=== PATIENT | female | born 1970 | race Caucasian/White ===

== ENCOUNTER 2022-08-14 04:45 | Emergency (ER) | payer BC, SELFPAY ==
[2022-08-14 04:49] VITALS: BP 150/90; PULSE 62; RESP 18; TEMP 36.6; O2SAT 100; BMI 23.0
--- NOTE | 2022-08-14 05:07 | ED.FEMALEGU1 ---
Documented by User: Melo Cruz MD 08/20/22 06:52 HPI - Female Genitourinary General Chief complaint: Urogenital-Female Stated complaint: PELVIC PRESSURE, PELVIC PAIN Time Seen by Provider: 08/14/22 05:05 Mode of arrival: walk-in History of Present Illness HPI Narrative: patient has history of uterine fibroids. LMP 2 months ago. Now presents complaining of acute pelvic pain. Feels like the pain radiates toward her buttocks. The pressure feels like she is having a baby. Pain comes and goes. Denies vaginal bleeding or urinary symptoms Related Data Allergies Allergy/AdvReac Type Severity Reaction Status Date / Time No Known Drug Allergies Allergy Verified 08/14/22 04:55 Review of Systems ROS Status of ROS 10 or more systems reviewed and unremarkable except as noted in history and below Exam Constitutional Vital Signs - 24 hr 08/14/22 04:49 08/14/22 05:37 Temperature 97.8 F Pulse Rate [Monitor] 62 Respiratory Rate 18 Blood Pressure 145/78 H Blood Pressure [Right Arm] 150/90 H Pulse Oximetry 100 Common normals: average body habitus, oriented x3, alert and well nourished Other: patient in mod pain HENMT Common normals: normocephalic and head/scalp atraumatic Eye Common normals: PERRL, EOMs intact bilaterally and conjunctivae normal Respiratory Common normals: normal respiratory effort, no retractions, no use of accessory muscles and clear to auscultation bilaterally Cardio Common normals: regular rate, regular rhythm, S1 normal heart sound and S2 normal heart sound GI Common normals: Normal to inspection, nondistended, normoactive bowel sounds present and non-tender Common normals: external appearance normal and appearance of the vagina normal Other: pressure applied to floor of vaginal vault increases pain. Extremity Common normals: normal to inspection and full ROM Neuro Common normals: oriented x3, CN's II-XII intact bilaterally, moves all extremities and no focal motor deficits Psych Common normals: mental status grossly normal Course Vital Signs Vital signs: Vital Signs Temperature 97.8 F 08/14/22 04:49 Pulse Rate 62 08/14/22 04:49 Respiratory Rate 18 08/14/22 04:49 Blood Pressure 150/90 H 08/14/22 04:49 Pulse Oximetry 100 08/14/22 04:49 Temperature 97.8 F 08/14/22 04:49 Pulse Rate 62 08/14/22 04:49 Respiratory Rate 18 08/14/22 04:49 Blood Pressure 145/78 H 08/14/22 05:37 Pulse Oximetry 100 08/14/22 04:49 MDM - Female Genitourinary MDM Narrative Medical decision making narrative: patient has past history of uterine fibroids. Presents complaining of acute pelvic pain radiating toward her buttocks. Describes the pressure as a sensation reminding her of having babies. No vaginal bleeding. Pelvic exam with tenderness of the pelvis floor. Pelvic US ordered and care transferred to oncoming physician at change of shift Lab Data Labs: Lab Results 08/14/22 08/14/22 Range/Units 05:01 08:40 WBC 7.5 (4.0-11.0) 10^3/uL RBC 5.07 (4.20-5.40) 10^6/uL Hgb 14.4 (12.0-16.0) g/dL Hct 43.4 (36.0-48.0) % MCV 85.6 (81.0-99.0) fL MCH 28.4 (26.7-34.0) pg MCHC 33.2 (29.9-35.2) g/dL RDW 14.0 (11.0-15.0) % Plt Count 300 (150-450) 10^3/uL MPV 11.2 (9.5-13.5) fL Neut % (Auto) 51.5 (43.0-75.0) % Lymph % (Auto) 33.3 (20.5-60.0) % [place] % (Auto) 11.6 (1.7-12.0) % Eos % (Auto) 2.5 (0.9-7.0) % Baso % (Auto) 0.8 (0.2-2.0) % Neut # (Auto) 3.8 (1.4-6.5) 10^3/uL Lymph # (Auto) 2.5 (1.2-3.8) 10^3/uL [place] # (Auto) 0.0 L (0.3-0.8) 10^3/uL Eos # (Auto) 0.2 (0.0-0.7) 10^3/uL Baso # (Auto) 0.1 (0.0-0.1) 10^3/uL Abs Immat Gran (auto) 0.02 (0.00-0.03) 10^3/uL Imm/Tot Granulo (auto) 0.3 (0.0-0.5) % Sodium 136 (136-145) mmol/L Potassium 3.9 (3.5-5.1) mmol/L Chloride 102 (98-107) mmol/L Carbon Dioxide 23.2 (21.0-32.0) mmol/L Anion Gap 14.7 BUN 13.0 (7.0-18.0) mg/dL Creatinine 0.88 (0.55-1.02) mg/dL Est GFR ( Amer) >60 (>=60) Est GFR (Non-Af Amer) >60 (>=60) BUN/Creatinine Ratio 14.8 Glucose 99 (74-106) mg/dL Calcium 9.1 (8.5-10.1) mg/dL Total Bilirubin 0.5 (0.2-1.0) mg/dL AST 17 (15-37) U/L ALT 22 (14-59) U/L Alkaline Phosphatase 64 (46-116) U/L Total Protein 8.0 (6.4-8.2) g/dL Albumin 3.7 (3.4-5.0) g/dL Globulin 4.3 g/dL Albumin/Globulin Ratio 0.9 Serum HCG, Qual Negative (NEGATIVE) Urine Color Lt. yellow (YELLOW) Urine Clarity Clear (CLEAR) Urine pH 5.5 (5.0-9.0) Ur Specific [place] <=1.005 A (1.005-1.025) Urine Protein Negative (NEG/TRACE) mg/dL Urine Glucose (UA) Negative (NEGATIVE) mg/dL Urine Ketones Negative (NEGATIVE) mg/dL Urine Occult Blood Negative (NEGATIVE) Urine Nitrite Negative (NEGATIVE) Urine Bilirubin Negative (NEGATIVE) Urine Urobilinogen 0.2 (0.2-1.0) EU/dL Ur Leukocyte Esterase Negative (NEGATIVE) Discharge Plan Discharge Chief Complaint: Urogenital-Female Clinical Impression: Pain in rectum, Pelvic pain Patient Disposition: Home, Self-Care Time of Disposition Decision: 08:51 Instructions: Pelvic Pain (ED), Rectal Pain (ED) Stand Alone Forms: Portal Instructions Referrals: Praveen Farley DO [Physician] - 1 week Leon Hamlin MD [Physician] - 1 week Discharge Date/Time: 08/14/22 09:13 Documented by User: Merritt Perla 08/14/22 08:52 HPI - Female Genitourinary General Chief complaint: Urogenital-Female Stated complaint: PELVIC PRESSURE, PELVIC PAIN Time Seen by Provider: 08/14/22 05:05 Related Data Allergies Allergy/AdvReac Type Severity Reaction Status Date / Time No Known Drug Allergies Allergy Verified 08/14/22 04:55 Exam Constitutional Vital Signs - 24 hr 08/14/22 04:49 08/14/22 05:37 Temperature 97.8 F Pulse Rate [Monitor] 62 Respiratory Rate 18 Blood Pressure 145/78 H Blood Pressure [Right Arm] 150/90 H Pulse Oximetry 100 Course Vital Signs Vital signs: Vital Signs Temperature 97.8 F 08/14/22 04:49 Pulse Rate 62 08/14/22 04:49 Respiratory Rate 18 08/14/22 04:49 Blood Pressure 150/90 H 08/14/22 04:49 Pulse Oximetry 100 08/14/22 04:49 Temperature 97.8 F 08/14/22 04:49 Pulse Rate 62 08/14/22 04:49 Respiratory Rate 18 08/14/22 04:49 Blood Pressure 145/78 H 08/14/22 05:37 Pulse Oximetry 100 08/14/22 04:49 MDM - Female Genitourinary MDM Narrative Medical decision making narrative: patient has past history of uterine fibroids. Presents complaining of acute pelvic pain radiating toward her buttocks. Describes the pressure as a sensation reminding her of having babies. No vaginal bleeding. Pelvic exam with tenderness of the pelvis floor. Pelvic US ordered and care transferred to oncoming physician at change of shift Shift change - patient signed out to me. I ordered CT abd/pelvis as the patient's symptoms sounded more distal GI/rectal or even a case of proctatitis. CT and US did not reveal any acute pathology - the uterine fibroids are a known issue and have not caused pain before. Patient felt better after ED treatment. She was to see Dr Hamlin for follow up =- may benefit from endoscopic evaluation of the area. prescribed Toradol for pain. ED return if she worsens. Lab Data Attestation: I reviewed the patient's lab results. Labs: Lab Results 08/14/22 08/14/22 Range/Units 05:01 08:40 WBC 7.5 (4.0-11.0) 10^3/uL RBC 5.07 (4.20-5.40) 10^6/uL Hgb 14.4 (12.0-16.0) g/dL Hct 43.4 (36.0-48.0) % MCV 85.6 (81.0-99.0) fL MCH 28.4 (26.7-34.0) pg MCHC 33.2 (29.9-35.2) g/dL RDW 14.0 (11.0-15.0) % Plt Count 300 (150-450) 10^3/uL MPV 11.2 (9.5-13.5) fL Neut % (Auto) 51.5 (43.0-75.0) % Lymph % (Auto) 33.3 (20.5-60.0) % [place] % (Auto) 11.6 (1.7-12.0) % Eos % (Auto) 2.5 (0.9-7.0) % Baso % (Auto) 0.8 (0.2-2.0) % Neut # (Auto) 3.8 (1.4-6.5) 10^3/uL Lymph # (Auto) 2.5 (1.2-3.8) 10^3/uL [place] # (Auto) 0.0 L (0.3-0.8) 10^3/uL Eos # (Auto) 0.2 (0.0-0.7) 10^3/uL Baso # (Auto) 0.1 (0.0-0.1) 10^3/uL Abs Immat Gran (auto) 0.02 (0.00-0.03) 10^3/uL Imm/Tot Granulo (auto) 0.3 (0.0-0.5) % Sodium 136 (136-145) mmol/L Potassium 3.9 (3.5-5.1) mmol/L Chloride 102 (98-107) mmol/L Carbon Dioxide 23.2 (21.0-32.0) mmol/L Anion Gap 14.7 BUN 13.0 (7.0-18.0) mg/dL Creatinine 0.88 (0.55-1.02) mg/dL Est GFR ( Amer) >60 (>=60) Est GFR (Non-Af Amer) >60 (>=60) BUN/Creatinine Ratio 14.8 Glucose 99 (74-106) mg/dL Calcium 9.1 (8.5-10.1) mg/dL Total Bilirubin 0.5 (0.2-1.0) mg/dL AST 17 (15-37) U/L ALT 22 (14-59) U/L Alkaline Phosphatase 64 (46-116) U/L Total Protein 8.0 (6.4-8.2) g/dL Albumin 3.7 (3.4-5.0) g/dL Globulin 4.3 g/dL Albumin/Globulin Ratio 0.9 Serum HCG, Qual Negative (NEGATIVE) Urine Color Lt. yellow (YELLOW) Urine Clarity Clear (CLEAR) Urine pH 5.5 (5.0-9.0) Ur Specific [place] <=1.005 A (1.005-1.025) Urine Protein Negative (NEG/TRACE) mg/dL Urine Glucose (UA) Negative (NEGATIVE) mg/dL Urine Ketones Negative (NEGATIVE) mg/dL Urine Occult Blood Negative (NEGATIVE) Urine Nitrite Negative (NEGATIVE) Urine Bilirubin Negative (NEGATIVE) Urine Urobilinogen 0.2 (0.2-1.0) EU/dL Ur Leukocyte Esterase Negative (NEGATIVE) Imaging Data ct abd/pelvis: Radiologist's impression: Procedure: CT abdomen pelvis w con EXAM: CT abdomen pelvis w con HISTORY: pelvic pain COMPARISON: CT abdomen and pelvis 08/10/2021.. TECHNIQUE: Following the intravenous administration of 100 cc of Omnipaque 300, axial soft tissue windows of the abdomen and pelvis were performed with coronal and sagittal reformats. CT dose reduction technique was used including Automated Exposure Control. Findings: ABDOMEN: Stable 0.9 cm cyst within segment 2 of the liver. Within segment 7 of the liver there is a stable 1.3 cm low-attenuation lesion. The gallbladder, pancreas, and adrenal glands are unremarkable. Redemonstrated within the spleen is a 0.9 cm low-attenuation lesion. This likely relates to benign angiomatous lesion. No renal stones or collecting system dilatation. Right renal low-attenuation lesions, too small to characterize. Evaluation of the bowel is limited given the absence of oral contrast. No bowel obstruction. The appendix is nondilated. The aorta is normal caliber. No enlarged abdominal lymph nodes or free abdominal fluid. Pelvis: Unremarkable bladder. Uterine lesions likely representing fibroids. Within the right adnexa there is a subtle rim enhancing 2.5 cm low-attenuation lesion likely relating to an involuting ovarian cyst. Small amount of adjacent fluid. No enlarged pelvic lymph nodes. No aggressive sclerotic or lytic osseous lesions. Mild multilevel degenerative spondylosis. IMPRESSION: 1. Probable involuting right ovarian cyst with a small amount of adjacent fluid. 2. Fibroid uterus. 3. Other nonemergent findings, as described above. Electronically authenticated by: ANNEMARIE MORENO Date: 08/14/2022 08:16 us pelvis: Radiologist's impression: Procedure: US pelvis transvaginal EXAM: US pelvis transvaginal HISTORY: pelvic pain COMPARISON: 06/20/2022 TECHNIQUE: Transvaginal images FINDINGS: The uterus is enlarged in size lobular in contour and heterogeneous in echotexture measuring 11.3 x 6.9 x 5.3 cm. Multiple myometrial masses the largest in the right fundus measures 3.5 x 4.1 x 2.8 cm. The endometrium measures 14.4 mm, correlate with the menstrual cycle. The right ovary is normal measuring 3.1 x 2.2 x 1.8 cm. Normal color and Doppler flow The left ovary is normal measuring 1.7 x 1.7 x 1.5 cm. Normal color and Doppler flow No free fluid IMPRESSION: Enlarged lobular heterogeneous uterus with myometrial masses consistent with fibroids Electronically authenticated by: JAYDEN HENDERSON Date: 08/14/2022 07:49 Discharge Plan Discharge Chief Complaint: Urogenital-Female Clinical Impression: Pain in rectum, Pelvic pain Patient Disposition: Home, Self-Care Time of Disposition Decision: 08:51 Instructions: Pelvic Pain (ED), Rectal Pain (ED) Stand Alone Forms: Portal Instructions Referrals: Praveen Farley DO [Physician] - 1 week Leon Hamlin MD [Physician] - 1 week Discharge Date/Time: 08/14/22 09:13
[2022-08-14 05:16] LABS: Hematocrit 43.4 % (36.0-48.0); Hemoglobin 14.4 g/dL (12.0-16.0); Mean Corpuscular Hemoglobin 28.4 pg (26.7-34.0); Mean Corpuscular Volume 85.6 fL (81.0-99.0); Red Blood Count 5.07 10^6/uL (4.20-5.40); White Blood Count 7.5 10^3/uL (4.0-11.0)
[2022-08-14 05:17] LABS: Basophils Percent Auto 0.8 % (0.2-2.0); Eosinophils Percent Auto 2.5 % (0.9-7.0); Immature Granulocytes Pct Auto 0.3 % (0.0-0.5); Lymphocytes Absolute Auto 2.5 10^3/uL (1.2-3.8); Lymphocytes Percent Auto 33.3 % (20.5-60.0); Mean Corpuscular HGB Conc 33.2 g/dL (29.9-35.2); Mean Platelet Volume 11.2 fL (9.5-13.5); Monocytes Percent Auto 11.6 % (1.7-12.0); Neutrophils Absolute Auto 3.8 10^3/uL (1.4-6.5); Neutrophils Percent Auto 51.5 % (43.0-75.0); Platelet Count 300 10^3/uL (150-450)
[2022-08-14 05:18] LABS: Basophils Absolute Auto 0.1 10^3/uL (0.0-0.1); Eosinophils Absolute Auto 0.2 10^3/uL (0.0-0.7); Immature Granulocytes Abs Auto 0.02 10^3/uL (0.00-0.03)
[2022-08-14] MEDS: ONDANSETRON PF 4 MG/2 ML VIAL IV (05:18)
[2022-08-14] MEDS: 0.9 % SODIUM CHLORIDE 1,000 ML 999 ML IV (05:18)
[2022-08-14] MEDS: MORPHINE SULFATE 2 MG/ML SYRINGE (05:20)
[2022-08-14 05:33] LABS: Alanine Aminotransferase 22 U/L (14-59); Albumin Globulin Ratio 0.9; Albumin Level 3.7 g/dL (3.4-5.0); Alkaline Phosphatase 64 U/L (46-116); Anion Gap 14.7; Aspartate Amino Transferase 17 U/L (15-37); BUN Creatinine Ratio 14.8; Bilirubin Total 0.5 mg/dL (0.2-1.0); Calcium 9.1 mg/dL (8.5-10.1); Carbon Dioxide 23.2 mmol/L (21.0-32.0); Chloride 102 mmol/L (98-107); Estimated GFR (African America >60 (>=60); Estimated GFR (Non-African Ame >60 (>=60); Globulin 4.3 g/dL; Glucose 99 mg/dL (74-106); Potassium 3.9 mmol/L (3.5-5.1); Sodium 136 mmol/L (136-145)
[2022-08-14 05:35] LABS: HCG Qualitative NEGATIVE (NEGATIVE)
[2022-08-14 05:37] VITALS: BP 145/78
--- NOTE | 2022-08-14 05:47 | US_ITS ---
The [address] [address] Patient Name: FRANKY CYR MRN: [id number] date: 1970 Sex: F Assigned Patient Location: ER Current Patient Location: ER Accession/Order Number: [id number] Exam Date: 08/14/2022 07:00 Report Date: 08/14/2022 07:49 At the request of: JAVIER JUNE Procedure: US pelvis transvaginal EXAM: US pelvis transvaginal HISTORY: pelvic pain COMPARISON: 06/20/2022 TECHNIQUE: Transvaginal images FINDINGS: The uterus is enlarged in size lobular in contour and heterogeneous in echotexture measuring 11.3 x 6.9 x 5.3 cm. Multiple myometrial masses the largest in the right fundus measures 3.5 x 4.1 x 2.8 cm. The endometrium measures 14.4 mm, correlate with the menstrual cycle. The right ovary is normal measuring 3.1 x 2.2 x 1.8 cm. Normal color and Doppler flow The left ovary is normal measuring 1.7 x 1.7 x 1.5 cm. Normal color and Doppler flow No free fluid IMPRESSION: Enlarged lobular heterogeneous uterus with myometrial masses consistent with fibroids Electronically authenticated by: JAYDEN HENDERSON Date: 08/14/2022 07:49
--- NOTE | 2022-08-14 07:03 | CT_ITS ---
The [address] [address] Patient Name: FRANKY CYR MRN: [id number] date: 1970 Sex: F Assigned Patient Location: ER Current Patient Location: Accession/Order Number: [id number] Exam Date: 08/14/2022 07:55 Report Date: 08/14/2022 08:16 At the request of: YAS RUFF Procedure: CT abdomen pelvis w con EXAM: CT abdomen pelvis w con HISTORY: pelvic pain COMPARISON: CT abdomen and pelvis 08/10/2021.. TECHNIQUE: Following the intravenous administration of 100 cc of Omnipaque 300, axial soft tissue windows of the abdomen and pelvis were performed with coronal and sagittal reformats. CT dose reduction technique was used including Automated Exposure Control. Findings: ABDOMEN: Stable 0.9 cm cyst within segment 2 of the liver. Within segment 7 of the liver there is a stable 1.3 cm low-attenuation lesion. The gallbladder, pancreas, and adrenal glands are unremarkable. Redemonstrated within the spleen is a 0.9 cm low-attenuation lesion. This likely relates to benign angiomatous lesion. No renal stones or collecting system dilatation. Right renal low-attenuation lesions, too small to characterize. Evaluation of the bowel is limited given the absence of oral contrast. No bowel obstruction. The appendix is nondilated. The aorta is normal caliber. No enlarged abdominal lymph nodes or free abdominal fluid. Pelvis: Unremarkable bladder. Uterine lesions likely representing fibroids. Within the right adnexa there is a subtle rim enhancing 2.5 cm low-attenuation lesion likely relating to an involuting ovarian cyst. Small amount of adjacent fluid. No enlarged pelvic lymph nodes. No aggressive sclerotic or lytic osseous lesions. Mild multilevel degenerative spondylosis. IMPRESSION: 1. Probable involuting right ovarian cyst with a small amount of adjacent fluid. 2. Fibroid uterus. 3. Other nonemergent findings, as described above. Electronically authenticated by: ANNEMARIE MORENO Date: 08/14/2022 08:16
[2022-08-14 08:46] LABS: Bilirubin Urine NEGATIVE (NEGATIVE); Blood Urine NEGATIVE (NEGATIVE); Clarity Urine CLEAR (CLEAR); Color Urine LT. YELLOW (YELLOW); Glucose Urine UA NEGATIVE (NEGATIVE); Ketones Urine NEGATIVE (NEGATIVE); Leukocyte Esterase Urine NEGATIVE (NEGATIVE); Nitrite Urine NEGATIVE (NEGATIVE); Protein Urine NEGATIVE (NEG/TRACE); Specific Gravity Urine <=1.005 (1.005-1.025); Urobilinogen Urine 0.2 EU/dL (0.2-1.0); pH Urine 5.5 (5.0-9.0)
[2022-08-14 08:48] LABS: Urine Microscopic Indicated NO
== END 2022-08-14 09:13 | disposition home or self-care (01) ==
PROVIDERS: Internal Medicine; Emergency Provider Emergency Medicine; PCP Family Medicine
DX: R10.2 Pelvic and perineal pain (principal); K62.89 Other specified diseases of anus and rectum
CPT/HCPCS: 36415; 74177; 76830; 80053; 81003; 84703; 85025; 96374; 99285; Q9967

== ENCOUNTER 2022-10-04 06:04 | Outpatient (OUT) | payer BC, SELFPAY ==
[2022-10-04 07:07] LABS: Basophils Absolute Auto 0.1 10^3/uL (0.0-0.1); Basophils Percent Auto 1.3 % (0.2-2.0); Eosinophils Absolute Auto 0.2 10^3/uL (0.0-0.7); Eosinophils Percent Auto 4.2 % (0.9-7.0); Hemoglobin 14.3 g/dL (12.0-16.0); Immature Granulocytes Abs Auto 0.02 10^3/uL (0.00-0.03); Immature Granulocytes Pct Auto 0.4 % (0.0-0.5); Lymphocytes Absolute Auto 1.4 10^3/uL (1.2-3.8); Lymphocytes Percent Auto 25.3 % (20.5-60.0); Mean Corpuscular HGB Conc 33.3 g/dL (29.9-35.2); Mean Corpuscular Hemoglobin 28.9 pg (26.7-34.0); Mean Corpuscular Volume 86.9 fL (81.0-99.0); Mean Platelet Volume 11.7 fL (9.5-13.5); Monocytes Absolute Auto 0.6 10^3/uL (0.3-0.8); Monocytes Percent Auto 11.3 % (1.7-12.0); Neutrophils Absolute Auto 3.2 10^3/uL (1.4-6.5); Neutrophils Percent Auto 57.5 % (43.0-75.0); Platelet Count 266 10^3/uL (150-450); Red Blood Count 4.95 10^6/uL (4.20-5.40); Red Cell Distribution Width 13.7 % (11.0-15.0); White Blood Count 5.5 10^3/uL (4.0-11.0)
[2022-10-04 07:50] LABS: Estimated Average Glucose 91 mg/dL; Glycohemoglobin A1C 4.8 % (4.5-6.2)
[2022-10-04 08:13] LABS: Calcium 8.8 mg/dL (8.5-10.1); Carbon Dioxide 27.9 mmol/L (21.0-32.0); Chloride 106 mmol/L (98-107); Estimated GFR (African America >60 (>=60); Estimated GFR (Non-African Ame >60 (>=60); Glucose 87 mg/dL (74-106); Potassium 3.9 mmol/L (3.5-5.1); Sodium 141 mmol/L (136-145)
[2022-10-04 08:14] LABS: Alanine Aminotransferase 20 U/L (14-59); Albumin Globulin Ratio 1.1; Alkaline Phosphatase 55 U/L (46-116); Aspartate Amino Transferase 18 U/L (15-37); Bilirubin Direct 0.1 mg/dL (0.0-0.2); Bilirubin Total 0.4 mg/dL (0.2-1.0); Cholesterol 189 mg/dL (<=200); Globulin 3.5 g/dL; HDL Cholesterol 64 mg/dL (40-60); Total Protein 7.5 g/dL (6.4-8.2); Triglycerides 39 mg/dL (<=150); VLDL CHOLESTEROL 7.8 mg/dL
[2022-10-04 08:15] LABS: Thyroid Stimulating Hormone 1.687 uIU/mL (0.358-3.740)
== END 2022-10-04 06:05 | disposition home or self-care (01) ==
LOC: LAB 06:05
PROVIDERS: PCP Family Medicine; Visit Provider Family Medicine
DX: Z00.00 Encounter for general adult medical examination without abnormal findings (principal)
CPT/HCPCS: 36415; 80048; 80061; 80076; 83036; 84443; 85025

== ENCOUNTER 2022-10-11 14:36 | Outpatient (OUT) | payer BC, SELFPAY | END 2022-10-11 14:37 | disposition home or self-care (01) | LOC: PST 14:36 | PROVIDERS: PCP Family Medicine; Visit Provider Surgery | DX: Z01.818 Encounter for other preprocedural examination (principal); Z12.11 Encounter for screening for malignant neoplasm of colon ==

== ENCOUNTER 2022-10-23 06:08 | Day surgery (SDC) | payer BC, SELFPAY ==
--- NOTE | 2022-10-23 | OP_ITS ---
OPERATION DATE: ??10/23/2022 PREOPERATIVE DIAGNOSIS:? Colorectal screening. POSTOPERATIVE DIAGNOSIS:? 3 mm rectal polyp. PROCEDURE:? Colonoscopy to cecum with cold biopsy forceps polypectomy x1. SURGEON:? Leon Hamlin M.D. ANESTHESIA:? Monitored anesthesia care. ESTIMATED BLOOD LOSS:? Less than 1 mL. INDICATIONS AND CONSENT:? Patient is a 52-year-old female presents for colorectal screening.? Indications, risks, benefits, alternatives of proceeding with colonoscopy were explained extensively to the patient, including the risks of bleeding, colon perforation or anesthetic complications.? All of her questions were answered.? Informed consent was obtained. PROCEDURE:? Patient brought to the operating room, placed in the left lateral decubitus position.? Monitored anesthesia care was provided.? Rectal exam was performed which showed no masses or blood.? The scope was inserted into the anal canal.? Under direct visualization was advanced.? With the aid of abdominal compression, it was advanced to the cecum where cecal markings were clearly identified.? There was noted to be some redundancy of the colon.? There was a good prep.? Upon withdrawal of the scope, mucosal surfaces were carefully examined.? There were no mass lesions or inflammatory changes.? No significant diverticulosis.? Within the rectum, there was noted to be a 3 mm sessile polyp that was removed with cold biopsy forceps with good hemostasis.? The scope was retroflexed in the anal canal.? There was a small hypertrophic anal papilla.? No significant hemorrhoidal disease.? The scope was then withdrawn.? Patient tolerated procedure well, was sent to recovery room in good condition. f/u screening colonoscopy should be in 5 years, but may change based on pathology results. CC:? Jake García
[2022-10-23 06:28] VITALS: BMI 22.8
[2022-10-23 06:35] LABS: HCG Qualitative NEGATIVE (NEGATIVE)
[2022-10-23 06:38] VITALS: BP 154/87; PULSE 48; RESP 16; TEMP 35.3; O2SAT 100
[2022-10-23] MEDS: LACTATED RINGER'S SOLUTION 1,000 ML 50 ML IV (06:50)
[2022-10-23 07:51] VITALS: BP 148/101; PULSE 57; RESP 18; TEMP 36.1; O2SAT 99
[2022-10-23 08:06] VITALS: BP 153/93; PULSE 57; RESP 16; O2SAT 99
[2022-10-23 08:21] VITALS: BP 139/81; PULSE 62; RESP 16; O2SAT 99
== END 2022-10-23 08:21 | disposition home or self-care (01) ==
PROVIDERS: PCP Family Medicine; Visit Provider Surgery
PROC: (CPT 45380; principal; 2022-10-23 07:30)
DX: Z12.11 Encounter for screening for malignant neoplasm of colon (principal); K62.1 Rectal polyp
CPT/HCPCS: 45380; 36415; 84703; 88305; J2704

== ENCOUNTER 2023-05-20 13:52 | Outpatient (OUT) | payer BC, SELFPAY ==
--- NOTE | 2023-05-20 13:58 | US_ITS ---
The [address] [address] Patient Name: FRANKY CYR MRN: [id number] date: 1970 Sex: F Assigned Patient Location: US Current Patient Location: [facility] Accession/Order Number: [id number] Exam Date: 05/20/2023 14:00 Report Date: 05/20/2023 16:09 At the request of: DIPIKA JONES Procedure: US pelvis w/ transvaginal EXAMINATION: US pelvis w/ transvaginal HISTORY: pelvic pain in female R10.2 COMPARISON: No relevant comparison available. FINDINGS: The uterus is prominent in size heterogeneous in echotexture and lobular in contour measuring 8.1 x 5.7 x 6.4 cm. 2 focal myometrial masses measuring 3.0 x 3.1 x 2.3 cm posterior and at the myometrial endometrial junction measuring 2.7 x 2.6 x 2.1 cm. The endometrium measures 2.1 cm, heterogeneous and thickened. The right ovary is not visualized The left ovary measures 4.7 x 2.6 x 3.5 cm. Identified in the left ovary is a 2.3 x 2.2 cm anechoic area with layering low-level echoes but no color-flow US/US pelvis w/ transvaginal IMPRESSION: Thickened heterogeneous endometrium, correlate with the menstrual cycle Two focal masses possibly fibroids 2.3 cm left ovarian complex or hemorrhagic cyst Electronically authenticated by: JAYDEN HENDERSON Date: 05/20/2023 16:09
== END 2023-05-20 13:53 | disposition home or self-care (01) ==
LOC: US 13:52
PROVIDERS: PCP Family Medicine; Visit Provider Obstetrics & Gynecology
DX: Z12.31 Encounter for screening mammogram for malignant neoplasm of breast (principal); Z80.3 Family history of malignant neoplasm of breast; D25.9 Leiomyoma of uterus, unspecified; D10.2 Benign neoplasm of floor of mouth; N83.292 Other ovarian cyst, left side
CPT/HCPCS: 76830; 76856; 77063; 77067

== ENCOUNTER 2023-05-20 13:53 | Outpatient (OUT) | payer BC, SELFPAY ==
--- NOTE | 2023-05-20 13:56 | MM_ITS ---
Patient Name: FRANKY CYR MR#: [id number] : 1970 Exam Date: 05/20/2023 Ordering Doctor: DR Mikey Subramanian . RADIOLOGY REPORT PROCEDURE: MM TOMOSYNTHESIS SCREENING BI COMPARISON: MG MAMM SCREEN 3D KATHY CAD, 05/17/2022. MG MAMM SCREEN 3D KATHY CAD, 05/10/2021. INDICATIONS: screening Calculator Name NCI Breast Cancer Risk Assessment Tool 5 Year Breast Cancer Risk 1.60% Lifetime Breast Cancer Risk 12.60% Personal Breast Cancer No Personal Ovarian Cancer No Treatments None Family Cancers Grandmother-paternal with breast cancer at age 70. LOCATION: [facility] BREAST COMPOSITION: Extremely dense, which lowers the sensitivity of mammography. FINDINGS: DIAGNOSTIC CATEGORY 2--BENIGN FINDING. NO CHANGE FROM COMPARISON. Scattered benign-appearing nodules are present. Scattered benign-appearing calcifications are present. Scattered benign-appearing lymph nodes are present. RIGHT BREAST: No significant suspicious finding. LEFT BREAST: No significant suspicious finding. RECOMMENDATIONS: ROUTINE MAMMOGRAM AND CLINICAL EVALUATION IN 12 MONTHS. PLEASE NOTE: A NORMAL MAMMOGRAM DOES NOT EXCLUDE THE POSSIBILITY OF BREAST CANCER. A CLINICALLY SUSPICIOUS PALPABLE LUMP SHOULD BE BIOPSIED. Dictated by: Joni Kinsey MD on 05/20/2023 at 15:27 Approved by: Joni Kinsey MD on 05/20/2023 at 15:28
== END 2023-05-20 13:54 | disposition home or self-care (01) ==
LOC: MAMMO 13:53
PROVIDERS: PCP Family Medicine; Visit Provider Family Medicine
DX: Z12.31 Encounter for screening mammogram for malignant neoplasm of breast (principal); Z80.3 Family history of malignant neoplasm of breast
CPT/HCPCS: 77063; 77067

== ENCOUNTER 2023-05-26 06:56 | Outpatient (OUT) | payer BC, SELFPAY ==
[2023-05-26 07:27] LABS: Basophils Absolute Auto 0.1 10^3/uL (0.0-0.1); Basophils Percent Auto 1.2 % (0.2-2.0); Eosinophils Absolute Auto 0.3 10^3/uL (0.0-0.7); Eosinophils Percent Auto 5.1 % (0.9-7.0); Estimated Average Glucose 91 mg/dL; Glycohemoglobin A1C 4.8 % (4.5-6.2); Hematocrit 43.9 % (36.0-48.0); Hemoglobin 14.1 g/dL (12.0-16.0); Immature Granulocytes Abs Auto 0.02 10^3/uL (0.00-0.03); Immature Granulocytes Pct Auto 0.3 % (0.0-0.5); Lymphocytes Absolute Auto 1.8 10^3/uL (1.2-3.8); Lymphocytes Percent Auto 29.7 % (20.5-60.0); Mean Corpuscular HGB Conc 32.1 g/dL (29.9-35.2); Mean Corpuscular Hemoglobin 28.4 pg (26.7-34.0); Mean Corpuscular Volume 88.3 fL (81.0-99.0); Mean Platelet Volume 11.7 fL (9.5-13.5); Monocytes Absolute Auto 0.7 10^3/uL (0.3-0.8); Monocytes Percent Auto 10.9 % (1.7-12.0); Neutrophils Absolute Auto 3.2 10^3/uL (1.4-6.5); Neutrophils Percent Auto 52.8 % (43.0-75.0); Platelet Count 236 10^3/uL (150-450); Red Blood Count 4.97 10^6/uL (4.20-5.40); White Blood Count 6.1 10^3/uL (4.0-11.0)
[2023-05-26 07:50] LABS: Alanine Aminotransferase 16 U/L (14-59); Albumin Globulin Ratio 1.1; Albumin Level 3.7 g/dL (3.4-5.0); Alkaline Phosphatase 58 U/L (46-116); Anion Gap 13.3; Aspartate Amino Transferase 15 U/L (15-37); BUN Creatinine Ratio 18.9; Bilirubin Direct 0.1 mg/dL (0.0-0.2); Bilirubin Total 0.7 mg/dL (0.2-1.0); Calcium 8.7 mg/dL (8.5-10.1); Carbon Dioxide 26.8 mmol/L (21.0-32.0); Chloride 104 mmol/L (98-107); Chol HDL Ratio 2.9; Cholesterol 181 mg/dL (<=200); Estimated GFR (African America >60 (>=60); Estimated GFR (Non-African Ame >60 (>=60); Globulin 3.5 g/dL; Glucose 83 mg/dL (74-106); HDL Cholesterol 62 mg/dL (40-60); Potassium 4.1 mmol/L (3.5-5.1); Sodium 140 mmol/L (136-145); Total Protein 7.2 g/dL (6.4-8.2); Triglycerides 49 mg/dL (<=150); VLDL CHOLESTEROL 9.8 mg/dL
== END 2023-05-26 06:57 | disposition home or self-care (01) ==
LOC: LAB 06:57
PROVIDERS: PCP Family Medicine; Visit Provider Family Medicine
DX: Z00.00 Encounter for general adult medical examination without abnormal findings (principal)
CPT/HCPCS: 36415; 80048; 80061; 80076; 83036; 84443; 85025

== ENCOUNTER 2023-06-13 14:34 | Outpatient (OUT) | payer BC, SELFPAY ==
--- NOTE | 2023-06-13 14:35 | ECG_ITS ---
The 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
== END 2023-06-13 14:35 | disposition home or self-care (01) ==
LOC: PST 14:34
PROVIDERS: PCP Family Medicine; Visit Provider Obstetrics & Gynecology
DX: Z01.810 Encounter for preprocedural cardiovascular examination (principal); R93.89 Abnormal findings on diagnostic imaging of other specified body structures; D25.9 Leiomyoma of uterus, unspecified; R10.2 Pelvic and perineal pain
CPT/HCPCS: 93005

== ENCOUNTER 2023-06-17 06:07 | Day surgery (SDC) | payer BC, SELFPAY ==
[2023-06-13 15:09] VITALS: BP 134/87; PULSE 60; TEMP 36.8; O2SAT 99; BMI 23.4
[2023-06-17 06:17] LABS: Basophils Absolute Auto 0.1 10^3/uL (0.0-0.1); Basophils Percent Auto 1.2 % (0.2-2.0); Eosinophils Absolute Auto 0.3 10^3/uL (0.0-0.7); Eosinophils Percent Auto 4.5 % (0.9-7.0); Hemoglobin 14.4 g/dL (12.0-16.0); Immature Granulocytes Abs Auto 0.01 10^3/uL (0.00-0.03); Immature Granulocytes Pct Auto 0.1 % (0.0-0.5); Lymphocytes Percent Auto 28.5 % (20.5-60.0); Mean Corpuscular Hemoglobin 28.1 pg (26.7-34.0); Mean Corpuscular Volume 87.9 fL (81.0-99.0); Mean Platelet Volume 11.8 fL (9.5-13.5); Monocytes Absolute Auto 0.8 10^3/uL (0.3-0.8); Monocytes Percent Auto 11.3 % (1.7-12.0); Neutrophils Absolute Auto 3.8 10^3/uL (1.4-6.5); Neutrophils Percent Auto 54.4 % (43.0-75.0); Platelet Count 210 10^3/uL (150-450); Red Blood Count 5.12 10^6/uL (4.20-5.40); Red Cell Distribution Width 13.1 % (11.0-15.0); White Blood Count 6.9 10^3/uL (4.0-11.0)
[2023-06-17 06:26] VITALS: BP 147/93; PULSE 56; TEMP 36.2; O2SAT 100; BMI 23.6
[2023-06-17 06:40] LABS: HCG Quantitative 3 mIU/mL
[2023-06-17] MEDS: LACTATED RINGER'S SOLUTION 1,000 ML 50 ML IV (06:47)
--- NOTE | 2023-06-17 08:13 | PM.ONB ---
Brief Operative Note Date of procedure: 06/17/23 Pre-op diagnosis general: thickened endometrium, uterine fibroids, menorrhagia Post-op diagnosis: same as pre-op Procedure: NAME OF PROCEDURE: [ D&c hysteroscopy with myosure] PROCEDURE: The patient was taken back to the Operating Room where she was prepped and draped in normal sterile fashion after being placed under general anesthesia without difficulty. She was also placed in the dorsal lithotomy position. A weighted speculum was placed in the patient?s vagina. The anterior lip of the cervix was identified and grasped with a single tooth tenaculum. The patient?s uterus was then sounded roughly to [? 8] cm. The patient was then gently dilated using Hegar dilators. The hysteroscope was passed through the patient?s cervix into the uterus. Both ostia were identified. fluffy appearing endometrium. No gross evidence of malignancy, no gross evidence of polyps or fibroids. The myosure apparatus was placed through the scope, The myosure was engaged and endometrial curretting were removed. The hysteroscope was then removed from the uterus. The endometrial curettings were sent out to pathology. The single tooth tenaculum was then removed from the patient's anterior lip of the cervix where excellent hemostasis was noted. All instruments were removed from the patient?s vagina. The patient tolerated the procedure well. Sponge, lap and needle counts were correct times two. The patient was taken to the Recovery Room in stable condition.Room in stable condition. Anesthesia: MAC Surgeon: Praveen Farley Estimated blood loss (mL): 5 Pathology: other (endometrial currettings) Condition: stable Disposition: PACU Urinary Catheter Management Urinary Catheter Management Urethral: Cath placed during this visit: no
[2023-06-17 08:22] VITALS: BP 121/84; PULSE 56; O2SAT 97
[2023-06-17 08:37] VITALS: BP 129/71; PULSE 48; O2SAT 100
[2023-06-17] MEDS: ERYTHROMYCIN OP OINT 0.5% 1 GM TUBE OP (08:52)
[2023-06-17 09:07] VITALS: BP 132/83; PULSE 48; O2SAT 100
== END 2023-06-17 09:10 | disposition home or self-care (01) ==
PROVIDERS: PCP Family Medicine; Visit Provider Obstetrics & Gynecology
PROC: (CPT 952; principal; 2023-06-17 07:30)
DX: R93.89 Abnormal findings on diagnostic imaging of other specified body structures (principal); D25.9 Leiomyoma of uterus, unspecified; R10.2 Pelvic and perineal pain; Z86.718 Personal history of other venous thrombosis and embolism; R56.9 Unspecified convulsions
CPT/HCPCS: 58558; 36415; 84702; 85025; 88305; 99999; J1094; J2704

== ENCOUNTER 2023-07-22 12:27 | Outpatient (OUT) | payer BC, SELFPAY ==
[2023-07-22 13:15] LABS: Basophils Absolute Auto 0.1 10^3/uL (0.0-0.1); Basophils Percent Auto 0.6 % (0.2-2.0); Eosinophils Absolute Auto 0.3 10^3/uL (0.0-0.7); Eosinophils Percent Auto 2.4 % (0.9-7.0); Hematocrit 40.8 % (36.0-48.0); Hemoglobin 13.2 g/dL (12.0-16.0); Immature Granulocytes Abs Auto 0.03 10^3/uL (0.00-0.03); Immature Granulocytes Pct Auto 0.3 % (0.0-0.5); Lymphocytes Absolute Auto 1.7 10^3/uL (1.2-3.8); Lymphocytes Percent Auto 15.1 % (20.5-60.0); Mean Corpuscular HGB Conc 32.4 g/dL (29.9-35.2); Mean Corpuscular Hemoglobin 28.1 pg (26.7-34.0); Mean Platelet Volume 11.9 fL (9.5-13.5); Monocytes Absolute Auto 0.7 10^3/uL (0.3-0.8); Monocytes Percent Auto 6.1 % (1.7-12.0); Neutrophils Absolute Auto 8.6 10^3/uL (1.4-6.5); Neutrophils Percent Auto 75.5 % (43.0-75.0); Platelet Count 239 10^3/uL (150-450); Red Blood Count 4.69 10^6/uL (4.20-5.40); Red Cell Distribution Width 13.9 % (11.0-15.0); White Blood Count 11.4 10^3/uL (4.0-11.0)
[2023-07-22 13:22] LABS: INR 1.08; Partial Thromboplastin Time 26.7 sec (22.3-36.2); Prothrombin Time 11.4 sec (9.0-11.6)
[2023-07-22 13:27] LABS: Alanine Aminotransferase 20 U/L (14-59); Albumin Globulin Ratio 1.1; Albumin Level 3.8 g/dL (3.4-5.0); Alkaline Phosphatase 66 U/L (46-116); Anion Gap 11.4; Aspartate Amino Transferase 16 U/L (15-37); BUN Creatinine Ratio 20.9; Bilirubin Direct 0.2 mg/dL (0.0-0.2); Bilirubin Total 0.8 mg/dL (0.2-1.0); Carbon Dioxide 28.1 mmol/L (21.0-32.0); Chloride 104 mmol/L (98-107); Estimated GFR (African America >60 (>=60); Estimated GFR (Non-African Ame >60 (>=60); Globulin 3.4 g/dL; Glucose 91 mg/dL (74-106); Potassium 4.5 mmol/L (3.5-5.1); Sodium 139 mmol/L (136-145); Total Protein 7.2 g/dL (6.4-8.2)
== END 2023-07-22 12:28 | disposition home or self-care (01) ==
LOC: PST 12:28
PROVIDERS: PCP Family Medicine; Visit Provider Obstetrics & Gynecology
DX: Z01.810 Encounter for preprocedural cardiovascular examination (principal); N92.0 Excessive and frequent menstruation with regular cycle; R10.2 Pelvic and perineal pain; N94.6 Dysmenorrhea, unspecified; N94.10 Unspecified dyspareunia
CPT/HCPCS: 80048; 80076; 85025; 85610; 85730; 86850; 86900; 86901

== ENCOUNTER 2023-07-30 06:04 | Day surgery (SDC) | payer BC, SELFPAY ==
[2023-07-22 12:47] VITALS: BP 138/86; PULSE 47; TEMP 36.6; O2SAT 99; BMI 22.5
[2023-07-30] VITALS (14 sets, daily range): BP systolic 126–157; BP diastolic 62–88; PULSE 45–63; TEMP 36.3–36.6; O2SAT 85–100
--- OUTSIDE RECORDS SUMMARY | 2023-07-30 06:08 | XMS_ITS | CCD ---
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 Name Role Phone BEATRIZ, DR JAYDEN Bobby Admitting Unavailable WEST, DR JAYDEN Bobby Attending Unavailable NADERER, DR KARO Latif Primary Care Unavailable WEST, DR JAYDEN Bobby Consulting Unavailable NADERER, DR KARO Latif Primary Care Unavailable WEST, DR JAYDEN Bobby Attending Unavailable WEST, DR JAYDEN Bobby Admitting Unavailable WEST, DR JAYDEN Bobby Admitting Unavailable WEST, DR JAYDEN Bobby Attending Unavailable WEST, DR JAYDEN Bobby Consulting Unavailable NADERER, DR KARO Latif Primary Care Unavailable ROBERT ., DR BAR Attending Unavailable ROBERT ., DR BAR Consulting Unavailable ROBERT ., DR BAR Admitting Unavailable NADERER, DR KARO Latif Primary Care Unavailable ROBERT ., DR BAR Attending Unavailable ROBERT ., DR BAR Consulting Unavailable ROBERT ., DR BAR Admitting Unavailable NADERER, DR KARO Latif Primary Care Unavailable ZIEBER, DR RANDALL Chester Consulting Unavailable WEST, DR JAYDEN Bobby Admitting Unavailable WEST, DR JAYDEN Bobby Attending Unavailable WEST, DR JAYDEN Bobby Consulting Unavailable NADERER, DR KARO Latif Primary Care Unavailable WEST, DR JAYDEN Bobby Attending Unavailable WEST, DR JAYDEN Bobby Consulting Unavailable WEST, DR JAYDEN Bobby Admitting Unavailable NADERER, DR KARO Latif Primary Care Unavailable NADERER, DR KARO Latif Primary Care Unavailable NADERER, DR KARO Latif Attending Unavailable NADERER, DR KARO Latif Admitting Unavailable NADERER, DR KARO Latif Primary Care Unavailable ZIEBER, DR RANDALL Chester Consulting Unavailable NADERER, DR KARO Latif Attending Unavailable NADERER, DR KARO Latif Admitting Unavailable NADERER, DR KARO Latif Consulting Unavailable ROBERT ., DR BAR Admitting Unavailable ROBERT ., DR BAR Attending Unavailable ROBERT ., DR BAR Consulting Unavailable NADERER, DR KARO Latif Primary Care Unavailable NADERER, DR KARO Latif Primary Care Unavailable NADERER, DR KARO Laitf Attending Unavailable NADERER, DR KARO Latif Consulting Unavailable NADERER, DR KARO Latif Admitting Unavailable NADERER, DR KARO Latif Primary Care Unavailable ABBAS, DR MEDINA Attending Unavailable ABBAS, DR MEDINA Consulting Unavailable ABBAS, DR MEDINA Admitting Unavailable NADERER, DR KARO Latif Primary Care Unavailable WEST, DR JAYDEN Bobby Consulting Unavailable WEST, DR JAYDEN Bobby Attending Unavailable WEST, DR JAYDEN Bobby Admitting Unavailable NADERER, DR KARO Latif Primary Care Unavailable WEST, DR JAYDEN Bobby Consulting Unavailable WEST, DR JAYDEN Bobby Admitting Unavailable WEST, DR JAYDEN Bobby Attending Unavailable NADERER, DR KARO Latif Primary Care Unavailable WEST, DR JAYDEN Bobby Consulting Unavailable WEST, DR JAYDEN Bobby Attending Unavailable WEST, DR JAYDEN Bobby Admitting Unavailable ZIEBER, DR RANDALL Chester Consulting Unavailable MARCELO, LOY Attending Unavailable MARCELO, LOY Consulting Unavailable MARCELO, LOY Admitting Unavailable NADERER, DR KARO Latif Primary Care Unavailable MARCELO, LOY Admitting Unavailable MARCELO, LOY Attending Unavailable MARCELO, LOY Consulting Unavailable NADERER, DR KARO Latif Primary Care Unavailable NADERER, DR KARO Latif Primary Care Unavailable WEST, DR JAYDEN Bobby Consulting Unavailable NADERER, DR KARO Latif Attending Unavailable NADERER, DR KARO Latif Admitting Unavailable NADERER, DR KARO Latif Consulting Unavailable ROBERT ., DR BAR Admitting Unavailable ROBERT ., DR BAR Attending Unavailable ROBERT ., DR BAR Consulting Unavailable NADERER, DR KRAO Latif Primary Care Unavailable ZIEBER, DR RANDALL Chester Consulting Unavailable WEST, DR JAYDEN Bobby Admdee Unavailable WEST, DR JAYDEN Bobby Attending Unavailable NADERER, DR KARO Latif Primary Care Unavailable NADERER, DR KARO Latif Primary Care Unavailable ROBERT ., DR BAR Admitting Unavailable ROBERT ., DR BAR Attending Unavailable ROBERT ., DR BAR Consulting Unavailable ZIEBER, DR RANDALL Chester Consulting Unavailable WEST, DR JAYDEN Bobby Consulting Unavailable NADERER, DR KARO Latif Primary Care Unavailable WEST, DR JAYDEN Bobby Attending Unavailable WEST, DR JAYDEN Bobby Admitting Unavailable WEST, DR JAYDEN Bobby Admitting Unavailable WEST, DR JAYDEN Bobby Attending Unavailable WEST, DR JAYDEN Bobby Consulting Unavailable NADERER, DR KARO Latif Primary Care Unavailable NADERER, DR KARO Latif Primary Care Unavailable ABBAS, DR MEDINA Consulting Unavailable WEST, DR JAYDEN Bobby Admitting Unavailable WEST, DR JAYDEN Bobby Attending Unavailable DR JAYDEN HENDERSON V Consulting Unavailable DR RANDALL LEMONS Consulting Unavailable KARO DAVIS Primary Care Physician [phone] Leon WHYTE Attending Unavailable KARO DAVIS Referring Unavailable Leon WHYTE Attending Unavailable DIPIKA JONES Attending Unavailable DIPIKA JONES Attending Unavailable Allergies Allergy Classification Reported Allergen(s) Allergy Type Date of Onset Reaction(s) Facility (1 source) No Known Medication Allergies; Translations: [No Known Medication Allergies] Propensity to adverse reactions (disorder) [facility] Repository Problems Active Problems Problem Classification Problem Date Documented Da te Episodic/Chronic Benign neoplasm of uterus (5 sources) Leiomyoma of uterus, unspecified; Translations: [Uterine leiomyoma] Onset: 06-20-2022 Episodic Disorders of lipid metabolism (1 source) 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 Immunizations and screening for infectious disease (1 source) Encounter for screening for other infectious and parasitic diseases; Translations: [ENC SCREENING OTH INF PARASITIC DZ] Onset: 05-29-2022 Episodic Other circulatory disease (4 sources) Arteritis, unspecified; Translations: [ARTERITIS UNSPECIFIED] Onset: 09-20-2021 Chronic Other screening for suspected conditions (not mental disorders or infectious disease) (9 sources) Encounter for screening for malignant neoplasm of cervix; Translations: [Encounter for screening mammogram for malignant neoplasm of breast] Onset: 05-17-2022 Episodic Peripheral and visceral atherosclerosis (9 sources) Peripheral vascular disease, unspecified; Translations: [Atherosclerosis of [place] arteries of extremities with rest pain, bilateral legs] Onset: 07-31-2021 Chronic Residual codes; unclassified (1 source) Family history of malignant neoplasm of breast; Translations: [FAMILY HX MALIG NEOPLASM OF BREAST] Onset: 05-19-2022 Episodic Spondylosis; intervertebral disc disorders; other back problems (2 sources) Other intervertebral disc degeneration, lumbar region; Translations: [Degeneration of lumbar intervertebral disc] Onset: 07-05-2021 09-18-2022 Chronic Unclassified (3 sources) CONTACT W/AND (SUSP) EXPOS COVID-19; Translations: [CONTACT W/AND (SUSP) EXPOS COVID-19] Onset: 01-24-2022 Unclassified (1 source) Body mass index 20-24 - normal 10-08-2022 Unclassified (1 source) Patient encounter status 10-08-2022 Past or Other Problems Problem Classification Problem Date Documented Da te Episodic/Chronic Other aftercare (5 sources) Encounter for surgical aftercare following surgery on the circulatory system; Translations: [ENC SURG AFTRCARE FLW SURG CIRC SYS] Onset: 2 Episodic Other bone disease and musculoskeletal deformities (4 sources) Disorder of bone, unspecified; Translations: [DISORDER OF BONE UNSPECIFIED] Onset: 2 Episodic Other circulatory disease (1 source) Vascular insufficiency Onset: 2 09-18-2022 Episodic Other endocrine disorders (4 sources) Endocrine disorder, unspecified; Translations: [ENDOCRINE DISORDER UNSPECIFIED] Onset: 2 Episodic Other non-traumatic joint disorders (1 source) Pain in unspecified joint; Translations: [PAIN IN UNSPECIFIED JOINT] Onset: 2 Episodic Phlebitis; thrombophlebitis and thromboembolism (5 sources) Phlebitis and thrombophlebitis of superficial vessels of right lower extremity; Translations: [PHLEBITIS AND TP SUP VES RT LOW EXT] Onset: 2 Episodic Spondylosis; intervertebral disc disorders; other back problems (4 sources) Dorsalgia, unspecified; Translations: [DORSALGIA UNSPECIFIED] Onset: 2 Episodic Unclassified (1 source) CONTACT W/AND (SUSP) EXPOS COVID-19; Translations: [CONTACT W/AND (SUSP) EXPOS COVID-19] Onset: 2 Varicose veins of lower extremity (6 sources) Varicose veins of bilateral lower extremities with pain; Translations: [Varicose veins of lower extremity] Onset: 2 Episodic Results Test Name Value Interpretation Reference Range Facility Pathology Noteon 10-31-2022 Pathology Note [id number]#[id number] :127 Normal [facility] Reminderson 10-30-2022 Reminders - From: Shavon Mcguire LPN To: N - Clinical; Sent: 10/30/2022 11:35:53 EDT Show up: 09/22/2032 07:00:00 EDT Subject: colonoscopy recall Due Date/Time: 10/23/2032 07:00:00 EDT Reminder/Recall Patient due for screening colonoscopy 10/23/2032. Normal [facility] Outside Colonoscopyon 2022 Outside Colonoscopy [id number] D:127 [facility] Lab Reportson 10-23-2022 Lab Reports [id number] D:127 [facility] Consent for Procedure/Surger yon 10-09-2022 Consent for Procedure/Surgery [id number]#1.00C D:127 [facility] Formson 10-09-2022 Forms [id number] D:127 [facility] Ambulatory Visit Summaryon 0 10-08-2022 Ambulatory Visit Summary FRANKY CYR :1970 Visit Date:10/08/2022 Ambulatory Visit Instructions Your Care Team Attending Physician - PATO WASHINGTON, Leon Chester Primary Care Physician - SUSAN WASHINGTON, KARO Referring Physician - SUSAN WASHINGTON, KARO Procedures Performed Dilation and curettage, Endometrial ablation, Hysteroscopy, Percutaneous transluminal laser ablation of vein. Discharge Vitals Heart Rate (Peripheral) 70 Respiratory Rate 16 Blood Pressure 116/78 Height 162.5 cm Height 64 in Weight 60.3 kg Weight 132.66 lb BMI 22.84 Allergies No Known Allergies No Known Medication Allergies Problems Ongoing - Any problem that you are currently receiving treatment for. BMI 22.0-22.9, adult Degeneration of lumbar intervertebral disc Intermittent claudication Leiomyoma of uterus Varicose veins of lower extremity Vascular insufficiency Very low density lipoprotinemia Normal [facility] Physician Referralon 023 Physician Referral [id number] D:127 [facility] US PELVIS AND TRANSVAGon 04- 28-2023 US PELVIS AND TRANSVAG EXAMINATION: US PELVIS AND TRANSVAG HISTORY: Uterine leiomyoma COMPARISON: Ultrasound pelvis 09/11/2021 TECHNIQUE: Transabdominal and transvaginal sonographic examination. FINDINGS: UTERUS: Contains several heterogeneous nodular areas favoring leiomyomas; largest is right fundal 3.1 x 2.9 x 3.3 cm Uterus size: 9.1 x 5.8 x 4.6 cm ENDOMETRIUM: Normal homogeneous appearance. Endometrial thickness: 6 mm RIGHT OVARY: Not seen. No suspicious adnexal findings. LEFT OVARY: Normal size and appearance. Duplex Doppler demonstrates normal waveform and flow; resistive index 0.6. Ovary size: 2.9 x 2.6 x 1.2 cm CUL-DE-SAC: Unremarkable. No significant free fluid. BLADDER: Unremarkable. OTHER: None. IMPRESSION: 1. Leiomyomatous uterus; grossly stable. Electronically authenticated by: RANDALL LEMONS Date: 2022-06-21 07:02 Normal [facility] PAP ACOG PANEL 2: 30 to 65on 06-17-2022 . . Normal [facility] Comment on above: Result Comment: Perf ormed at: WB Performed By: #### [id number] ####[facility] [address] [place] [id number] Flores Age Gdln ACOG Testing 30-65 Normal [facility] Comment on above: Performed By: #### 4 [id number] ####[facility] [address] [place], [place] [address]RvBrianne Flores DIAGNOSIS: Comment Normal [facility] Comment on above: Result Comment: NEGA TIVE FOR INTRAEPITHELIAL LESION OR MALIGNANCY. Performed at: WB Performed By: #### 4 [id number] ####[facility] [address] [place], [place] [address]EwBrianne Flores HPV Aptima Negative Normal Negative [facility] Comment on above: Result Comment: This nucleic acid amplification test detects fourteen high-risk HPV types (16,18,31,33,35,39,45,51,52,56,58,59,66,68) without differentiation. Performed at: =G Performed By: #### 4 [id number] ####[facility] [address] [place] [id number]. Fernando Flores HPV Genotype Reflex Comment Normal [facility] Comment on above: Result Comment: Crit walter not met, HPV Genotype not performed. Performed at: WB Performed By: #### 4 [id number] ####[facility] [address] [place], [place] [address]Dr. Fernando Flores Methodology: Comment Normal [facility] Comment on above: Result Comment: This liquid based ThinPrep(R) pap test was screened with the use of an image guided system. Performed at: WB Performed By: #### 4 [id number] ####[facility] [address] [place], [place] [address]DrBrianne Flores Note: Comment Normal [facility] Comment on above: Result Comment: The Pap smear is a screening test designed to aid in the detection of premalignant and malignant conditions of the uterine cervix. It is not a diagnostic procedure and should not be used as the sole means of detecting cervical cancer. Both false-positive and false-negative reports do occur. . Performed at: WB Performed By: #### 4 [id number] ####[facility] [address] [place], [place] [address]Dr. Fernando Flores Performed by: Comment Normal [facility] Comment on above: Result Comment: Concetta Riggins, Instructional Interventionist (ASCP) Performed at: WB Performed By: #### 4 [id number] ####[facility] [address] [place], [place] [address]Dr. Fernando Flores Specimen adequacy: Comment Normal [facility] Comment on above: Result Comment: Sati sfactory for evaluation. Endocervical and/or squamous metaplastic cells (endocervical component) are present. Performed at: WB Performed By: #### 4 [id number] ####[facility] [address] [place], [place] [address]DrBrianne Flores Cov[facility]on 04-26 SARS-CoV-2 (COVID-19) RNA ALISON+probe Ql (Unsp spec) Not detected Normal NOT DETECTED [facility] Comment on above: Result Comment: When diagnostic testing is negative, the possibility of a false negative should be considered in the context of a patient's recent exposures and the presence of clinical signs and symptoms consistent with SARS-CoV-2. This test is not yet approved or cleared by the [place] FDA. When there are no FDA-approved or cleared tests available, and other criteria are met, FDA can make tests available under an emergency access mechanism called an Emergency Use Authorization (EUA). The EUA for this test is supported by the [place] of Health and Human Service's declaration that circumstances exist to justify the emergency use of in vitro diagnostics for the detection and/or diagnosis of the virus that causes COVID-19. This EUA will remain in effect for the duration of the COVID-19 declaration justifying emergency of IVDs, unless it is terminated or revoked by the FDA (after which the test may no longer be used). Performed By: #### T 4 #### [facility] [address] [place] [address] Dr. Fernando Flores INFLUENZA A AND B AGon 05-23 [facility] SEE BELOW Normal [facility] Comment on above: Result Comment: Nega tive for Flu A protein angiten. Infection due to Flu A cannot be ruled out. Flu A angiten in the sample may be below the detection limit of the test. Performed By: #### S EROTON #### [facility] [address] [place] [address] Dr. Fernando [address] [facility] Normal [facility] Comment on above: Result Comment: Nega tive for Flu B protein antigen. Infection due to Flu B cannot be ruled out. Flu B antigen in the sample may be below the detection limit of the test. Performed By: #### S EROTON #### [facility] [address] [place] [address] Dr. Fernando Flores INFLUENZA A AG Negative Normal NEGATIVE SEE COMMENT [facility] Comment on above: Performed By: #### S EROTON #### [facility] [address] [place] [address] Dr. Fernando Flores INFLUENZA B AG Negative Normal NEGATIVE SEE COMMENT [facility] Comment on above: Performed By: #### S EROTON #### [facility] [address] [place] [address] [address] Fernando Flores MG MAMM SCREEN 3D KATHY CADon 05-17-2022 MG MAMM SCREEN 3D KATHY CAD Patient: FRANKY CYR Exam Date: 05/17/2022 : 1970 Gender:F Ordering : DR DIPIKA JONES . Admission #: [id number] Family : Order #: [id number] CLICK HERE TO VIEW EXAM RADIOLOGY REPORT PROCEDURE: MAMMOGRAM SCREENING 3D BILATERAL CAD COMPARISON: MG MAMM SCREEN KATHY W CAD, 02/08/2020. MG MAMM SCREEN KATHY W CAD, 01/06/2019. DIGITIZED_MAMMO, 04/19/2003. MG MAMM SCREEN 3D KATHY CAD, 05/10/2021. INDICATIONS: Screening mammography Calculator Name NCI Breast Cancer Risk Assessment Tool 5 Year Breast Cancer Risk 1.50% Lifetime Breast Cancer Risk 12.80% Personal Breast Cancer No Personal Ovarian Cancer No Treatments None Family Cancers Grandmother-paternal with breast cancer at age 70. LOCATION: [facility] BREAST COMPOSITION: Extremely dense, which lowers the sensitivity of mammography. FINDINGS: DIAGNOSTIC CATEGORY 1--NEGATIVE. RIGHT BREAST: No significant suspicious finding. No significant change has occurred. LEFT BREAST: No significant suspicious finding. No significant change has occurred. RECOMMENDATIONS: ROUTINE MAMMOGRAM AND CLINICAL EVALUATION IN 12 MONTHS. PLEASE NOTE: A NORMAL MAMMOGRAM DOES NOT EXCLUDE THE POSSIBILITY OF BREAST CANCER. A CLINICALLY SUSPICIOUS PALPABLE LUMP SHOULD BE BIOPSIED. Dictated by: Randall Lemons M.D. on 05/17/2022 at 11:44 Approved by: Randall Lemons M.D. on 05/17/2022 at 11:51 Normal [facility] THYROGLOBULINon 01-26-2022 Thyroglobulin 21 ng/mL Normal [facility] Comment on above: Result Comment: This test was developed and its performance characteristics determined by [employer]. It has not been cleared or approved by the Food and Drug Administration. Reference Range: Pubertal Children and Adults: <40 According to the National Academy of Clinical Biochemistry, the reference interval for Thyroglobulin (TG) should be related to euthyroid patients and not for patients who underwent thyroidectomy. TG reference intervals for these patients depend on the residual mass of the thyroid tissue left after surgery. Establishing a post-operative baseline is recommended. The assay quantitation limit is 2.0 ng/mL. Performed By: #### T GRIA #### [facility] [address] [place], [place] [address] Dr. Fernando Flores ESTRONEon 01-23-2022 Estrone, Serum 29 pg/mL Normal [facility] Comment on above: Result Comment: Rang e Adult (Premenopausal) 27 - 231 Menstrual Cycle (1-10 days) 19 - 149 Menstrual Cycle (11-20 days) 32 - 176 Menstrual Cycle (21-30 days) 37 - 200 Adult (Postmenopausal) 0 - 125 Performed By: #### E STRONE #### [facility] [address] [place], [place] [address] Dr. Fernando Flores REVERSE T3on 01-22-2022 Reverse T3, Serum 14.4 ng/dL Normal 9.2-24.1 [facility] Comment on above: Result Comment: This test was developed and its performance characteristics determined by [employer]. It has not been cleared or approved by the Food and Drug Administration. Performed By: #### R EVRT3 #### [facility] [id number] Fernando Flores TESTOSTERONE, FREE,DIRECT, T OTALon 01-22-2022 Free Testosterone(Direct) 1.9 pg/mL Normal 0.0-4.[address] [facility] Comment on above: Result Comment: Perf ormed at: BN Performed By: #### T ESTFRD ####[facility] [address] [place] [id number]. Fernando Flores Testosterone [Mass/Vol] 30 ng/dL Normal 4-50 [facility] Comment on above: Result Comment: Perf ormed at: CB Performed By: #### T ESTFRD ####[facility] [address] [place] [id number]. Fernando Flores Covid-19 PCR (CVDTB)on 12-26 SARS-CoV-2 (COVID-19) RNA ALISON+probe Ql (Unsp spec) Not detected Normal NOT DETECTED [facility] Comment on above: Result Comment: When diagnostic testing is negative, the possibility of a false negative should be considered in the context of a patient's recent exposures and the presence of clinical signs and symptoms consistent with SARS-CoV-2. This test is not yet approved or cleared by the [place] FDA. When there are no FDA-approved or cleared tests available, and other criteria are met, FDA can make tests available under an emergency access mechanism called an Emergency Use Authorization (EUA). The EUA for this test is supported by the [place] of Health and Human Service's declaration that circumstances exist to justify the emergency use of in vitro diagnostics for the detection and/or diagnosis of the virus that causes COVID-19. This EUA will remain in effect for the duration of the COVID-19 declaration justifying emergency of IVDs, unless it is terminated or revoked by the FDA (after which the test may no longer be used). Performed By: #### C VDTB ####[facility] [address] [place] [address]Dr. Fernando Flores SEROTONINon 01-20-2022 Serotonin, Serum 162 ng/mL Normal 31-207 [facility] Comment on above: Performed By: #### S EROTON #### [facility] [address] [address] [address] Fernando Flores THYROGLOBULIN ABon 2 Thyroglobulin Antibody <1.0 Normal 0.0-0.9 [facility] Comment on above: Result Comment: Thyr oglobulin Antibody measured by Dioni Gloria Methodology Performed By: #### T HYGAB ####[facility] [address] [place] [address]Dr. Fernando Flores VIT D 1 25 DIHYDROXYon 01-19 Calcitriol(1,25 di-OH Vit D) 62.0 pg/mL Normal 24.8-81.5 [facility] Comment on above: Performed By: #### S EROTON #### [facility] [address] [place] [address] [address] Fernando Flores C-PEPTIDE, SERUMon 2 C-Peptide, Serum 1.8 ng/mL Normal 1.1-4.4 [facility] Comment on above: Result Comment: C-Pe ptide reference interval is for fasting patients. Performed By: #### C PEPT ####[facility] [address] [place], [place] [address]Dr. Fernando Flores INSULINon 01-18-2022 Insulin 6.7 uIU/mL Normal 2.6-24.9 [facility] Comment on above: Performed By: #### T 4 #### [facility] [address] [place] [address] Dr. Fernando Flores CORTISOLon 01-17-2022 Cortisol 14.2 ug/dL Normal [facility] Comment on above: Result Comment: Floyd isol AM 6.2 - 19.4 Cortisol PM 2.3 - 11.9 Performed By: #### C ORTISO #### [facility] [address] [place] [address] Dr. Fernando Flores DHEA-SULFATEon 01-17-2022 DHEA-Sulfate 93.7 ug/dL Normal 41.2-243.7 [facility] Comment on above: Performed By: #### S EROTON #### [facility] [address] [place] [address] Dr. Fernando Flores ESTRADIOLon 01-17-2022 Estradiol 24.6 pg/mL Normal [facility] Comment on above: Result Comment: Adul t Female: Follicular phase 12.5 - 166.0 Ovulation phase 85.8 - 498.0 Luteal phase 43.8 - 211.0 Postmenopausal <6.0 - 54.7 1st trimester 215.0 - >4300.0 Sanjay ECLIA methodology Performed By: #### S EROTON #### [facility] [address] [place] [address] Dr. Fernando Flores PROGESTERONEon 01-17-2022 Progesterone 0.7 ng/mL Normal [facility] Comment on above: Result Comment: Foll icular phase 0.1 - 0.9 Luteal phase 1.8 - 23.9 Ovulation phase 0.1 - 12.0 First trimester 11.0 - 44.3 Second trimester 25.4 - 83.3 Third trimester 58.7 - 214.0 Postmenopausal 0.0 - 0.1 Performed By: #### P ROGES #### [facility] [address] [place] [address] Dr. Fernando Flores SEX HORMONE-BINDING GLOBULIN on 01-17-2022 Sex Horm Binding Glob, Serum 115.0 nmol/L Normal 17.3-125.0 [facility] Comment on above: Performed By: #### S EROTON #### [facility] [address] [address] [address] Fernando Flores T3, TOTAL (TRIIODOTHYRONINE) on 01-17-2022 T3, TOTAL 120 ng/dL Normal 71-180 [facility] Comment on above: Performed By: #### T 3TOTAL ####[facility] [id number] [address]. Fernando Flores THYROID PEROXIDASE ABon 12-26 Thyroid Peroxidase (TPO) Ab <9 Normal 0-34 [facility] Comment on above: Performed By: #### S ERTASNEEMN #### [facility] [address] [address] [address] Fernando Flores FREE T3on 01-16-2022 FREE T3 2.86 pg/mlL Normal 2.18-3.98 [facility] Comment on above: Performed By: #### T 4 #### [facility] [address] [address] [address] Fernando Flores FREE T4on 01-16-2022 Free T4 [Mass/Vol] 1.04 ng/dL Normal 0.76-1.46 [facility] Comment on above: Performed By: #### F T4 ####[facility] [address] [address]. Fernando Flores GLUCOSE BLOODon 01-16-2022 Glucose [Mass/Vol] 90 mg/dL Normal 74-106 [facility] Comment on above: Performed By: #### S EROTON #### [facility] [address] [address] [address] Fernando Flores GLYCOHEMOGLOBIN A1Con 2021 ADA RECOMMENDATION SEE BELOW Normal [facility] Comment on above: Result Comment: ADA RECOMMENDED LIMIT 4.0 - 6.0 ADA THERAPEUTIC TARGET < 7.0 ACTION SUGGESTED > 7.0 Performed By: #### S EROTON #### [facility] [address] [address] [address] Fernando Flores Glucose [Mass/Vol] 103 mg/dL Normal [facility] Comment on above: Performed By: #### S EROTON #### [facility] [address] [place] [address] Dr. Fernando Flores HbA1c (Bld) [Mass fraction] 5.2 % Normal 4.5-6.2 [facility] Comment on above: Performed By: #### S EROTON #### [facility] [address] [address] [address] Fernando Flores T4on 01-16-2022 T4 [Mass/Vol] 7.40 ug/dL Normal 4.80-13.90 [facility] Comment on above: Performed By: #### T 4 #### [facility] [address] [place] [address] Dr. Fernando Flores TSHon 01-16-2022 TSH 1.776 uIU/mL Normal 0.358-3.740 [facility] Comment on above: Performed By: #### S EROTON #### [facility] [address] [place] [address] Dr. Fernando Flores VC CONSULT FOLLOWUPon 2021 VC CONSULT FOLLOWUP Patient: FRANKY CYR Exam Date: 01/14/2022 : 1970 Gender:F Ordering : DR JAYDEN HENDERSON M.D. Admission #: [id number] Family : Order #: [id number] CLICK HERE TO VIEW EXAM RADIOLOGY REPORT PROCEDURE: VEIN CENTER CONSULTATION FOLLOWUP VEIN CENTER - OFFICE VISIT FOLLOW UP COMPARISON: VC CONSULT FOLLOWUP, 12/27/2021. VC CONSULT FOLLOWUP, 12/13/2021. PROGRESS NOTES: The patient reports pain and swelling of the medial right ankle and distal lower leg. This began following her initial procedure and has not resolved despite wearing compression stockings. Physical exam demonstrates asymmetric subcutaneous edema in the region of the patient's pain medial right ankle and distal lower leg. Review of the ultrasound performed the same day demonstrates a 6 cm segment of deep vein thrombus in the distal posterior tibial vein, far removed from the popliteal vein. This is likely secondary to a treated and occluded large thrombosed perforating vein. Moderate subcutaneous edema is observed. This was discussed with the patient. She likely has thrombophlebitis related to deep vein thrombus. IMPRESSION: 1. 6 cm segment of deep vein thrombus in the distal right posterior tibial vein likely related to progression of thrombus in a treated perforating vein 2. Thrombophlebitis with mild to moderate associated subcutaneous edema PLAN: 1. 325 milligrams of aspirin once per day for 14 days 2. 400 milligrams of ibuprofen twice per day for 14 days Nurse notes, history and physical were reviewed and confirmed, see attached forms. The nurse was present throughout the physical exam and consultation Dictated by: Jayden Henderson MD on 01/14/2022 at 15:58 Approved by: Jayden Henderson MD on 01/14/2022 at 16:01 Normal [facility] VC EXT VENOUS RT LIMITEDon 1 03-16-2021 VC EXT VENOUS RT LIMITED Patient: FRANKY CYR Exam Date: 01/14/2022 : 1970 Gender:F Ordering : DR JAYDEN HENDERSON M.D. Admission #: [id number] Family : Order #: [id number] CLICK HERE TO VIEW EXAM RADIOLOGY REPORT PROCEDURE: VEIN CENTER EXTREMITY VENOUS RIGHT LIMITED COMPARISON: VC EXT VENOUS RT LIMITED, 12/27/2021. VC EXT VENOUS RT LIMITED, 11/29/2021. INDICATIONS: Phlebitis and thrombophlebitis of superficial veins of right lower extremity I80.01 TECHNIQUE: Lower extremity zhu scale and Duplex Doppler evaluation of the deep venous system from the inguinal ligament through the calf veins. FINDINGS: REGION: Right lower extremity. THROMBI: Positive for DVT. Thrombus in on of the PTVs from mid calf to foot. COMPRESSIBILITY: Non-compressible segments. FLOW: Areas of no flow. OTHER: *Exam performed in accordance with [facility] practice guidelines- Peripheral venous ultrasound, May 20, 2009. CONCLUSION: Deep vein thrombus in a 6 cm segment of a right posterior tibial vein Dictated by: Jayden Henderson MD on 01/14/2022 at 16:03 Approved by: Jayden Henderson MD on 01/14/2022 at 16:04 [facility] VC CONSULT FOLLOWUPon 2021 VC CONSULT FOLLOWUP Patient: FRANKY CYR Exam Date: 12/27/2021 : 1970 Gender:F Ordering : DR JAYDEN HENDERSON M.D. Admission #: [id number] Family : Order #: [id number] CLICK HERE TO VIEW EXAM RADIOLOGY REPORT PROCEDURE: VEIN CENTER CONSULTATION FOLLOWUP VEIN CENTER - OFFICE VISIT FOLLOW UP COMPARISON: VC CONSULT FOLLOWUP, 12/13/2021. VC CONSULT FOLLOWUP, 11/29/2021. PROGRESS NOTES: The patient reports no significant problems following micro foam chemical ablation of the right leg. The patient did not require oral analgesics. The patient has worn her compression stockings. The patient has followed our recommendations to walk 20-30 minutes once or twice per day since the procedure. The patient reports significant improvement in her initial presenting symptoms and does not want additional treatments at this time for the varicose veins. Physical exam demonstrates multiple reticular and spider veins on both legs. No significant varicose veins are observed. No areas of erythema or warmth. No active ulceration Review of the ultrasound performed the same day demonstrates occlusive thrombus extending throughout the treated right leg varicose veins with no deep vein thrombus. The patient expressed a desire to proceed with treatment of reticular and spider veins with injection sclerotherapy. This require multiple treatments. IMPRESSION: 1. Successful ablation of incompetent right leg varicose veins 2. Persistent bilateral reticular and spider veins PLAN: Injection sclerotherapy Nurse notes, history and physical were reviewed and confirmed, see attached forms. The nurse was present throughout the physical exam and consultation Dictated by: Jayden Henderson MD on 12/27/2021 at 15:26 Approved by: Jayden Henderson MD on 12/27/2021 at 15:30 Normal [facility] VC EXT VENOUS RT LIMITEDon 1 02-26-2021 VC EXT VENOUS RT LIMITED Patient: FRANKY CYR Exam Date: 12/27/2021 : 1970 Gender:F Ordering : DR JAYDEN HENDERSON M.D. Admission #: [id number] Family : Order #: [id number] CLICK HERE TO VIEW EXAM RADIOLOGY REPORT PROCEDURE: VEIN CENTER EXTREMITY VENOUS RIGHT LIMITED COMPARISON: VC EXT VENOUS RT LIMITED, 11/29/2021. INDICATIONS: Phlebitis of superficial veins of lower extremity I80.01 TECHNIQUE: Lower extremity zhu scale and Duplex Doppler evaluation of the deep venous system from the inguinal ligament through the calf veins. FINDINGS: REGION: Right lower extremity. THROMBI: Negative for DVT. Varithena induced thrombus visualized in distal GSV and at distal/med thigh. COMPRESSIBILITY: Non-compressible segments. FLOW: Areas of no flow. OTHER: Patent varicose vein medial knee 3.2mm with 0.8s reflux. Patent varicose vein mid/med calf 3.3mm with 0.7s reflux. Patent varicose vein 3.6mm with 1.4s reflux. *Exam performed in accordance with [facility] practice guidelines- Peripheral venous ultrasound, May 20, 2009. CONCLUSION: Post ablation occlusion of right leg treated varicose veins with residual incompetent varicose veins measuring up to 3.6 mm Dictated by: Jayden Henderson MD on 12/27/2021 at 15:16 Approved by: Jayden Henderson MD on 12/27/2021 at 15:17 Normal [facility] VC INJ FOAM SCLERO W US MLTI on 12-21-2021 VC INJ FOAM SCLERO W US MLTI Patient: FRANKY CYR Exam Date: 12/21/2021 : 1970 Gender:F Ordering : DR JAYDEN HENDERSON M.D. Admission #: [id number] Family : Order #: [id number] CLICK HERE TO VIEW EXAM RADIOLOGY REPORT PROCEDURE: VEIN CENTER INJECTION FOAM SCLEROSING SOLUTION WITH ULTRASOUND MULTIPLE VEINS COMPARISON: None. Pre-operative Diagnosis: CEAP class C4A venous insufficiency with pain, tenderness, edema and incompetent distal right great saphenous vein and varicose veins, chronic venous insufficiency right leg secondary to venous incompetence Post-operative Diagnosis: CEAP class C4A venous insufficiency with pain, tenderness, edema and incompetent distal right great saphenous vein and varicose veins, chronic venous insufficiency right leg secondary to venous incompetence Procedure Performed: 1. Ultrasound-guided microfoam chemical ablation with Varithena(r) 2. Intraoperative ultrasound guidance Physician: Jayden Henderson M.D. Anesthesia: None Indications for Procedure: 51-year-old female who presents with a long history of lower extremity pain swelling and muscle cramps. The patient was previously treated with vein stripping and failed interval conservative medical therapy including medical compression stockings, exercise and analgesics. Intravenous laser ablation of the anterior accessory saphenous vein. Multiple incompetent varicosities of the right leg. Duplex scan showed reflux and enlarged diameters up to 5 mm. The patient underwent informed consent including management options where the complications of infection, bleeding, pain, and skin injury were discussed. Particular attention was spent discussing thrombus extension and deep vein thrombosis as well as the possibility of pulmonary embolus and treatment with oral or injectable blood thinners. Procedure: The patient walked to the procedure room. All applicable staff donned appropriate apparel. A procedure timeout was performed to confirm correct patient, correct extremity, correct procedure, and correct room set-up including presence of all applicable supplies, devices, and drugs. A duplex ultrasound, performed by myself confirmed the location and incompetence of incompetent varicose veins and their course marked on the skin together with the dilated tributaries. The extent of treatment of the vein and the associated varicosities was determined through ultrasound mapping. The patient was placed on the operating room table. The limb was prepped. The skin was punctured with a butterfly needle through the skin with the venous access needle and advanced under ultrasound guidance. The target limb was positioned at 45 degrees of elevation in relation to the torso utilizing a foam pad. The Varithena(r) canister was previously activated and the canister was primed and purged as required in the instructions for use. The following injections were made: 4 mL aliquot of Varithena(r) was drawn into a sterile syringe. Injection into a 5 mm dilated distal right great saphenous vein at the level of the ankle. Full was observed extending to the mid calf where a large incompetent perforating vein was observed. Pressure was held to occlude the perforating vein into dissolution of the foam was observed by ultrasound 4 mL aliquot of Varithena(r) was drawn into a sterile syringe. Injection into a 4 mm varicose vein medial distal thigh. Varithena(r) was slowly administered at 0.5-1.0 cc/second with close observation by ultrasound of its course in the GSV and varicose veins. A total volume of 8 mL of Varithena(r) was used. During administration of Varithena(r), the patient was asked to dorsiflex the ankle to limit flow of Varithena(r) into perforating veins. Once appropriate spasm had been confirmed in the treated veins, the vascular catheter was removed from the leg and light pressure was applied over the puncture site for hemostasis The common femoral and deep superficial veins were then evaluated for flow and compressibility prior to dressing placement. The lower extremity was kept elevated at 45 degrees above the horizontal and cording material was applied over the saphenous segments and tributaries to allow for eccentric compression over the target vessels including the targeted saphenous vein(s). A multilayer dressing was applied consisting of foam pads, coban and thigh-high 20-30 mm Hg compression elastic support hose were placed on the patient. The leg was lowered only after compression had been applied and the patient was immediately ambulatory. The patient ambulated 10 minutes under supervision and was without apparent concerns at time of release Post-care instructions include advising patient to keep post-treatment bandages in place and dry for 48 hours, avoid extended periods of inactivity, avoid heavy exercise for one week, wear compression stockings on the treated leg continuously for two weeks, (more content not included)... Normal [facility] VC CONSULT FOLLOWUPon 2021 VC CONSULT FOLLOWUP Patient: FRANKY CYR Exam Date: 12/13/2021 : 1970 Gender:F Ordering : DR JAYDEN HENDERSON M.D. Admission #: [id number] Family : Order #: [id number] CLICK HERE TO VIEW EXAM RADIOLOGY REPORT PROCEDURE: VEIN CENTER CONSULTATION FOLLOWUP VEIN CENTER - OFFICE VISIT FOLLOW UP COMPARISON: VC CONSULT FOLLOWUP, 11/29/2021. PROGRESS NOTES: The patient reports no significant discomfort following intravenous laser ablation of the left anterior accessory saphenous vein. The patient did wear her compression stockings. The patient did not require oral analgesics. The patient has followed our recommendations to walk 20-30 minutes once or twice per day since the procedure. Physical exam demonstrates some mild hemosiderin staining in the course of the anterior left thigh, the patient was cautioned to wear mechanical sunblock or cover this area for the next 3-6 months. Thrombosed left anterior accessory saphenous vein can be palpated. No areas of active ulceration. Review of the ultrasound performed the same day demonstrates occlusive thrombus extending throughout the treated left anterior accessory saphenous vein with heat induced thrombus 1.2 cm from the saphenofemoral junction. No deep vein thrombus. The patient expressed a desire to proceed with treatment of incompetent varicose veins with micro foam chemical ablation. IMPRESSION: 1. Successful ablation of the left anterior accessory saphenous vein 2. Persistent bilateral incompetent varicose veins PLAN: Micro foam chemical ablation of the right leg Nurse notes, history and physical were reviewed and confirmed, see attached forms. The nurse was present throughout the physical exam and consultation Dictated by: Jayden Henderson MD on 12/13/2021 at 08:17 Approved by: Jayden Henderson MD on 12/13/2021 at 08:24 Normal [facility] VC EXT VENOUS LT LIMITEDon 1 VC EXT VENOUS LT LIMITED Patient: FRANKY CYR. Exam Date: 12/13/2021 : 1970 Gender:F Ordering : DR JAYDEN HENDERSON M.D. Admission #: [id number] Family : Order #: [id number] CLICK HERE TO VIEW EXAM RADIOLOGY REPORT PROCEDURE: VEIN CENTER EXTREMITY VENOUS LEFT LIMITED COMPARISON: None. INDICATIONS: Phlebitis of superficial veins of lower extremity I80.02 TECHNIQUE: Lower extremity zhu scale and Duplex Doppler evaluation of the deep venous system from the inguinal ligament through the calf veins. FINDINGS: REGION: Left lower extremity. THROMBI: Negative for DVT. Heat induced thrombus visualized 1.2 cm from the SFJ. The heat induced thrombus extends from groin to prox thigh and is patent at mid thigh below the area of insertion. COMPRESSIBILITY: Non-compressible segments. FLOW: Areas of no flow. *Exam performed in accordance with [facility] practice guidelines- Peripheral venous ultrasound, May 20, 2009. CONCLUSION: Post ablation occlusion of the left anterior accessory saphenous vein with heat induced thrombus 1.2 cm from the saphenofemoral junction Dictated by: Jayden Henderson MD on 12/13/2021 at 08:15 Approved by: Jayden Henderson MD on 12/13/2021 at 08:16 Normal [facility] VC ENDOVENOUS ABL 1ST V LTon 12-07-2021 VC ENDOVENOUS ABL 1ST V LT Patient: FRANKY CYR. Exam Date: 12/07/2021 : 1970 Gender:F Ordering : DR JAYDEN HENDERSON M.D. Admission #: [id number] Family : Order #: [id number] CLICK HERE TO VIEW EXAM CORRECTION: Changed impression to read left anterior accessory Corrected on: 12/07/2021; RADIOLOGY REPORT PROCEDURE: VEIN CENTER ENDOVENOUS ABLATION FIRST VEIN LEFT ANTERIOR ACCESSORY SAPHENOUS VEIN COMPARISON: None. INDICATIONS: Pain co-occurrent and due to varicose veins of bilateral legs I83.813 OPERATIVE REPORT: The risks and benefits of the procedure had been previously discussed, and were rediscussed at length. Informed written consent was obtained by and Shaun marrufo. Time out procedure was performed. The left lower extremity was prepared and draped in the usual sterile fashion to allow knee flexion in the sterile field. Duplex ultrasound probe was draped in a sterile cover, sterile transmission gel was used. Venous mapping was performed with the areas of dilation and large tributaries marked. The total length was 8 cm from the entry mid thigh to 3 cm below the saphenofemoral junction. The diameter of the greater saphenous vein ranged from 4-8 mm. A 30 gauge needle and 1% buffered lidocaine was used to anesthetize the entry site. A 4 mm incision was made with a scalpel and the saphenous vein was entered percutaneously under direct ultrasound guidance with a micropuncture set, a single stick was successful in gaining access. A micro-guide wire was inserted and the needle removed. A micro-set including a dilator was inserted over the microwire and the needle and dilator were removed. A 0.018 guide wire was inserted through the micro-set and threaded through the saphenous vein to the saphenofemoral junction. The dilator was removed and an introducer sheath was inserted over the wire until the end of the sheath entered the saphenofemoral junction. The dilator and wire were removed and the 600 micron fiber was introduced and placed and positioned so that it extended beyond the sheath and was 3 cm peripheral to the saphenofemoral femoral junction. Final position of the fiber was determined by ultrasound guidance and duplex imaging. Tumescent anesthetic was delivered by ultrasound guidance. 75 cc of fluid was delivered along the entire course of the saphenous vein. The solution consisted of 500 cc of normal saline with 20mL of 1% lidocaine and 10 mL of sodium bicarbonate. A final positioning check was made. The energy source was turned on by means of the foot pedal and the fiber and sheath were withdrawn. The total number of Joules delivered was 405. The laser was active for 51 seconds under continuous pulse, average laser use of 8 J. Laser start time 10:12 a.m. December 07, 2021. Laser stop time 239614. A duplex ultrasound revealed compressibility and flow at the saphenofemoral junction immediately after the procedure. Hemostasis at the access site was achieved. The skin incision of the saphenous vein was closed with a 4 x 4. A compression stocking was applied. Postop instructions were given. A follow up appointment was recommended and scheduled. The patient tolerated the procedure well and was discharged in good condition. CONCLUSION: 1. Technically successful endovenous laser ablation of the left anterior accessory saphenous vein. Dictated by: Jayden Henderson MD on 12/07/2021 at 10:23 Approved by: Jayden Henderson MD on 12/07/2021 at 10:24 Dictated by: Jayden Henderson MD on 12/07/2021 at 10:27 Approved by: Jayden Henderson MD on 12/07/2021 at 10:27 Normal [facility] VC CONSULT FOLLOWUPon 2021 VC CONSULT FOLLOWUP Patient: FRANKY CYR Exam Date: 11/29/2021 : 1970 Gender:F Ordering : DR JAYDEN HENDERSON M.D. Admission #: [id number] Family : Order #: [id number] CLICK HERE TO VIEW EXAM RADIOLOGY REPORT PROCEDURE: VEIN CENTER CONSULTATION FOLLOWUP VEIN CENTER - OFFICE VISIT FOLLOW UP COMPARISON: None. PROGRESS NOTES: The patient reports no significant problems following intravenous laser ablation of the right anterior accessory saphenous vein. The patient did not require oral analgesics. The patient did wear her compression stocking. The patient has followed our recommendations to walk 20-30 minutes once or twice per day since the procedure. Physical exam demonstrates a single area of bruising in the anterior right mid thigh measuring 3 cm in diameter. The anterior accessory saphenous vein cannot be palpated. No areas of erythema or warmth to suggest cellulitis or thrombophlebitis. No active ulceration. Review of the ultrasound performed the same day demonstrates occlusive thrombus extending throughout the treated right anterior accessory saphenous vein with heat induced thrombus 2.3 cm from the saphenofemoral junction. Marked reduction in size with patent appearance of the untreated anterior accessory saphenous vein distal to the insertion point. The patient expressed a desire to proceed with treatment of left anterior accessory saphenous vein with intravenous laser ablation. IMPRESSION: 1. Successful ablation of the right anterior accessory saphenous vein 2. Persistent incompetent left anterior accessory saphenous vein PLAN: Endovenous laser ablation left anterior accessory saphenous vein Nurse notes, history and physical were reviewed and confirmed, see attached forms. The nurse was present throughout the physical exam and consultation Dictated by: Jayden Henderson MD on 11/29/2021 at 08:59 Approved by: Jayden Henderson MD on 11/29/2021 at 09:01 Normal [facility] VC EXT VENOUS RT LIMITEDon 1 VC EXT VENOUS RT LIMITED Patient: FRANKY CYR. Exam Date: 11/29/2021 : 1970 Gender:F Ordering : DR JAYDEN HENDERSON M.D. Admission #: [id number] Family : Order #: [id number] CLICK HERE TO VIEW EXAM RADIOLOGY REPORT PROCEDURE: VEIN CENTER EXTREMITY VENOUS RIGHT LIMITED COMPARISON: VC COMP CONSULTATION, 07/31/2021. VC ENDOVENOUS ABL 1ST V RT, 11/22/2021. INDICATIONS: Phlebitis and thrombophlebitis of superficial veins of right lower extremity I80.01 TECHNIQUE: Lower extremity zhu scale and Duplex Doppler evaluation of the deep venous system from the inguinal ligament through the calf veins. FINDINGS: REGION: Right lower extremity. THROMBI: Negative for DVT. Heat induced thrombus visualized 2.3cm from the SFJ. The heat induced thrombus entends from groin to mid thigh and is patent again below the area of insertion at mid thigh. COMPRESSIBILITY: Noncompressibility corresponding to thrombus FLOW: Absent flow corresponding to thrombus *Exam performed in accordance with [facility] practice guidelines- Peripheral venous ultrasound, May 20, 2009. CONCLUSION: Post ablation occlusion of the left anterior accessory saphenous vein Dictated by: Jayden Henderson MD on 11/29/2021 at 08:43 Approved by: Jayden Henderson MD on 11/29/2021 at 08:44 Normal [facility] VC ENDOVENOUS ABL 1ST V RTon 11-22-2021 VC ENDOVENOUS ABL 1ST V RT Patient: FRANKY CYR. Exam Date: 11/22/2021 : 1970 Gender:F Ordering : DR JAYDEN HENDERSON M.D. Admission #: [id number] Family : Order #: [id number] CLICK HERE TO VIEW EXAM RADIOLOGY REPORT PROCEDURE: VEIN CENTER ENDOVENOUS ABLATION FIRST VEIN RIGHT COMPARISON: None. INDICATIONS: Pain co-occurrent and due to varicose veins of bilateral legs I83.813 OPERATIVE REPORT: The risks and benefits of the procedure had been previously discussed, and were rediscussed at length. Informed written consent was obtained by and Shaun marrufo. Time out procedure was performed. The right lower extremity was prepared and draped in the usual sterile fashion to allow knee flexion in the sterile field. Duplex ultrasound probe was draped in a sterile cover, sterile transmission gel was used. Venous mapping was performed with the areas of dilation and large tributaries marked. The total length was 7 cm from the entry proximal-mid thigh to 3 cm below the saphenofemoral junction. The diameter of the greater saphenous vein ranged from 6.4 mm. A 30 gauge needle and 1% buffered lidocaine was used to anesthetize the entry site. A 4 mm incision was made with a scalpel and the saphenous vein was entered percutaneously under direct ultrasound guidance with a micropuncture set, a single stick was successful in gaining access. A micro-guide wire was inserted and the needle removed. A micro-set including a dilator was inserted over the microwire and the needle and dilator were removed. A 0.018 guide wire was inserted through the micro-set and threaded through the saphenous vein to the saphenofemoral junction. The dilator was removed and an introducer sheath was inserted over the wire until the end of the sheath entered the saphenofemoral junction. The dilator and wire were removed and the 600 micron fiber was introduced and placed and positioned so that it extended beyond the sheath and was 3 cm peripheral to the saphenofemoral femoral junction. Final position of the fiber was determined by ultrasound guidance and duplex imaging. Tumescent anesthetic was delivered by ultrasound guidance. Seventy-five cc of fluid was delivered along the entire course of the saphenous vein. The solution consisted of 500 cc of normal saline with 20mL of 1% lidocaine and 10 mL of sodium bicarbonate. A final positioning check was made. The energy source was turned on by means of the foot pedal and the fiber and sheath were withdrawn. The total number of Joules delivered was 249. The laser was active for 31 seconds under continuous pulse, average laser use of 8 J. Laser start time 2:14 p.m. November 22, 2021. Laser stop time 2:15 p.m. November 22, 2021. A duplex ultrasound revealed compressibility and flow at the saphenofemoral junction immediately after the procedure. Hemostasis at the access site was achieved. The skin incision of the saphenous vein was closed with a 4 x 4. A compression stocking was applied. Postop instructions were given. A follow up appointment was recommended and scheduled. The patient tolerated the procedure well and was discharged in good condition. CONCLUSION: 1. Technically successful endovenous laser ablation of the right anterior accessory saphenous vein. Dictated by: Randall Lemons M.D. on 11/22/2021 at 14:42 Approved by: Randall Lemons M.D. on 11/22/2021 at 14:45 Normal [facility] CRPon 09-20-2021 CRP [Mass/Vol] mg/L Normal <=1.0 [facility] Comment on above: Performed By: #### S EROTON #### [facility] [address] [place], [place] [address] Dr. Fernando Flores SED RATE [facility] 2021 SED RATE 5 mm/hr Normal <=30 [facility] Comment on above: Performed By: #### S EDR ####[facility] [id number] [place], [place] [address]VtDr. Fernando Flores US PELVIS AND TRANSVAGon US PELVIS AND TRANSVAG EXAMINATION: US PELVIS AND TRANSVAG HISTORY: Uterine leiomyoma COMPARISON: MRI pelvis 09/04/2021 TECHNIQUE: Transabdominal and transvaginal sonographic examination. FINDINGS: UTERUS: Contains several heterogeneous masses favoring leiomyomas, largest is 3.3 cm. Uterus size: 10.0 x 6.4 x 5.9 cm ENDOMETRIUM: Normal homogeneous appearance. Endometrial thickness: 9 mm RIGHT OVARY: Normal size and appearance. Duplex Doppler demonstrates normal waveform and flow; resistive index 0.6. Ovary size: 2.4 x 2.3 x 2.1 cm LEFT OVARY: Not seen. No suspicious adnexal findings. CUL-DE-SAC: Unremarkable. No significant free fluid. BLADDER: Unremarkable. OTHER: Multiple dilated vessels within the adnexa bilaterally, 6 mm in diameter. IMPRESSION: 1. Multiple leiomyomas within uterine myometrium, largest is 3.3 cm. 2. Endometrium is homogeneous and 9 mm in thickness; within normal limits for a premenopausal patient. 3. Prominent periuterine vessels; nonspecific but may indicate pelvic vascular congestion. Electronically authenticated by: RANDALL LEMONS Date: 2021-09-11 14:02 Normal [facility] CTA ABD JAKE WWO CON LE RUNO FFon 08-10-2021 CTA ABD JAKE WWO CON LE RUNOFF EXAMINATION: CTA ABD JAKE WWO CON LE RUNOFF HISTORY: Bilateral lower limb atherosclerosis pain at rest co-occurrent and due to atherosclerosis COMPARISON: No relevant comparison available. TECHNIQUE: After obtaining the patient's consent, CT images of the abdomen, pelvis, and lower extremities were obtained without and with non-ionic intravenous contrast material. Multi-planar reformatted/3-D images were created to optimize visualization of vascular anatomy. Dose reduction techniques were achieved by using automated exposure control and/or adjustment of mA and/or kV according to patient size and/or use of iterative reconstruction technique. FINDINGS: AORTA: No aneurysm or dissection. Normal renal and mesenteric vessels. ILIAC: No aneurysm or dissection. RIGHT LEG: No significant stenosis or occlusion. LEFT LEG: No significant stenosis or occlusion. LUNG BASES: No visible pulmonary or pleural disease. LIVER: No enlargement, atrophy, abnormal density, or significant focal lesion. BILIARY: No visible dilatation or calcification. PANCREAS: No lesion, fluid collection, ductal dilatation, or atrophy. SPLEEN: No enlargement or focal lesion. ADRENALS: No mass or enlargement. KIDNEYS: No mass, obstruction, or calcification. BOWEL/MESENTERY: No visible mass, obstruction, or bowel wall thickening. RETROPERITONEUM: No mass or adenopathy. PELVIC NODES: No adenopathy. URINARY BLADDER: No visible focal wall thickening, lesion, or calculus. PELVIC ORGANS: 3.7 cm anterior fundal uterine leiomyoma. ABDOMINAL WALL: No mass or hernia. BONES: Increased sclerosis throughout the marrow cavity involving the posterior superior aspect of the left iliac wing. OTHER: IMPRESSION: 1. No significant atherosclerotic disease, vessel narrowing, occlusion, or findings to account for patient's symptoms. 2. Uterine myometrial 3.7 cm leiomyoma. 3. Atypical increased density/sclerosis involving the marrow cavity at the posterior superior aspect of the left iliac wing of uncertain etiology. No cortical thickening, periosteal reaction, or bone expansion. Correlate with clinical history of remote trauma. Consider MRI for further evaluation of pelvis. Electronically authenticated by: RANDALL LEMONS Date: 2021-08-10 11:03 Normal [facility] VC COMP CONSULTATIONon 07-31 VC COMP CONSULTATION Patient: FRANKY CYR Exam Date: 07/31/2021 : 1970 Gender:F Ordering : DR JAYDEN HENDERSON M.D. Admission #: [id number] Family : Order #: [id number] CLICK HERE TO VIEW EXAM RADIOLOGY REPORT PROCEDURE: VC VEIN CENTER CONSULTATION VEIN CENTER - OFFICE VISIT INITIAL COMPARISON: None. PROGRESS NOTES: 51-year-old female who presents with lower extremity varicose veins with leg pain swelling and muscle cramps. The patient's symptoms are bilateral, left more than right. The patient describes the pain as aching throbbing and dull rating the pain as a 4 on a scale of 1-10. The patient has had varicose veins for approximately 20 years, initially following . 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 In the past 3 months the patient has developed coldness and numbness in her bilateral feet and ankle, this sometimes awakens her at night and has significantly affected her ability to run, when the patient runs she developed significant pain and numbness in feels like she might trip resulting in injury. The patient underwent intravenous laser ablation of the right great saphenous vein approximately 20 years ago. Treatment was discontinuous due to tortuosity of the vein. The patient has worn compression stockings for approximately 20 years. The patient's symptoms are suggestive of arterial ischemia. The patient also complains of vague diffuse abdominal pain and left flank pain as well as left flank fullness. The patient describes a family history of varicose veins in her mother. Coronary artery disease hypertension type 2 diabetes in ulcerative colitis in her father. . The patient has never smoked. Occasional social alcohol use. No illicit drug use. Past procedural history significant for endometrial ablation. The patient did have a single episode of deep vein thrombus following medication for persistent bleeding after in her right leg, presumed to be a provoked thrombus period no additional episodes of deep vein thrombus since this time. No pulmonary embolus. See separate history and physical for medication list. Nursing notes were reviewed. After history and physical exam I discussed at length the pathophysiology of venous hypertension and possible treatments, therapies and strategies available. We discussed at length the importance of elevating the lower extremities above the level of the heart, increased physical activity and compression stocking use. We discussed conservative options including bilateral compression stockings, surgical interventions including ligation and stripping and phlebectomy. We discussed intravenous laser ablation, micro foam chemical ablation and injection sclerotherapy at length. Risks and benefits were discussed. The patient's questions were answered. Ultrasound venous reflux study performed the same day was discussed at length with the patient. The report demonstrates discontinuous bilateral great saphenous veins with moderate reflux in the remaining portions bilaterally. Bilateral anterior accessory saphenous vein venous insufficiency with dilatation. Bilateral incompetent branch saphenous varicose veins PHYSICAL EXAM: The right leg demonstrates mild scattered varicose veins, moderate scattered reticular and spider veins. Mild hemosiderin staining masked by underlying perez. The patient's forefoot was cold to the touch, purplish in color on the dorsal foot and white in color along the plantar foot with baseline blanching of all a 5 toenails with no capillary filling observed with or without pressure. The posterior tibial dorsalis pedis pulses could not be palpated. No active ulceration or subcutaneous edema. The left leg demonstrates mild scattered varicose veins, moderate scattered reticular and spider veins. Mild hemosiderin staining masked by underlying perez. The patient's forefoot was cold to the touch, purplish in color on the dorsal foot and white in color along the plantar foot with baseline blanching of a 5 toenails with no capillary filling observed with or without pressure. The posterior tibial dorsalis pedis pulses could not be palpated. No active ulceration or subcutaneous edema. Both thighs, legs and hindfoot and midfoot were symmetrically warm to the touch. Both forefeet were cold to the touch, purplish in color on the dorsal foot and blanched in appearance on the plantar foot. Soft tissue fullness of the patient's left mid back compared to the right during palpation and visually. IMPRESSION: 1. Chronic mid abdominal pain and palpable left mid back soft tissue fullness 2. Suspected baseline arterial ischemia bilateral forefoot with blanched toenail capillary beds and plantar forefoot 3. Moderate bilateral great and anterior accessory saphenous vein venous insufficiency 4. Mild bilateral branch sa (more content not included)... Normal [facility] VC VENOUS REFLUX KATHY LMTon 0 07-31-2021 VC VENOUS REFLUX KATHY LMT Patient: FRANKY CYR Exam Date: 07/31/2021 : 1970 Gender:F Ordering : DR JAYDEN HENDERSON M.D. Admission #: [id number] Family : Order #: [id number] CLICK HERE TO VIEW EXAM RADIOLOGY REPORT PROCEDURE: VEIN CENTER ULTRASOUND VENOUS REFLUX BILATERAL LIMTED COMPARISON: None. INDICATIONS: Pain co-occurrent and due to varicose veins of bilateral legs I83.813 TECHNIQUE: Duplex imaging of the lower extremity to assess the deep and superficial venous system for the presence of deep or superficial venous incompetence and to document the location and severity of disease. The study includes evaluation of the great saphenous vein (GSV), anterior accessory saphenous vein (AASV) and small saphenous vein (SSV). Patient scanned in reverse Trendelenburg and standing. FINDINGS: RIGHT LOWER EXTREMITY: Saphenofemoral Junction Reflux: Yes 6.7mm 5.0 sec GSV: Diam (mm) Reflux/ Time (sec) Proximal Thigh 6.8 Yes 4.7 Mid Thigh 2.3 No Distal Thigh 2.3 No Prox Calf 4.4 Yes 4.5 Mid Calf NA No Saphenopopliteal Junction Reflux: 4.3mm No SSV: Proximal Calf 3.1 No Mid Calf 1.8 No AASV: Proximal Thigh 6.4 Yes 4.7 Mid Thigh 3.3 Yes 1.3 Distal Thigh Thrombi: No acute or chronic thrombus Compressibility: Normal Flow: Normal Preforator: Mid medial lower leg measures 5.0 mm with 1.6s of reflux Tech Note: Incompetent SFJ competent SPJ. GSV in discontinuous due to previous stripping. Area that is hypoechoic mid medial thigh measure 5.0 x 4.6 x 4.0 mm and is avascular. Patent varicose vein is visualized on the mid medial lower leg measures 3.5 mm with 1.7s of reflux and is off the GSV and connects to the incompetent caseworker. Incompetent patent varicose vein extends from the tortuous AASV measures 3.5 mm with 2.1s of reflux. Portion of AASV that is treatable is 10 cm then it becomes tortuous. LEFT LOWER EXTREMITY: Saphenofemoral Junction Reflux: Yes 5.3 mm 1.3 sec GSV: Diam (mm) Reflux/Time (sec) Proximal Thigh 5.8 Yes 2.6 Mid Thigh 1.4 No Distal Thigh 4.4 Yes 1.0 Prox Calf 3.2 No Mid Calf 1.1 No Saphenopopliteal Junction Relux: 4.9 mm No SSV: Proximal Calf 1.9 No Mid Calf 1.6 No AASV: 1.3 Junction Proximal Thigh 6.7 3.6 Yes Mid Thigh 3.4 No Distal Thigh Thrombi: No acute or chronic thrombus Compressibility: Normal Flow: Normal Senior Quality Analyst: Mid medial thigh measures 3.2 mm with 0s of reflux. Mid medial lower leg measures 2.4 mm with 0s re Tech Note: Incompetent SFJ and Competent SPJ. AASV becomes tortuous mid thigh. Patent varicose vein connecting SSV to GSV measures 4.3 mm with 1.0s of reflux. CONCLUSION: 1. Bilateral discontinuous great saphenous veins with areas of reflux identified in the patent portions as detailed above 2. Bilateral incompetent dilated anterior accessory saphenous veins 3. Bilateral incompetent branch saphenous varicose veins Dictated by: Jayden Henderson MD on 07/31/2021 at 11:35 Approved by: Jayden Henderson MD on 07/31/2021 at 11:39 Normal [facility] XR LSPINE MIN 4 VIEWSon 06-24 XR LSPINE MIN 4 VIEWS EXAMINATION: XR LSPINE MIN 4 VIEWS HISTORY: Low back pain , chronic COMPARISON: No relevant comparison available. FINDINGS: BONES: Mild degenerative endplate changes at L2-3. Multilevel mild degenerative facet arthropathy. No fracture spondylolisthesis. DISC SPACES: Mild narrowing L2-3. PARASPINOUS: Negative. No paraspinous abnormality is seen. OTHER: Negative. IMPRESSION: 1. No appreciable acute abnormality. 2. L2-3 mild/moderate degenerative disc disease. Electronically authenticated by: RANDALL LEMONS Date: 2021-07-03 13:34 Normal [facility] Vital Signs Date Time Vital Sign Value Performing Clinician Michael john 10-08-2022 15:23-0400 Blood Pressure Location Leon PATO [facility] 10-08-2022 15:23-0400 Diastolic blood pressure 78 mm[Hg] Leon BARTONL [facility] [place] 10-08-2022 15:23-0400 Heart rate 70 /min Leon NILL [facility] [place] 10-08-2022 15:23-0400 Respiratory rate 16 /min Leon ORALIAL [facility] [place] 10-08-2022 15:23-0400 Systolic blood pressure 116 mm[Hg] Leon BARTONL [facility] [place] Encounters Encounter Date Encounter Type Care Provider Facility Start: 07-02-2023 End: 07-02-2023 ambulatory DIPIKA JONES Not Available Start: 06-11-2023 End: 06-11-2023 ambulatory DIPIKA JONES Not Available Start: 10-23-2022 End: 10-24-2022 ambulatory Leon WHYTE Facility:[id number] Start: 10-08-2022 End: 10-09-2022 ambulatory Leon WHYTE Facility: [facility] Start: 10-08-2022 End: 10-08-2022 Patient encounter procedure Leon Henrik WHYTE [facility] Start: 06-20-2022 End: 06-21-[address] DIPIKA JONES . Facility:[facility] Start: 06-10-2022 End: 06-10-[address] DIPIKA JONES . Facility:[facility] Start: 05-23-2022 End: 05-23-2022 ambulatory LOY ROBERTSON Facility:[facility] Start: 05-17-2022 End: 05-18-[address] DIPIKA JONES . Facility:[facility] Start: 02-12-[address] JAYDEN Ng y:[facility] Start: 01-21-2022 End: 01-21-2022 ambulatory LOY ROBERTSON Facility:[facility] Start: 01-16-2022 End: 01-17-[address] DIPIKA JONES . Facility:[facility] Start: 01-14-2022 End: 01-15-[address] JAYDEN HENDERSON Facility:[facility] Start: 01-11-2022 End: 04-25-[address] JAYDEN HENDERSON Facility:[facility] Start: 12-27-2021 End: 12-28-[address] JAYDEN HENDERSON Facility:[facility] Start: 12-21-2021 End: 12-22-[address] JAYDEN HENDERSON Facility:[facility] Start: 12-13-2021 End: 12-14-[address] JAYDEN HENDERSON Facility:[facility] Start: 12-07-2021 End: 12-08-[address] JAYDEN HENDERSON Facility:[facility] Start: 11-29-2021 End: 11-30-[address] KARO ADVIS Facility:[facility] Start: 11-22-2021 End: 11-23-[address] KARO DAVIS Facility:[facility] Start: 09-27-2021 End: 09-28-[address] KARO DAVIS Facility:[facility] Start: 09-20-2021 End: 09-21-[address] KARO DAVIS Facility:[facility] Start: 09-11-2021 End: 09-12-[address] KARO DAVIS Facility:[facility] Start: 09-04-2021 End: 09-05-[address] KARO DAVIS Facility:[facility] Start: 08-16-[address] KARO DAVIS Facil ity:[facility] Start: 08-10-2021 End: 08-11-[address] KARO DAVIS Facility:[facility] Start: 07-31-2021 End: 08-01-[address] KARO DAVIS Facility:[facility] Start: 07-03-2021 End: 07-04-[address] KARO DAVIS Facility:[facility] Procedures Date Procedure Procedure Detail Performing Clinician Dilation and curettage Kasi WHYTE Endometrial ablation Leon WHYTE Hysteroscopy Leon WHYTE Percutaneous translu paul laser ablation of vein Leon WHYTE Immunizations Immunization Date Immunization Notes Care Provider Fa cility 12-15-2020 SARS-CoV-2 (COVID-19 ) mRNA-1273 vaccine Leon BARTONL [facility] [place] 03-22-2020 SARS-CoV-2 (COVID-19 ) mRNA-1273 vaccine Leon NILL [facility] [place] 02-22-2020 SARS-CoV-2 (COVID-19 ) mRNA-1273 vaccine Leon NILL [facility] [place] Payers Date Payer Category Payer Unknown [id number] 2019 Unknown [id number] 1970 Unknown [id number] 2.16.84 0.1.700707.3.579.2.593 1970 Unknown [id number] 2.16.84 0.1.431013.3.579.2.593 1970 Unknown [id number] 2.16.84 0.1.578034.3.579.2.593 1970 Unknown [id number] 2.16.84 0.1.663499.3.579.2.593 1970 Unknown [id number] 2.16.84 0.1.186675.3.579.2.593 1970 Unknown [id number] 2.16.84 0.1.920210.3.579.2.593 1970 Unknown [id number] 2.16.84 0.1.395265.3.579.2.593 1970 Unknown [id number] 2.16.84 0.1.495849.3.579.2.593 1970 Unknown [id number] 2.16.84 0.1.008045.3.579.2.593 1970 Unknown [id number] 2.16.84 0.1.573125.3.579.2.593 1970 Unknown [id number] 2.16.84 0.1.548017.3.579.2.593 1970 Unknown [id number] 2.16.84 0.1.452860.3.579.2.593 1970 Unknown [id number] 2.16.84 0.1.676288.3.579.2.593 1970 Unknown [id number] 2.16.84 0.1.553571.3.579.2.593 1970 Unknown [id number] 2.16.84 0.1.080794.3.579.2.593 1970 Unknown [id number] 2.16.84 0.1.988022.3.579.2.593 1970 Unknown [id number] 2.16.84 0.1.531460.3.579.2.593 1970 Unknown [id number] 2.16.84 0.1.392998.3.579.2.593 1970 Unknown [id number] 2.16.84 0.1.294412.3.579.2.593 1971 Unknown [id number] 2.16.84 0.1.424815.3.579.2.593 1971 Unknown [id number] 2.16.84 0.1.874226.3.579.2.593 1971 Unknown [id number] 2.16.84 0.1.195206.3.579.2.593 1971 Unknown [id number] 2.16.84 0.1.525911.3.579.2.593 1971 Unknown [id number] 2.16.84 0.1.048281.3.579.2.593 1971 Unknown [id number] 2.16.8 40.1.209131.3.579.2.727 1971 Unknown [id number] 2.16.8 40.1.825642.3.579.2.727 1971 Unknown [id number] 2.16.84 0.1.077602.3.579.2.1259 1970 Unknown [id number] 2.16.84 0.1.210760.3.579.2.1259 1958 Self-pay [id number] Social History Date Type Detail Facility Start: 10-08-2022 Tobacco smoking status Never s moked tobacco (finding) [facility] [place] Tobacco smoking status Never Gener al [facility] [place] Sex Assigned At Female [facility] Functional Status Date Assessment Result Facility 10-08-2022 Functional Status N/A [facility] [place] Clinical Note 10-08-2022 Note Date & Type Note Facility 10-08-2022 Note Chief Complaint consultation for screening colonoscopy HPI Staff 52 year old female presents on consultation from Dr. Davis for screening colonoscopy. Denies abdominal or rectal pain. No rectal bleeding or change in bowel habits. Denies nausea or vomiting. No unexplained weight loss. Never had colonoscopy in the past. No known family history of colon cancer. History of Present Illness 52 yo female for colorectal screening; denies change in bms or blood in stools; no abdominal complaints; denies asa or NSAID use, no SBE prophylaxis; no abdominal operations, no previous colonoscopy; no fmhx of GI malignancy or IBD; no tobacco use. Review of Systems PHQ Score Initial Depression Screen Score: 0 ROS - Provider Constitutional: no fever, no sweats, no weight loss. Eyes: no glasses, no blurred vision, no visual loss. ENMT: no dentures, no hoarseness, no swallowing difficulties, no hearing loss, no ear infection(s), no nose bleeds. Cardiovascular: normal blood pressure, no chest pain, regular heartbeat, no heart murmur. Respiratory: no shortness of breath, no cough, no asthma, no wheezing. Gastrointestinal: no nausea, no vomiting, no diarrhea, no constipation, no blood in stool, no change in bowel habits, no abdominal pain, no hepatitis. Genitourinary: no kidney stones, no urine infection, no dysuria. Musculoskeletal: no pain, no weakness. Skin: no changing moles, no rash, no skin lumps. Neurologic: no seizures, no epilepsy, no headache. Psychiatric: no emotional or psychiatric problem. Heme/Lymph: no bleeding problems, no anemia, no blood clots, no transfusions. Allergy/Immunologic: no swollen lymph nodes/glands, no IV drug abuse. Other: Additional ROS info: Except as noted in the above Review of Systems and in the History of Present Illness, all other systems have been reviewed and are negative or noncontributory. Physical Exam Vitals & Measurements HR: 70(Peripheral) RR: 16 BP: 116/78 HT: 64 in HT: 162.5 cm WT: 60.3 kg WT: 132.66 lb BMI: 22.84 HEENT: normal conjunctiva, sclera clear, no scleral icterus, EOM intact, PERRLA, oral mucosa moist without lesions. Neck: trachea midline, no mass, symmetric, no thyromegaly or nodules, no adenopathy Respiratory: lungs CTA, respirations non labored. Cardiovascular: regular rate and rhythm, no murmur, no pedal edema or varicosities. Gastrointestinal: soft, non distended, no tenderness, no masses, no palpable hernias, diastasis recti no, no hepatosplenomegaly; normal bs Lymphatic: no cervical adenopathy, no supraclavicular adenopathy. Musculoskeletal: normal gait, digits and nails without infection, nodes, cyanosis, clubbing. Skin: no rashes, no lesions, no ulcers, no subcutaneous nodules, induration. Psychiatric/Neuro: oriented to time, place, person, judgement normal, affect appropriate for age, insight intact, no focal deficits. Tests: review of old records completed, Discussed surgical options, risks, and possible complications with patient. Assessment/Plan 1. Screening for malignant neoplasm of colon (Z12.11: Encounter for screening for malignant neoplasm of colon) plan colonoscopy under anesthesia, informed consent obtained. Follow-up No qualifying data available Problem List/Past Medical History Ongoing BMI 22.0-22.9, adult Degeneration of lumbar intervertebral disc Intermittent claudication Leiomyoma of uterus Screening for malignant neoplasm of colon Varicose veins of lower extremity Vascular insufficiency Very low density lipoprotinemia Historical No qualifying data Procedure/Surgical History Dilation and curettage, Endometrial ablation, Hysteroscopy, Percutaneous transluminal laser ablation of vein. Medications No active medications Allergies No Known Allergies No Known Medication Allergies Social History Alcohol - Denies Alcohol Use, 10/08/2022 Substance Abuse - Denies Substance Abuse, 10/08/2022 Tobacco Never (less than 100 in lifetime) Tobacco Use:. Never Smokeless Tobacco Use:., 10/08/2022 Family History CAD - Coronary artery disease: Father. Diabetes mellitus type 2: Father. Diverticulitis of colon: Mother. Hypertension: Father and Brother. Primary malignant neoplasm of skin: Father. Ulcerative colitis: Father. Immunizations Vaccine Date Status SARS-CoV-2 (COVID-19) mRNA-1273 vaccine 12/15/2020 Recorded SARS-CoV-2 (COVID-19) mRNA-1273 vaccine 03/22/2020 Recorded SARS-CoV-2 (COVID-19) mRNA-1273 vaccine 02/22/2020 Recorded [facility] Comment on above: Result Comment: Elec tronically Signed By: PATO WASHINGTON, Leon Robb\Date and Time Signed: 10/08/22 21:36 EDT Clinical Note 09-04-2021 Note Date & Type Note Facility 09-04-2021 Note PROCEDURE: MRI PELVI S WO CON COMPARISON: None. HISTORY: Disorder of bone TECHNIQUE:A variety of imaging planes and parameters were utilized for visualization of suspected pathology. Images were performed without contrast. FINDINGS: BONES: No acute fracture or dislocation. No focal signal abnormality identified within the left iliac wing to correspond to the findings on CT exam. SOFT TISSUES: Negative. No visible soft tissue swelling. EFFUSION: None visible. OTHER: Moderate to marked enlargement of the uterus with multiple focal masses the largest measuring 3 cm in diameter. Multiple dilated periuterine and periadnexal blood vessels, left greater than right IMPRESSION: Enlarged lobular uterus with multiple masses. Uterine fibroids are favored Hypervascularity, consider pelvic vascular congestion No significant focal iliac wing abnormality to correspond to the CT findings Electronically authenticated by: JAYDEN HENDERSON Date: 2021-09-04 16:23 [facility] Evaluation + Plan note Note Date & Type Note Facility Evaluation + Plan note No data available for this section General Surgery [facility] Discharge instructions Note Date & Type Note Facility Hospital Discharge instructions No data available for this section General Surgery [place] Progress note Note Date & Type Note Facility Progress note No data available for this section General Surgery [place] Summary Purpose Family History No Family History Records FoundNo Family History Records FoundNo Family History Records Found Advance Directives No Advanced Directives Records FoundNo Advanced Directives Records FoundNo Advanced Directives Records Found Additional Source Comments INFORMATION SOURCE (unrecogn ized section and content) DATE CREATED AUTHOR 06/24/2022 [facility] DATE CREATED AUTHOR AUTHOR'S ORGANIZ ATION 11/01/2022 Jesus Powers [facility] DATE CREATED AUTHOR AUTHOR'S ORGANIZ ATION 07/04/2023 [facility] EPIC Patient Care team informatio n (unrecognized section and content) Personnel Name: KARO DAVIS MD Address: Address: [address] [place] [address] FOR RECORDS PERTAINING TO PATIENTS WHO ARE OR HAVE BEEN ENROLLED IN A CHEMICAL DEPENDENCY/SUBSTANCEABUSE PROGRAM, SOME INFORMATION MAY BE OMITTED. This clinical summary was aggregated from multiple sources. Caution should be exercised in using it in the provision of clinical care. This summary normalizes information from multiple sources, and as a consequence, information in this document may materially change the coding, format and clinical context of patient data. In addition, data may be omitted in some cases. CLINICAL DECISIONS SHOULD BE BASED ON THE PRIMARY CLINICAL RECORDS. [facility]. provides no warranty or guarantee of the accuracy or completeness of information in this document.
[2023-07-30 06:40] LABS: HCG Quantitative <1 mIU/mL
[2023-07-30] MEDS: LACTATED RINGER'S SOLUTION 1,000 ML 50 ML IV (07:19)
--- NOTE | 2023-07-30 07:21 | PC.NURSE ---
States she has a area on inner left labia area that she describes as a boil; states no drainage; will inform Dr. Farley
[2023-07-30] MEDS: CEFAZOLIN SODIUM/DEXTROSE,ISO 1 GM/50 ML IV.SOLN IV (07:29)
[2023-07-30] MEDS: 0.9 % SODIUM CHLORIDE 10 ML INJ (08:07)
[2023-07-30] MEDS: LIDOCAINE HCL 1%-EPINEPHRINE 1:100,000 20 ML MDV INJ (08:07)
[2023-07-30] MEDS: LACTATED RINGER'S SOLUTION 1,000 ML 1000 ML IV (08:51)
--- NOTE | 2023-07-30 09:15 | P.ON_ITS ---
Brief Operative Note Date of procedure: 07/30/23 Pre-op diagnosis general: aub, uterine fibroids, dyspareunia, dysmenorrhea Post-op diagnosis: same as pre-op Procedure: NAME OF PROCEDURE: ? vNOTES hysterectomy with bilateral salpingectomy with cystoscopy. PROCEDURE:? Patient was brought back to the operating room where she was given general anesthesia.? She was placed in the dorsolithotomy position, after being prepped and draped in a sterile fashion.? A Llamas catheter was placed.? A weighted speculum was placed posterior in the vagina.? The cervix was grasped anteriorly and posteriorly with two single tooth tenaculums and placed on traction.? A solution of Marcaine, lidocaine and epinephrine and saline was liberally infiltrated into the cervical vaginal junction.? The knife was then used to circumscribe the cervical vaginal junction and the posterior cul-de-sac was sharply entered without difficulty.? A long weighted duck tail speculum was placed and the peritoneum was tacked to the vaginal epithelium.? We then turned our attention to the uterosacral ligaments which were bilaterally cross clamped, transected and suture ligated and then were held with hemostats.? Attention was then turned to the anterior compartment, where the cervical vaginal junction was similarly divided, and the bladder was then sharply and bluntly dissected off the cervix and the lower uterine segment, and the anterior cul-de-sac was sharply entered.? The vaginal epithelium was tacked to the peritoneum.? Lateral attachments of the uterus were secured with Brandon clamps and suture ligated.? The retractors were then removed and were placed by the path inner ring anteriorly followed by posteriorly.? Once the ring was seated, the gel cap was placed and the laparoscopic ports were placed through this cap and the gas was allowed to insufflate the pelvis.? A GynLap was placed posteriorly to facilitate mobilization of the bowel, control bleeding.? This was later retrieved.? The LigaSure device was used to secure the lateral attachments of the uterus on the left side, including the cardinal ligaments and the uterine vasculature.? Once the utero-ovarian ligament was reached, we turned our attention to the right si de where the LigaSure device was used to fully detach the uterus from the pelvic side wall.? Please note the ligasure was used to perform bilateral salpingectomy, excellent hemostasis was noted. The ureters were seen visually; before, during and after the pedicles were created.? The ureters were bilaterally in normal locations, peristalsing.? ?? Please note that the LigaSure was used on the patient?s left side to fully detach the uterus from the pelvic side wall.? The uterus was removed from the field.? The GynLap was also removed from the field.? The inner ring and gel port caps were removed and the vaginal retractors were replaced.? Lateral figure of eight sutures were placed bilaterally, where bleeding occurred, behind the ring, and no further sutures were needed.? The colpopexy was then carried out, passing a stitch posteriorly to the vaginal wall, capturing the left uterosacral ligament, going across the peritoneum posteriorly to the right and exiting out the vaginal wall posterio rly.? The vaginal cuff was closed in a single running locked stitch using 0 Monocryl, and the uterosacral ligaments were cut.? Once the vaginal cuff was fully closed, the uterosacral colpopexy stitch was then tied down tightly, elevating the vaginal cuff to the uterosacral ligaments in a satisfactory manner.? The Llamas catheter was removed and the patient was awakened and taken to recovery in excellent condition.? Sponge, lap and instruments counts correct x2.? Anesthesia: GETA Surgeon: Praveen Farley Direct Chill Caster: Rimma Ferguson Estimated blood loss (mL): 50 Pathology: other (uterus and tubes) Condition: stable Disposition: PACU Urinary Catheter Management Urinary Catheter Management Urethral: Cath placed during this visit: no
--- NOTE | 2023-07-30 09:53 | PC.NURSE ---
Peripad noted to have scant pink drainage
--- NOTE | 2023-07-30 09:56 | PC.NURSE ---
Restless; c/o pressure and having to use bathroom; placed on bedpan
[2023-07-30] MEDS: HYDROMORPHONE HCL 0.5 MG/0.5 ML SYRINGE IV ×2 (10:00→10:06)
--- NOTE | 2023-07-30 10:10 | PC.NURSE ---
Remains on bedpan and c/o pressure in peineal area
--- NOTE | 2023-07-30 10:13 | PC.NURSE ---
Resting on side with eyes closed with even unlabored respirations
[2023-07-30] MEDS: PROMETHAZINE HCL 12.5 MG in 0.9 % SODIUM CHLORIDE 50 ML 202 MG IV (10:21)
--- NOTE | 2023-07-30 10:27 | PC.NURSE ---
Resting on side with eyes closed; no active vaginal drainage noted
--- NOTE | 2023-07-30 10:32 | PC.NURSE ---
Medicated for pain as ordered with Dilaudid; bedpan removed and clean peripad applied; lying on side
--- NOTE | 2023-07-30 10:34 | PC.NURSE ---
States pressure in perineal area better; requesting additional pain medication; medicated as ordered; has been nauseated since early in recovery ; no emesis; waiting for medication from pharmacy
--- NOTE | 2023-07-30 11:01 | PC.NURSE ---
Medicated for nausea as ordered; no active vaginal drainage
--- NOTE | 2023-07-30 11:04 | PC.NURSE ---
No active vaginal drainage
--- NOTE | 2023-07-30 11:07 | PC.NURSE ---
No further c/o nausea; no active vaginal drainage noted
[2023-07-30] MEDS: CEFAZOLIN SODIUM/DEXTROSE,ISO 2 GM/50 ML PIGGYBACK IV (13:05)
[2023-07-30] MEDS: OXYCODONE HCL/ACETAMINOPHEN 5MG/325MG 1 TAB PO (13:05)
[2023-07-30 16:31] LABS: Basophils Percent Auto 0.1 % (0.2-2.0); Hematocrit 42.2 % (36.0-48.0); Hemoglobin 13.7 g/dL (12.0-16.0); Immature Granulocytes Abs Auto 0.05 10^3/uL (0.00-0.03); Immature Granulocytes Pct Auto 0.3 % (0.0-0.5); Lymphocytes Absolute Auto 0.6 10^3/uL (1.2-3.8); Lymphocytes Percent Auto 3.6 % (20.5-60.0); Mean Corpuscular HGB Conc 32.5 g/dL (29.9-35.2); Mean Corpuscular Hemoglobin 28.4 pg (26.7-34.0); Mean Corpuscular Volume 87.4 fL (81.0-99.0); Mean Platelet Volume 11.6 fL (9.5-13.5); Monocytes Absolute Auto 0.2 10^3/uL (0.3-0.8); Monocytes Percent Auto 1.3 % (1.7-12.0); Neutrophils Absolute Auto 14.7 10^3/uL (1.4-6.5); Neutrophils Percent Auto 94.7 % (43.0-75.0); Platelet Count 258 10^3/uL (150-450); Red Blood Count 4.83 10^6/uL (4.20-5.40); Red Cell Distribution Width 13.4 % (11.0-15.0); White Blood Count 15.5 10^3/uL (4.0-11.0)
== END 2023-07-30 16:52 | disposition home or self-care (01) ==
LOC: SURGOUT 09:20 → MS 10:50
PROVIDERS: PCP Family Medicine; Visit Provider Obstetrics & Gynecology
PROC: (CPT 944; principal; 2023-07-30 07:30)
DX: N92.0 Excessive and frequent menstruation with regular cycle (principal); N94.10 Unspecified dyspareunia; R10.2 Pelvic and perineal pain; N94.6 Dysmenorrhea, unspecified; N93.9 Abnormal uterine and vaginal bleeding, unspecified; D25.9 Leiomyoma of uterus, unspecified; N80.03 Adenomyosis of the uterus
CPT/HCPCS: 58552; 36415; 84702; 85025; 88307; 94667; J1094; J1170; J2704

== ENCOUNTER 2024-05-20 12:54 | Outpatient (OUT) | payer BC, SELFPAY ==
--- NOTE | 2024-05-20 12:59 | MM_ITS ---
Patient Name: FRANKY CYR MR#: [id number] : 1970 Exam Date: 05/20/2024 Ordering Doctor: DR Praveen Farley . RADIOLOGY REPORT PROCEDURE: MM TOMOSYNTHESIS SCREENING BI COMPARISON: MM TOMOSYNTHESIS SCREENING BI, 05/20/2023. MG MAMM SCREEN 3D KATHY CAD, 05/17/2022. MG MAMM SCREEN 3D KATHY CAD, 05/10/2021. MG MAMM KATHY SCRN W CAD DIG, 06/07/2013. INDICATIONS: Screening Calculator Name NCI Breast Cancer Risk Assessment Tool 5 Year Breast Cancer Risk 1.60% Lifetime Breast Cancer Risk 12.40% Personal Breast Cancer No Personal Ovarian Cancer No Treatments None Family Cancers Grandmother-paternal with breast cancer at age 70. LOCATION: [facility] BREAST COMPOSITION: The breasts are extremely dense, which lowers the sensitivity of mammography. FINDINGS: Developing grouping of microcalcifications in the posterior superior right breast seen only with MLO view. DIAGNOSTIC CATEGORY 0--INCOMPLETE: NEED ADDITIONAL IMAGING EVALUATION. RECOMMENDATIONS: ADDITIONAL MAMMOGRAPHIC VIEWS REQUIRED: RIGHT BREAST - spot magnification views with a medial lateral view recommended. PLEASE NOTE: A NORMAL MAMMOGRAM DOES NOT EXCLUDE THE POSSIBILITY OF BREAST CANCER. A CLINICALLY SUSPICIOUS PALPABLE LUMP SHOULD BE BIOPSIED. Dictated by: Stone Betancur DO on 05/20/2024 at 14:31 Approved by: Stone Betancur DO on 05/20/2024 at 14:39
--- OUTSIDE RECORDS SUMMARY | 2024-05-20 13:12 | XMS_ITS | CCD ---
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 Mechanic Name Role Phone BEATRIZ, DR JAYDEN Bobby [...] Latif Attending Unavailable NADERER, DR KARO Latif Consulting Unavailable NADERER, DR KARO Latif Admitting Unavailable NADERER, DR KARO Latif Primary Care Unavailable ABBAS, DR MEDINA Attending Unavailable ABBAS, DR MEDINA Consulting Unavailable ABBAS, DR MEDINA Admitting Unavailable NADERER, DR KARO Latfi Primary Care Unavailable WEST, DR JAYDEN Bobby [...] JAYDEN Bobby Attending Unavailable WEST, DR JAYDEN V Consulting Unavailable DR RANDALL LEMONS Consulting Unavailable KARO DAVIS Primary Care Physician Leon WHYTE Attending Unavailable KARO DAVIS Referring Unavailable Leon WHYTE Attending Unavailable DIPIKA JONES Attending Unavailable DIPIKA JONES Attending Unavailable DIPIKA JONES Attending Unavailable DIPIKA JONES Attending Unavailable Allergies Allergy Classification Reported Allergen(s) Allergy Type Date of Onset Reaction(s) Facility (1 source) No Known Medication Allergies; Translations: [No Known Medication Allergies] Propensity to adverse reactions (disorder) [facility] Repository Problems Active Problems Problem Classification Problem [...] Peripheral vascular disease, unspecified; Translations: [Atherosclerosis of [place] arteries of extremities with rest pain, bilateral [...] Range Facility Pathology Noteon 10-31-2022 Pathology Note [id number] :127 Normal [facility] Reminderson 10-30-2022 Reminders - From: Shavon Mcguire LPN To: Al[place] - Clinical; Sent: 10/30/2022 11:35:53 EDT Show up: 09/22/2032 07:00:00 EDT Subject: colonoscopy recall Due Date/Time: 10/23/2032 07:00:00 EDT Reminder/Recall Patient due for screening colonoscopy 10/23/2032. Normal [facility] Outside Colonoscopyon 2022 Outside Colonoscopy [id number] D:127 Normal [facility] Lab Reportson 10-23-2022 Lab Reports [id number]#1.00C D:127 [facility] Consent for Procedure/Surger yon 10-09-2022 Consent for Procedure/Surgery [id number]#1.00C D:127 [facility] Formson 10-09-2022 Forms [id number]#1.00C D:127 [facility] Ambulatory Visit Summaryon 0 10-08-2022 Ambulatory Visit [...] Vascular insufficiency Very low density lipoprotinemia Normal [facility] Physician Referralon 023 Physician Referral [id number] D:127 Normal [facility] US PELVIS AND TRANSVAGon US PELVIS AND [...] by: RANDALL LEMONS Date: 2022-06-21 07:02 Normal [facility] PAP ACOG PANEL 2: 30 to 65on 06-17-2022 . . Normal [facility] Comment on above: Result Comment: Perf ormed at: WB Performed By: #### 4 [id number] ####[facility] [address] [address]DrBrianne Flores Age Gdln ACOG Testing 30-65 Normal [facility] Comment on above: Performed By: #### 4 [id number] ####[facility] [address] [id number] Flores DIAGNOSIS: Comment Normal [facility] Comment on above: Result Comment: NEGA TIVE FOR INTRAEPITHELIAL LESION OR MALIGNANCY. Performed at: WB Performed By: #### 4 [id number] ####[facility] [address] [id number] Flores HPV Aptima Negative Normal Negative [facility] Comment on above: Result Comment: This nucleic acid amplification test detects fourteen high-risk HPV types (16,18,31,33,35,39,45,51,52,56,58,59,66,68) without differentiation. Performed at: =G Performed By: #### 4 [id number] ####[facility] [address] [address]Dr. Fernando Flores HPV Genotype Reflex Comment Normal [facility] Comment on above: Result Comment: Crit walter not met, HPV Genotype not performed. Performed at: WB Performed By: #### 4 [id number] ####[facility] [address] [place], [place] [address]Dr. Fernando Flores Methodology: Comment Normal [facility] Comment on above: Result Comment: This liquid based ThinPrep(R) pap test was screened with the use of an image guided system. Performed at: WB Performed By: #### 4 [id number] ####[facility] [address] [place], [place] [address]DrBrianne Flores Note: Comment Normal [facility] Comment on above: Result Comment: The Pap smear is a screening test designed to aid in the detection of premalignant and malignant conditions of the uterine cervix. It is not a diagnostic procedure and should not be used as the sole means of detecting cervical cancer. Both false-positive and false-negative reports do occur. . Performed at: WB Performed By: #### 4 [id number] ####[facility] [address] [place], [place] [address]Dr. Fernando Flores Performed by: Comment Normal [facility] Comment on above: Result Comment: Concetta Riggins, Regional Operations Director (ASCP) Performed at: WB Performed By: #### 4 [id number] ####[facility] [address] [place], [place] [address]Dr. Fernando Flores Specimen adequacy: Comment Normal [facility] Comment on above: Result Comment: Sati sfactory for evaluation. Endocervical and/or squamous metaplastic cells (endocervical component) are present. Performed at: WB Performed By: #### 4 [id number] ####[facility] [address] [place], [place] [address]Dr. Fernando Flores [facility]26 SARS-CoV-2 (COVID-19) RNA ALISON+probe Ql (Unsp spec) Not detected Normal NOT DETECTED [facility] Comment on above: Result Comment: When diagnostic [...] for this test is supported by the Data Governance Consultant of Health and Human Service's declaration that [...] used). Performed By: #### T 4 #### [facility] [address] [place] [address] Dr. Fernando Flores INFLUENZA A AND B AGon 05-23 [facility] SEE BELOW Normal [facility] Comment on above: Result Comment: Nega tive for Flu A protein angiten. Infection due to Flu A cannot be ruled out. Flu A angiten in the sample may be below the detection limit of the test. Performed By: #### S EROTON #### [facility] [address] [place] [address] Dr. Fernando [facility] Normal [facility] Comment on above: Result Comment: Nega tive for Flu B protein antigen. Infection due to Flu B cannot be ruled out. Flu B antigen in the sample may be below the detection limit of the test. Performed By: #### S EROTON #### [facility] [address] [place] [address] Dr. Fernando Flores INFLUENZA A AG Negative Normal NEGATIVE SEE COMMENT [facility] Comment on above: Performed By: #### S EROTON #### [facility] [address] [place] [address] Dr. Fernando Flores INFLUENZA B AG Negative Normal NEGATIVE SEE COMMENT [facility] Comment on above: Performed By: #### S EROTON #### [facility] [address] [address] [address] Fernando Flores MG MAMM SCREEN 3D KATHY CADon 05-17-2022 MG MAMM SCREEN 3D KATHY CAD Patient: FRANKY CYR Exam Date: 05/17/2022 : 1970 Gender:F Ordering : DR DIPIKA JONES . Admission #: [id number] Family : Order #: [id number] CLICK HERE TO VIEW EXAM RADIOLOGY REPORT [...] breast cancer at age 71. LOCATION: [facility] BREAST COMPOSITION: Extremely dense, which lowers the [...] M.D. on 05/17/2022 at 11:51 Normal [facility] THYROGLOBULINon 01-26-2022 Thyroglobulin 21 ng/mL Normal [facility] Comment on above: Result Comment: This test was developed and its performance characteristics determined by [employer]. It has not been cleared or approved [...] limit is 2.0 ng/mL. Performed By: #### Cathie VIDALES #### [facility] [id number] Fernando Flores ESTRONEon 01-23-2022 Estrone, Serum 29 pg/mL Normal [facility] Comment on above: Result Comment: Rang e Adult (Premenopausal) 27 - 231 Menstrual Cycle (1-10 days) 19 - 149 Menstrual Cycle (11-20 days) 32 - 176 Menstrual Cycle (21-30 days) 37 - 200 Adult (Postmenopausal) 0 - 125 Performed By: #### Bernadette STRONE #### [facility] [address] [address] [address] Fernando Flores REVERSE T3on 01-22-2022 Reverse T3, Serum 14.4 ng/dL Normal 9.2-24.1 [facility] Comment on above: Result Comment: This test was developed and its performance characteristics determined by [facility]. It has not been cleared or approved by the Food and Drug Administration. Performed By: #### R EVRT3 #### [facility] [address] [address] [address] Fernando Flores TESTOSTERONE, FREE,DIRECT, T OTALon 01-22-2022 Free Testosterone(Direct) 1.9 pg/mL Normal 0.0-4.2 [facility] Comment on above: Result Comment: Perf ormed at: BN Performed By: #### T ESTFRD ####[facility] [address] [id number]. Fernando Flores Testosterone [Mass/Vol] 30 ng/dL Normal 4-50 [facility] Comment on above: Result Comment: Perf ormed at: CB Performed By: #### T ESTFRD ####[facility] [address] [id number]. Fernando Flores Covid-19 PCR (CVDTB)on 12-26 SARS-CoV-2 (COVID-19) RNA ALISON+probe Ql (Unsp spec) Not detected Normal NOT DETECTED [facility] Comment on above: Result Comment: When diagnostic [...] for this test is supported by the Data Governance Consultant of Health and Human Service's declaration that [...] longer be used). Performed By: #### C VDTBH ####[facility] [address] [address]Dr. Fernando Flores SEROTONINon 01-20-2022 Serotonin, Serum 162 ng/mL Normal 31-207 [facility] Comment on above: Performed By: #### S EROTON #### [facility] [address] [address] [address] Fernando Flores THYROGLOBULIN ABon 2 Thyroglobulin Antibody <1.0 Normal 0.0-0.9 [facility] Comment on above: Result Comment: Thyr oglobulin Antibody measured by [facility] Methodology Performed By: #### T HYGAB ####[facility] [address] [address]Dr. Fernando Flores VIT D 1 25 DIHYDROXYon 01-19 Calcitriol(1,25 di-OH Vit D) 62.0 pg/mL Normal 24.8-81.5 [facility] Comment on above: Performed By: #### S EROTON #### [facility] [address] [address] [address] Fernando Flores C-PEPTIDE, SERUMon 2 C-Peptide, Serum 1.8 ng/mL Normal 1.1-4.4 [facility] Comment on above: Result Comment: C-Pe ptide reference interval is for fasting patients. Performed By: #### C PEPT ####[facility] [address] [place], [place] [address]Dr. Fernando Flores INSULINon 01-18-2022 Insulin 6.7 uIU/mL Normal 2.6-24.9 [facility] Comment on above: Performed By: #### T 4 #### [facility] [address] [address] [address] Fernando Flores CORTISOLon 01-17-2022 Cortisol 14.2 ug/dL Normal [facility] Comment on above: Result Comment: Floyd isol AM 6.2 - 19.4 Cortisol PM 2.3 - 11.9 Performed By: #### C ORTISO #### [facility] [address] [place] [address] Dr. Fernando Flores DHEA-SULFATEon 01-17-2022 DHEA-Sulfate 93.7 ug/dL Normal 41.2-243.7 [facility] Comment on above: Performed By: #### S EROTON #### [facility] [address] [place] [address] Dr. Fernando Flores ESTRADIOLon 01-17-2022 Estradiol 24.6 pg/mL Normal [facility] Comment on above: Result Comment: Adul t Female: Follicular phase 12.5 - 166.0 Ovulation phase 85.8 - 498.0 Luteal phase 43.8 - 211.0 Postmenopausal <6.0 - 54.7 1st trimester 215.0 - >4300.0 Sanjay ECLIA methodology Performed By: #### S EROTON #### [facility] [address] [place] [address] Dr. Fernando Flores PROGESTERONEon 01-17-2022 Progesterone 0.7 ng/mL Normal [facility] Comment on above: Result Comment: Foll icular phase 0.1 - 0.9 Luteal phase 1.8 - 23.9 Ovulation phase 0.1 - 12.0 First trimester 11.0 - 44.3 Second trimester 25.4 - 83.3 Third trimester 58.7 - 214.0 Postmenopausal 0.0 - 0.1 Performed By: #### P ROGES #### [facility] [address] [address] [address] Fernando Flores SEX HORMONE-BINDING GLOBULIN on 01-17-2022 Sex Horm Binding Glob, Serum 115.0 nmol/L Normal 17.3-125.0 [facility] Comment on above: Performed By: #### S EROTON #### [facility] [address] [address] [address] Fernando Flores T3, TOTAL (TRIIODOTHYRONINE) on 01-17-2022 T3, TOTAL 120 ng/dL Normal 71-180 [facility] Comment on above: Performed By: #### T 3TOTAL ####[facility] [address] [address]Dr. Fernando Flores THYROID PEROXIDASE ABon 12-26 Thyroid Peroxidase (TPO) Ab <9 Normal 0-34 [facility] Comment on above: Performed By: #### S EROTON #### [facility] [address] [address] [address] Fernando Flores FREE T3on 01-16-2022 FREE T3 2.86 pg/mlL Normal 2.18-3.98 [facility] Comment on above: Performed By: #### T 4 #### [facility] [address] [address] [address] Fernando Flores FREE T4on 01-16-2022 Free T4 [Mass/Vol] 1.04 ng/dL Normal 0.76-1.46 [facility] Comment on above: Performed By: #### F T4 ####[facility] [address] [address]Dr. Fernando Flores GLUCOSE BLOODon 01-16-2022 Glucose [Mass/Vol] 90 mg/dL Normal 74-106 [facility] Comment on above: Performed By: #### S EROTON #### [facility] [address] [address] [address] Fernando Flores GLYCOHEMOGLOBIN A1Con 2021 ADA RECOMMENDATION SEE BELOW Normal [facility] Comment on above: Result Comment: ADA RECOMMENDED LIMIT 4.0 - 6.0 ADA THERAPEUTIC TARGET < 7.0 ACTION SUGGESTED > 7.0 Performed By: #### S EROTON #### [facility] [address] [place] [address] Dr. Fernando Flores Glucose [Mass/Vol] 103 mg/dL Normal [facility] Comment on above: Performed By: #### S EROTON #### [facility] [address] [place] [address] Dr. Fernando Flores HbA1c (Bld) [Mass fraction] 5.2 % Normal 4.5-6.2 [facility] Comment on above: Performed By: #### S EROTON #### [facility] [address] [place] [address] Dr. Fernando Flores T4on 01-16-2022 T4 [Mass/Vol] 7.40 ug/dL Normal 4.80-13.90 [facility] Comment on above: Performed By: #### T 4 #### [facility] [address] [place] [address] Dr. Fernando Flores TSHon 01-16-2022 TSH 1.776 uIU/mL Normal 0.358-3.740 [facility] Comment on above: Performed By: #### S EROTON #### [facility] [address] [place] [address] Dr. Fernando Flores VC CONSULT FOLLOWUPon 2021 VC CONSULT FOLLOWUP Patient: FRANKY CYR Exam Date: 01/14/2022 : 1970 Gender:F Ordering : DR JAYDEN HENDERSON M.D. Admission #: [id number] Family : Order #: [id number] CLICK HERE TO VIEW EXAM RADIOLOGY REPORT [...] Henderson MD on 01/14/2022 at 16:01 Normal [facility] VC EXT VENOUS RT LIMITEDon 03-16-2021 VC EXT VENOUS RT LIMITED Patient: FRANKY CYR Exam Date: 01/14/2022 : 1970 Gender:F Ordering : DR JAYDEN HENDERSON M.D. Admission #: [id number] Family : Order #: [id number] CLICK HERE TO VIEW EXAM RADIOLOGY REPORT [...] Jayden Henderson MD on 01/14/2022 at 16:04 [facility] VC CONSULT FOLLOWUPon 2021 VC CONSULT FOLLOWUP Patient: FRANKY CYR Exam Date: 12/27/2021 : 1970 Gender:F Ordering : DR JAYDEN HENDERSON M.D. Admission #: [id number] Family : Order #: [id number] CLICK HERE [...] Henderson MD on 12/27/2021 at 15:30 Normal [facility] VC EXT VENOUS RT LIMITEDon 1 02-26-2021 VC EXT VENOUS RT LIMITED Patient: FRANKY CYR Exam Date: 12/27/2021 : 1970 Gender:F Ordering : DR JAYDEN HENDERSON M.D. Admission #: [id number] Family : Order #: [id number] CLICK HERE TO VIEW EXAM RADIOLOGY REPORT [...] Henderson MD on 12/27/2021 at 15:17 Normal [facility] VC INJ FOAM SCLERO W US MLTI on 12-21-2021 VC INJ FOAM SCLERO W US MLTI Patient: FRANKY CYR Exam Date: 12/21/2021 : 1970 Gender:F Ordering : DR JAYDEN HENDERSON M.D. Admission #: [id number] Family : Order #: [id number] CLICK HERE TO VIEW EXAM RADIOLOGY REPORT [...] weeks, (more content not included)... Normal [facility] VC CONSULT FOLLOWUPon 2021 VC CONSULT FOLLOWUP Patient: FRANKY CYR Exam Date: 12/13/2021 : 1970 Gender:F Ordering : DR JAYDEN HENDERSON M.D. Admission #: [id number] Family : Order #: [id number] CLICK HERE TO VIEW EXAM RADIOLOGY REPORT [...] Henderson MD on 12/13/2021 at 08:24 Normal [facility] VC EXT VENOUS LT LIMITEDon 1 VC EXT VENOUS LT LIMITED Patient: FRANKY CYR. Exam Date: 12/13/2021 : 1970 Gender:F Ordering : DR JAYDEN HENDERSON M.D. Admission #: [id number] Family : Order #: [id number] CLICK HERE TO VIEW EXAM RADIOLOGY REPORT [...] MD on 12/13/2021 at 08:16 Normal [facility] VC ENDOVENOUS ABL 1ST V LTon 12-07-2021 VC ENDOVENOUS ABL 1ST V LT Patient: FRANKY CYR. Exam Date: 12/07/2021 : 1970 Gender:F Ordering : DR JAYDEN HENDERSON M.D. Admission #: [id number] Family : Order #: [id number] CLICK HERE TO VIEW EXAM CORRECTION: Changed [...] written consent was obtained by and Shaun Rushing assisted. Time out procedure was performed. The left [...] a.m. December 07, 2021. Laser stop time . A duplex ultrasound revealed compressibility and flow [...] Henderson MD on 12/07/2021 at 10:27 Normal [facility] VC CONSULT FOLLOWUPon 2021 VC CONSULT FOLLOWUP Patient: FRANKY CYR Exam Date: 11/29/2021 : 1970 Gender:F Ordering : DR JAYDEN HENDERSON M.D. Admission #: [id number] Family : Order #: [id number] CLICK HERE TO VIEW EXAM RADIOLOGY REPORT [...] Jayden Henderson MD on 11/29/2021 at 09:01 [facility] VC EXT VENOUS RT LIMITEDon 1 VC EXT VENOUS RT LIMITED Patient: FRANKY CYR Exam Date: 11/29/2021 : 1970 Gender:F Ordering : DR JAYDEN HENDERSON M.D. Admission #: [id number] Family : Order #: [id number] CLICK HERE TO VIEW EXAM RADIOLOGY REPORT [...] to thrombus *Exam performed in accordance with [facility] practice guidelines- Peripheral venous ultrasound, May 20, 2009. 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 Admission #: [id number] Family : Order #: [id number] CLICK HERE TO VIEW EXAM RADIOLOGY REPORT [...] M.D. on 11/22/2021 at 14:45 Normal [facility] CRPon 09-20-2021 CRP [Mass/Vol] mg/L Normal <=1.0 [facility] Comment on above: Performed By: #### S EROTON #### [facility] [address] [place], [place] [address] Dr. Fernando Flores SED RATE [facility] 2021 SED RATE 5 mm/hr Normal <=30 [facility] Comment on above: Performed By: #### S EDR ####[facility] [address] [place], [place] [address]Dr. Fernando Flores US PELVIS AND TRANSVAGon US [...] by: RANDALL LEMONS Date: 2021-09-11 14:02 Normal [facility] CTA ABD JAKE WWO CON LE RUNO [...] by: RANDALL LEMONS Date: 2021-08-10 11:03 Normal [facility] VC COMP CONSULTATIONon 07-31 VC COMP CONSULTATION Patient: FRANKY CYR Exam Date: 07/31/2021 : 1970 Gender:F Ordering : DR JAYDEN HENDERSON M.D. Admission #: [id number] Family : Order #: [id number] CLICK HERE TO VIEW EXAM RADIOLOGY REPORT [...] sa (more content not included)... Normal [facility] VC VENOUS REFLUX KATHY LMTon 0 07-31-2021 VC VENOUS REFLUX KATHY LMT Patient: FRANKY CYR Exam Date: 07/31/2021 : 1970 Gender:F Ordering : DR JAYDEN HENDERSON M.D. 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 Incompetent patent varicose vein extends from the [...] or chronic thrombus Compressibility: Normal Flow: Normal Team Manager: Mid medial thigh measures 3.2 mm with [...] Henderson MD on 07/31/2021 at 11:39 Normal [facility] XR LSPINE MIN 4 VIEWSon 06-24 XR [...] by: RANDALL LEMONS Date: 2021-07-03 13:34 Normal [facility] Vital Signs Date Time Vital Sign Value Performing Clinician Michael john 10-08-2022 15:23-0400 Blood Pressure Location Leon WHYTE [facility] [place] 10-08-2022 15:23-0400 Diastolic blood pressure 78 mm[Hg] Leon WHYTE [facility] [place] 10-08-2022 15:23-0400 Heart rate 70 /min Leon BARTONL [facility] [place] 10-08-2022 15:23-0400 Respiratory rate 16 /min Leon BARTONL [facility] [place] 10-08-2022 15:23-0400 Systolic blood pressure 116 mm[Hg] Leon BARTONL [facility] [place] Encounters Encounter Date Encounter Type Care Provider Facility Start: 09-10-2023 End: 09-10-2023 ambulatory DIPIKA ROBERT Not Available Start: 08-06-2023 End: 08-06-2023 ambulatory DIPIKA ROBERT Not Available Start: 07-02-2023 End: 07-02-2023 ambulatory DIPIKA ROBERT Not Available Start: 06-11-2023 End: 06-11-2023 ambulatory DIPIKA ROBERT Not Available Start: 10-23-2022 End: 10-24-2022 ambulatory Leon WHYTE Facility:CD:[id number] Start: 10-08-2022 End: 10-09-2022 ambulatory Leon WHYTE Facility: [facility] Start: 10-08-2022 End: 10-08-2022 Patient encounter procedure Leon WHYTE [facility] Start: 06-20-2022 End: 06-21-[address] [...] Start: 11-29-2021 End: 11-30-[address] KARO DAVIS Facility:[facility] Start: 11-22-2021 End: 11-23-[address] [...] Percutaneous translu paul laser ablation of vein Leno WHYTE Immunizations Immunization Date Immunization Notes Care Provider Fa cility 12-15-2020 SARS-CoV-2 (COVID-19 ) mRNA-1273 vaccine Leon WHYTE [facility] [place] 03-22-2020 SARS-CoV-2 (COVID-19 ) mRNA-1273 vaccine Leon WHYTE [facility] [place] 02-22-2020 SARS-CoV-2 (COVID-19 ) mRNA-1273 vaccine Leon WHYTE [facility] [place] Payers Date Payer Category Payer Unknown [id number] 2019 Unknown [id number] 1970 Unknown [id number] 2.16.84 0.1.645321.3.579.2.593 1970 Unknown [id number] 2.16.84 0.1.585190.3.579.2.593 1970 Unknown [id number] 2.16.84 0.1.727203.3.579.2.593 1970 Unknown [id number] 2.16.84 0.1.056148.3.579.2.593 1970 Unknown [id number] 2.16.84 0.1.551897.3.579.2.593 1970 Unknown [id number] 2.16.84 0.1.951852.3.579.2.593 1970 Unknown [id number] 2.16.84 0.1.246892.3.579.2.593 1970 Unknown [id number] 2.16.84 0.1.971705.3.579.2.593 1970 Unknown [id number] 2.16.84 0.1.975607.3.579.2.593 1970 Unknown [id number] 2.16.84 0.1.519384.3.579.2.593 1970 Unknown [id number] 2.16.84 0.1.115656.3.579.2.593 1970 Unknown [id number] 2.16.84 0.1.171351.3.579.2.593 1970 Unknown [id number] 2.16.84 0.1.375251.3.579.2.593 1970 Unknown [id number] 2.16.84 0.1.371471.3.579.2.593 1970 Unknown [id number] 2.16.84 0.1.834319.3.579.2.593 1970 Unknown [id number] 2.16.84 0.1.402643.3.579.2.593 1970 Unknown [id number] 2.16.84 0.1.667942.3.579.2.593 1970 Unknown [id number] 2.16.84 0.1.526421.3.579.2.593 1970 Unknown [id number] 2.16.84 0.1.038347.3.579.2.593 1970 Unknown [id number] 2.16.84 0.1.101065.3.579.2.593 1971 Unknown [id number] 2.16.84 0.1.265905.3.579.2.593 1971 Unknown [id number] 2.16.84 0.1.109399.3.579.2.593 1971 Unknown [id number] 2.16.84 0.1.814882.3.579.2.593 1971 Unknown [id number] 2.16.84 0.1.792328.3.579.2.593 1971 Unknown [id number] 2.16.8 40.1.072420.3.579.2.727 1971 Unknown [id number] 2.16.8 40.1.874816.3.579.2.727 1971 Unknown [id number] 2.16.84 0.1.517778.3.579.2.9 1971 Unknown [id number] 2.16.84 0.1.988348.3.579.2.9 1971 Unknown [id number] 2.16.84 0.1.081869.3.579.2.9 1971 Unknown [id number] 2.16.84 0.1.163106.3.579.2.1259 1959 Self-pay [id number] Social History Date Type Detail Facility Start: 10-08-2022 Tobacco smoking status Never s moked tobacco (finding) [facility] Tobacco smoking status Never [facility] Sex Assigned At Female [facility] Functional Status Date Assessment Result Facility 10-08-2022 Functional Status N/A [facility] Clinical Note 10-08-2022 Note Date & Type [...] Recorded SARS-CoV-2 (COVID-19) mRNA-1273 vaccine 02/22/2020 Recorded [facility] Comment on above: Result Comment: Elec tronically Signed By: PATO WASHINGTON, Leon Roche.[email or web address]\Date and Time Signed: 10/08/22 21:36 EDT Clinical [...] authenticated by: JAYDEN HENDERSON Date: 2021-09-04 16:23 [facility] Evaluation + Plan note Note Date & Type Note Facility Evaluation + Plan note No data available for this section [facility] Discharge instructions Note Date & Type Note Facility Hospital Discharge instructions No data available for this section [facility] Progress note Note Date & Type Note Facility Progress note No data available for this section [facility] Summary Purpose Family History No Family History Records FoundNo Family History Records FoundNo Family History Records Found Advance Directives No Advanced Directives Records FoundNo Advanced Directives Records FoundNo Advanced Directives Records Found Additional Source Comments INFORMATION SOURCE (unrecogn ized section and content) DATE CREATED AUTHOR 06/24/2022 [facility] DATE CREATED AUTHOR AUTHOR'S ORGANIZ ATION 11/01/2022 Lee Reno [facility] DATE CREATED AUTHOR AUTHOR'S ORGANIZ ATION 09/14/2023 [facility] EPIC Patient Care team informatio n (unrecognized section and content) Personnel Name: KARO DAVIS MD Address: Address: [address] [place] [id number] FOR RECORDS PERTAINING TO PATIENTS WHO ARE [...] BE BASED ON THE PRIMARY CLINICAL RECORDS. [facility] provides no warranty or guarantee of the accuracy or completeness of information in this document.
== END 2024-05-20 12:55 | disposition home or self-care (01) ==
LOC: MAMMO 12:54
PROVIDERS: PCP Family Medicine; Visit Provider Obstetrics & Gynecology
DX: Z12.31 Encounter for screening mammogram for malignant neoplasm of breast (principal); Z80.3 Family history of malignant neoplasm of breast; R92.8 Other abnormal and inconclusive findings on diagnostic imaging of breast
CPT/HCPCS: 77063; 77067

== ENCOUNTER 2024-05-25 06:30 | Outpatient (OUT) | payer BC, SELFPAY ==
--- OUTSIDE RECORDS SUMMARY | 2024-05-25 06:34 | XMS_ITS | CCD ---
Author Organization [facility] Care Team Providers Care Management Coordinator Name Role Phone BEATRIZ, DR JAYDEN Bobby Admitting Unavailable WEST, DR JAYDEN Bobby Attending Unavailable NADERER, DR MIKEY Latif Primary Care Unavailable WEST, DR JAYDEN Bobby Consulting Unavailable NADERER, DR MIKEY Latif Primary Care Unavailable WEST, DR JAYDEN Bobby Attending Unavailable WEST, DR JAYDEN Bobby Admitting Unavailable WEST, DR JAYDEN Bobby Admitting Unavailable WEST, DR JAYDEN Bobby Attending Unavailable WEST, DR JAYDEN Bobby Consulting Unavailable NADERER, DR MIKEY Latif Primary Care Unavailable ROBERT ., DR BAR Attending Unavailable ROBERT ., DR BAR Consulting Unavailable ROBERT ., DR BAR Admitting Unavailable NADERER, DR MIKEY Latif Primary Care Unavailable ROBERT ., DR BAR Attending Unavailable ROBERT ., DR BAR Consulting Unavailable ROBERT ., DR BAR Admitting Unavailable NADERER, DR MIKEY Latif Primary Care Unavailable ZIEBER, DR RANDALL Chester Consulting Unavailable WEST, DR JAYDEN Bobby Admitting Unavailable WEST, DR JAYDEN Bobby Attending Unavailable WEST, DR JAYDEN Bobby Consulting Unavailable NADERER, DR MIKEY Latif Primary Care Unavailable WEST, DR JAYDEN Bobby Attending Unavailable WEST, DR JAYDEN Bobby Consulting Unavailable WEST, DR JAYDEN Bobby Admitting Unavailable NADERER, DR MIKEY Latif Primary Care Unavailable NADERER, DR MIKEY Latif Primary Care Unavailable NADERER, DR MIKEY Latif Attending Unavailable NADERER, DR MIKEY Latif Admitting Unavailable NADERER, DR MIKEY Latif Primary Care Unavailable ZIEBER, DR RANDALL Chester Consulting Unavailable NADERER, DR MIKEY Latif Attending Unavailable NADERER, DR MIKEY Latif Admitting Unavailable NADERER, DR MIKEY Latif Consulting Unavailable ROBERT ., DR BAR Admitting Unavailable ROBERT ., DR BAR Attending Unavailable ROBERT ., DR BAR Consulting Unavailable NADERER, DR MIKEY Latif Primary Care Unavailable NADERER, DR MIKEY Latif Primary Care Unavailable NADERER, DR MIKEY Latif Attending Unavailable NADERER, DR MIKEY Latif Consulting Unavailable NADERER, DR MIKEY Latif Admitting Unavailable NADERER, DR MIKEY Latif Primary Care Unavailable ABBAS, DR MEDINA Attending Unavailable ABBAS, DR MEDINA Consulting Unavailable ABBAS, DR MEDINA Admitting Unavailable NADERER, DR MIKEY Latif Primary Care Unavailable WEST, DR JAYDEN Bobby Consulting Unavailable WEST, DR JAYDEN Bobby Attending Unavailable WEST, DR JAYDEN Bobby Admitting Unavailable NADERER, DR MIKEY Latif Primary Care Unavailable WEST, DR JAYDEN Bobby Consulting Unavailable WEST, DR JAYDEN Bobby Admitting Unavailable WEST, DR JAYDEN Bobby Attending Unavailable NADERER, DR MIKEY Latif Primary Care Unavailable WEST, DR JAYDEN Bobby Consulting Unavailable WEST, DR JAYDEN Bobby Attending Unavailable WEST, DR JAYDEN Bobby Admitting Unavailable ZIEBER, DR RANDALL Chester Consulting Unavailable MARCELO, LOY Attending Unavailable MARCELO, LOY Consulting Unavailable MARCELO, LOY Admitting Unavailable NADERER, DR MIKEY Latif Primary Care Unavailable MARCELO, LOY Admitting Unavailable MARCELO, LOY Attending Unavailable MARCELO, LOY Consulting Unavailable NADERER, DR MIKEY Latif Primary Care Unavailable NADERER, DR MIKEY Latif Primary Care Unavailable WEST, DR JAYDEN Bobby Consulting Unavailable NADERER, DR MIKEY Latif Attending Unavailable NADERER, DR MIKEY Latif Admitting Unavailable NADERER, DR MIKEY Latif Consulting Unavailable ROBERT ., DR BAR Admitting Unavailable ROBERT ., DR BAR Attending Unavailable ROBERT ., DR BAR Consulting Unavailable NADERER, DR MIKEY Latif Primary Care Unavailable ZIEBER, DR RANDALL Chester Consulting Unavailable WEST, DR JAYDEN Bobby Admdee Unavailable WEST, DR JAYDEN Bobby Attending Unavailable NADERER, DR MIKEY Latif Primary Care Unavailable NADERER, DR MIKEY Latif Primary Care Unavailable ROBERT ., DR BAR Admitting Unavailable ROBERT ., DR BAR Attending Unavailable ROBERT ., DR BAR Consulting Unavailable ZIEBER, DR RANDALL Chester Consulting Unavailable WEST, DR JAYDEN Bobby Consulting Unavailable NADERER, DR MIKEY Latif Primary Care Unavailable WEST, DR JAYDEN Bobby Attending Unavailable WEST, DR JAYDEN Bobby Admitting Unavailable WEST, DR JAYDEN Bobby Admitting Unavailable WEST, DR JAYDEN Bobby Attending Unavailable WEST, DR JAYDEN Bobby Consulting Unavailable NADERER, DR MIKEY Latif Primary Care Unavailable NADERER, DR MIKEY Latif Primary Care Unavailable ABBAS, DR MEDINA Consulting Unavailable WEST, DR JAYDEN Bobby Admitting Unavailable WEST, DR JAYDEN Bobby Attending Unavailable BEATRIZ, DR JAYDEN Bobby Consulting Unavailable JANELLE, DR RANDALL Chester Consulting Unavailable MIKEY DAVIS Primary Care Physician [phone] Leon WHYTE Attending Unavailable MIKEY DAVIS Referring Unavailable Leon WHYTE Attending Unavailable DIPIKA FARLEY Attending Unavailable DIPIKA FARLEY Attending Unavailable DIPIKA FARLEY Attending Unavailable DIPIKA FARLEY Attending Unavailable Mikey Davis MD Primary Care Provider [phone] Allergies Allergy Classification Reported Allergen(s) Allergy Type Date of Onset Reaction(s) Facility (1 source) No Known Medication Allergies; Translations: [No Known Medication Allergies] Propensity to adverse reactions (disorder) [facility] Repository Problems Active Problems Problem Classification [...] conditions (not mental disorders or infectious disease) (11 sources) Encounter for screening for malignant neoplasm of cervix; Translations: [Encounter for screening mammogram for malignant neoplasm of breast] Onset: 05-17-2022 Episodic Peripheral and visceral atherosclerosis (9 sources) Peripheral vascular disease, unspecified; Translations: [Atherosclerosis of [place] arteries of extremities with rest pain, bilateral [...] Test Name Value Interpretation Reference Range Facility MM TOMOSYNTHESIS SCREENING B Ion 05-20-[address] [address] Mammography Report Signed Patient: FRANKY CYR MR#: [id number] : 1970 Acct:[id number] Age/Sex: 54 / F ADM Date: 05/20/24 Loc: MAMMO Attending Dr: Dipika Farley D.O. Ordering Physician: Dipika Farley D.O. Results: Date of Service: 05/20/24 Follow Up: Procedure(s): MM tomosynthesis screening BI Accession Number(s): [id number] cc: Dipika Farley D.O.; Mikey Davis M.D. Patient Name: FRANKY CYR MR#: [id number] : 1970 Exam Date: 05/20/2024 Ordering Doctor: DR Dipika Farley . RADIOLOGY REPORT PROCEDURE: MM TOMOSYNTHESIS SCREENING BI COMPARISON: MM TOMOSYNTHESIS SCREENING BI, 05/20/2023. MG MAMM SCREEN 3D KATHY CAD, 05/17/2022. MG MAMM SCREEN 3D KATHY CAD, 05/10/2021. MG MAMM KATHY SCRN W CAD DIG, 06/07/2013. INDICATIONS: Screening Calculator Name NCI Breast Cancer Risk Assessment Tool 5 Year Breast Cancer Risk 1.60% Lifetime Breast Cancer Risk 12.40% Personal Breast Cancer No Personal Ovarian Cancer No Treatments None Family Cancers Grandmother-paternal with breast cancer at age 70. LOCATION: [facility] BREAST COMPOSITION: The breasts are extremely dense, which lowers the sensitivity of mammography. FINDINGS: Developing grouping of microcalcifications in the posterior superior right breast seen only with MLO view. DIAGNOSTIC CATEGORY 0--INCOMPLETE: NEED ADDITIONAL IMAGING EVALUATION. RECOMMENDATIONS: ADDITIONAL MAMMOGRAPHIC VIEWS REQUIRED: RIGHT BREAST - spot magnification views with a medial lateral view recommended. PLEASE NOTE: A NORMAL MAMMOGRAM DOES NOT EXCLUDE THE POSSIBILITY OF BREAST CANCER. A CLINICALLY SUSPICIOUS PALPABLE LUMP SHOULD BE BIOPSIED. Dictated by: Stone Betancur DO on 05/20/2024 at 14:31 Approved by: Stone Betancur DO on 05/20/2024 at 14:39 Dictated By: Stone Betancur D.O. Signed By: 05/20/24 1439 DD/ 38 TD/TT: Bisque Cleaner: [facility] Radiology, Radiologi MD meli - 05/20/2024 [place] [address] Mammography Report Signed Patient: FRANKY CYR MR#: [id number] : 1970 Acct:[id number] Age/Sex: 54 / F ADM Date: 05/20/24 Loc: MAMMO Attending Dr: Dipika Farley D.O. Ordering Physician: Dipika Farley D.O. Results: Date of Service: 05/20/24 Follow Up: Procedure(s): MM tomosynthesis screening BI Accession Number(s): [id number] cc: Dipika Farley D.O.; Mikey Davis M.D. Patient Name: FRANKY CYR MR#: [id number] : 1970 Exam Date: 05/20/2024 Ordering Doctor: DR Dipika Farley . RADIOLOGY REPORT PROCEDURE: MM TOMOSYNTHESIS SCREENING BI COMPARISON: MM TOMOSYNTHESIS SCREENING BI, 05/20/2023. MG MAMM SCREEN 3D KATHY CAD, 05/17/2022. MG MAMM SCREEN 3D KATHY CAD, 05/10/2021. MG MAMM KATHY SCRN W CAD DIG, 06/07/2013. INDICATIONS: Screening Calculator Name NCI Breast Cancer Risk Assessment Tool 5 Year Breast Cancer Risk 1.60% Lifetime Breast Cancer Risk 12.40% Personal Breast Cancer No Personal Ovarian Cancer No Treatments None Family Cancers Grandmother-paternal with breast cancer at age 70. LOCATION: [facility] BREAST COMPOSITION: The breasts are extremely dense, which lowers the sensitivity of mammography. FINDINGS: Developing grouping of microcalcifications in the posterior superior right breast seen only with MLO view. DIAGNOSTIC CATEGORY 0--INCOMPLETE: NEED ADDITIONAL IMAGING EVALUATION. RECOMMENDATIONS: ADDITIONAL MAMMOGRAPHIC VIEWS REQUIRED: RIGHT BREAST - spot magnification views with a medial lateral view recommended. PLEASE NOTE: A NORMAL MAMMOGRAM DOES NOT EXCLUDE THE POSSIBILITY OF BREAST CANCER. A CLINICALLY SUSPICIOUS PALPABLE LUMP SHOULD BE BIOPSIED. Dictated by: Stone Betancur DO on 05/20/2024 at 14:31 Approved by: Stone Betancur DO on 05/20/2024 at 14:39 Dictated By: Stone Betancur D.O. Signed By: 05/20/24 1439 DD/ 38 TD/TT: Bisque Cleaner: [facility] Radiology Study observation (narrative) [facility] MM TOMOSYNTHESIS SCREENING B IOrdered By: Radiologist Radiology on 05-20-2024 [facility] Work Phone: Pathology Noteon 10-31-2022 Pathology Note [id number]#1.00CD :127 [facility] Reminderson 10-30-2022 Reminders - From: Shavon Mcguire LPN To: N - Clinical; Sent: 10/30/2022 11:35:53 EDT Show up: 09/22/2032 07:00:00 EDT Subject: colonoscopy recall Due Date/Time: 10/23/2032 07:00:00 EDT Reminder/Recall Patient due for screening colonoscopy 10/23/2032. Normal [facility] Outside Colonoscopyon 2022 Outside Colonoscopy [id number]#1.00C D:127 [facility] Lab Reportson 10-23-2022 Lab Reports [id number]#1.00C D:127 [facility] Consent for Procedure/Surger yon 10-09-2022 Consent for Procedure/Surgery [id number]#1.00C D:127 Normal [facility] Formson 10-09-2022 Forms [id number]#1.00C D:127 [facility] Ambulatory Visit Summaryon 0 10-08-2022 Ambulatory Visit Summary FRANKY CYR :1970 Visit Date:10/08/2022 Ambulatory Visit Instructions Your Care Team Attending Physician - PATO WASHINGTON, Leon Chester Primary Care Physician - SUSAN WASHINGTON, MIKEY Referring Physician - SUSAN WASHINGTON, MIKEY Procedures Performed Dilation and curettage, Endometrial ablation, [...] Vascular insufficiency Very low density lipoprotinemia Normal [facility] Physician Referralon 023 Physician Referral [id number]#1.00C D:127 Normal [facility] US PELVIS AND TRANSVAGon US PELVIS [...] by: RANDALL LEMONS Date: 2022-06-21 07:02 Normal [facility] PAP ACOG PANEL 2: 30 to 65on 06-17-2022 . . Normal [facility] Comment on above: Result Comment: Perf ormed at: WB Performed By: #### 4 [id number] ####[facility] [address] [address]Dr. Fernando Flores Age Gdln ACOG Testing 30-65 Normal [facility] Comment on above: Performed By: #### 4 [id number] ####[facility] [address] [id number]. Fernando Flores DIAGNOSIS: Comment Normal [facility] Comment on above: Result Comment: NEGA TIVE FOR INTRAEPITHELIAL LESION OR MALIGNANCY. Performed at: WB Performed By: #### 4 [id number] ####[facility] [address] [place], [place] [address]Dr. Fernando Flores HPV Aptima Negative Normal Negative [facility] Comment on above: Result Comment: This nucleic acid amplification test detects fourteen high-risk HPV types (16,18,31,33,35,39,45,51,52,56,58,59,66,68) without differentiation. Performed at: =G Performed By: #### 4 [id number] ####[facility] [address] [place], [place] [address]Dr. Fernando Folres HPV Genotype Reflex Comment Normal [facility] Comment on above: Result Comment: Crit eria not met, HPV Genotype not performed. Performed at: WB Performed By: #### 4 [id number] ####[facility] [address] [place], [place] [address]Dr. Fernando Flores Methodology: Comment Normal [facility] Comment on above: Result Comment: This liquid based ThinPrep(R) pap test was screened with the use of an image guided system. Performed at: WB Performed By: #### 4 [id number] ####[facility] [address] [place], [place] [address]Dr. Fernando Flores Note: Comment Normal [facility] Comment on above: Result Comment: The Pap smear is a screening test designed to aid in the detection of premalignant and malignant conditions of the uterine cervix. It is not a diagnostic procedure and should not be used as the sole means of detecting cervical cancer. Both false-positive and false-negative reports do occur. . Performed at: WB Performed By: #### 4 [id number] ####[facility] [address] [place], [place] [address]Dr. Fernando Flores Performed by: Comment Normal [facility] Comment on above: Result Comment: Concetta Riggins, Tunnel Mucker (ASCP) Performed at: WB Performed By: #### 4 [id number] ####[facility] [address] [address]Dr. Fernando Flores Specimen adequacy: Comment Normal [facility] Comment on above: Result Comment: Sati sfactory for evaluation. Endocervical and/or squamous metaplastic cells (endocervical component) are present. Performed at: WB Performed By: #### 4 [id number] ####[facility] [address] [id number]. Fernando Flores Covid-19 PCR ([facility])on 04-26 SARS-CoV-2 (COVID-19) RNA ALISON+probe Ql (Unsp spec) Not detected Normal NOT DETECTED [facility] Comment on above: Result Comment: When [...] for this test is supported by the [place] of Health and Human Service's declaration that [...] used). Performed By: #### T 4 #### [facility] [address] [address] [address] Fernando Flores INFLUENZA A AND B AGon 05-23 INFLUANEGH SEE BELOW Normal [facility] Comment on above: Result Comment: Nega tive for Flu A protein angiten. Infection due to Flu A cannot be ruled out. Flu A angiten in the sample may be below the detection limit of the test. Performed By: #### S EROTON #### [facility] [address] [address] [address] Fernando Flores INFLUBNEG SEE BELOW Normal [facility] Comment on above: Result Comment: Nega tive for Flu B protein antigen. Infection due to Flu B cannot be ruled out. Flu B antigen in the sample may be below the detection limit of the test. Performed By: #### S EROTON #### [facility] [address] [address] [address] Fernando Flores INFLUENZA A AG Negative Normal NEGATIVE SEE COMMENT [facility] Comment on above: Performed By: #### S EROTON #### [facility] [address] [address] [address] Fernando Flores INFLUENZA B AG Negative Normal NEGATIVE SEE COMMENT [facility] Comment on above: Performed By: #### S EROTON #### [facility] [address] [address] [address] Fernando Flores MG MAMM SCREEN 3D KATHY CADon 05-17-2022 MG MAMM SCREEN 3D KATHY CAD Patient: FRANKY CYR Exam Date: 05/17/2022 : 1970 Gender:F Ordering : DR DIPIKA FARLEY . Admission #: [id number] Family : Order #: [id number] CLICK HERE TO VIEW EXAM RADIOLOGY REPORT [...] breast cancer at age 71. LOCATION: [facility] BREAST COMPOSITION: Extremely dense, which lowers [...] Lemons M.D. on 05/17/2022 at 11:51 Normal [facility] THYROGLOBULINon 01-26-2022 Thyroglobulin 21 ng/mL Normal [facility] Comment on above: Result Comment: This test was developed and its performance characteristics determined by [facility]. It has not been cleared or approved [...] is 2.0 ng/mL. Performed By: #### T GRTHONG #### [facility] [address] [address] [address] Fernando Flores ESTRONEon 01-23-2022 Estrone, Serum 29 pg/mL Normal [facility] Comment on above: Result Comment: Rang e Adult (Premenopausal) 27 - 231 Menstrual Cycle (1-10 days) 19 - 149 Menstrual Cycle (11-20 days) 32 - 176 Menstrual Cycle (21-30 days) 37 - 200 Adult (Postmenopausal) 0 - 125 Performed By: #### E STRONE #### [facility] [address] [address] [address] Fernando Flores REVERSE T3on 01-22-2022 Reverse T3, Serum 14.4 ng/dL Normal 9.2-24.1 [facility] Comment on above: Result Comment: This test was developed and its performance characteristics determined by [facility]. It has not been cleared or approved by the Food and Drug Administration. Performed By: #### R EVRT3 #### [facility] [address] [address] [address] Fernando Flores TESTOSTERONE, FREE,DIRECT, T OTALon 01-22-2022 Free Testosterone(Direct) 1.9 pg/mL Normal 0.0-4.2 [facility] Comment on above: Result Comment: Perf ormed at: BN Performed By: #### T ESTFRD ####[facility] [address] [place], [place] [address]AuBrianne Flores Testosterone [Mass/Vol] 30 ng/dL Normal 4-50 [facility] Comment on above: Result Comment: Perf ormed at: CB Performed By: #### T ESTFRD ####[facility] [address] [place], [place] [address]MdBrianne Flores Covid-19 PCR (CVDTB)on 12-26 SARS-CoV-2 (COVID-19) RNA ALISON+probe Ql (Unsp spec) Not detected Normal NOT DETECTED [facility] Comment on above: Result Comment: When [...] for this test is supported by the Validation Specialist of Health and Human Service's declaration that [...] be used). Performed By: #### C VDTBH ####[facility] [address] [id number]. Fernando Flores SEROTONINon 01-20-2022 Serotonin, Serum 162 ng/mL Normal 31-207 [facility] Comment on above: Performed By: #### S EROTON #### [facility] [address] [place], [place] [address] Dr. Fernando Flores THYROGLOBULIN ABon 2 Thyroglobulin Antibody <1.0 Normal 0.0-0.9 [facility] Comment on above: Result Comment: Thyr oglobulin Antibody measured by [employer] Methodology Performed By: #### T HYGAB ####[facility] [address] [address]Dr. Fernando Flores VIT D 1 25 DIHYDROXYon 01-19 Calcitriol(1,25 di-OH Vit D) 62.0 pg/mL Normal 24.8-81.5 [facility] Comment on above: Performed By: #### S EROTON #### [facility] [address] [address] [address] Fernando Flores C-PEPTIDE, SERUMon C-Peptide, Serum 1.8 ng/mL Normal 1.1-4.4 [facility] Comment on above: Result Comment: C-Pe ptide reference interval is for fasting patients. Performed By: #### C PEPT ####[facility] [address] [place], [place] [address]Dr. Fernando Flores INSULINon 01-18-2022 Insulin 6.7 uIU/mL Normal 2.6-24.9 [facility] Comment on above: Performed By: #### T 4 #### [facility] [address] [place] [address] Dr. Fernando Flores CORTISOLon 01-17-2022 Cortisol 14.2 ug/dL Normal [facility] Comment on above: Result Comment: Floyd isol AM 6.2 - 19.4 Cortisol PM 2.3 - 11.9 Performed By: #### C ORTISO #### [facility] [address] [place] [address] Dr. Fernando Flores DHEA-SULFATEon 01-17-2022 DHEA-Sulfate 93.7 ug/dL Normal 41.2-243.7 [facility] Comment on above: Performed By: #### S EROTON #### [facility] [address] [place] [address] Dr. Fernando Flores ESTRADIOLon 01-17-2022 Estradiol 24.6 pg/mL Normal [facility] Comment on above: Result Comment: Adul t Female: Follicular phase 12.5 - 166.0 Ovulation phase 85.8 - 498.0 Luteal phase 43.8 - 211.0 Postmenopausal <6.0 - 54.7 1st trimester 215.0 - >4300.0 Sanjay ECLIA methodology Performed By: #### S ERTASNEEMN #### [facility] [address] [address] [address] Fernando Flores PROGESTERONEon 01-17-2022 Progesterone 0.7 ng/mL Normal [facility] Comment on above: Result Comment: Foll icular phase 0.1 - 0.9 Luteal phase 1.8 - 23.9 Ovulation phase 0.1 - 12.0 First trimester 11.0 - 44.3 Second trimester 25.4 - 83.3 Third trimester 58.7 - 214.0 Postmenopausal 0.0 - 0.1 Performed By: #### P JASWINDER #### [facility] [address] [place] [address] Dr. Fernando Flores SEX HORMONE-BINDING GLOBULIN on 01-17-2022 Sex Horm Binding Glob, Serum 115.0 nmol/L Normal 17.3-125.0 [facility] Comment on above: Performed By: #### S ERTASNEEMN #### [facility] [address] [address] [address] Fernando Flores T3, TOTAL (TRIIODOTHYRONINE) on 01-17-2022 T3, TOTAL 120 ng/dL Normal 71-180 [facility] Comment on above: Performed By: #### T 3TOTAL ####[facility] [address] [address]Dr. Fernando Flores THYROID PEROXIDASE ABon 12-26 Thyroid Peroxidase (TPO) Ab <9 Normal 0-34 [facility] Comment on above: Performed By: #### S EROTON #### [facility] [address] [address] [address] Fernando Flores FREE T3on 01-16-2022 FREE T3 2.86 pg/mlL Normal 2.18-3.98 [facility] Comment on above: Performed By: #### T 4 #### [facility] [address] [place] [address] Dr. Fernando Flores FREE T4on 01-16-2022 Free T4 [Mass/Vol] 1.04 ng/dL Normal 0.76-1.46 [facility] Comment on above: Performed By: #### F T4 ####[facility] [address] [place], [place] [address]YiDr. Fernando Flores GLUCOSE BLOODon 01-16-2022 Glucose [Mass/Vol] 90 mg/dL Normal 74-106 [facility] Comment on above: Performed By: #### S EROTON #### [facility] [address] [address] [address] Fernando Flores GLYCOHEMOGLOBIN A1Con 2021 ADA RECOMMENDATION SEE BELOW Normal [facility] Comment on above: Result Comment: ADA RECOMMENDED LIMIT 4.0 - 6.0 ADA THERAPEUTIC TARGET < 7.0 ACTION SUGGESTED > 7.0 Performed By: #### S EROTON #### [facility] [address] [address] [address] Fernando Flores Glucose [Mass/Vol] 103 mg/dL Normal [facility] Comment on above: Performed By: #### S EROTON #### [facility] [address] [address] [address] Fernando Flores HbA1c (Bld) [Mass fraction] 5.2 % Normal 4.5-6.2 [facility] Comment on above: Performed By: #### S EROTON #### [facility] [address] [address] [address] Fernando Flores T4on 01-16-2022 T4 [Mass/Vol] 7.40 ug/dL Normal 4.80-13.90 [facility] Comment on above: Performed By: #### T 4 #### [facility] [address] [address] [address] Fernando Flores TSHon 01-16-2022 TSH 1.776 uIU/mL Normal 0.358-3.740 [facility] Comment on above: Performed By: #### S EROTON #### [facility] [address] [place] [address] Dr. Fernando Flores VC CONSULT FOLLOWUPon 2021 VC CONSULT FOLLOWUP Patient: FRANKY CYR Exam Date: 01/14/2022 : 1970 Gender:F Ordering : DR JAYDEN HENDERSON M.D. Admission #: [id number] Family : Order #: [id number] CLICK HERE TO VIEW EXAM RADIOLOGY REPORT [...] Henderson MD on 01/14/2022 at 16:01 Normal [facility] VC EXT VENOUS RT LIMITEDon 1 03-16-2021 VC EXT VENOUS RT LIMITED Patient: FRANKY CYR Exam Date: 01/14/2022 : 1970 Gender:F Ordering : DR JAYDEN HENDERSON M.D. Admission #: [id number] Family : Order #: [id number] CLICK HERE TO VIEW EXAM RADIOLOGY REPORT [...] flow. OTHER: *Exam performed in accordance with [facility] practice guidelines- Peripheral venous ultrasound, May 20, 2009. CONCLUSION: Deep vein thrombus in a 6 cm segment of a right posterior tibial vein Dictated by: Jayden Henderson MD on 01/14/2022 at 16:03 Approved by: Jayden Henderson MD on 01/14/2022 at 16:04 Normal [facility] VC CONSULT FOLLOWUPon 2021 VC CONSULT FOLLOWUP Patient: FRANKY CYR Exam Date: 12/27/2021 : 1970 Gender:F Ordering : DR JAYDEN HENDERSON M.D. Admission #: [id number] Family : Order #: [id number] CLICK HERE [...] Henderson MD on 12/27/2021 at 15:30 Normal [facility] VC EXT VENOUS RT LIMITEDon 1 02-26-2021 VC EXT VENOUS RT LIMITED Patient: FRANKY CYR. Exam Date: 12/27/2021 : 1970 Gender:F Ordering : DR JAYDEN HENDERSON M.D. Admission #: [id number] Family : Order #: [id number] CLICK HERE TO VIEW EXAM RADIOLOGY REPORT [...] Henderson MD on 12/27/2021 at 15:17 Normal [facility] VC INJ FOAM SCLERO W US MLTI on 12-21-2021 VC INJ FOAM SCLERO W US MLTI Patient: FRANKY CYR Exam Date: 12/21/2021 : 1970 Gender:F Ordering : DR JAYDEN HENDERSON M.D. Admission #: [id number] Family : Order #: [id number] CLICK HERE TO VIEW EXAM RADIOLOGY REPORT [...] weeks, (more content not included)... Normal [facility] VC CONSULT FOLLOWUPon 2021 VC CONSULT FOLLOWUP Patient: FRANKY CYR Exam Date: 12/13/2021 : 1970 Gender:F Ordering : DR JAYDEN HENDERSON M.D. Admission #: [id number] Family : Order #: [id number] CLICK HERE TO VIEW EXAM RADIOLOGY REPORT [...] Henderson MD on 12/13/2021 at 08:24 Normal [facility] VC EXT VENOUS LT LIMITEDon 1 VC EXT VENOUS LT LIMITED Patient: FRANKY CYR Exam Date: 12/13/2021 : 1970 Gender:F Ordering : DR JAYDEN HENDERSON M.D. Admission #: [id number] Family : Order #: [id number] CLICK HERE TO VIEW EXAM RADIOLOGY REPORT [...] no flow. *Exam performed in accordance with [facility] practice guidelines- Peripheral venous ultrasound, May 20, 2009. 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 Admission #: [id number] Family : Order #: [id number] CLICK HERE TO VIEW EXAM CORRECTION: Changed [...] length. Informed written consent was obtained by me and Shaun Rushing assisted. Time out procedure [...] Henderson MD on 12/07/2021 at 10:27 Normal [facility] VC CONSULT FOLLOWUPon 2021 VC CONSULT FOLLOWUP Patient: FRANKY CYR Exam Date: 11/29/2021 : 1970 Gender:F Ordering : DR JAYDEN HENDERSON M.D. Admission #: [id number] Family : Order #: [id number] CLICK HERE TO VIEW EXAM RADIOLOGY REPORT [...] Henderson MD on 11/29/2021 at 09:01 Normal [facility] VC EXT VENOUS RT LIMITEDon 1 VC EXT VENOUS RT LIMITED Patient: FRANKY CYR Exam Date: 11/29/2021 : 1970 Gender:F Ordering : DR JAYDEN HENDERSON M.D. Admission #: [id number] Family : Order #: [id number] CLICK HERE TO VIEW EXAM RADIOLOGY REPORT [...] Henderson MD on 11/29/2021 at 08:44 Normal [facility] VC ENDOVENOUS ABL 1ST V RTon 11-22-2021 VC ENDOVENOUS ABL 1ST V RT Patient: FRANKY CYR Exam Date: 11/22/2021 : 1970 Gender:F Ordering : DR JAYDEN HENDERSON M.D. Admission #: [id number] Family : Order #: [id number] CLICK HERE TO VIEW EXAM RADIOLOGY REPORT PROCEDURE: VEIN CENTER ENDOVENOUS ABLATION FIRST VEIN RIGHT COMPARISON: None. INDICATIONS: Pain co-occurrent and due to varicose veins of bilateral legs I83.813 OPERATIVE REPORT: The risks and benefits of the procedure had been previously discussed, and were rediscussed at length. Informed written consent was obtained by me and Shaun Rushing assisted. Time out procedure was performed. The right [...] M.D. on 11/22/2021 at 14:45 Normal [facility] CRPon 09-20-2021 CRP [Mass/Vol] mg/L Normal <=1.0 [facility] Comment on above: Performed By: #### S EROTON #### [facility] [address], [place] [address] Dr. Fernando Flores SED RATE [facility] 2021 SED RATE 5 mm/hr Normal <=30 [facility] Comment on above: Performed By: #### S EDR ####[facility] [address] [place], [place] [address]PfDr. Fernando Flores US PELVIS AND TRANSVAGon US [...] by: RANDALL LEMONS Date: 2021-09-11 14:02 Normal [facility] CTA ABD JAKE WWO CON LE [...] by: RANDALL LEMONS Date: 2021-08-10 11:03 Normal [facility] VC COMP CONSULTATIONon 07-31 VC COMP CONSULTATION Patient: FRANKY CYR Exam Date: 07/31/2021 : 1970 Gender:F Ordering : DR JAYDEN HENDERSON M.D. Admission #: [id number] Family : Order #: [id number] CLICK HERE TO VIEW EXAM RADIOLOGY REPORT [...] sa (more content not included)... Normal [facility] VC VENOUS REFLUX KATHY LMTon 0 07-31-2021 VC VENOUS REFLUX KATHY LMT Patient: FRANKY CYR Exam Date: 07/31/2021 : 1970 Gender:F Ordering : DR JAYDEN HENDERSON M.D. 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: Mid medial thigh measures 3.2 mm with [...] Henderson MD on 07/31/2021 at 11:39 Normal [facility] XR LSPINE MIN 4 VIEWSon 05 XR LSPINE MIN 4 VIEWS EXAMINATION: XR [...] by: RANDALL LEMONS Date: 2021-07-03 13:34 Normal [facility] Vital Signs Date Time Vital Sign Value Performing Clinician Michael john 10-08-2022 15:23-0400 Blood Pressure Location Leon Zeebo [facility] 10-08-2022 15:23-0400 Diastolic blood pressure 78 mm[Hg] Leon BARTONL [facility] 10-08-2022 15:23-0400 Heart rate 70 /min Leon BARTONL [facility] 10-08-2022 15:23-0400 Respiratory rate 16 /min Leon BARTONL [facility] 10-08-2022 15:23-0400 Systolic blood pressure 116 mm[Hg] Leon BARTONL [facility] Encounters Encounter Date Encounter Type Care Provider Facility Start: 05-21-2024 End: 05-21-2024 Orders Only Mikey Davis MD Work Phone: [facility] Comment on above: Abnormal mammogram o f right breast (Primary Dx) Start: 05-20-2024 End: 05-20-2024 Clinisync Result Encounter Generic External Data Provider [facility] External Department Unsolicited Start: 05-20-2024 End: 05-20-2024 Clinisync Result Encounter Generic External Data Provider [facility] External [facility] Unsolicited Start: 09-10-2023 End: 09-10-2023 ambulatory DIPIKA ROBERT Not Available Start: 08-06-2023 End: 08-06-2023 ambulatory DIPIKA ROBERT Not Available Start: 07-02-2023 End: 07-02-2023 ambulatory DIPIKA ROBERT Not Available Start: 06-11-2023 End: 06-11-2023 ambulatory DIPIKA FARLEY Not Available Start: 10-23-2022 End: 10-24-2022 ambulatory Leon Chester ORALIAMellissa Facility:CD:[id number] Start: 10-08-2022 End: 10-09-2022 ambulatory Leon Chester ORALIAMellissa Facility:[facility] Start: 10-08-2022 End: 10-08-2022 Patient encounter procedure Leon WHYTE [facility] Start: 06-20-2022 End: 06-21-[address] DIPIKA FARLEY . Facility:[facility] Start: 06-10-2022 End: 06-10-[address] DIPIKA FALREY . Facility:[facility] Start: 05-23-2022 End: 05-23-2022 ambulatory LOY ROBERTSON Facility:[facility] Start: 05-17-2022 End: 05-18-[address] DIPIKA FARLEY . Facility:[facility] Start: 02-12-[address] JAYDEN HENDERSON Facilit y:[facility] Start: 01-21-2022 End: 01-21-2022 ambulatory LOY ROBERTSON Facility:[facility] Start: 01-16-2022 End: 01-17-[address] DIPIKA FARLEY . Facility:[facility] Start: 01-14-2022 End: 01-15-[address] JAYDEN HENDERSON Facility:[facility] Start: 01-11-2022 End: 04-25-[address] JAYDEN HENDERSON Facility:[facility] Start: 12-27-2021 End: 12-28-[address] JAYDEN HENDERSON Facility:[facility] Start: 12-21-2021 End: 12-22-[address] JAYDEN HENDERSON Facility:[facility] Start: 12-13-2021 End: 12-14-[address] JAYDEN HENDERSON Facility:[facility] Start: 12-07-2021 End: 12-08-[address] JADYEN HENDERSON Facility:[facility] Start: 11-29-2021 End: 11-30-[address] MIKEY DAVIS Facility:[facility] Start: 11-22-2021 End: 11-23-[address] MIKEY DAVIS Facility:[facility] Start: 09-27-2021 End: 09-28-[address] MIKEY DAVIS Facility:[facility] Start: 09-20-2021 End: 09-21-[address] MIKEY DAVIS Facility:[facility] Start: 09-11-2021 End: 09-12-[address] MIKYE DAVIS Facility:[facility] Start: 09-04-2021 End: 09-05-[address] MIKEY DAVIS Facility:[facility] Start: 08-16-[address] MIKEY DAVIS Facil ity:[facility] Start: 08-10-2021 End: 08-11-[address] MIKEY DAVIS Facility:[facility] Start: 07-31-2021 End: 08-01-[address] MIKEY DAVIS Facility:[facility] Start: 07-03-2021 End: 07-04-[address] MIKEY DAVIS Facility:[facility] Procedures Date Procedure Procedure Detail Performing Clinician Start: 05-20-2024 MM TOMOSYNTHESIS SCR EENING BI Generic External Data Provider Start: 05-20-2024 Mammography Generic Pr ovider Dilation and curettage Kasi graham WHYTE Endometrial ablation Leon WHYTE Hysteroscopy Leon WHYTE Percutaneous translu paul laser ablation of vein Leon WHYTE Plan of Treatment Date Care Activity Detail Author Start: 05-20-2025 Screening for malign ant neoplasm of breast Mammogram [facility] Start: 06-01-2024 End: 06-01-2024 Patient encounter procedure 06/01/2024 1:10 PM EDT Office Visit [facility] [address] [place] [id number] Dipika Farley DO [address] [place] [address] [facility] Start: 05-21-2024 End: 07-21-2025 MG Breast - right Diagnostic Right diagnostic mammogram Imaging Routine Abnormal mammogram of right breast Expected: 05/21/2024, Expires: 07/21/2025 [facility] Work Phone: Comment on above: Expected: 05/21/2024 , Expires: 07/21/2025 Start: 05-21-2024 End: 07-21-2025 US Breast - right limited Right breast US limited Imaging Routine Abnormal mammogram of right breast Expected: 05/21/2024, Expires: 07/21/2025 [facility] Comment on above: Expected: 05/21/2024 , Expires: 07/21/2025 Start: 05-19-2024 Screening for malign ant neoplasm of breast Mammogram [facility] Start: 1970 Screening for malign ant neoplasm of colon [facility] Immunizations Immunization Date Immunization Notes Care Provider Jesse watkins 12-15-2020 SARS-CoV-2 (COVID-19 ) mRNA-1273 vaccine Leon BARTONMellissa [facility] [place] 03-22-2020 SARS-CoV-2 (COVID-19 ) mRNA-1273 vaccine Leon BARTONMellissa [facility] 02-22-2020 SARS-CoV-2 (COVID-19 ) mRNA-1273 vaccine Leon BARTONMellissa [facility] Payers Date Payer Category Payer [facility] [employer] [id number] 2022 Unknown [id number] 2019 Unknown [id number] 1970 Unknown [id number] 2.16.840.1.876395.3.579.2. 593 1970 Unknown [id number] 2.16.840.1.384690.3.579.2. 593 1970 Unknown [id number] 2.16.840.1.664216.3.579.2. 593 1971 Unknown [id number] 2.16.840.1.543783.3.579.2. 593 1971 Unknown [id number] 2.16.840.1.084216.3.579.2. 593 1971 Unknown [id number] 2.16.840.1.294696.3.579.2. 593 1971 Unknown [id number] 2.16.840.1.338556.3.579.2. 593 1971 Unknown [id number] 2.16.840.1.800178.3.579.2. 593 1971 Unknown [id number] 2.16.840.1.248331.3.579.2. 593 1971 Unknown [id number] 2.16.840.1.650417.3.579.2. 593 1971 Unknown [id number] 2.16.840.1.633114.3.579.2. 593 1971 Unknown [id number] 2.16.840.1.820373.3.579.2. 593 1971 Unknown [id number] 2.16.840.1.752873.3.579.2. 593 1971 Unknown [id number] 2.16.840.1.247144.3.579.2. 593 1971 Unknown [id number] 2.16.840.1.413784.3.579.2. 593 1971 Unknown [id number] 2.16.840.1.295743.3.579.2. 593 1971 Unknown [id number] 2.16.840.1.938898.3.579.2. 593 1971 Unknown [id number] 2.16.840.1.891283.3.579.2. 593 1971 Unknown [id number] 2.16.840.1.154928.3.579.2. 593 1971 Unknown [id number] 2.16.840.1.223090.3.579.2. 593 1971 Unknown [id number] 2.16.840.1.650752.3.579.2. 593 1971 Unknown [id number] 2.16.840.1.729197.3.579.2. 593 1971 Unknown [id number] 2.16.840.1.252068.3.579.2. 593 1971 Unknown [id number] 2.16.840.1.314703.3.579.2. 593 1971 Unknown [id number] 2.16.840.1.279924.3.579.2. 727 1971 Unknown [id number] 2.16.840.1.680237.3.579.2. 727 1971 Unknown [id number] 2.16.840.1.413594.3.579.2. 1259 1971 Unknown [id number] 2.16.840.1.530614.3.579.2. 1259 1971 Unknown [id number] 2.16.840.1.963633.3.579.2. 1259 1970 Unknown [id number] 2.16.840.1.452918.3.579.2. 1259 1958 Self-pay [id number] Social History Date Type Detail Facility Start: 10-08-2022 End: 09-10-2023 Tobacco smoking status Never smoked tobacco (finding) [facility] [place] Tobacco smoking status Never [facility] [place] Start: 09-10-2023 Sex Assigned At Female F [facility] Start: 09-10-2023 Tobacco use and exposure Smokeless tobacco non-user [facility] Start: 09-10-2023 Alcoholic beverage intake Lifetime non-drinker (finding) [facility] Start: 09-10-2023 [address] [facility] Start: 1970 Sex assigned at Not on file [facility] Functional Status Date Assessment Result Facility 10-08-2022 Functional Status N/A [facility] Clinical Note 10-08-2022 Note Date & Type [...] Recorded SARS-CoV-2 (COVID-19) mRNA-1273 vaccine 02/22/2020 Recorded [facility] Comment on above: Result Comment: Elec [...] by: JAYDEN HENDERSON Date: 2021-09-04 16:23 [facility] Evaluation + Plan note Note Date & Type Note Facility Evaluation + Plan note No data available for this section [facility] [place] Evaluation note Note Date & Type Note Facility Evaluation note Diagnosis Abnormal mammogram of right breast- Primary documented in this encounter [facility] Discharge instructions Note Date & Type Note Facility Hospital Discharge instructions No data available for this section [facility] [place] Progress note Note Date & Type Note Facility Progress note No data available for this section [facility] [place] Summary Purpose Family History No Family History Records FoundNo Family History Records FoundNo Family History Records Found Advance Directives No Advanced Directives Records FoundNo Advanced Directives Records FoundNo Advanced Directives Records Found Additional Source Comments INFORMATION SOURCE (unrecogn ized section and content) DATE CREATED AUTHOR 06/24/2022 [facility] DATE CREATED AUTHOR AUTHOR'S ORGANIZ ATION 11/01/2022 [facility] DATE CREATED AUTHOR AUTHOR'S ORGANIZ ATION 09/14/2023 [facility] d[facility] Specialists EPIC Patient Care team informatio n (unrecognized section and content) Management Coordinator Relationship Specialty Start Date End Date Mikey Davis MD [address] [place] [phone] PCP - General Family Medicine 06/11/23 Management Coordinator Relationship Specialty Start Date End Date Mikey Davis MD [address] [place] [phone] PCP - General Family Medicine 06/11/23 FOR RECORDS PERTAINING TO PATIENTS WHO ARE [...] BE BASED ON THE PRIMARY CLINICAL RECORDS. [facility] [employer] [facility]. provides no warranty or guarantee of the accuracy or completeness of information in this document.
[2024-05-25 07:13] LABS: Estimated Average Glucose 100 mg/dL; Glycohemoglobin A1C 5.1 % (4.5-6.2)
[2024-05-25 07:22] LABS: Alanine Aminotransferase 12 U/L (14-59); Albumin Globulin Ratio 1.1; Albumin Level 3.6 g/dL (3.4-5.0); Alkaline Phosphatase 61 U/L (46-116); Anion Gap 12.2; Aspartate Amino Transferase 14 U/L (15-37); BUN Creatinine Ratio 13.4; Bilirubin Total 0.5 mg/dL (0.2-1.0); Calcium 9.1 mg/dL (8.5-10.1); Carbon Dioxide 27.3 mmol/L (21.0-32.0); Chloride 106 mmol/L (98-107); Cholesterol 180 mg/dL (<=200); Estimated GFR (African America >60 (>=60 mL/min/1.73m^2); Estimated GFR (Non-African Ame >60 (>=60 mL/min/1.73m^2); Globulin 3.3 g/dL; Glucose 82 mg/dL (74-106); HDL Cholesterol 61 mg/dL (40-60); Potassium 4.5 mmol/L (3.5-5.1); Sodium 141 mmol/L (136-145); Thyroid Stimulating Hormone 2.173 uIU/mL (0.358-3.740); Total Protein 6.9 g/dL (6.4-8.2); Triglycerides 36 mg/dL (<=150); VLDL CHOLESTEROL 7.2 mg/dL
[2024-05-25 07:34] LABS: Basophils Percent Auto 0.7 % (0.2-2.0); Eosinophils Absolute Auto 0.2 10^3/uL (0.0-0.7); Eosinophils Percent Auto 3.8 % (0.9-7.0); Hematocrit 42.3 % (36.0-48.0); Hemoglobin 13.9 g/dL (12.0-16.0); Immature Granulocytes Abs Auto 0.01 10^3/uL (0.00-0.03); Immature Granulocytes Pct Auto 0.2 % (0.0-0.5); Lymphocytes Absolute Auto 1.5 10^3/uL (1.2-3.8); Lymphocytes Percent Auto 26.7 % (20.5-60.0); Mean Corpuscular HGB Conc 32.9 g/dL (29.9-35.2); Mean Corpuscular Hemoglobin 28.4 pg (26.7-34.0); Mean Corpuscular Volume 86.3 fL (81.0-99.0); Mean Platelet Volume 11.9 fL (9.5-13.5); Monocytes Absolute Auto 0.6 10^3/uL (0.3-0.8); Monocytes Percent Auto 11.1 % (1.7-12.0); Neutrophils Absolute Auto 3.2 10^3/uL (1.4-6.5); Neutrophils Percent Auto 57.5 % (43.0-75.0); Platelet Count 251 10^3/uL (150-450); Red Cell Distribution Width 13.2 % (11.0-15.0); White Blood Count 5.5 10^3/uL (4.0-11.0)
== END 2024-05-25 06:31 | disposition home or self-care (01) ==
LOC: LAB 06:32
PROVIDERS: PCP Family Medicine; Visit Provider Family Medicine
DX: Z00.00 Encounter for general adult medical examination without abnormal findings (principal)
CPT/HCPCS: 36415; 80053; 80061; 83036; 84443; 85025

== ENCOUNTER 2024-06-08 19:35 | Outpatient (REF) | payer BC, SELFPAY ==
--- OUTSIDE RECORDS SUMMARY | 2024-06-08 19:40 | XMS_ITS | CCD ---
Author Organization 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 Name Role Phone BEATRIZ, DR JAYDEN Bobby [...] NADERER, DR MIKEY Latif Primary Care Unavailable MARTINE ., DR BAR Attending Unavailable MARTINE ., DR BAR Consulting Unavailable MARTINE ., DR BAR Admitting Unavailable NADERER, DR MIKEY Latif Primary Care Unavailable MARTINE ., DR BAR Attending Unavailable MARTINE ., DR BAR Consulting Unavailable MARTINE ., DR BAR Admitting Unavailable NADERER, DR MIKEY Latif Primary Care Unavailable ZIEBER, DR RANDALL Chetser Consulting Unavailable WEST, DR JAYDEN Bobby Admitting [...] Unavailable NADERER, DR MIKEY Latif Consulting Unavailable MARTINE ., DR BAR Admitting Unavailable MARTINE ., DR BAR Attending Unavailable MARTINE ., DR BAR Consulting Unavailable NADERER, DR [...] Unavailable NADERER, DR MIKEY Latif Consulting Unavailable MARTINE ., DR BAR Admitting Unavailable MARTINE ., DR BAR Attending Unavailable MARTINE ., DR BAR Consulting Unavailable NADERER, DR MIKEY Latif Primary Care Unavailable ZIEBER, DR RANDALL Chester Consulting Unavailable WEST, DR JAYDEN Bobby Admdee Unavailable WEST, DR JAYDEN Bobby Attending Unavailable NADERER, DR MIKEY Latif Primary Care Unavailable NADERER, DR MIKEY Latif Primary Care Unavailable MARTINE ., DR BAR Admitting Unavailable MARTINE ., DR BAR Attending Unavailable MARTINE ., DR BAR Consulting Unavailable ZIEBER, DR [...] Consulting Unavailable MIKEY DAVIS Primary Care Physician Leon WHYTE Attending Unavailable MIKEY DAVIS Referring Unavailable Leon WHYTE Attending Unavailable Dipika Farley Attending Provider MARTINE, DIPIKA Attending Unavailable MARTINE, DIPIKA Attending Unavailable MARTINE, DIPIKA Attending Unavailable MARTINE, DIPIKA Attending Unavailable Mikey Davis MD Primary Care Provider [phone] Mikey Davis MD Primary Care Provider [phone] Mikey Davis MD Attending Provider [phone] Martine, Dipika Admitting Unavailable Martine, Dipika Attending Unavailable Martine, Dipika Admitting Unavailable Martine, Dipika Attending Unavailable Mikey Davis Attending Unavailable Mikey Davis Primary Care Unavailable Mikey Davis Admitting Unavailable Allergies Allergy Classification Reported Allergen(s) Allergy Type Date of Onset Reaction(s) Facility (1 source) No Known Medication Allergies; Translations: [No Known Medication Allergies] Propensity to adverse reactions (disorder) [facility] Repository Medications Current Medications Medication Drug Class(es) Dates Sig (Normalized) Sig (Original) ibuprofen 800 mg oral tablet (2 sources) Nonsteroidal Anti-inflammatory Drug Start: 07-30-2023 take 1 tablet by mouth every eight hours ibuprofen 800 MG tablet Take 800 mg by mouth every 8 (eight) hours 07/30/2023 Active Problems Active Problems Problem Classification Problem Date [...] OTH INF PARASITIC DZ] Onset: 05-29-2022 Episodic Osteoporosis (2 sources) Postmenopausal osteoporosis; Translations: [Age-related osteoporosis without current pathological fracture] 06-08-2024 Chronic Other circulatory disease (4 sources) Arteritis, unspecified; Translations: [ARTERITIS UNSPECIFIED] Onset: 09-20-2021 Chronic Other screening for suspected conditions (not mental disorders or infectious disease) (16 sources) Encounter for screening for malignant neoplasm of cervix; Translations: [Encounter for screening mammogram for malignant neoplasm of breast] Onset: 05-17-2022 Episodic Peripheral and visceral atherosclerosis (9 sources) Peripheral vascular disease, unspecified; Translations: [Atherosclerosis of [place] arteries of extremities with rest pain, bilateral [...] Test Name Value Interpretation Reference Range Facility Urinalysis macro (dipstick) panel (U)on 06-08-2024 Bilirubin, UA Negative Negative - 4(70) +++ mg/dL [facility] Blood, UA Negative Negative - 50 Ran/mcL [facility] Clarity, UA Clear [facility] Color, UA Yellow [facility] Glucose, UA Negative Negative - 2000(110) ++++ mg/dL [facility] Interpretation and review of laboratory results Normal [facility] Ketones, UA Negative Negative - 160(16) ++++ mg/dL [facility] Leukocytes, UA Negative Negative - 500+++ Vick/mcL [facility] Nitrite, UA Negative Negative - Positive [facility] pH, UA 5.5 5 - 9 [facility] Protein, UA Negative Negative - 2000(20) ++++ mg/dL [facility] Spec Grav, UA 1.005 1 - 1.03 [facility] Urobilinogen, UA 0.2 0.2 - 12 mg/dL [facility] MM special view RT w/CADon 0 06-04-2024 MM special view RT w/CAD [facility] [address] [place] [address] Mammography Report Signed Patient: Franky Cyr MR#: [id number] : 1970 Acct:[id number] Age/Sex: 54 / F Adm Date: 06/03/24 [facility]: [facility] Room: Type: [facility] Attending Dr: Mikey Davis MD Ordering Provider: Mikey Davis MD Date of Service: 06/03/24 Procedure(s): MM special view RT w/CAD Accession Number(s): ([id number]) MM/MM special view RT w/CAD: R92.9 Copies to: Mikey Davis MD RIGHT Diagnostic Full Field digital mammogram [...] Stone Betancur M.D.06/04/2024 9:16 AM Dictation Location: [facility] Dictated By: Stone Betancur DO 06/04/24 0913 Signed By: 06/04/24 0916 [facility] ALL LIPID PROFILE (FASTING)o n 05-25-2024 CHOL HDL RATIO 3 [facility] Comment on above: 3.3 - 4.4 LOW RISK 4.4 - 7.1 AVERAGE RISK 7.1 - 11.0 MODERATE RISK >11.0 HIGH RISK Cholesterol [Mass/Vol] 180 mg/dL NINF - 200 mg/dL [facility] Cholesterol in HDL [Mass/Vol] 61 mg/dL High 40 - 60 mg/dL [facility] Comment on above: > or =60 mg/dl - LOW CARDIOVASCULAR RISK <40 mg/dl - HIGH CARDIOVASCULAR RISK Magnesium [Mass/Vol] 112 mg/dL [facility] Comment on above: <100 mg/dl OPTIMAL 100-129 mg/dl NEAR OR ABOVE OPTIMAL 130-159 mg/dl BORDERLINE HIGH 160-189 mg/dl HIGH >190 mg/dl VERY HIGH Magnesium [Mass/Vol] 7.2 mg/dL [facility] Triglyceride [Mass/Vol] 36 mg/dL NINF - 150 mg/dL [facility] ALL THYROID STIM HORMONEon 0 05-25-2024 TSH Qn 2.173 m[IU]/L [facility] CMP (CMP) (FOR REMOTE FH C USE)on 05-25-2024 Albumin [Mass/Vol] 3.6 g/dL 3.4 - 5.0 g/dL [facility] ALBUMIN GLOBULIN RATIO 1.1 [facility] ALP [Catalytic activity/Vol] 61 U/L 46 - 116 U/L [facility] ALT [Catalytic activity/Vol] 12 U/L Low 14 - 59 U/L [facility] Anion gap [Moles/Vol] 12.2 mmol/L [facility] AST [Catalytic activity/Vol] 14 U/L Low 15 - 37 U/L [facility] Bilirubin [Mass/Vol] 0.5 mg/dL 0.2 - 1 .0 mg/dL [facility] Calcium [Mass/Vol] 9.1 mg/dL 8.5 - 10. 1 mg/dL [facility] Chloride [Moles/Vol] 106 mmol/L 98 - 10 7 mmol/L [facility] CO2 [Moles/Vol] 27.3 mmol/L 21.0 - 32.0 mmol/L [facility] Creatinine [Mass/Vol] 0.97 mg/dL 0.55 - 1.02 mg/dL [facility] GFR/1.73 sq M.predicted CKD-EPI (S/P/Bld) [Vol rate/Area] >60 >=60 mL/min/1.73m 2 [facility] Globulin (S) [Mass/Vol] 3.3 g/dL [facility] Glucose [Mass/Vol] 82 mg/dL 74 - 106 mg/dL [facility] Potassium [Moles/Vol] 4.5 mmol/L 3.5 - 5.1 mmol/L [facility] Protein [Mass/Vol] 6.9 g/dL 6.4 - 8.2 g/dL [facility] Sodium [Moles/Vol] 141 mmol/L 136 - 145 mmol/L [facility] TBH EGFR-NON AF SOMALI >60 >=60 mL/min/1.73m 2 [facility] Urea nitrogen [Mass/Vol] 13 mg/dL 7.0 - 18.0 mg/dL [facility] Urea nitrogen/Creatinine [Mass ratio] 13.4 mg/mg [facility] MLR HEMOGLOBIN A1Con 025 Glucose [Mass/Vol] 100 mg/dL [facility] HbA1c (Bld) [Mass fraction] 5.1 % 4.5 - 6.2 % [facility] Comment on above: ADA RECOMMENDED LIMI T 4.0 - 6.0 ADA THERAPEUTIC TARGET < 7.0 ACTION SUGGESTED > 7.0 No Panel Informationon 05-25 Interpretation and review of laboratory results Abnormal [facility] MM TOMOSYNTHESIS SCREENING B Ion 05-20-2024 [place] [address] Mammography Report Signed Patient: FRANKY CYR MR#: [id number] : 1970 Acct:[id number] Age/Sex: 54 / F ADM Date: 05/20/24 Loc: MAMMO Attending Dr: Dipika Farley D.O. Ordering Physician: Dipika Farley D.O. Results: Date of Service: 05/20/24 Follow Up: Procedure(s): MM tomosynthesis screening BI Accession Number(s): [id number] cc: Dipika Farley D.O.; Mikey Davis M.D. Patient Name: FRANKY CYR MR#: [id number] : 1970 Exam Date: 05/20/2024 Ordering Doctor: [...] breast cancer at age 71. LOCATION: [facility] BREAST COMPOSITION: The breasts are extremely dense, [...] Betancur D.O. Signed By: 05/20/24 1439 DD/ 1439 TD/TT: Dispatch Officer: [facility] Radiology, Radiologbushra garrison MD - 05/20/2024 [place] [address] Mammography Report Signed Patient: FRANKY CYR MR#: [id number] : 1970 Acct:[id number] Age/Sex: 54 / F ADM Date: 05/20/24 Loc: MAMMO Attending Dr: Dipika Farley D.O. Ordering Physician: Dipika Farley D.O. Results: Date of Service: 05/20/24 Follow Up: Procedure(s): MM tomosynthesis screening BI Accession Number(s): [id number] cc: Dipika Farley D.O.; Mikey Davis M.D. Patient Name: FRANKY CYR MR#: [id number] : 1970 Exam Date: 05/20/2024 Ordering Doctor: [...] breast cancer at age 71. LOCATION: [facility] BREAST COMPOSITION: The breasts are extremely dense, [...] Dictated By: Stone Betancur D.O. Signed By: 05/20/241438 DD/ 38 TD/TT: Dispatch Officer: [facility] Radiology Study observation (narrative) [facility] MM TOMOSYNTHESIS SCREENING B IOrdered By: Radiologist Radiology on 05-20-2024 [facility] Work Phone: Luciano 07-30-2023 L Specimen: [id number] Received: 07/30/23 Status: NYA Moseley Num: [id number] Spec Type: Surgical Subm Dr: Dipika Farley Tissues: A Uterus w/ or w/o tubes ovaries except neoplastic or prolap (CERVIX, KATHY FT Procedures: HE/12, Gross/Micro L5 Age/ Patient Sex Location Account Attending Physician Franky Cyr 53/F LABELL [id number] Dipika Farley SPEC NUM: [id number] RECD: 07/30/23 [facility] NUM: [id number] AVNI: 07/30/[address]: Dipika Farley ENTERED: 07/30/[address]: Isabel,Fallon SPEC TYPE: Surgical DEPT: KATHLEEN OLIVA ORDERED: HE/12, Gross/Micro L5 ORDERED: HE/12, Gross/Micro L5 Pathological Diagnosis Uterus, Cervix, Bilateral Tubes, Hysterectomy: Uterus: Leiomyomata. Adenomyosis. Cervix: Unremarkable. Fallopian Tubes: Unremarkable. Clinical Information Menorrhagia, pelvic pain, dyspareunia, dysmenorrhea Gross Description Received in formalin, labeled with the patient's name, date of and uterus, cervix and bilateral fallopian tubes is a 117.4 g uterus with attached cervix and detached, undesignated bilateral fimbriated fallopian tubes. The uterus measures 6.0 cm cornu to cornu, 8.8 cm fundus to os, 3.1 cm anterior-posterior, with perez-purple smooth serosa. There are 4 subserosal nodules along the anterior serosa ranging from 3.3 x 3.2 x 2.0 cm to 0.4 x 0.4 x 0.2 cm. The roughened brown cervix is 2.1 cm long and 2.2 cm wide, leading to a 4.2 x 3.6 cm ectocervix with a 0.9 cm wide os. The 2.8 cm long and 0.3-0.8 cm wide endocervical canal leads to a triangular 3.0 cm fundus to internal os and 3.2 cm cornu to cornu endometrial cavity. The soft, perez 0.1 cm thick endometrium is moderately displaced by a 2.2 x 2.1 cm well-circumscribed, white, whorled and fibrous nodule and overlies a 1.6 cm thick perez trabeculated myometrium. Further sectioning demonstrates a 2.6 x 2.5 cm additional well-circumscribed, fibrous white nodule. No polyps, additional nodules or discrete masses are present. Each fallopian tube is arbitrarily designated as #1 (4.5 cm in length by 0.6 cm in diameter) and #2 (5.5 cm in length by 0.3 to 0.6 cm in diameter). Each tube contains Specimen: [id number] Received: 07/30/23 Status: NYA Moseley Num: [id number] Spec Type: Surgical Subm Dr: Dipika Farley Tissues: A Uterus w/ or w/o tubes ovaries except neoplastic or prolap (CERVIX, KATHY FT Procedures: , Gross/Micro L5 Patient: Franky Cyr [id number] (Continued) Specimen: [id number] Received: 07/30/23 (Continued) Gross Description (Continued) Signed (signature on file) Nishant Cueto MD 07/31/23 1454 Specimen: [id number] Received: 07/30/23 Status: NYA Moseley Num: [id number] Spec Type: Surgical Subm Dr: Dipika Farley Tissues: A Uterus w/ or w/o tubes ovaries except neoplastic or prolap (CERVIX, KATHY FT Procedures: , Gross/Micro L5 Patient: Franky Cyr [id number] (Continued) Specimen: [id number] Received: 07/30/23 (Continued) Gross Description (Continued) a perez-purple smooth serosal surface containing multiple paratubal cysts ranging from 0.1 to 0.3 cm. Sectioning into each tube demonstrates an intact luminal center lined by unremarkable perez mucosa. Back Grinder sections submitted as follows: A1: Anterior cervix A2: Posterior cervix A3?A4: Anterior endomyometrium A5?A6: Posterior endomyometrium A7?A8: Nodules A9: Fallopian tube #1 A10: Fallopian tube #2 CPT Codes 09548 Specimen: [id number] Received: 07/30/23 Status: NYA Moseley Num: [id number] Spec Type: Surgical Subm Dr: Dipika Farley Tissues: A Uterus w/ or w/o tubes ovaries except neoplastic or prolap (CERVIX, KATHY FT Procedures: HE, Gross/Micro L5 Patient: Franky Cyr [id number] (Continued) Signed (signature on file) Nishant Cueto MD 07/31/[address] [facility] Physician [facility] Luciano 06-17-2023 L Specimen: [id number] Received: 06/17/23 Status: NYA Moseley Num: [id number] Spec Type: Surgical Subm : Dipika Farley Tissues: A Endometrium - Curettings (EMC) Procedures: HE/2, Gross/Micro L4 Age/ Patient Sex Location Account Attending Physician Franky Cyr 53/F LABELL [id number] Dipika Farley SPEC NUM: [id number] RECD: 06/17/23 STATUS: NYA MOSELEY NUM: [id number] AVNI: 06/17/[address]: Dipika Farley ENTERED: 06/17/23-1256 [facility] DR: Isabel,Lab SPEC TYPE: Surgical DEPT: KATHLEEN OLIVA ORDERED: HE/2, Gross/Micro L4 ORDERED: HE/2, Gross/Micro L4 Pathological Diagnosis Endometrial curettings: -Multiple strips of apparently slightly disordered proliferative endometrium of the mid phase type including occasional slight glandular dilatations, and also with mild stromal expansion of occasional small disrupted fragments, otherwise without obvious hyperplasia or atypia identified -Incidental small portions of endocervical and ectocervical elements with focal maturing squamous metaplasia without dysplasia or significant atypia observed Gross Description Received in formalin, labeled with the patient's name and endometrial curettings are multiple minute perez tissue fragments admixed with mucus on a Telfa pad measuring in aggregate 1.4 x 0.2 x 0.1 cm, entirely submitted in A1. Clinical history: Thickened endometrium, uterine leiomyoma, pelvic perez. D C hysteroscopy, MyoSure TW Specimen: [id number] Received: 06/17/23 Status: NYA Pradip Num: [id number] Spec Type: Surgical Subm Dr: Dipika Farley Tissues: A Endometrium - Curettings (EMC) Procedures: HE/2, Gross/Micro L4 Patient: Franky Cyr [id number] (Continued) Specimen: [id number] Received: 06/17/23 (Continued) Signed (signature on file) Rich Flores MD 06/19/23 1529 Specimen: [id number] Received: 06/17/23 Status: NYA Moseley Num: [id number] Spec Type: Surgical Subm Dr: Dipika Farley Tissues: A Endometrium - Curettings (EMC) Procedures: HE/Mickey, Neo/Micro L4 Patient: Franky Cyr [id number] (Continued) Specimen: [id number] Received: 06/17/23 (Continued) CPT Codes 03137 Specimen: [id number] Received: 06/17/23 Status: NYA Gonzalezlawrence Num: [id number] Spec Type: Surgical Subm Dr: Dipika Farley Tissues: A Endometrium - Curettings (EMC) Procedures: HE/2, Gross/Micro L4 Patient: Franyk Cyr [id number] (Continued) Signed (signature on file) Rich Flores MD 06/19/[address] [facility] Pathology Noteon 10-31-2022 Pathology Note [id number]#1.00CD :127 Normal [facility] Reminderson 10-30-2022 Reminders - From: Shavon Mcguire LPN To: N - Clinical; Sent: 10/30/2022 11:35:53 EDT Show up: 09/22/2032 07:00:00 EDT Subject: colonoscopy recall Due Date/Time: 10/23/2032 07:00:00 EDT Reminder/Recall Patient due for screening colonoscopy 10/23/2032. Normal [facility] Outside Colonoscopyon 2022 Outside Colonoscopy [id number] D:127 [facility] Lab Reportson 10-23-2022 Lab Reports [id number]#1.00C D:127 [facility] Consent for Procedure/Surger yon 10-09-2022 Consent for Procedure/Surgery [id number] D:127 Normal [facility] Formson 10-09-2022 Forms [id number] D:127 [facility] Ambulatory Visit Summaryon 0 10-08-2022 Ambulatory [...] Vascular insufficiency Very low density lipoprotinemia Normal [facility] Physician Referralon 023 Physician Referral [id number] D:127 Normal [facility] US PELVIS AND TRANSVAGon US PELVIS AND [...] by: RANDALL LEMONS Date: 2022-06-21 07:02 Normal [facility] PAP ACOG PANEL 2: 30 to 65on 06-17-2022 . . Normal [facility] Comment on above: Result Comment: Perf ormed at: WB Performed By: #### 4 [id number] ####[facility] [address] [place] [id number] Flores Age Gdln ACOG Testing 30-65 Normal [facility] Comment on above: Performed By: #### 4 [id number] ####[facility] [address] [place], [place] [address]JeBrianne Flores DIAGNOSIS: Comment Normal [facility] Comment on above: Result Comment: NEGA TIVE FOR INTRAEPITHELIAL LESION OR MALIGNANCY. Performed at: WB Performed By: #### 4 [id number] ####[facility] [address] [place] [id number] Flores HPV Aptima Negative Normal Negative [facility] Comment on above: Result Comment: This nucleic acid amplification test detects fourteen high-risk HPV types (16,18,31,33,35,39,45,51,52,56,58,59,66,68) without differentiation. Performed at: =G Performed By: #### 4 [id number] ####[facility] [address] [place] [address]Dr. Fernando Flores HPV Genotype Reflex Comment Normal [facility] Comment on above: Result Comment: Crit eria not met, HPV Genotype not performed. Performed at: WB Performed By: #### 4 [id number] ####[facility] [address] [place], [place] [address]Dr. Fernando Flores Methodology: Comment Normal [facility] Comment on above: Result Comment: This liquid based ThinPrep(R) pap test was screened with the use of an image guided system. Performed at: WB Performed By: #### 4 [id number] ####[facility] [address] [place], [place] [address]DrBrianne Flroes Note: Comment Normal [facility] Comment on above: Result Comment: The Pap smear is a screening test designed to aid in the detection of premalignant and malignant conditions of the uterine cervix. It is not a diagnostic procedure and should not be used as the sole means of detecting cervical cancer. Both false-positive and false-negative reports do occur. . Performed at: WB Performed By: #### 4 [id number] ####[facility] [address] [place], [place] [address]Dr. Fernando Flores Performed by: Comment Normal [facility] Comment on above: Result Comment: Concetta Riggins, Assembler Faucets (ASCP) Performed at: WB Performed By: #### 4 [id number] ####[facility] [address] [place], [place] [address]Dr. Fernando Flores Specimen adequacy: Comment Normal [facility] Comment on above: Result Comment: Sati sfactory for evaluation. Endocervical and/or squamous metaplastic cells (endocervical component) are present. Performed at: WB Performed By: #### 4 [id number] ####[facility] [address] [place], [place] [address]DrBrianne Flores Covid-19 PCR (CVDTB)on 04-26 SARS-CoV-2 (COVID-19) RNA ALISON+probe Ql (Unsp spec) Not detected Normal NOT DETECTED [facility] Comment on above: Result Comment: When diagnostic [...] for this test is supported by the Chlorobutadiene Scrubber Operator of Health and Human Service's declaration that [...] used). Performed By: #### T 4 #### [facility] [address] [place] [address] Dr. Fernando Flores INFLUENZA A [facility]on 05-[facility] BELOW Normal [facility] Comment on above: Result Comment: Nega tive for Flu A protein angiten. Infection due to Flu A cannot be ruled out. Flu A angiten in the sample may be below the detection limit of the test. Performed By: #### S EROTON #### [facility] [address] [place] [address] Dr. Fernando Flores INFLUBNEG SEE BELOW Normal [facility] Comment on above: Result Comment: Nega tive for Flu B protein antigen. Infection due to Flu B cannot be ruled out. Flu B antigen in the sample may be below the detection limit of the test. Performed By: #### S EROTON #### [facility] [address] [place] [address] Dr. Fernando Flores INFLUENZA A AG Negative Normal NEGATIVE SEE COMMENT [facility] Comment on above: Performed By: #### S EROTON #### [facility] [address] [place], [place] [address] Dr. Fernando Flores INFLUENZA B AG Negative Normal NEGATIVE SEE COMMENT [facility] Comment on above: Performed By: #### S EROTON #### [facility] [address] [place], [place] [address] Dr. Fernnado Flores MG MAMM SCREEN 3D KATHY CADon 05-17-2022 MG MAMM SCREEN 3D KATHY CAD Patient: FRANKY CYR Exam Date: 05/17/2022 : 1970 Gender:F Ordering : DR DIPIKA FARLEY . Admission #: [id number] Family : Order #: [id number] CLICK HERE TO VIEW EXAM RADIOLOGY REPORT [...] breast cancer at age 71. LOCATION: [facility] BREAST COMPOSITION: Extremely dense, which lowers the [...] M.D. on 05/17/2022 at 11:51 Normal [facility] THYROGLOBULINon 01-26-2022 Thyroglobulin 21 ng/mL Normal [facility] Comment on above: Result Comment: This test was developed and its performance characteristics determined by [employer]. It has not been cleared or approved [...] is 2.0 ng/mL. Performed By: #### T FLASH #### [facility] [address] [place] [address] [address] Fernando Flores ESTRONEon 01-23-2022 Estrone, Serum 29 pg/mL Normal [facility] Comment on above: Result Comment: Rang e Adult (Premenopausal) 27 - 231 Menstrual Cycle (1-10 days) 19 - 149 Menstrual Cycle (11-20 days) 32 - 176 Menstrual Cycle (21-30 days) 37 - 200 Adult (Postmenopausal) 0 - 125 Performed By: #### Bernadette STRONE #### [facility] [address] [place] [address] [address] Fernando Flores REVERSE T3on 01-22-2022 Reverse T3, Serum 14.4 ng/dL Normal 9.2-24.1 [facility] Comment on above: Result Comment: This test was developed and its performance characteristics determined by [employer]. It has not been cleared or approved by the Food and Drug Administration. Performed By: #### R EVRT3 #### [facility] [address] [place] [address] [address] Fernando Flores TESTOSTERONE, FREE,DIRECT, T OTALon 01-22-2022 Free Testosterone(Direct) 1.9 pg/mL Normal 0.0-4.2 [facility] Comment on above: Result Comment: Perf ormed at: BN Performed By: #### T ESTFRD ####[facility] [address] [place] [id number]. Fernando Flores Testosterone [Mass/Vol] 30 ng/dL Normal 4-50 [facility] Comment on above: Result Comment: Perf ormed at: CB Performed By: #### T ESTFRD ####[facility] [id number] [place] [id number]. Fernando Flores Covid-19 PCR ([facility]on 12-26 SARS-CoV-2 (COVID-19) RNA ALISON+probe Ql (Unsp spec) Not detected Normal NOT DETECTED [facility] Comment on above: Result Comment: When diagnostic [...] for this test is supported by the Chlorobutadiene Scrubber Operator of Health and Human Service's declaration that [...] be used). Performed By: #### C VDTBH ####[facility] [id number] [place] [address]Dr. Fernando Flores SEROTONINon 01-20-2022 Serotonin, Serum 162 ng/mL Normal 31-207 [facility] Comment on above: Performed By: #### S ERTASNEEMN #### [facility] [address] [place] [address] Dr. Fernando Flores THYROGLOBULIN ABon 2 Thyroglobulin Antibody <1.0 Normal 0.0-0.9 [facility] Comment on above: Result Comment: Thyr oglobulin Antibody measured by [place] Methodology Performed By: #### T HYGAB ####[facility] [address] [place] [address]Dr. Fernando Flores VIT D 1 25 DIHYDROXYon 01-19 Calcitriol(1,25 di-OH Vit D) 62.0 pg/mL Normal 24.8-81.5 [facility] Comment on above: Performed By: #### S EROTON #### [facility] [address] [place] [address] Dr. Fernando Flores C-PEPTIDE, SERUMon C-Peptide, Serum 1.8 ng/mL Normal 1.1-4.4 [facility] Comment on above: Result Comment: C-Pe ptide reference interval is for fasting patients. Performed By: #### C PEPT ####[facility] [address] [place], [place] [address]IcDr. Fernando Flores INSULINon 01-18-2022 Insulin 6.7 uIU/mL Normal 2.6-24.9 [facility] Comment on above: Performed By: #### T 4 #### [facility] [address] [address] [address] Fernando Flores CORTISOLon 01-17-2022 Cortisol 14.2 ug/dL Normal [facility] Comment on above: Result Comment: Floyd isol AM 6.2 - 19.4 Cortisol PM 2.3 - 11.9 Performed By: #### C ORTISO #### [facility] [address] [address] [address] Fernando Flores DHEA-SULFATEon 01-17-2022 DHEA-Sulfate 93.7 ug/dL Normal 41.2-243.7 [facility] Comment on above: Performed By: #### S EROTON #### [facility] [address] [address] [address] Fernando Flores ESTRADIOLon 01-17-2022 Estradiol 24.6 pg/mL Normal [facility] Comment on above: Result Comment: Adul t Female: Follicular phase 12.5 - 166.0 Ovulation phase 85.8 - 498.0 Luteal phase 43.8 - 211.0 Postmenopausal <6.0 - 54.7 1st trimester 215.0 - >4300.0 Sanjay ECLIA methodology Performed By: #### S EROTON #### [facility] [address] [address] [address] Fernando Flores PROGESTERONEon 01-17-2022 Progesterone 0.7 ng/mL Normal [facility] Comment on above: Result Comment: Foll icular phase 0.1 - 0.9 Luteal phase 1.8 - 23.9 Ovulation phase 0.1 - 12.0 First trimester 11.0 - 44.3 Second trimester 25.4 - 83.3 Third trimester 58.7 - 214.0 Postmenopausal 0.0 - 0.1 Performed By: #### P JASWINDER #### [facility] [address] [address] [address] Fernando Flores SEX HORMONE-BINDING GLOBULIN on 01-17-2022 Sex Horm Binding Glob, Serum 115.0 nmol/L Normal 17.3-125.0 [facility] Comment on above: Performed By: #### S EROTON #### [facility] [address] [address] [address] Fernando Flores T3, TOTAL (TRIIODOTHYRONINE) on 01-17-2022 T3, TOTAL 120 ng/dL Normal 71-180 [facility] Comment on above: Performed By: #### T 3TOTAL ####[facility] [address] [place] [address]Dr. Fernando Flores THYROID PEROXIDASE ABon 12-26 Thyroid Peroxidase (TPO) Ab <9 Normal 0-34 [facility] Comment on above: Performed By: #### S EROTON #### [facility] [address] [address] [address] Fernando Flores FREE T3on 01-16-2022 FREE T3 2.86 pg/mlL Normal 2.18-3.98 [facility] Comment on above: Performed By: #### T 4 #### [facility] [address] [address] [address] Fernando Flores FREE T4on 01-16-2022 Free T4 [Mass/Vol] 1.04 ng/dL Normal 0.76-1.46 [facility] Comment on above: Performed By: #### F T4 ####[facility] [address] [place] [address]Dr. Fernando Flores GLUCOSE BLOODon 01-16-2022 Glucose [Mass/Vol] 90 mg/dL Normal 74-106 [facility] Comment on above: Performed By: #### S EROTON #### [facility] [address] [address] [address] Fernando Flores GLYCOHEMOGLOBIN A1Con 2021 ADA RECOMMENDATION SEE BELOW Normal [facility] Comment on above: Result Comment: ADA RECOMMENDED LIMIT 4.0 - 6.0 ADA THERAPEUTIC TARGET < 7.0 ACTION SUGGESTED > 7.0 Performed By: #### S EROTON #### [facility] [address] [place] [address] Dr. Fernando Flores Glucose [Mass/Vol] 103 mg/dL Normal [facility] Comment on above: Performed By: #### S EROTON #### [facility] [address] [address] [address] Fernando Flores HbA1c (Bld) [Mass fraction] 5.2 % Normal 4.5-6.2 [facility] Comment on above: Performed By: #### S EROTON #### [facility] [address] [place] [address] Dr. Fernando Flores T4on 01-16-2022 T4 [Mass/Vol] 7.40 ug/dL Normal 4.80-13.90 [facility] Comment on above: Performed By: #### T 4 #### [facility] [address] [place] [address] Dr. Fernando Flores TSHon 01-16-2022 TSH 1.776 uIU/mL Normal 0.358-3.740 [facility] Comment on above: Performed By: #### S EROTON #### [facility] [address] [place] [address] Dr. Fernando Flores VC CONSULT FOLLOWUPon 2021 VC CONSULT FOLLOWUP Patient: FRANKY CYR Exam Date: 01/14/2022 : 1970 Gender:F Ordering : DR JAYDEN HENDERSON M.D. Admission #: [id number] Family : Order #: [id number] CLICK HERE TO VIEW EXAM RADIOLOGY REPORT [...] Henderson MD on 01/14/2022 at 16:01 Normal [facility] VC EXT VENOUS RT LIMITEDon 1 03-16-2021 VC EXT VENOUS RT LIMITED Patient: FRANKY CYR Exam Date: 01/14/2022 : 1970 Gender:F Ordering : DR JAYDEN HENDERSON M.D. Admission #: [id number] Family : Order #: [id number] CLICK HERE TO VIEW EXAM RADIOLOGY REPORT [...] Henderson MD on 01/14/2022 at 16:04 Normal [facility] VC CONSULT FOLLOWUPon 2021 VC CONSULT FOLLOWUP Patient: FRANKY CYR Exam Date: 12/27/2021 : 1970 Gender:F Ordering : DR JAYDEN HENDERSON M.D. Admission #: [id number] Family : Order #: [id number] CLICK HERE [...] Henderson MD on 12/27/2021 at 15:30 Normal [facility] VC EXT VENOUS RT LIMITEDon 1 02-26-2021 VC EXT VENOUS RT LIMITED Patient: FRANKY CYR Exam Date: 12/27/2021 : 1970 Gender:F Ordering : DR JAYDEN HENDERSON M.D. Admission #: [id number] Family : Order #: [id number] CLICK HERE TO VIEW EXAM RADIOLOGY REPORT [...] Henderson MD on 12/27/2021 at 15:17 Normal [facility] VC INJ FOAM SCLERO W US MLTI on 12-21-2021 VC INJ FOAM SCLERO W US MLTI Patient: FRANKY CYR Exam Date: 12/21/2021 : 1970 Gender:F Ordering : DR JAYDEN HENDERSON M.D. Admission #: [id number] Family : Order #: [id number] CLICK HERE TO VIEW EXAM RADIOLOGY REPORT [...] weeks, (more content not included)... Normal [facility] VC CONSULT FOLLOWUPon 2021 VC CONSULT FOLLOWUP Patient: FRANKY CYR Exam Date: 12/13/2021 : 1970 Gender:F Ordering : DR JAYDEN HENDERSON M.D. Admission #: [id number] Family : Order #: [id number] CLICK HERE TO VIEW EXAM RADIOLOGY REPORT [...] Henderson MD on 12/13/2021 at 08:24 Normal [facility] VC EXT VENOUS LT LIMITEDon 1 VC EXT VENOUS LT LIMITED Patient: FRANKY CYR Exam Date: 12/13/2021 : 1970 Gender:F Ordering : DR JAYDEN HENDERSON M.D. Admission #: [id number] Family : Order #: [id number] CLICK HERE TO VIEW EXAM RADIOLOGY REPORT [...] Henderson MD on 12/13/2021 at 08:16 Normal [facility] VC ENDOVENOUS ABL 1ST V LTon 12-07-2021 VC ENDOVENOUS ABL 1ST V LT Patient: FRANKY CYR Exam Date: 12/07/2021 : 1970 Gender:F Ordering : DR JAYDEN HENDERSON M.D. Admission #: [id number] Family : Order #: [id number] CLICK HERE TO VIEW EXAM CORRECTION: Changed [...] anterior accessory saphenous vein. Dictated by: Jayden Hednerson MD on 12/07/2021 at 10:23 Approved by: Jayden Henderson MD on 12/07/2021 at 10:24 Dictated by: Jayden Henderson MD on 12/07/2021 at 10:27 Approved by: Jayden Henderson MD on 12/07/2021 at 10:27 Normal [facility] VC CONSULT FOLLOWUPon 2021 VC CONSULT FOLLOWUP Patient: FRANKY CYR Exam Date: 11/29/2021 : 1970 Gender:F Ordering : DR JAYDEN HENDERSON M.D. Admission #: [id number] Family : Order #: [id number] CLICK HERE TO VIEW EXAM RADIOLOGY REPORT [...] Henderson MD on 11/29/2021 at 09:01 Normal [facility] EXT VENOUS RT LIMITEDon 1 VC EXT VENOUS RT LIMITED Patient: FRANKY CYR Exam Date: 11/29/2021 : 1970 Gender:F Ordering : DR JAYDEN HENDERSON M.D. Admission #: [id number] Family : Order #: [id number] CLICK HERE TO VIEW EXAM RADIOLOGY REPORT [...] Henderson MD on 11/29/2021 at 08:44 Normal [facility] VC ENDOVENOUS ABL 1ST V RTon 11-22-2021 VC ENDOVENOUS ABL 1ST V RT Patient: FRANKY CYR Exam Date: 11/22/2021 : 1970 Gender:F Ordering : DR JAYDEN HENDERSON M.D. Admission #: [id number] Family : Order #: [id number] CLICK HERE TO VIEW EXAM RADIOLOGY REPORT [...] M.D. on 11/22/2021 at 14:45 Normal [facility] CRPon 09-20-2021 CRP [Mass/Vol] mg/L Normal <=1.0 [facility] Comment on above: Performed By: #### S EROTON #### [facility] [address] [address] [address] Fernando Flores SED RATE [facility] 2021 SED RATE 5 mm/hr Normal <=30 [facility] Comment on above: Performed By: #### S EDR ####[facility] [id number] [place] [id number]. Fernando Flores US PELVIS AND TRANSVAGon US [...] by: RANDALL LEMONS Date: 2021-09-11 14:02 Normal [facility] CTA ABD JAKE WWO CON [...] by: RANDALL LEMONS Date: 2021-08-10 11:03 Normal [facility] VC COMP CONSULTATIONon 07-31 VC COMP CONSULTATION Patient: FRANKY CYR Exam Date: 07/31/2021 : 1970 Gender:F Ordering : DR JAYDEN HENDERSON M.D. Admission #: [id number] Family : Order #: [id number] CLICK HERE TO VIEW EXAM RADIOLOGY REPORT [...] sa (more content not included)... Normal [facility] VC VENOUS REFLUX KATHY LMTon 0 07-31-2021 VC VENOUS REFLUX KATHY LMT Patient: FRANKY CYR Exam Date: 07/31/2021 : 1970 Gender:F Ordering : DR JAYDEN HENDERSON M.D. 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 Incompetent patent varicose vein extends from the [...] or chronic thrombus Compressibility: Normal Flow: Normal Esthetician: Mid medial thigh measures 3.2 mm with [...] Henderson MD on 07/31/2021 at 11:39 Normal [facility] XR LSPINE MIN 4 VIEWSon [...] by: RANDALL LEMONS Date: 2021-07-03 13:34 Normal [facility] Vital Signs Date Time Vital Sign Value Performing Clinician Facility 06-08-2024 13:16-0400 Body mass index (BMI) [Ratio] 21.97 kg/m2 Dipika Martine DO Work Phone: [facility] 06-08-2024 13:16-0400 Body weight 58.06 kg Dipika Martine DO Work Phone: [facility] 06-08-2024 13:16-0400 Diastolic blood pressure 72 mm[Hg] Dipika Martine DO Work Phone: [facility] 06-08-2024 13:16-0400 Systolic blood pressure 118 mm[Hg] Dipika Martine DO Work Phone: [facility] 10-08-2022 15:23-0400 Blood Pressure Location Work in Field [facility] 10-08-2022 15:23-0400 Diastolic blood pressure 78 mm[Hg] Leon ORALIAL [facility] 10-08-2022 15:23-0400 Heart rate 70 /min Leon FIZZAL [facility] 10-08-2022 15:23-0400 Respiratory rate 16 /min Leon NILL [facility] 10-08-2022 15:23-0400 Systolic blood pressure 116 mm[Hg] Leon BARTONL [facility] Encounters Encounter Date Encounter Type Care Provider Facility Start: 06-08-2024 End: 06-08-2024 Bamboo flowsheet Dipika Martine DO Work Phone: [facility] Start: 06-08-2024 End: 06-08-2024 Bamboo flowsheet Dipika Martine DO Work Phone: [facility] Start: 06-08-2024 End: 06-08-2024 Patient encounter procedure Dipika Martine DO Work Phone: [facility] Start: 06-08-2024 End: 06-08-2024 Periodic preventive med est patient 40-64yrs Dipika Martine DO Work Phone: [facility] Comment on above: Well woman exam with routine gynecological exam; Osteoporosis, post-menopausal (CMS/HCC); H/O: hysterectomy Start: 06-03-2024 End: 06-03-2024 Patient encounter procedure Mikey Davis MD Work Phone: [facility] Work Phone: Start: 06-03-2024 End: 06-03-2024 ambulatory Mikey Davis MD Work Phone: [facility] Work Phone: Start: 05-25-2024 End: 05-25-2024 Clinisync Result Encounter Mikey Davis MD Work Phone: [facility] Unsolicited Start: 05-25-2024 End: 05-25-2024 Clinisync Result Encounter Mikey Davis MD Work Phone: [facility] Unsolic[facility] Start: 05-21-2024 End: 05-21-2024 Orders Only Mikey Davis MD Work Phone: [facility] Comment on above: Abnormal mammogram o f right breast (Primary Dx) Start: 05-20-2024 End: 05-20-2024 Clinisync Result Encounter Generic External Data Provider [facility]solic[facility] Start: 05-20-2024 End: 05-20-2024 Clinisync Result Encounter Generic External Data Provider [facility]solic[facility] Start: 09-10-2023 End: 09-10-2023 ambulatory DIPIKA MARTINE Not Available Start: 08-06-2023 End: 08-06-2023 ambulatory DIPIKA MARTINE Not Available Start: 07-30-2023 End: 07-30-2023 ambulatory Dipika Martine [facility] Work Phone: Start: 07-30-2023 End: 07-30-2023 Departed Referred Dipika Martine Work Phone: [facility] Start: 07-02-2023 End: 07-02-2023 ambulatory DIPIKA LASTO Not Available Start: 06-17-2023 End: 06-17-2023 ambulatory Dipika Lasto [facility] Work Phone: Start: 06-17-2023 End: 06-17-2023 Departed Referred Dipika Farley Work Phone: [facility] Start: 06-11-2023 End: 06-11-2023 ambulatory DIPIKA FARLEY Not Available Start: 10-23-2022 End: 10-24-2022 ambulatory Leon WHYTE Facility:[id number] Start: 10-08-2022 End: 10-09-2022 ambulatory Leon WHYTE Facility: [facility] Start: 10-08-2022 End: 10-08-2022 Patient encounter procedure Leon WHYTE [facility] Start: 06-20-2022 End: 06-21-[address] DIPIKA FARLEY . Facility:[facility] Start: 06-10-2022 End: 06-10-[address] DIPIKA FARLEY . Facility:[facility] Start: 05-23-2022 End: 05-23-2022 ambulatory [...] Facility:[facility] Start: 09-11-2021 End: 09-12-[address] MIKEY DAVIS Facility:[facility] Start: 09-04-2021 End: 09-05-[address] MIKEY DAVIS Facility:[facility] Start: 08-16-[address] MIKEY DAVIS Facil ity:[facility] Start: 08-10-2021 End: 08-11-[address] MIKEY DAVIS Facility:[facility] Start: 07-31-2021 End: 08-01-[address] MIKEY DAVIS Facility:[facility] Start: 07-03-2021 End: 07-04-[address] MIKEY DAVIS Facility:[facility] Procedures Date Procedure Procedure Detail Performing Clinician Start: 06-08-2024 Urnls dip stick/tabl et rgnt non-auto w/o micrscp Dipika Martine DO Work Phone: Start: 06-04-2024 Mammography Dipika Fazi o DO Work Phone: Start: 05-25-2024 ALL LIPID PROFILE (FASTING) Mikey Davis MD Work Phone: Start: 05-25-2024 ALL THYROID STIM HORMONE Mikey Davis MD Work Phone: Start: 05-25-2024 [facility] CMP (CMP) (FOR R EMOTE [facility] USE) Mikey Davis MD Work Phone: Start: 05-25-2024 MLR HEMOGLOBIN A1C Mikey Davis MD Work Phone: Start: 05-20-2024 MM TOMOSYNTHESIS SCR EENING BI Generic External Data Provider Start: 05-20-2024 Mammography Generic Pr ovider Dilation and curettage Kasi graham BARTONMellissa Endometrial ablation Leon PATO H/O: hysterectomy H/O: hysterectomy Dipika Farley DO Work Phone: Hysteroscopy Leon PATO Percutaneous translu paul laser ablation of vein Leon PATO Plan of Treatment Date Care Activity Detail Author Start: 06-04-2025 Screening for malignant neoplasm of breast Mammogram [facility] Start: 05-20-2025 Screening for malignant neoplasm of breast Mammogram [facility] Start: 06-08-2024 End: 06-08-2025 DXA Skeletal system Views for bone density DEXA bone density Imaging Routine Osteoporosis, post-menopausal ([facility]) Expected: 06/08/2024 (Approximate), Expires: 06/08/2025 [facility] Work Phone: Comment on above: Expected: 06/08/2024 (Approximate), Expires: 06/08/2025 Start: 06-08-2024 End: 06-08-2024 Patient encounter procedure 06/08/2024 1:00 PM EDT Office Visit [facility] [address] [place] [address] Dipika Farley, DO [address] [place] [address] Arrived [facility] Comment on above: Arrived Start: 06-03-2024 Mammography of right breast MM special view RT w/CAD [facility] Start: 06-03-2024 MG Breast - right Single view [facility] Start: 06-01-2024 End: 06-01-2024 Patient encounter procedure 06/01/2024 1:10 PM EDT [facility] [address] [place] [address] Dipika Farley, DO [address] [place] [address] [facility] Start: 05-21-2024 End: 07-21-2025 MG Breast - right Diagnostic Right diagnostic mammogram Imaging Routine Abnormal mammogram of right breast Expected: 05/21/2024, Expires: 07/21/2025 [facility] Work Phone: Comment on above: Expected: 05/21/2024 , Expires: 07/21/2025 Start: 05-21-2024 End: 07-21-2025 US Breast - right limited Right breast US limited Imaging Routine Abnormal mammogram of right breast Expected: 05/21/2024, Expires: 07/21/2025 [facility] Comment on above: Expected: 05/21/2024 , Expires: 07/21/2025 Start: 05-19-2024 Screening for malignant neoplasm of breast Mammogram [facility] Start: 1970 Screening for malignant neoplasm of colon [facility] THIN PREP TIS PAP AN D HR HPV DNA THIN PREP TIS PAP AND HR HPV DNA Pathology and Cytology Routine Well woman exam with routine gynecological exam Ordered: 06/08/2024 [facility] Comment on above: Ordered: 06/08/2024 Immunizations Immunization Date Immunization Notes Care Provider Fa june 12-15-2020 SARS-CoV-2 (COVID-19 ) mRNA-1273 vaccine Leon NILL [facility] 03-22-2020 SARS-CoV-2 (COVID-19 ) mRNA-1273 vaccine Leon NILL [facility] 02-22-2020 SARS-CoV-2 (COVID-19 ) mRNA-1273 vaccine Leon NILL [facility] Payers Date Payer Category Payer Self-pay 2022 [employer] [place] [employer] [id number] 2022 Unknown [id number] 2019 Unknown [id number] 1970 Unknown [id number] 2.16.840.1.393397.3.579.2. 593 1970 Unknown [id number] 2.16.840.1.513597.3.579.2. 593 1970 Unknown [id number] 2.16.840.1.390274.3.579.2. 593 1971 Unknown [id number] 2.16.840.1.564093.3.579.2. 593 1971 Unknown [id number] 2.16.840.1.678777.3.579.2. 593 1971 Unknown [id number] 2.16.840.1.348926.3.579.2. 593 1971 Unknown [id number] 2.16.840.1.788416.3.579.2. 593 1971 Unknown [id number] 2.16.840.1.486004.3.579.2. 593 1971 Unknown [id number] 2.16.840.1.881205.3.579.2. 593 1971 Unknown [id number] 2.16.840.1.127156.3.579.2. 593 1971 Unknown [id number] 2.16.840.1.924206.3.579.2. 593 1971 Unknown [id number] 2.16.840.1.753745.3.579.2. 593 1971 Unknown [id number] 2.16.840.1.980275.3.579.2. 593 1971 Unknown [id number] 2.16.840.1.649199.3.579.2. 593 1971 Unknown [id number] 2.16.840.1.253497.3.579.2. 593 1971 Unknown [id number] 2.16.840.1.277145.3.579.2. 593 1971 Unknown [id number] 2.16.840.1.250979.3.579.2. 593 1971 Unknown [id number] 2.16.840.1.296397.3.579.2. 593 1971 Unknown [id number] 2.16.840.1.148412.3.579.2. 593 1971 Unknown [id number] 2.16.840.1.039776.3.579.2. 593 1971 Unknown [id number] 2.16.840.1.839674.3.579.2. 593 1971 Unknown [id number] 2.16.840.1.234992.3.579.2. 593 1971 Unknown [id number] 2.16.840.1.220548.3.579.2. 593 1971 Unknown [id number] 2.16.840.1.747838.3.579.2. 593 1971 Unknown [id number] 2.16.840.1.068099.3.579.2. 727 1971 Unknown [id number] 2.16.840.1.327640.3.579.2. 727 1971 Unknown [id number] 2.16.840.1.588573.3.579.2. 1259 1971 Unknown [id number] 2.16.840.1.180646.3.579.2. 1259 1971 Unknown [id number] 2.16.840.1.280597.3.579.2. 9 1971 Unknown [id number] 2.16.840.1.473802.3.579.2. 1259 1959 Self-pay [id number] Unknown [id number] 2.16.840.1.266749.3.579.2. 531 Social History Date Type Detail Facility Start: 10-08-2022 End: 09-10-2023 Tobacco smoking status Never smoked tobacco (finding) [facility] Tobacco smoking status Never [facility] Start: 09-10-2023 Sex Assigned At Female F [facility] Start: 1970 Sex Assigned At Female F [facility] Start: 09-10-2023 Tobacco use and exposure Smokeless tobacco non-user [facility] Start: 09-10-2023 End: 06-08-2024 Alcoholic beverage intake Lifetime non-drinker (finding) [facility] Start: 09-10-2023 History of Social function [facility] Start: 1970 Sex assigned at Not on file [facility] Work Phone: Start: 06-04-2024 Sex Female (finding) [facility] Functional Status Date Assessment Result Facility 10-08-2022 Functional Status N/A [facility] History of Present illness Narrative 06-08-2024 Mary Huff LPN - 06/08/2024 1:00 PM EDT Note Date & Type Note Facility 06-08-2024 History of Presen t illness Narrative Reason for Appointment: Patient ID: Franky Cyr is a 54 y.o. female who presents for Gynecologic Exam Patient presents today for Annual Exam. MEDICATIONS Current Outpatient Medications Medication Instructions ibuprofen 800 mg, Every 8 hours ALLERGIES No Known Allergies PROBLEMS Active Ambulatory Problems Diagnosis Date Noted Abnormal mammogram of right breast 05/21/2024 Resolved Ambulatory Problems Diagnosis Date Noted No Resolved Ambulatory Problems Past Medical History: Diagnosis Date Deep vein thrombosis (CMS/HCC) Fibrocystic breast History of heavy vaginal bleeding History of uterine fibroid Ovarian cyst HISTORY PAST MEDICAL HISTORY SOCIAL HISTORY Past Medical History: Diagnosis Date Deep vein thrombosis (CMS/HCC) Fibrocystic breast History of heavy vaginal bleeding History of uterine fibroid Ovarian cyst Social History Tobacco Use Smoking status: Never Smokeless tobacco: Never Substance Use Topics Alcohol use: Never Drug use: Never FAMILY HISTORY Family History Problem Relation Name Age of Onset Rheum arthritis Mother Gabby Clsamara Cancer Father Scott Diabetes Father Scott Hypertension Father Scott Stroke Father Scott SURGICAL HISTORY Past Surgical History: Procedure Laterality Date PARTIAL HYSTERECTOMY 07/30/2023 REVIEW OF SYSTEMS Review of Systems: Review of Systems Constitutional: Negative. HENT: Negative. Eyes: Negative. Respiratory: Negative. Cardiovascular: Negative. Gastrointestinal: Negative. Genitourinary: Negative. Musculoskeletal: Negative. Skin: Negative. Neurological: Negative. All other systems reviewed and are negative. Hematological: Negative. Endocrine: Negative. Allergic/Immunologic: Negative. OBJECTIVE Objective: Physical Exam Constitutional: Appearance: Normal appearance. She is well-developed. Genitourinary: Vulva normal. Vaginal cuff intact. Cervix is absent. Uterus is absent. Breasts: Breasts are soft. Right: Normal. Left: Normal. Cardiovascular: Rate and Rhythm: Normal rate and regular rhythm. Abdominal: General: Bowel sounds are normal. There is no distension. Palpations: Abdomen is soft. Tenderness: There is no abdominal tenderness. There is no guarding or rebound. Musculoskeletal: General: No swelling. Normal range of motion. Right lower leg: No edema. Left lower leg: No edema. Neurological: Mental Status: She is alert and oriented to person, place, and time. Skin: General: Skin is warm and dry. Psychiatric: Mood and Affect: Mood normal. Behavior: Behavior normal. Vitals and nursing note reviewed. Exam conducted with a digital media planner present. Vitals: Estimated body mass index is 21.97 kg/m as calculated from the following: Height as of 09/10/23: 5' 4 . Weight as of this encounter: 128 lb. BP: 118/72 No LMP recorded. Patient has had a hysterectomy. ASSESSMENT & PLAN ICD-10-CM 1. Well woman exam with routine gynecological exam Z01.419 THIN PREP TIS PAP AND HR HPV DNA POCT urinalysis dipstick manually resulted 2. Osteoporosis, post-menopausal (CMS/HCC) M81.0 DEXA bone density 3. H/O: hysterectomy Z90.710 Annual: Patient presents today for an annual exam. Patient states she is doing well and has no complaints. Pap was obtained without difficulty and patient given mammogram order to have scheduled/obtained. Orders Placed This Encounter Procedures DEXA bone density POCT urinalysis dipstick manually resulted Follow Up: Patient is to return in one year for annual unless needed otherwise. Documented by Mary Huff LPN on behalf of: Dipika Farley DO documented in this encounter [facility] Clinical Note 10-08-2022 Note Date & Type Note Facility 10-08-2022 Note Chief Complaint consultation for screening colonoscopy [facility] Staff 52 year old female presents on [...] Recorded SARS-CoV-2 (COVID-19) mRNA-1273 vaccine 02/22/2020 Recorded [facility] Comment on above: Result Comment: [...] by: JAYDEN HENDERSON Date: 2021-09-04 16:23 [facility] Evaluation + Plan note Note Date & Type Note Facility Evaluation + Plan note No data available for this section General Surgery [facility] Evaluation note Note Date & Type Note Facility Evaluation note No assessment information availa [facility] Work Phone: Evaluation note Note Date & Type Note Facility Evaluation note Diagnosis Abnormal mammogram of right breast- Primary documented in this encounter [facility] Healthcare Evaluation note Note Date & Type Note Facility Evaluation note Diagnosis Well woman exam with routine gynecological exam Routine gynecological examination Osteoporosis, post-menopausal ([facility]) Senile osteoporosis H/O: hysterectomy Acquired absence of both cervix and uterus documented in this encounter [facility] Healthcare Hospital Discharge instructions Note Date & Type Note Facility Hospital Discharge instructions No data available for this section General Surgery [facility] Progress note Note Date & Type Note Facility Progress note No data available for this section General Surgery [facility] Summary Purpose Family History No Family History Records FoundNo Family History Records FoundNo Family History Records FoundNo Family History Records Found Advance Directives Advance Directive Response Recorded Date/ Time Advance Directives No May 28 11:39am Chief Complaint and Reason for Visit Chief Complaint Admit Date R92.8 June 03, 2024 7:4 4am Additional Source Comments INFORMATION SOURCE (unrecogn ized section and content) DATE CREATED AUTHOR 06/24/2022 [facility] DATE CREATED AUTHOR AUTHOR'S ORGANIZ ATION 11/01/2022 [facility] DATE CREATED AUTHOR AUTHOR'S ORGANIZ ATION 09/14/2023 [facility] EPIC DATE CREATED AUTHOR AUTHOR'S ORGANIZ ATION 06/08/2024 [facility] Patient Care team informatio n (unrecognized section and content) Team Status: Inactive Member Role Status Dates Dipika Farley Attending Provider Active Start: Shine jones 2023 End: June 17, 2023 Team Status: Inactive Member Role Status Dates Dipika Farley Attending Provider Active Start: Cheryl 2023 End: July 30, 2023 Car Dumper Operator Relationship Specialty Start Date End Date Mikey Davis MD [address] [place] [address] PCP - General Family Medicine 06/11/23 Car Dumper Operator Relationship Specialty Start Date End Date Mikey Davis MD [address] [place] [address] PCP - General Family Medicine 06/11/23 Team Status: Active Member Role Status Dates Mikey Davis MD Primary Care Provider Active Team Status: Inactive Member Role Status Dates Mikey Davis MD Primary Care Provide r, Attending Provider Active Start: June 03, 2024 End: June 03, 2024 Car Dumper Operator Relationship Specialty Start Date End Date Mikey Davis MD [address] [place] [address] PCP - General Family Medicine 06/11/23 Goals (unrecognized section and content) Goals may be documented in a n alternate section Reason for Visit (unrecogniz ed section and content) Reason Comments Gynecologic Exam FOR RECORDS PERTAINING TO PATIENTS WHO ARE [...] BE BASED ON THE PRIMARY CLINICAL RECORDS. [facility] [employer] [facility]. provides no warranty or guarantee of the accuracy or completeness of information in this document.
[2024-06-11 14:08] LABS: Age Gdln ACOG Testing Note (.); HPV Aptima Negative (Negative); IGP, Aptima HPV, rfx 16/18,45 Note (.)
== END 2024-06-08 19:36 | disposition home or self-care (01) ==
LOC: LAB 19:35
PROVIDERS: PCP Family Medicine; Visit Provider Obstetrics & Gynecology
DX: Z01.419 Encounter for gynecological examination (general) (routine) without abnormal findings (principal)
CPT/HCPCS: 87624; 88175

== ENCOUNTER 2024-11-16 12:26 | Outpatient (OUT) | payer BC, SELFPAY ==
--- OUTSIDE RECORDS SUMMARY | 2024-11-16 12:29 | XMS_ITS | Encounter Summary ---
Author Organization [facility] Address [address] [facility] [place] [address] Care Team Providers Care Packing Clerk Name Role Phone Mikey Subramanian MD Primary Care Provider [phone] Encounter Details Date Type Department Care Team (Late st Contact Info) Description 06/20/2023 Abstract [facility] [address] [place] [address] Christiane Garces LPN [address] [place] [id number] Social History Tobacco Use Types Packs/Day Years Used Date Smoking Tobacco: Never Assessed Comments Unknown Sex and Gender Information Value Date Recorded Sex Assigned at Not on file Legal Sex Female 7:30 PM EDT Gender Identity Not on file Sexual Orientation Not on file documented as of this encounter Plan of Treatment Not on file documented as of this encounter Visit Diagnoses Not on filedocumented in this encounter Care Teams Packing Clerk Relationship Specialty Start Date End Date Mikey Subramanian MD PCP - General Family Medicine 06/11/23 documented as of this encounter
--- OUTSIDE RECORDS SUMMARY | 2024-11-16 12:30 | XMS_ITS | Encounter Summary ---
Author Organization [facility] Address [address] [place] [address] Care Team Providers Care Study Abroad Coordinator Name Role Phone Mikey Subramanian MD Primary Care Provider [phone] Encounter Details Date Type Department Care Team (Late st Contact Info) Description 05/21/2023 Orders Only [facility] [address] [place] [address] Mikey Subramanian MD [address] [place] [address] Social History Tobacco Use Types Packs/Day Years Used Date Smoking Tobacco: Never Assessed Comments Unknown Sex and Gender Information Value Date Recorded Sex Assigned at Not on file Legal Sex Female 7:30 PM EDT Gender Identity Not on file Sexual Orientation Not on file documented as of this encounter Plan of Treatment Not on file documented as of this encounter Procedures Procedure Name Priority Date/Time Associated Diagnosis Comments US OB PLACENTA W US OB TRANSVAGINAL Routine 05/20/2023 8:59 AM EDT documented in this encounter Results * US OB PLACENTA W US OB TRANSVAGINAL (05/20/2023 8:59 AM EDT) Anatomical Region Laterality Modality Body Ultrasound us Praveen Farley DO IMG OB US PROCEDURES Final Resul t documented in this encounter Visit Diagnoses Not on filedocumented in this encounter Care Teams Study Abroad Coordinator Relationship Specialty Start Date End Date Mikey Subramanian MD PCP - General Family Medicine 06/11/23 documented as of this encounter
--- OUTSIDE RECORDS SUMMARY | 2024-11-16 12:30 | XMS_ITS | Encounter Summary ---
Author Organization [facility] Address [id number] [address] [place] [address] Care Team Providers Care Glove Parts Inspector Name Role Phone Mikey Subramanian MD Primary Care Provider [phone] Encounter Details Date Type Department Care Team (Late st Contact Info) Description 01/31/2022 Telephone [facility] [address] [place] [address] Pam Urrutia, LOUISE Social History Tobacco Use Types Packs/Day Years Used Date Smoking Tobacco: Never Smokeless Tobacco: Never Alcohol Use Standard Drinks/Week Comments Yes 0 (1 standard drink = 0.6 oz pur e alcohol) Occasionally Childcare Answer Date Recorded Childcare Unknown 08/03/2018 Employment Answer Date Recorded Employment Unknown 08/03/2018 Comments Unknown Sex and Gender Information Value Date Recorded Sex Assigned at Not on file Legal Sex Female 4:07 PM EDT Gender Identity Not on file Sexual Orientation Not on file COVID-19 Exposure Response Date Recorded In the last month, have you been in contact with someone who was confirmed or suspected to have Coronavirus / COVID-19? No / Unsure 01/31/2022 1:53 PM EST documented as of this encounter Plan of Treatment Not on file documented as of this encounter Visit Diagnoses Not on filedocumented in this encounter Care Teams Glove Parts Inspector Relationship Specialty Start Date End Date Mikey Subramanian MD PCP - General Family Medicine 10/12/21 documented as of this encounter
--- OUTSIDE RECORDS SUMMARY | 2024-11-16 12:30 | XMS_ITS | Encounter Summary ---
Author Organization [facility] Address [address] [place] [address] Care Team Providers Care Injection Maintenance Technician Name Role Phone Mikey Subramanian MD Primary Care Provider [phone] Encounter Details Date Type Department Care Team (Late st Contact Info) Description 05/20/2023 Clinisync Result Encounter [facility] External Department Unsolicited Mikey Subramanian MD [address] [place] [address] Social History Tobacco Use Types Packs/Day Years [...] Procedure Name Priority Date/Time Associated Diagnosis Comments MM TOMOSYNTHESIS SCREENING BI 05/20/2023 3:28 PM EDT documented in this encounter Results * MM TOMOSYNTHESIS SCREENING BI (05/20/2023 3:28 PM EDT) Anatomical Region Laterality Modality Other 05/20/2023 3:28 PM EDT Narrative 05/20/2023 3:29 PM EDT The [address] [address] Mammography Report Signed Patient: FRANKY CYR MR#: [id number] : 1970 Acct:[id number] Age/Sex: 53 / F ADM Date: 05/20/23 Loc: MAMMO Attending Dr: Mikey Subramanian M.D. Ordering Physician: Mikey Subramanian M.D. Results: Date of Service: 05/20/23 Follow Up: Procedure(s): MM tomosynthesis screening BI Accession Number(s): [id number] cc: Mikey Subramanian M.D. Patient Name: FRANKY CYR MR#: [id number] : 1970 Exam Date: 05/20/2023 Ordering Doctor: DR Mikey Decker RADIOLOGY REPORT PROCEDURE: MM TOMOSYNTHESIS SCREENING BI COMPARISON: MG MAMM SCREEN 3D KATHY CAD, 05/17/2022. MG MAMM SCREEN 3D KATHY CAD, 05/10/2021. INDICATIONS: screening Calculator Name NCI Breast Cancer Risk Assessment Tool 5 Year Breast Cancer Risk 1.60% Lifetime Breast Cancer Risk 12.60% Personal Breast Cancer No Personal Ovarian Cancer No Treatments None Family Cancers Grandmother-paternal with breast cancer at age 70. LOCATION: The [facility] BREAST COMPOSITION: Extremely dense, which lowers the sensitivity of mammography. FINDINGS: DIAGNOSTIC CATEGORY 2--BENIGN FINDING. NO CHANGE FROM COMPARISON. Scattered benign-appearing nodules are present. Scattered benign-appearing calcifications are present. Scattered benign-appearing lymph nodes are present. RIGHT BREAST: No significant suspicious finding. LEFT BREAST: No significant suspicious finding. RECOMMENDATIONS: ROUTINE MAMMOGRAM AND CLINICAL EVALUATION IN 12 MONTHS. PLEASE NOTE: A NORMAL MAMMOGRAM DOES NOT EXCLUDE THE POSSIBILITY OF BREAST CANCER. A CLINICALLY SUSPICIOUS PALPABLE LUMP SHOULD BE BIOPSIED. Dictated by: Joni Kinsey MD on 05/20/2023 at 15:27 Approved by: Joni Kinsey MD on 05/20/2023 at 15:28 Dictated By: Joni Kinsey M.D. Signed By: 05/20/23 1529 DD/ 1528 TD/TT: Design Maintenance Engineer: Procedure Note Radiology, RadiologistMD - 05/20/2023 [place] [address] Mammography Report Signed Patient: FRANKY CYR JMR#: [id number] : 1970Acct:[id number] Age/Sex: 53 / FADM Date: 05/20/23 Loc: MAMMO Attending Dr: Mikey Subramanian M.D. Ordering Physician: Mikey Subramanian M.D.Results: Date of Service: 05/20/23Follow Up: Procedure(s): MM tomosynthesis screening BI Accession Number(s): [id number] cc: Mikey Subramanian M.D. Patient Name: FRANKY CYR MR#: [id number] : 1970 Exam Date: 05/20/2023 Ordering Doctor: DR Mikey Subramanian . RADIOLOGY REPORT PROCEDURE: MM TOMOSYNTHESIS SCREENING BI COMPARISON: MG MAMM SCREEN 3D KATHY CAD, 05/17/2022. MG MAMM SCREEN 3DBIL CAD, 05/10/2021. INDICATIONS: screening Calculator Name NCI Breast Cancer Risk Assessment Tool 5 Year Breast Cancer Risk 1.60% Lifetime Breast Cancer Risk 12.60% Personal Breast Cancer No Personal Ovarian Cancer No Treatments None Family Cancers Grandmother-paternal with breast cancer at age 70. LOCATION: [facility] BREAST COMPOSITION: Extremely dense, which lowers the sensitivity of mammography. FINDINGS: DIAGNOSTIC CATEGORY 2--BENIGN FINDING. NO CHANGE FROM COMPARISON. Scattered benign-appearing nodules are present. Scatteredbenign-appearing calcifications are present. Scattered benign-appearing lymph nodes are present. RIGHT BREAST: No significant suspicious finding. LEFT BREAST: No significant suspicious finding. RECOMMENDATIONS: ROUTINE MAMMOGRAM AND CLINICAL EVALUATION IN 12 MONTHS. PLEASE NOTE: A NORMAL MAMMOGRAM DOES NOT EXCLUDE THE POSSIBILITY OFBREAST CANCER. A CLINICALLY SUSPICIOUS PALPABLE LUMP SHOULD BE BIOPSIED. Dictated by: Joni Kinsey MD on 05/20/2023 at 15:27 Approved by: Join Kinsey MD on 05/20/2023 at 15:28 Dictated By: Joni Kinsey M.D. Signed By:05/20/23 1529 DD/ 1528 TD/TT: Design Maintenance Engineer: Mikey Subramanian MD [facility] Final Result documented in this encounter Visit Diagnoses Not on filedocumented in this encounter Care Teams Injection Maintenance Technician Relationship Specialty Start Date End Date Mikey Subramanian MD PCP - General Family Medicine 06/11/23 documented as of this encounter
--- OUTSIDE RECORDS SUMMARY | 2024-11-16 12:30 | XMS_ITS | Encounter Summary ---
Author Organization [facility] Address [address] [place] [address] Care Team Providers Care Crop Supervisor Name Role Phone Mikey Subramanian MD Primary Care Provider Encounter Details Date Type Department Care Team (Late st Contact Info) Description 05/20/2023 Clinisync Result Encounter [facility] External Department Unsolicited Dipika Farley, DO [address] [facility] [place] [address] Social History Tobacco Use Types Packs/Day Years [...] Name Priority Date/Time Associated Diagnosis Comments US PELVIS W/ TRANSVAGINAL 05/20/2023 4:09 PM EDT documented in this encounter Results * US PELVIS W/ TRANSVAGINAL (05/20/2023 4:09 PM EDT) Anatomical Region Laterality Modality Other 05/20/2023 4:09 PM EDT Narrative 05/20/2023 4:12 PM EDT The [address] [address] Ultrasound Report Signed Patient: FRANKY CYR MR#: [id number] : 1970 Acct:[id number] Age/Sex: 53 / F ADM Date: 05/20/23 Loc: US Attending Dr: Dipika Farley D.O. Ordering Physician: Dipika Farley D.O. Date of Service: 05/20/23 Procedure(s): US pelvis w/ transvaginal Accession Number(s): [id number] cc: Dipika Farley D.O.; Mikey Subramanian M.D. The [place] [id number] Patient Name: FRANKY CYR MRN: [facility]:[id number] date: 1970 Sex: F Assigned Patient Location: US Current Patient Location: MAMMO Accession/Order Number: [id number] Exam Date: 05/20/2023 14:00 Report Date: 05/20/2023 16:09 At the request of: DIPIKA FARLEY Procedure: US pelvis w/ transvaginal EXAMINATION: US pelvis w/ transvaginal HISTORY: pelvic pain in female R10.2 COMPARISON: No relevant comparison available. FINDINGS: The uterus is prominent in size heterogeneous in echotexture and lobular in contour measuring 8.1 x 5.7 x 6.4 cm. 2 focal myometrial masses measuring 3.0 x 3.1 x 2.3 cm posterior and at the myometrial endometrial junction measuring 2.7 x 2.6 x 2.1 cm. The endometrium measures 2.1 cm, heterogeneous and thickened. The right ovary is not visualized The left ovary measures 4.7 x 2.6 x 3.5 cm. Identified in the left ovary is a 2.3 x 2.2 cm anechoic area with layering low-level echoes but no color-flow US/US pelvis w/ transvaginal IMPRESSION: Thickened heterogeneous endometrium, correlate with the menstrual cycle Two focal masses possibly fibroids 2.3 cm left ovarian complex or hemorrhagic cyst Electronically authenticated by: JAYDEN HENDERSON Date: 05/20/2023 16:09 Dictated By: Jayden Henderson M.D. Signed By: 05/20/23 1613 DD/ 1609 TD/TT: Site Supervising Technical Operator: Procedure Note Radiology, Radiologist, - 05/20/2023 [place] [address] Ultrasound Report Signed Patient: FRANKY CYR JMR#: [id number] : 1970Acct:[id number] Age/Sex: 53 / FADM Date: 05/20/23 Loc: US Attending Dr: Dipika Farley D.O. Ordering Physician: Dipika Farley D.O. Date of Service: 05/20/23 Procedure(s): US pelvis w/ transvaginal Accession Number(s): [id number] cc: Dipika Farley D.O.; Mikey Subramanian M.D. [place] [id number] Patient Name: FRANKY CYR MRN: [id number] date: 1970 Sex: F Assigned Patient Location: US Current Patient Location: [facility] Accession/Order Number: [id number] Exam Date: 05/20/2023 14:00 Report Date: 05/20/2023 16:09 At the request of: DIPIKA FARLEY Procedure: US pelvis w/ transvaginal EXAMINATION: US pelvis w/ transvaginal HISTORY: pelvic pain in female R10.2 COMPARISON: No relevant comparison available. FINDINGS: The uterus is prominent in size heterogeneous in echotexture and lobularin contour measuring 8.1 x 5.7 x 6.4 cm. 2 focal myometrial masses measuring3.0 x 3.1 x 2.3 cm posterior and at the myometrial endometrial junctionmeasuring 2.7 x 2.6 x 2.1 cm. The endometrium measures 2.1 cm, heterogeneous and thickened. The right ovary is not visualized The left ovary measures 4.7 x 2.6 x 3.5 cm. Identified in the left ovaryis a 2.3 x 2.2 cm anechoic area with layering low-level echoes but nocolor-flow US/US pelvis w/ transvaginal IMPRESSION: Thickened heterogeneous endometrium, correlate with the menstrual cycle Two focal masses possibly fibroids 2.3 cm left ovarian complex or hemorrhagic cyst Electronically authenticated by: JAYDEN HENDERSON Date: 05/20/2023 16:09 Dictated By: Jayden Henderson M.D. Signed By:05/20/23 5113 DD/ 1609 TD/TT: Site Supervising Technical Operator: us Dipika Martine DO [facility] Final Result documented in this encounter Visit Diagnoses Not on filedocumented in this encounter Care Teams Crop Supervisor Relationship Specialty Start Date End Date Mikey Subramanian MD PCP - General Family Medicine 06/11/23 documented as of this encounter
--- OUTSIDE RECORDS SUMMARY | 2024-11-16 12:30 | XMS_ITS | Encounter Summary ---
Author Organization [facility] Address [address] [place] [address] Care Team Providers Care Commercial Crabber Name Role Phone Mikey Subramanian MD Primary Care Provider [phone] Encounter Details Date Type Department Care Team (Late st Contact Info) Description 06/04/2024 External Result Encounter [facility] External Department Unsolicited Mikey Subramanian MD [address] [place] [address] Social History Tobacco Use Types Packs/Day Years Used Date Smoking Tobacco: Never Smokeless Tobacco: Never Alcohol Use Standard Drinks/Week Comments Never 0 (1 standard drink = 0.6 oz pur e alcohol) Comments No Sex and Gender Information Value Date Recorded Sex Assigned at Not on file Legal Sex Female 7:30 PM EDT Gender Identity Not on file Sexual Orientation Not on file documented as of this encounter Plan of Treatment Not on file documented as of this encounter Procedures Procedure Name Priority Date/Time Associated Diagnosis Comments BI MAMMOGRAM DIAGNOSTIC RIGHT 06/04/2024 9:13 AM EDT documented in this encounter Results * Right diagnostic mammogram (06/04/2024 9:13 AM EDT) Anatomical Region Laterality Modality Breast Right Mammography 06/04/2024 9:13 AM EDT Impressions 06/04/2024 9:18 AM EDT Redemonstration of grouping of microcalcifications with probably [...] [facility] Dictated By: Stone Betancur DO 06/04/24912 Signed By: <Electronically signed by Stone Betancur DO in OV> 06/04/24 0916 Narrative 06/04/2024 9:18 AM EDT [address] [address] Mammography Report Signed Patient: Augusta Lopez MR#: [id number] : 1970 Acct:[id number] Age/Sex: 54 / F Adm Date: 06/03/24 Loc: [place] Room: Type: [facility] Attending Dr: Mikey Subramanian MD Ordering Provider: Mikey Subramanian MD Date of Service: 06/03/24 Procedure(s): MM special view RT w/CAD Accession Number(s): ([id number]) MM/MM special view RT w/CAD: R92.9 Copies [...] CHANGES: None MM/MM special view RT w/CAD Procedure Note Radiology, Radiologist, - 06/04/[address] [address] Mammography Report Signed Patient: Augusta Lopez JMR#: [id number] : 1970Acct:[id number] Age/Sex: 54 / FAdm Date: 06/03/24 Loc: [place] Room:Type: [facility] Attending Dr: Mikey Subramanian MD Ordering Provider: Mikey Subramanian MD Date of Service: 06/03/24 Procedure(s): MM special view RT w/CAD Accession Number(s): ([id number]) MM/MM special view RT w/CAD: R92.9 Copies to: Mikey Subramanian MD RIGHT Diagnostic Full Field digital mammogram with 3-D imaging. Magnification views with mediolateral view COMPARISON: 05/20/2024 HISTORY: Annual screening BREAST COMPOSITION: Scattered fibroglandular densities of the breastparenchyma identified BREAST CALCIFICATIONS: Grouping of calcifications redemonstrated. Thesehave a benign appearance. May represent milk of calcium. VASCULAR CALCIFICATIONS: None ARCHITECTURAL DISTORTION: None BREAST NODULE: None AXILLARY LYMPH NODES: Normal POSTSURGICAL CHANGES: None MM/MM special view RT w/CAD IMPRESSION: Redemonstration of grouping of microcalcifications with probably benignappearance. Six- month follow-up mammogram recommended. RESULT CODE: 3 Probably Benign Finding Short Term Follow-Up DENSITY CODE: 2 (approximately 25-50% glandular) There are scattered areasof fibroglandular density. FOLLOW UP: 6M THE FALSE-NEGATIVE RATE OF MAMMOGRAPHY IS APPROXIMATELY 10%. IMAGING OF A PALPABLE ABNORMALITY MUST BE BASED ON CLINICAL GROUNDS. PATIENT WAS ENTERED INTO A REMINDER SYSTEM WITH A TARGET DUE DATE FOR THENEXT MAMMOGRAM. Impression dictated by: Stone Betancur M.D.06/04/2024 9:16 AM Dictation Location: [facility] Dictated By: Stone Betancur DO 06/04/24 0913 Signed By: <Electronically signed by Stone Betancur DO in OV> 06/04/24 0916 us Mikey Subramanian MD IMG BI PROCEDURES Final Result documented in this encounter Visit Diagnoses Not on filedocumented in this encounter Care Teams Commercial Crabber Relationship Specialty Start Date End Date Mikey Subramanian MD PCP - General Family Medicine 06/11/23 documented as of this encounter
--- OUTSIDE RECORDS SUMMARY | 2024-11-16 12:30 | XMS_ITS | Encounter Summary ---
Author Organization [employer] Sys tem Address [facility] [id number] [address] [place] [address] Care Team Providers Care Pulmonary Physician Name Role Phone Mikey Subramanian MD Primary Care Provider [phone] Encounter Details Date Type Department Care Team (Late st Contact Info) Description 08/14/2021 [facility] [address] [place] [address] Hansel oBwman CMA Social History Tobacco Use Types Packs/Day Years [...] Exposure Response Date Recorded In the last 10 days, have yo u been in contact with someone who was confirmed or suspected to have Coronavirus/COVID-19? No / Unsure 07/17/2021 9:53 AM EDT documented as of this encounter Last Filed Vital Signs Vital Sign Reading Time Taken Comments Blood Pressure 124/60 07/31/2021 11:16 AM EDT Pulse 60 07/31/2021 11:16 AM EDT Temperature - - Respiratory Rate 16 07/31/2021 11:16 AM EDT Oxygen Saturation 98% 07/31/2021 11:16 AM EDT Inhaled Oxygen Concentration - - Weight 59.4 kg (131 lb) 07/31/2021 11:16 AM EDT Height 162.6 cm (5' 4 ) 07/31/2021 11:16 AM EDT Body Mass Index 22.49 07/31/2021 11:16 AM EDT documented in this encounter Plan of Treatment Not on file documented as of this encounter Visit Diagnoses Not on filedocumented in this encounter Care Teams Pulmonary Physician Relationship Specialty Start Date End Date Mikey Subramanian MD PCP - General Family Medicine 10/12/21 documented as of this encounter
--- OUTSIDE RECORDS SUMMARY | 2024-11-16 12:30 | XMS_ITS | Encounter Summary ---
Author Organization [facility] Address [address] [place] [address] Care Team Providers Care Pool Table Mechanic Name Role Phone Mikey Subramanian MD Primary Care Provider [phone] Encounter Details Date Type Department Care Team (Late st Contact Info) Description 11/16/2024 Telephone [facility] [address] [place] [address] [place] [id number] Mary Huff LPN Social History Tobacco Use Types Packs/Day Years [...] on file documented as of this encounter Miscellaneous Notes * Telephone Encounter - Mary Huff LPN - 11/16/2024 11:47 AM EDT Per kory diagnostic right mammogram ordered documented in this encounter Plan of Treatment Scheduled Orders Name Type Priority Associated Diagnoses Orde r Schedule Right diagnostic mammogram Imaging Routine Abnormal mammogram of right breast Mammographic fibroglandular density, right breast Expected: 11/16/2024 (Approximate), Expires: 01/16/2026 documented as of this encounter Visit Diagnoses Diagnosis Abnormal mammogram of right breast Mammographic fibroglandular density, right breast documented in this encounter Care Teams Pool Table Mechanic Relationship Specialty Start Date End Date Mikey Subraamnian MD PCP - General Family Medicine 06/11/23 documented as of this encounter
--- OUTSIDE RECORDS SUMMARY | 2024-11-16 12:30 | XMS_ITS | Encounter Summary ---
Author Organization [facility] Address [address] [facility] [place] [place] [address] Care Team Providers Care Public Speaking Instructor Name Role Phone Mikey Subramanian MD Primary Care Provider [phone] Encounter Details Date Type Department Care Team (Late st Contact Info) Description 07/31/2023 [facility] [address] [place] [address] Christiane Garces LPN [address] [place] [id number] Social History Tobacco Use Types Packs/Day Years [...] on filedocumented in this encounter Care Teams Public Speaking Instructor Relationship Specialty Start Date End Date Mikey Subramanian MD PCP - General Family Medicine 06/11/23 documented as of this encounter
--- OUTSIDE RECORDS SUMMARY | 2024-11-16 12:30 | XMS_ITS | Encounter Summary ---
Author Organization [facility] Address [address] [facility] [place] [address] Care Team Providers Care Pattern Marking Supervisor Name Role Phone Mikey Subramanian MD Primary Care Provider Encounter Details Date Type Department Care Team (Late st Contact Info) Description 09/02/2023 Orders Only [facility] [address] [place] [phone] Christiane Garces LPN [address] [place] [id number] Social History Tobacco Use Types Packs/Day Years Used Date Smoking Tobacco: Never Assessed Comments No Sex and Gender Information Value Date Recorded Sex Assigned at Not on file Legal Sex Female 7:30 PM EDT Gender Identity Not on file Sexual Orientation Not on file documented as of this encounter Plan of Treatment Not on file documented as of this encounter Procedures Procedure Name Priority Date/Time Associated Diagnosis Comments PAP SMEAR Routine 06/10/2022 12:00 AM EDT documented in this encounter Results * Pap Smear (06/10/2022 12:00 AM EDT) Swab Cervical swab / Unknown us Martine [facility] LAB CYTOLOGY ORDERABLES Final Result EXTERNAL LAB documented in this encounter Visit Diagnoses Not on filedocumented in this encounter Care Teams Pattern Marking Supervisor Relationship Specialty Start Date End Date Mikey Subramanian MD PCP - General Family Medicine 06/11/23 documented as of this encounter
--- OUTSIDE RECORDS SUMMARY | 2024-11-16 12:30 | XMS_ITS | Encounter Summary ---
Author Organization [facility] Address [address] [facility] [address] Care Team Providers Care Asphalt Smoother Name Role Phone Mikey Subramanian MD Primary Care Provider [phone] Encounter Details Date Type Department Care Team (Late st Contact Info) Description 06/17/2024 Orders Only [facility] [address] [facility] [place] [address] Chely GilFlorence, [place] [address] [facility] [place] [address] Social History Tobacco Use Types Packs/Day Years [...] Date/Time Associated Diagnosis Comments PAP SMEAR Routine 06/08/2024 12:00 AM EDT documented in this encounter Results * Pap Smear (06/08/2024 12:00 AM EDT) Swab Cervical swab / Unknown us Praveen Martine DO LAB CYTOLOGY ORDERABLES Final Re sult EXTERNAL LAB documented in this encounter Visit Diagnoses Not on filedocumented in this encounter Care Teams Asphalt Smoother Relationship Specialty Start Date End Date Mikey Subramanian MD PCP - General Family Medicine 06/11/23 documented as of this encounter
--- OUTSIDE RECORDS SUMMARY | 2024-11-16 12:30 | XMS_ITS | Encounter Summary ---
Author Organization [facility] Address [address] [place] [address] Care Team Providers Care Woodwind Instrument Repairer Name Role Phone Mikey Subramanian MD Primary Care Provider [phone] Encounter Details Date Type Department Care Team (Late st Contact Info) Description 06/07/2024 Results Follow-Up [facility] [address] [place] [address] Christiane Mendez MA Right diagnostic mammogram Social History Tobacco Use Types Packs/Day Years [...] on filedocumented in this encounter Care Teams Woodwind Instrument Repairer Relationship Specialty Start Date End Date Mikey Subramanian MD PCP - General Family Medicine 06/11/23 documented as of this encounter
--- OUTSIDE RECORDS SUMMARY | 2024-11-16 12:30 | XMS_ITS | Clinical Summary ---
Author Organization [facility] Address [address] [place] [address] Care Team Providers Care Outside Sales Representative Insurance Name Role Phone Mikey Subramanian MD Primary Care Provider [phone] Allergies No known active allergies Medications ibuprofen 800 MG tablet Take 800 mg by mouth every 8 (eight) hours 4 Active metroNIDAZOLE (Metrogel) 0.75 % vaginal gelIndications: Vaginal itching Insert into the vagina Daily for 5 days 70 g 5 10/19/19 25 clobetasol (Temovate) 0.05 % creamIndication s:Vaginal itching Apply 1 application topically Daily for 14 days 45 g 5 10/28/19 25 Active Problems Problem Noted Date Diagnosed Date Abnormal mammogram of right breast 05/21/2024 Encounters Date Type Department Care Team Description 11/16/2024 Telephone [facility] [address] [facility] [place] [address] Mary Huff LPN 10/13/2024 Telephone [facility] [address] [place] [address] Ivelisse Gil MA from Last 3 Months Family History Medical History Relation Name Comments Cancer Father Scott Diabetes Father Scott Hypertension Father Scott Stroke Father Scott Rheum arthritis Mother Gabby Lin Relation Name Status Comments Father Scott Mother Gabby Lin Social History Tobacco Use Types Packs/Day Years Used Date Smoking Tobacco: Never Smokeless Tobacco: Never Tobacco Cessation:Counseling Given: Not Answered Alcohol Use Standard Drinks/Week Comments Never 0 (1 standard drink = 0.6 oz pur e alcohol) Comments No Sex and Gender Information Value Date Recorded Sex Assigned at Not on file Legal Sex Female 7:30 PM EDT Gender Identity Not on file Sexual Orientation Not on file Last Filed Vital Signs Vital Sign Reading Time Taken Comments Blood Pressure 118/72 06/08/2024 1:16 PM EDT Pulse - - Temperature - - Respiratory Rate - - Oxygen Saturation - - Inhaled Oxygen Concentration - - Weight 58.1 kg (128 lb) 06/08/2024 1:16 PM EDT Height 162.6 cm (5' 4 ) 09/10/2023 1:12 PM EDT Body Mass Index 21.97 09/10/2023 1:12 PM EDT Plan of Treatment Health Maintenance Due Date Last Done Comments CT Colonography 1971 Colonoscopy 1971 Colorectal Cancer Screening 1971 FIT-DNA 1971 FIT 1971 FOBT 1971 Sigmoidoscopy 1971 Influenza Vaccine (#1) 2024 01/07/2024 Mammogram 06/04/2025 06/04/2024, 0308/2024, 05/20/2023, Additional history exists Cervical Cancer Screening Discontinued Pap Smear Discontinued 06/08/2024, 06/10/2022 HPV/Cotest Discontinued Procedures Procedure Name Priority Date/Time Associated Diagnosis Comments PAP SMEAR Routine 06/08/2024 12:00 AM EDT BI MAMMOGRAM DIAGNOSTIC RIGHT 06/04/2024 9:13 AM EDT from Last 3 Months or Most Recently Relevant to Health Maintenance Results * Pap Smear (06/08/2024 12:00 AM EDT) Swab Cervical swab / Unknown us Praveen Martine DO LAB CYTOLOGY ORDERABLES Final Re sult EXTERNAL LAB * Right diagnostic mammogram (06/04/2024 9:13 AM [...] Stone Betancur M.D.06/04/2024 9:16 AM Dictation Location: [facility] Dictated By: Stone Betancur DO 06/04/24912 Signed By: <Electronically signed by Stone Betancur DO in OV> 06/04/24 0916 Narrative 06/04/2024 9:18 AM EDT [place] [id number] Mammography Report Signed Patient: Augusta Lopez MR#: [id number] : 1970 Acct:[id number] Age/Sex: 54 / F Adm Date: 06/03/24 Loc: OR Room: Type: [facility] Attending Dr: Mikey Subramanian MD Ordering Provider: Mikey Subramanian MD Date of Service: 06/03/24 Procedure(s): MM special view RT w/CAD Accession Number(s): ([id number]) MM/MM special view RT w/CAD: R92.9 Copies [...] w/CAD Procedure Note Radiology, Radiologist, - 06/04/2024 [place] [id number] Mammography Report Signed Patient: Augusta Lopez JMR#: [id number] : 1970Acct:[id number] Age/Sex: 54 / FAdm Date: 06/03/24 Loc: OR Room:Type: [facility] Attending Dr: Mikey Subramanian MD Ordering Provider: Mikey Subramanian MD Date of Service: 06/03/24 Procedure(s): MM special view RT w/CAD Accession Number(s): ([id number]) MM/MM special view RT w/CAD: R92.9 Copies [...] Stone Betancur M.D.06/04/2024 9:16 AM Dictation Location: [facility] Dictated By: Stone Betancur DO 06/04/24 0913 Signed By: <Electronically signed by Stone Betancur DO in OV> 06/04/24 0916 us Mikey Subramanian MD IMG BI PROCEDURES Final Result from Last 3 Months or Most Recently Relevant to Health Maintenance Insurance [employer] Care Teams Outside Sales Representative Insurance Relationship Specialty Start Date End Date Mikey Subramanian MD PCP - General Family Medicine 06/11/23
--- OUTSIDE RECORDS SUMMARY | 2024-11-16 12:30 | XMS_ITS | Encounter Summary ---
Author Organization [employer] [facility] [employer] Address [facility] [id number] [address] [place] [address] Care Team Providers Care Plc Programmer Name Role Phone Mikey Subramanian MD Primary Care Provider [phone] Encounter Details Date Type Department Care Team (Late st Contact Info) Description 08/14/2021 Orders Only [facility] [address] [place] [address] Ref Prov, [place] [address] Social History Tobacco Use Types Packs/Day Years [...] AM EDT documented as of this encounter Plan of Treatment Not on file documented as of this encounter Procedures Procedure Name Priority Date/Time Associated Diagnosis Comments VASC VENOUS DUPLEX INSUFFICI ENCY LOWER BILATERAL Routine 07/31/2021 documented in this encounter Results * Vas venous duplex insufficiency lwr bi (07/31/2021) Anatomical Region Laterality Modality Vascular Bilateral Ultrasound us Not In System Ref Prov CV VASCULAR ORDERABLES Fi nal Result documented in this encounter Visit Diagnoses Not on filedocumented in this encounter Care Teams Plc Programmer Relationship Specialty Start Date End Date Mikey Subramanian MD PCP - General Family Medicine 10/12/21 documented as of this encounter
--- OUTSIDE RECORDS SUMMARY | 2024-11-16 12:30 | XMS_ITS | Encounter Summary ---
Author Organization [facility] Address [address] [place] [address] Care Team Providers Care Building Custodian Name Role Phone Mikey Subramanian MD Primary Care Provider [phone] Encounter Details Date Type Department Care Team (Late st Contact Info) Description 06/16/2023 Orders Only [facility] [address] [place] [address] [place] [address] Mikey Subramanian MD [address] [place] [address] Social History Tobacco Use Types Packs/Day Years [...] Procedure Name Priority Date/Time Associated Diagnosis Comments ELECTROCARDIOGRAM REPORT Routine 024 2:43 PM EDT documented in this encounter Results * Electrocardiogram Report (06/13/2023 2:43 PM EDT) Mikey Subramanian MD IN CLINIC/BEDSIDE ORDERABLES Fin al Result documented in this encounter Visit Diagnoses Not on filedocumented in this encounter Care Teams Building Custodian Relationship Specialty Start Date End Date Mikey Subramanian MD PCP - General Family Medicine 06/11/23 documented as of this encounter
--- OUTSIDE RECORDS SUMMARY | 2024-11-16 12:30 | XMS_ITS | Clinical Summary ---
Author Organization [employer] tem Address [facility] [id number] [address] [place] [address] Care Team Providers Care Cyber Security Manager Name Role Phone Mikey Subramanian MD Primary Care Provider [phone] Allergies No known active allergies Medications No known medications Active Problems Problem Noted Date Diagnosed Date Venous insufficiency 08/14/2021 DDD (degenerative disc disease), lumbar 08/15/19 22 Varicose veins of both lower extremities with pa in 07/31/2021 Intermittent claudication 07/31/2021 Personal history of DVT (deep vein thrombosis) 0 07/31/2021 Family History Medical History Relation Name Comments Coronary artery disease Father Diabetes Father Diabetes type II Father Hypertension Father Ulcerative colitis Father Diverticulitis Mother Relation Name Status Comments Father Mother Social History Tobacco Use Types Packs/Day Years [...] Sign Reading Time Taken Comments Blood Pressure 144/82 10/18/2021 9:54 AM EDT Pulse 60 07/31/2021 11:16 AM EDT Temperature - - Respiratory Rate 16 07/31/2021 11:16 AM EDT Oxygen Saturation 98% 07/31/2021 11:16 AM EDT Inhaled Oxygen Concentration - - Weight 58.7 kg (129 lb 6.4 oz) 10/18/2021 9:54 A M EDT Height 162.6 cm (5' 4 ) 10/18/2021 9:54 AM EDT Body Mass Index 22.21 10/18/2021 9:54 AM EDT Plan of Treatment Health Maintenance Due Date Last Done Comments Depression Screening 1983 Tobacco Screening 1983 Adult BMI Screening 1989 DTaP,Tdap and Td Vaccines (1 - Tdap) 1990 Pap Smear 01/20/1992 Zoster (Shingles) Vaccine (1 of 2) 2021 COVID-19 Vaccine (4 - 2024-2 6 season) 2024 12/15/2020, 03/22/2020, 02/22/2020 Influenza Vaccine 10/25/2024 Medical Devices Not on file Insurance [employer] Care Teams Cyber Security Manager Relationship Specialty Start Date End Date Mikey Subramanian MD PCP - General Family Medicine 10/12/21
--- OUTSIDE RECORDS SUMMARY | 2024-11-16 12:34 | XMS_ITS | CCD ---
Author Organization [facility] Care Team Providers Care Devulcanizer Tender Name Role Phone BEATRIZ, DR JAYDEN Bobby [...] Unavailable WEST, DR JAYDEN Bobby Consulting Unavailable JANELLE, DR RANDALL Chester Consulting Unavailable MIKEY DAVIS Primary Care Physician Leon WHYTE Attending Unavailable MIKEY DAVIS Referring Unavailable Leon WHYTE Attending Unavailable Martine, Dipika Attending Provider Mikey Davis MD Primary Care Provider Mikey Davis MD Primary Care Provider [phone] Mikey Davis MD Attending Provider Martine, Dipika Admitting Unavailable Martine, Dipika Attending Unavailable Martine, Dipika Admitting Unavailable Martine, Dipika Attending Unavailable Mikey Davis Attending Unavailable Mikey Davis Primary Care Unavailable Mikey Davis Admitting Unavailable MARTINE, DIPIKA Attending Unavailable MARTINE, DIPIKA Attending Unavailable MARTINE, DIPIKA Attending Unavailable MARTINE, DIPIKA Attending Unavailable MARTINE, DIPIKA Attending Unavailable Allergies Allergy Classification Reported Allergen(s) Allergy Type Date of Onset Reaction(s) Facility (1 source) No Known Medication Allergies; Translations: [No Known Medication Allergies] Propensity to adverse reactions (disorder) [facility] Repository Medications Current Medications Medication Drug Class(es) Dates Sig (Normalized) Sig (Original) ibuprofen 800 mg oral tablet (3 sources) Nonsteroidal Anti-inflammatory Drug Start: 07-30-2023 take [...] conditions (not mental disorders or infectious disease) (17 sources) Encounter for screening for malignant neoplasm of cervix; Translations: [Encounter for screening mammogram for malignant neoplasm of breast] Onset: 05-17-2022 Episodic Peripheral and visceral atherosclerosis (9 sources) Peripheral vascular disease, unspecified; Translations: [Atherosclerosis of havasupai arteries of extremities with rest pain, bilateral [...] Test Name Value Interpretation Reference Range Facility IGP,APTIMA HPV,AGE GDLNon AGE GDLN ACOG TESTING Note . [facility] Comment on above: TESTS RESULT FLAG UN ITS REF RANGE LAB Clinician Provided Cytology Information Source.............Vagina No. of containers..01 ThinPrep Vial Age Algo ACOG Vandana... 30-65 01 FLAG LEGEND: L-Low Normal,H-High Normal,LL-Alert Low,HH-Alert High <-Panic Low,>-Panic High,A-Abnormal,AA-Critical Abnormal Performed at: 01 =G [address] [place] [address] Elisa Farley MD, HPV APTIMA Negative Negative [facility] Comment on above: This nucleic acid am plification test detects fourteen high- risk HPV types (16,18,31,33,35,39,45,51,52,56,58,59,66,68) without differentiation. Performed at: = - [facility] [place] [id number] Customer Marketing Assistant: Elisa Farley MD, Phone: [phone] Performed at: [facility] [address] [address] [place], [place] [id number] Customer Marketing Assistant: Ramesh Marquez MD, Phone: [phone] IGP, APTIMA HPV, RFX 16/18,45 Note . [facility] Comment on above: TESTS RESULT FLAG UN ITS REF RANGE LAB DIAGNOSIS: 02 NEGATIVE FOR INTRAEPITHELIAL LESION OR MALIGNANCY. Specimen adequacy: 02 Satisfactory for evaluation. Performed by: Luis A Goodman, Stitch Bonding Machine Tender Helper (ASCP) . 02 Note: Note 03 The Pap smear is a screening test designed to aid in the detection of premalignant and malignant conditions of the uterine cervix. It is not a diagnostic procedure and should not be used as the sole means of detecting cervical cancer. Both false-positive and false-negative reports do occur. Test Methodology: Note 03 This liquid based ThinPrep(R) pap test was screened with the use of an image guided system. HPV Genotype Reflex Note 02 Criteria not met, HPV Genotype not performed. FLAG LEGEND: L-Low Normal,H-High Normal,LL-Alert Low,HH-Alert High <-Panic Low,>-Panic High,A-Abnormal,AA-Critical Abnormal Performed at: 02 [facility] [address] [address] [place] [address] Ramesh Marquez MD, 03 WB [facility] [address] [address] Elisa Farley MD, SPATULA-ALONE VAGINA [facility] Urinalysis macro (dipstick) panel (U)on 06-08-2024 Bilirubin, UA Negative Negative - 4(70) +++ mg/dL [facility] Blood, UA Negative Negative - 50 Ran/mcL [facility] Clarity, UA Clear [facility] Color, UA Yellow [facility] Glucose, UA Negative Negative - 2000(110) ++++ mg/dL [facility] Interpretation and review of laboratory results Normal [facility] Ketones, UA Negative Negative - 160(16) ++++ mg/dL [facility] Leukocytes, UA Negative Negative - 500+++ Vick/mcL [facility] Nitrite, UA Negative Negative - Positive [facility] pH, UA 5.5 5 - 9 [facility] Protein, UA Negative Negative - 2000(20) ++++ mg/dL [facility] Spec Grav, UA 1.005 1 - 1.03 [facility] Urobilinogen, UA 0.2 0.2 - 12 mg/dL [facility] MM special view RT w/CADon 0 06-04-2024 MM special view RT w/CAD [facility] [address] [place] [address] Mammography Report Signed Patient: Franky Cyr MR#: [id number] : 1970 Acct:[id number] Age/Sex: 54 / F Adm Date: 06/03/24 Loc: [place] Room: Type: [facility] Attending Dr: Mikey Davis MD Ordering Provider: Mikey Davis MD Date of Service: 06/03/24 Procedure(s): MM special view RT w/CAD Accession Number(s): ([id number]) MM/MM special view RT w/CAD: R92.9 Copies [...] Stone Betancur M.D.06/04/2024 9:16 AM Dictation Location: [facility] Dictated By: Stone Betancur DO 06/04/24 0913 Signed By: 06/04/24 0916 Normal [facility] ALL LIPID PROFILE (FASTING)o n 05-25-2024 CHOL HDL RATIO 3 [facility] Comment on above: 3.3 - 4.4 LOW RISK 4.4 - 7.1 AVERAGE RISK 7.1 - 11.0 MODERATE RISK >11.0 HIGH RISK Cholesterol [Mass/Vol] 180 mg/dL NINF - 200 mg/dL [facility] Cholesterol in HDL [Mass/Vol] 61 mg/dL High 40 - 60 mg/dL [facility] Comment on above: > or =60 mg/dl - LOW CARDIOVASCULAR RISK <40 mg/dl - HIGH CARDIOVASCULAR RISK Magnesium [Mass/Vol] 112 mg/dL [facility] Comment on above: <100 mg/dl OPTIMAL 100-129 mg/dl NEAR OR ABOVE OPTIMAL 130-159 mg/dl BORDERLINE HIGH 160-189 mg/dl HIGH >190 mg/dl VERY HIGH Magnesium [Mass/Vol] 7.2 mg/dL [facility] Triglyceride [Mass/Vol] 36 mg/dL NINF - 150 mg/dL [facility] ALL THYROID STIM HORMONEon 0 05-25-2024 TSH Qn 2.173 m[IU]/L [facility] CCF CMP (CMP) (FOR REMOTE FH C USE)on 05-25-2024 Albumin [Mass/Vol] 3.6 g/dL 3.4 - 5.0 g/dL [facility] ALBUMIN GLOBULIN RATIO 1.1 [facility] ALP [Catalytic activity/Vol] 61 U/L 46 - 116 U/L [facility] ALT [Catalytic activity/Vol] 12 U/L Low 14 - 59 U/L [facility] Anion gap [Moles/Vol] 12.2 mmol/L [facility] AST [Catalytic activity/Vol] 14 U/L Low 15 - 37 U/L [facility] Bilirubin [Mass/Vol] 0.5 mg/dL 0.2 - 1 .0 mg/dL [facility] Calcium [Mass/Vol] 9.1 mg/dL 8.5 - 10. 1 mg/dL [facility] Chloride [Moles/Vol] 106 mmol/L 98 - 10 7 mmol/L [facility] CO2 [Moles/Vol] 27.3 mmol/L 21.0 - 32.0 mmol/L [facility] Creatinine [Mass/Vol] 0.97 mg/dL 0.55 - 1.02 mg/dL [facility] GFR/1.73 sq M.predicted CKD-EPI (S/P/Bld) [Vol rate/Area] >60 >=60 mL/min/1.73m 2 [facility] Globulin (S) [Mass/Vol] 3.3 g/dL [facility] Glucose [Mass/Vol] 82 mg/dL 74 - 106 mg/dL [facility] Potassium [Moles/Vol] 4.5 mmol/L 3.5 - 5.1 mmol/L [facility] Protein [Mass/Vol] 6.9 g/dL 6.4 - 8.2 g/dL [facility] Sodium [Moles/Vol] 141 mmol/L 136 - 145 mmol/L [facility] TB EGFR-NON AF BAHRAINI >60 >=60 mL/min/1.73m 2 [facility] Urea nitrogen [Mass/Vol] 13 mg/dL 7.0 - 18.0 mg/dL [facility] Urea nitrogen/Creatinine [Mass ratio] 13.4 mg/mg [facility] MLR HEMOGLOBIN A1Con 025 Glucose [Mass/Vol] 100 mg/dL [facility] HbA1c (Bld) [Mass fraction] 5.1 % 4.5 - 6.2 % [facility] Comment on above: ADA RECOMMENDED LIMI T 4.0 - 6.0 ADA THERAPEUTIC TARGET < 7.0 ACTION SUGGESTED > 7.0 No Panel Informationon 05-25 Interpretation and review of laboratory results Abnormal [facility] MM TOMOSYNTHESIS SCREENING B Ion 05-20-2024 [place] [address] Mammography Report Signed Patient: FRANKY CYR MR#: [id number] : 1970 Acct:[id number] Age/Sex: 54 / F ADM Date: 05/20/24 Loc: MAMMO Attending Dr: Dipika Farley D.O. Ordering Physician: Dipika Farley D.O. Results: Date of Service: 05/20/24 Follow Up: Procedure(s): MM tomosynthesis screening BI Accession Number(s): [id number] cc: Dipika Farley D.O.; Mikey Davis M.D. Patient Name: FRANKY CYR MR#: [id number] : 1970 Exam Date: 05/20/2024 Ordering Doctor: [...] breast cancer at age 71. LOCATION: [facility] BREAST COMPOSITION: The breasts are extremely [...] Signed By: 05/20/24 1439 DD/ 38 TD/TT: Assistant Facility Manager: [facility] Radiology, Radiologi MD meli - 05/20/2024 [place] [address] Mammography Report Signed Patient: FRANKY CYR MR#: [id number] : 1970 Acct:[id number] Age/Sex: 54 / F ADM Date: 05/20/24 Loc: MAMMO Attending Dr: Dipika Farley D.O. Ordering Physician: Dipika Farley D.O. Results: Date of Service: 05/20/24 Follow Up: Procedure(s): MM tomosynthesis screening BI Accession Number(s): [id number] cc: Dipika Farley D.O.; Mikey Davis M.D. Patient Name: FRANKY CYR MR#: [id number] : 1970 Exam Date: 05/20/2024 Ordering Doctor: [...] breast cancer at age 71. LOCATION: [facility] BREAST COMPOSITION: The breasts are extremely [...] D.O. Signed By: 05/20/241438 DD/ 38 TD/TT: Assistant Facility Manager: [facility] Radiology Study observation (narrative) [facility] MM TOMOSYNTHESIS SCREENING B IOrdered By: Radiologist Radiology on 05-20-2024 [facility] Work Phone: Luciano 07-30-2023 L Specimen: [id number] Received: 07/30/23 Status: [place]A [place] Num: [id number] Spec Type: Surgical Subm Dr: Dipika Farley Tissues: A Uterus w/ or w/o tubes ovaries except neoplastic or prolap (CERVIX, KATHY FT Procedures: HE/12, Gross/Micro L5 Age/ Patient Sex Location Account Attending Physician Franky Cyr 53/F [facility] [id number] Dipika Farley SPEC NUM: [id number] RECD: 07/30/23 STATUS: [place]A [place] NUM: [id number] AVNI: 07/30/[address]: Dipika Farley ENTERED: 07/30/23 [facility] DR: Isabel,Lab SPEC TYPE: Surgical DEPT: KATHLEEN [...] cm in diameter). Each tube contains Specimen: [id number] Received: 07/30/23 Status: NYA Pradip Num: [id number] Spec Type: Surgical Subm Dr: Dipika Farley Tissues: A Uterus w/ or w/o tubes ovaries except neoplastic or prolap (CERVIX, KATHY FT Procedures: HE/12, Gross/Micro L5 Patient: naveenFranky [id number] (Continued) Specimen: [id number] Received: 07/30/23 (Continued) Gross Description (Continued) Signed (signature on file) Nishant Cueto MD 07/31/23 1454 Specimen: [id number] Received: 07/30/23 Status: [place] Num: [id number] Spec Type: Surgical Subm Dr: Dipika Farley Tissues: A Uterus w/ or w/o tubes ovaries except neoplastic or prolap (CERVIX, KATHY FT Procedures: Neo/Micro L5 Patient: Franky Cyr [id number] (Continued) Specimen: [id number] Received: 07/30/23 (Continued) Gross Description (Continued) a perez-purple smooth serosal surface containing multiple paratubal cysts ranging from 0.1 to 0.3 cm. Sectioning into each tube demonstrates an intact luminal center lined by unremarkable perez mucosa. Lithographed Plate Inspector sections submitted as follows: A1: Anterior cervix A2: Posterior cervix A3?A4: Anterior endomyometrium A5?A6: Posterior endomyometrium A7?A8: Nodules A9: Fallopian tube #1 A10: Fallopian tube #2 CPT Codes 26574 Specimen: [id number] Received: 07/30/23 Status: [place] [place] Num: [id number] Spec Type: Surgical Subm Dr: Dipika Farley Tissues: A Uterus w/ or w/o tubes ovaries except neoplastic or prolap (CERVIX, KATHY FT Procedures: , Gross/Micro L5 Patient: Franky Cyr [id number] (Continued) Signed (signature on file) Nishant Cueto MD 07/31/23 1454 Normal [facility] Luciano 06-17-2023 L Specimen: [id number] Received: 06/17/23 Status: [place] [place] Num: [id number] Spec Type: Surgical Subm Dr: Dipika Farley Tissues: A Endometrium - Curettings (EMC) Procedures: HE/, Gross/Micro L4 Age/ Patient Sex Location Account Attending Physician Franky Cyr 53/F [facility] [id number] Dipika Farley SPEC NUM: [id number] RECD: 06/17/23 STATUS: [place] [place] NUM: [id number] AVNI: 06/17/[address]: Dipika Farley ENTERED: 06/17/[address]: Isabel,Lab SPEC TYPE: Surgical DEPT: KATHLEEN [...] perez. D C hysteroscopy, MyoSure TW Specimen: [id number] Received: 06/17/23 Status: [place] [place] Num: [id number] Spec Type: Surgical Subm Dr: Dipika Farley Tissues: A Endometrium - Curettings (EMC) Procedures: HE/Mickey, Gross/Micro L4 Patient: Franky Cyr [id number] (Continued) Specimen: [id number] Received: 06/17/23 (Continued) Signed (signature on file) Rich Flores MD 06/19/23 1529 Specimen: [id number] Received: 06/17/23 Status: [place] [place] Num: [id number] Spec Type: Surgical Subm Dr: Dipika Farley Tissues: A Endometrium - Curettings (EMC) Procedures: CORTES/Neo Arevalo/Tammy L4 Patient: Franky Cyr [id number] (Continued) Specimen: [id number] Received: 06/17/23 (Continued) CPT Codes 13378 Specimen: [id number] Received: 06/17/23 Status: [place] [place] Num: [id number] Spec Type: Surgical Subm Dr: Dipika Farley Tissues: A Endometrium - Curettings (EMC) Procedures: HE/2, Gross/Micro L4 Patient: Franky Cyr [id number] (Continued) Signed (signature on file) Rich Flores MD 06/19/23 1529 Normal [facility] Pathology Noteon 10-31-2022 Pathology Note [id number]#1.00CD :127 Normal [facility] Reminderson 10-30-2022 Reminders - From: Shavon Mcguire LPN To: N - Clinical; Sent: 10/30/2022 11:35:53 EDT Show up: 09/22/2032 07:00:00 EDT Subject: colonoscopy recall Due Date/Time: 10/23/2032 07:00:00 EDT Reminder/Recall Patient due for screening colonoscopy 10/23/2032. Normal [facility] Outside Colonoscopyon 2022 Outside Colonoscopy [id number]#1.00C D:127 Normal [facility] Lab Reportson 10-23-2022 Lab Reports [id number]#1.00C D:127 [facility] Consent for Procedure/Surger yon 10-09-2022 Consent for Procedure/Surgery [id number]#1.00C D:127 Normal [facility] Formson 10-09-2022 Forms [id number]#1.00C D:127 Normal [facility] Ambulatory Visit Summaryon 0 10-08-2022 Ambulatory Visit Summary FRANKY CYR Alvarado :1970 Visit Date:10/08/2022 Ambulatory Visit Instructions Your Care Team Attending Physician - PATO WASHINGTON, Leon Chester Primary Care Physician - SUSAN WASHINGTON, MIKEY Referring Physician - MIKEY DAVIS MD Procedures Performed Dilation and curettage, Endometrial ablation, [...] Vascular insufficiency Very low density lipoprotinemia Normal [facility] Physician Referralon 023 Physician Referral [id number]#1.00C D:127 Normal [facility] US PELVIS AND TRANSVAGon US [...] by: RANDALL LEMONS Date: 2022-06-21 07:02 Normal [facility] PAP ACOG PANEL 2: 30 to 65on 06-17-2022 . . Normal [facility] Comment on above: Result Comment: Perf ormed at: WB Performed By: #### 4 [id number] ####[facility] [address] [place] [address]DrBrianne Flores Age Gdln ACOG Testing 30-65 Normal [facility] Comment on above: Performed By: #### 4 [id number] ####[facility] [address] [place] [address]DrBrianne Flores DIAGNOSIS: Comment Normal [facility] Comment on above: Result Comment: NEGA TIVE FOR INTRAEPITHELIAL LESION OR MALIGNANCY. Performed at: WB Performed By: #### 4 [id number] ####[facility] [address] [place] [address]DrBrianne Flores HPV Aptima Negative Normal Negative [facility] Comment on above: Result Comment: This nucleic acid amplification test detects fourteen high-risk HPV types (16,18,31,33,35,39,45,51,52,56,58,59,66,68) without differentiation. Performed at: =G Performed By: #### 4 [id number] ####[facility] [address] [place], [place] [address]DrBrianne Flores HPV Genotype Reflex Comment Normal [facility] Comment on above: Result Comment: Crit walter not met, HPV Genotype not performed. Performed at: WB Performed By: #### 4 [id number] ####[facility] [address] [place], [place] [address]Dr. Fernando Flores Methodology: Comment Normal [facility] Comment on above: Result Comment: This liquid based ThinPrep(R) pap test was screened with the use of an image guided system. Performed at: WB Performed By: #### 4 [id number] ####[facility] [address] [place], [place] [address]Dr. Fernando Flores Note: Comment Normal [facility] Comment on above: Result Comment: The Pap smear is a screening test designed to aid in the detection of premalignant and malignant conditions of the uterine cervix. It is not a diagnostic procedure and should not be used as the sole means of detecting cervical cancer. Both false-positive and false-negative reports do occur. . Performed at: WB Performed By: #### 4 [id number] ####[facility] [address] [place], [place] [address]DrBrianne Flores Performed by: Comment Normal [facility] Comment on above: Result Comment: Concetta Riggins, Stitch Bonding Machine Tender Helper (ASCP) Performed at: WB Performed By: #### 4 [id number] ####[facility] [address] [place], [place] [address]Dr. Fernando Flores Specimen adequacy: Comment Normal [facility] Comment on above: Result Comment: Sati sfactory for evaluation. Endocervical and/or squamous metaplastic cells (endocervical component) are present. Performed at: WB Performed By: #### 4 [id number] ####[facility] [address] [place], [place] [address]Dr. Fernando Flores Covid-19 PCR (CVDTB)on 03-3 0-2023 SARS-CoV-2 (COVID-19) RNA ALISON+probe Ql (Unsp spec) Not detected Normal NOT DETECTED [facility] Comment on above: Result Comment: When [...] for this test is supported by the [place] of Health and Human Service's declaration that [...] used). Performed By: #### T 4 #### [facility] [address] [place] [address] Dr. Fernando Flores INFLUENZA A AND B AGon 05-23 INFLUANE SEE BELOW Normal [facility] Comment on above: Result Comment: Nega tive for Flu A protein angiten. Infection due to Flu A cannot be ruled out. Flu A angiten in the sample may be below the detection limit of the test. Performed By: #### S EROTON #### [facility] [address] [place] [address] Dr. Fernando Flores INFLUBNEGH SEE BELOW Normal [facility] Comment on above: Result Comment: Nega tive for Flu B protein antigen. Infection due to Flu B cannot be ruled out. Flu B antigen in the sample may be below the detection limit of the test. Performed By: #### S EROTON #### [facility] [address] [place] [address] Dr. Fernando Flores INFLUENZA A AG Negative Normal NEGATIVE SEE COMMENT [facility] Comment on above: Performed By: #### S EROTON #### [facility] [address] [place] [address] Dr. Fernando Flores INFLUENZA B AG Negative Normal NEGATIVE SEE COMMENT [facility] Comment on above: Performed By: #### S EROTON #### [facility] [address] [place] [address] [address] Fernando Flores MG MAMM SCREEN 3D KATHY CADon 05-17-2022 MG MAMM SCREEN 3D KATHY CAD Patient: FRANKY CYR Exam Date: 05/17/2022 : 1970 Gender:F Ordering : DR DIPIKA FARLEY . Admission #: [id number] Family : Order #: [id number] CLICK HERE TO VIEW EXAM RADIOLOGY REPORT [...] breast cancer at age 71. LOCATION: [facility] BREAST COMPOSITION: Extremely dense, which lowers [...] M.D. on 05/17/2022 at 11:51 Normal [facility] THYROGLOBULINon 01-26-2022 Thyroglobulin 21 ng/mL Normal [facility] Comment on above: Result Comment: This [...] ng/mL. Performed By: #### Cathie VIDALES #### [facility] [address] [place], [place] [address] Dr. Fernando Flores ESTRONEon 01-23-2022 Estrone, Serum 29 pg/mL Normal [facility] Comment on above: Result Comment: Rang e Adult (Premenopausal) 27 - 231 Menstrual Cycle (1-10 days) 19 - 149 Menstrual Cycle (11-20 days) 32 - 176 Menstrual Cycle (21-30 days) 37 - 200 Adult (Postmenopausal) 0 - 125 Performed By: #### Bernadette MARTINEZ #### [facility] [address] [address] [address] Fernando Flores REVERSE T3on 01-22-2022 Reverse T3, Serum 14.4 ng/dL Normal 9.2-24.1 [facility] Comment on above: Result Comment: This test was developed and its performance characteristics determined by [employer]. It has not been cleared or approved by the Food and Drug Administration. Performed By: #### Henrik EVRT3 #### [facility] [id number] Fernando Flores TESTOSTERONE, FREE,DIRECT, T OTALon 01-22-2022 Free Testosterone(Direct) 1.9 pg/mL Normal 0.0-4.2 [facility] Comment on above: Result Comment: Perf ormed at: BN Performed By: #### T ESTFRD ####[facility] [address] [place], [place] [address]BfDr. Fernando Flores Testosterone [Mass/Vol] 30 ng/dL Normal 4-50 [facility] Comment on above: Result Comment: Perf ormed at: CB Performed By: #### T ESTFRD ####[facility] [address] [place], [place] [address]OnDr. Fernando Flores Covid-19 PCR ([facility])on 12-26 SARS-CoV-2 (COVID-19) RNA ALISON+probe Ql (Unsp spec) Not detected Normal NOT DETECTED [facility] Comment on above: Result Comment: When [...] for this test is supported by the [place] of Health and Human Service's declaration that [...] be used). Performed By: #### C VDTBH ####[facility] [address] [place] [address]Dr. Fernando Flores SEROTONINon 01-20-2022 Serotonin, Serum 162 ng/mL Normal 31-207 [facility] Comment on above: Performed By: #### S EROTON #### [facility] [address] [place] [address] Dr. Fernando Flores THYROGLOBULIN ABon 2 Thyroglobulin Antibody <1.0 Normal 0.0-0.9 [facility] Comment on above: Result Comment: Thyr oglobulin Antibody measured by [employer] Methodology Performed By: #### T HYGAB ####[facility] [address] [place] [address]Dr. Fernando Flores VIT D 1 25 DIHYDROXYon 01-19 Calcitriol(1,25 di-OH Vit D) 62.0 pg/mL Normal 24.8-81.5 [facility] Comment on above: Performed By: #### S EROTON #### [facility] [address] [place] [address] Dr. Fernando Flores C-PEPTIDE, SERUMon 2 C-Peptide, Serum 1.8 ng/mL Normal 1.1-4.4 [facility] Comment on above: Result Comment: C-Pe ptide reference interval is for fasting patients. Performed By: #### C PEPT ####[facility] [address] [place], [place] [id number]. Fernando Flores INSULINon 01-18-2022 Insulin 6.7 uIU/mL Normal 2.6-24.9 [facility] Comment on above: Performed By: #### T 4 #### [facility] [address] [place], [place] [address] Dr. Fernando Flores CORTISOLon 01-17-2022 Cortisol 14.2 ug/dL Normal [facility] Comment on above: Result Comment: Floyd isol AM 6.2 - 19.4 Cortisol PM 2.3 - 11.9 Performed By: #### C ORTISO #### [facility] [address] [place] [address] [address] Fernando Flores DHEA-SULFATEon 01-17-2022 DHEA-Sulfate 93.7 ug/dL Normal 41.2-243.7 [facility] Comment on above: Performed By: #### S EROTON #### [facility] [address] [place], [place] [address] Dr. Fernando Flores ESTRADIOLon 01-17-2022 Estradiol 24.6 pg/mL Normal [facility] Comment on above: Result Comment: Adul t Female: Follicular phase 12.5 - 166.0 Ovulation phase 85.8 - 498.0 Luteal phase 43.8 - 211.0 Postmenopausal <6.0 - 54.7 1st trimester 215.0 - >4300.0 Sanjay ECLIA methodology Performed By: #### S EROTON #### [facility] [address] [place], [place] [address] Dr. Fernando Flores PROGESTERONEon 01-17-2022 Progesterone 0.7 ng/mL Normal [facility] Comment on above: Result Comment: Foll icular phase 0.1 - 0.9 Luteal phase 1.8 - 23.9 Ovulation phase 0.1 - 12.0 First trimester 11.0 - 44.3 Second trimester 25.4 - 83.3 Third trimester 58.7 - 214.0 Postmenopausal 0.0 - 0.1 Performed By: #### P JASWINDER #### [facility] [address] [address] [address] Fernando Flores SEX HORMONE-BINDING GLOBULIN on 01-17-2022 Sex Horm Binding Glob, Serum 115.0 nmol/L Normal 17.3-125.0 [facility] Comment on above: Performed By: #### S EROTON #### [facility] [address] [address] [address] Fernando Flores T3, TOTAL (TRIIODOTHYRONINE) on 01-17-2022 T3, TOTAL 120 ng/dL Normal 71-180 [facility] Comment on above: Performed By: #### T 3TOTAL ####[facility] [address] [address]Dr. Fernando Flores THYROID PEROXIDASE ABon 12-26 Thyroid Peroxidase (TPO) Ab <9 Normal 0-34 [facility] Comment on above: Performed By: #### S EROTON #### [facility] [address] [address] [address] Fernando Flores FREE T3on 01-16-2022 FREE T3 2.86 pg/mlL Normal 2.18-3.98 [facility] Comment on above: Performed By: #### T 4 #### [facility] [address] [address] [address] Fernando Flores FREE T4on 01-16-2022 Free T4 [Mass/Vol] 1.04 ng/dL Normal 0.76-1.46 [facility] Comment on above: Performed By: #### F T4 ####[facility] [address] [address]Dr. Fernando Flores GLUCOSE BLOODon 01-16-2022 Glucose [Mass/Vol] 90 mg/dL Normal 74-106 [facility] Comment on above: Performed By: #### S EROTON #### [facility] [address] [address] [address] Fernando Flores GLYCOHEMOGLOBIN A1Con 2021 ADA RECOMMENDATION SEE BELOW Normal [facility] Comment on above: Result Comment: ADA RECOMMENDED LIMIT 4.0 - 6.0 ADA THERAPEUTIC TARGET < 7.0 ACTION SUGGESTED > 7.0 Performed By: #### S EROTON #### [facility] [address] [place] [address] Dr. Fernando Flores Glucose [Mass/Vol] 103 mg/dL Normal [facility] Comment on above: Performed By: #### S EROTON #### [facility] [address] [place] [address] Dr. Fernando Flores HbA1c (Bld) [Mass fraction] 5.2 % Normal 4.5-6.2 [facility] Comment on above: Performed By: #### S EROTON #### [facility] [address] [place] [address] Dr. Fernando Flores T4on 01-16-2022 T4 [Mass/Vol] 7.40 ug/dL Normal 4.80-13.90 [facility] Comment on above: Performed By: #### T 4 #### [facility] [address] [place] [address] Dr. Fernando Flores TSHon 01-16-2022 TSH 1.776 uIU/mL Normal 0.358-3.740 [facility] Comment on above: Performed By: #### S EROTON #### [facility] [address] [place] [address] Dr. Fernando Flores VC CONSULT FOLLOWUPon 2021 VC CONSULT FOLLOWUP Patient: FRANKY CYR Exam Date: 01/14/2022 : 1970 Gender:F Ordering : DR JAYDEN HENDERSON M.D. Admission #: [id number] Family : Order #: [id number] CLICK HERE TO VIEW EXAM RADIOLOGY REPORT [...] Henderson MD on 01/14/2022 at 16:01 Normal [facility] VC EXT VENOUS RT LIMITEDon 1 03-16-2021 VC EXT VENOUS RT LIMITED Patient: FRANKY CYR Exam Date: 01/14/2022 : 1970 Gender:F Ordering : DR JAYDEN HENDERSON M.D. Admission #: [id number] Family : Order #: [id number] CLICK HERE TO VIEW EXAM RADIOLOGY REPORT [...] Henderson MD on 01/14/2022 at 16:04 Normal [facility] VC CONSULT FOLLOWUPon 2021 VC CONSULT FOLLOWUP Patient: FRANKY CYR Exam Date: 12/27/2021 : 1970 Gender:F Ordering : DR JAYDEN HENDERSON M.D. Admission #: [id number] Family : Order #: [id number] CLICK HERE [...] Henderson MD on 12/27/2021 at 15:30 Normal [facility] VC EXT VENOUS RT LIMITEDon 1 02-26-2021 VC EXT VENOUS RT LIMITED Patient: FRANKY CYR Exam Date: 12/27/2021 : 1970 Gender:F Ordering : DR JAYDEN HENDERSON M.D. Admission #: [id number] Family : Order #: [id number] CLICK HERE TO VIEW EXAM RADIOLOGY REPORT [...] Henderson MD on 12/27/2021 at 15:17 Normal [facility] VC INJ FOAM SCLERO W US MLTI on 12-21-2021 VC INJ FOAM SCLERO W US MLTI Patient: FRANKY CYR Exam Date: 12/21/2021 : 1970 Gender:F Ordering : DR JAYDEN HENDERSON M.D. Admission #: [id number] Family : Order #: [id number] CLICK HERE TO VIEW EXAM RADIOLOGY REPORT [...] weeks, (more content not included)... Normal [facility] VC CONSULT FOLLOWUPon 2021 VC CONSULT FOLLOWUP Patient: FRANKY CYR Exam Date: 12/13/2021 : 1970 Gender:F Ordering : DR JAYDEN HENDERSON M.D. Admission #: [id number] Family : Order #: [id number] CLICK HERE TO VIEW EXAM RADIOLOGY REPORT [...] Jayden Henderson MD on 12/13/2021 at 08:24 [facility] VC EXT VENOUS LT LIMITEDon 1 VC EXT VENOUS LT LIMITED Patient: FRANKY CYR. Exam Date: 12/13/2021 : 1970 Gender:F Ordering : DR JAYDEN HENDERSON M.D. Admission #: [id number] Family : Order #: [id number] CLICK HERE TO VIEW EXAM RADIOLOGY REPORT [...] Henderson MD on 12/13/2021 at 08:16 Normal [facility] VC ENDOVENOUS ABL 1ST V LTon 12-07-2021 VC ENDOVENOUS ABL 1ST V LT Patient: ANDRZEJGoldVETO FRANKY AlvaradoBrianne Exam Date: 12/07/2021 : 1970 Gender:F Ordering : DR JAYDEN HENDERSON M.D. Admission #: [id number] Family : Order #: [id number] CLICK HERE TO VIEW EXAM CORRECTION: Changed [...] MD on 12/07/2021 at 10:23 Approved by: Jaydne Henderson MD on 12/07/2021 at 10:24 Dictated by: Jaydne Henderson MD on 12/07/2021 at 10:27 Approved by: Jayden Henderson MD on 12/07/2021 at 10:27 Normal [facility] VC CONSULT FOLLOWUPon 2021 VC CONSULT FOLLOWUP Patient: FRANKY CYR Exam Date: 11/29/2021 : 1970 Gender:F Ordering : DR JAYDEN HENDERSON M.D. Admission #: [id number] Family : Order #: [id number] CLICK HERE TO VIEW EXAM RADIOLOGY REPORT [...] Henderson MD on 11/29/2021 at 09:01 Normal [facility] VC EXT VENOUS RT LIMITEDon 1 VC EXT VENOUS RT LIMITED Patient: FRANKY CYR Exam Date: 11/29/2021 : 1970 Gender:F Ordering : DR JAYDEN HENDERSON M.D. Admission #: [id number] Family : Order #: [id number] CLICK HERE TO VIEW EXAM RADIOLOGY REPORT [...] Henderson MD on 11/29/2021 at 08:44 Normal [facility] VC ENDOVENOUS ABL 1ST V RTon 11-22-2021 VC ENDOVENOUS ABL 1ST V RT Patient: FRANKY CYR Exam Date: 11/22/2021 : 1970 Gender:F Ordering : DR JAYDEN HENDERSON M.D. Admission #: [id number] Family : Order #: [id number] CLICK HERE TO VIEW EXAM RADIOLOGY REPORT [...] M.D. on 11/22/2021 at 14:45 Normal [facility] CRPon 09-20-2021 CRP [Mass/Vol] mg/L Normal <=1.0 [facility] Comment on above: Performed By: #### S EROTON #### [facility] [address] [place], [place] [address] Dr. Fernando Flores SED RATE [facility] 2021 SED RATE 5 mm/hr Normal <=30 [facility] Comment on above: Performed By: #### S EDR ####[facility] [id number] [place], [place] [address]UkDr. Fernando Flores US PELVIS AND TRANSVAGon US [...] by: RANDALL LEMONS Date: 2021-09-11 14:02 Normal [facility] CTA ABD JAKE WWO CON LE [...] RANDALL LEMONS Date: 2021-08-10 11:03 Normal [facility] VC COMP CONSULTATIONon 07-31 VC COMP CONSULTATION Patient: FRANKY CYR Exam Date: 07/31/2021 : 1970 Gender:F Ordering : DR JAYDEN HENDERSON M.D. Admission #: [id number] Family : Order #: [id number] CLICK HERE TO VIEW EXAM RADIOLOGY REPORT [...] sa (more content not included)... Normal [facility] VC VENOUS REFLUX KATHY LMTon 0 07-31-2021 VC VENOUS REFLUX KATHY LMT Patient: FRANKY CYR Exam Date: 07/31/2021 : 1970 Gender:F Ordering : DR JAYDEN HENDERSON M.D. 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: Mid medial thigh measures 3.2 mm with [...] Henderson MD on 07/31/2021 at 11:39 Normal [facility] XR LSPINE MIN 4 VIEWSon 06-24 [...] by: RANDALL LEMONS Date: 2021-07-03 13:34 Normal [facility] Vital Signs Date Time Vital Sign Value Performing Clinician Facility 06-08-2024 13:16-0400 Body mass index (BMI) [Ratio] 21.97 kg/m2 Dipika Martine DO Work Phone: [facility] 06-08-2024 13:16-0400 Body weight 58.06 kg Dipika Martine DO Work Phone: [facility] 06-08-2024 13:16-0400 Diastolic blood pressure 72 mm[Hg] Dipika Martine DO Work Phone: [facility] 06-08-2024 13:16-0400 Systolic blood pressure 118 mm[Hg] Dipika Martine DO Work Phone: [facility] 10-08-2022 15:23-0400 Blood Pressure Location Leon BARTONL [facility] 10-08-2022 15:23-0400 Diastolic blood pressure 78 mm[Hg] Leon BARTONL [facility] 10-08-2022 15:23-0400 Heart rate 70 /min Leon NILL [facility] 10-08-2022 15:23-0400 Respiratory rate 16 /min Leon BARTONL [facility] 10-08-2022 15:23-0400 Systolic blood pressure 116 mm[Hg] Leon BARTONL [facility] Encounters Encounter Date Encounter Type Care Provider Facility Start: 06-08-2024 End: 06-08-2024 Bamboo flowsheet Dipika Martine DO Work Phone: [facility] Start: 06-08-2024 End: 06-11-2024 Bamboo flowsheet Dipika Martine DO Work Phone: [facility] Start: 06-08-2024 End: 06-11-2024 Clinisync Result Encounter Dipika Martine DO Work Phone: [facility] External Department Unsolicited Start: 06-08-2024 End: 06-08-2024 Patient encounter procedure Dipika Martine DO Work Phone: [facility] Start: 06-08-2024 End: 06-08-2024 Periodic preventive med est patient 40-64yrs Dipika Martine DO Work Phone: [facility] Comment on above: Well woman exam with routine gynecological exam; Osteoporosis, post-menopausal (CMS/HCC); H/O: hysterectomy Start: 06-08-2024 End: 06-08-2024 ambulatory DIPIKA MARTINE Not Available Start: 06-03-2024 End: 06-03-2024 Patient encounter procedure Mikey Davis MD Work Phone: [facility] Work Phone: Start: 06-03-2024 End: 06-03-2024 ambulatory Mikey Davis MD Work Phone: [facility] Work Phone: Start: 05-25-2024 End: 05-25-2024 [...] Available Start: 07-30-2023 End: 07-30-2023 ambulatory Dipika Lasto [facility] Work Phone: Start: 07-30-2023 End: 07-30-2023 Departed Referred Dipika Farley Work Phone: [facility] Start: 07-02-2023 End: 07-02-2023 ambulatory DIPIKAArthur LASTO Not Available Start: 06-17-2023 End: 06-17-2023 ambulatory Dipika Lasto [facility] Work Phone: Start: 06-17-2023 End: 06-17-2023 Departed Referred Dipika Farley Work Phone: [facility] Start: 06-11-2023 End: 06-11-2023 ambulatory DIPIKA ALSTO Not Available Start: 10-23-2022 End: 10-24-2022 ambulatory Leon WHYTE Facility:CD:[id number] Start: 10-08-2022 End: 10-09-2022 ambulatory Leon WHYTE Facility:[facility] Start: 10-08-2022 End: 10-08-2022 Patient [...] micrscp Dipika Martine DO Work Phone: Start: 06-08-2024 IGP,APTIMA HPV,AGE GDLN Generic External Data Provider Start: 06-04-2024 Mammography Dipika Fakeya o DO Work Phone: Start: 05-25-2024 ALL LIPID PROFILE (FASTING) Mikey Davis MD Work Phone: Start: 05-25-2024 ALL THYROID STIM HORMONE Mkiey Davis MD Work Phone: Start: 05-25-2024 CCF CMP (CMP) (FOR R EMOTE [facility] USE) Mikey Davis MD Work Phone: Start: 05-25-2024 MLR HEMOGLOBIN A1C Mikey Davis MD Work Phone: Start: 05-20-2024 MM TOMOSYNTHESIS SCR EENING BI Generic External Data Provider Start: 05-20-2024 Mammography Generic Pr ovider Dilation and curettage Kasi WHYTE Endometrial ablation Leon PATO H/O: hysterectomy H/O: hysterectomy Dipika Farley DO Work Phone: Hysteroscopy Leon PATO Percutaneous translu paul laser ablation of vein Leon PATO Plan of Treatment Date Care Activity Detail Author Start: 06-04-2025 Screening for malignant neoplasm of breast Mammogram [facility] Start: 05-20-2025 Screening for malignant neoplasm of breast Mammogram [facility] Start: 06-08-2024 End: 06-08-2025 DXA Skeletal system Views for bone density DEXA bone density Imaging Routine Osteoporosis, post-menopausal ([facility]/HCC) Expected: 06/08/2024 (Approximate), Expires: 06/08/2025 [facility] Work Phone: Comment on above: Expected: 06/08/2024 (Approximate), Expires: 06/08/2025 Start: 06-08-2024 End: 06-08-2024 Patient encounter procedure 06/08/2024 1:00 PM EDT Office Visit [facility] [address] [place] [address] Dipika Farley, DO [address] [place] [address] Arrived [facility] Comment on above: Arrived Start: 06-03-2024 Mammography of right breast MM special view RT w/CAD [facility] Start: 06-03-2024 MG Breast - right Single view [facility] Start: 06-01-2024 End: 06-01-2024 Patient encounter procedure 06/01/2024 1:10 PM EDT Office Visit [facility] [address] [facility] [place] [phone] Dipika Farley, DO [address] [facility] [place] [address] [facility] Start: 05-21-2024 End: 07-21-2025 MG Breast - right Diagnostic Right diagnostic mammogram Imaging Routine Abnormal mammogram of right breast Expected: 05/21/2024, Expires: 07/21/2025 [facility] Work Phone: Comment on above: Expected: 05/21/2024 , Expires: 07/21/2025 Start: 05-21-2024 End: 07-21-2025 US Breast - right limited Right breast US limited Imaging Routine Abnormal mammogram of right breast Expected: 05/21/2024, Expires: 07/21/2025 [facility] Comment on above: Expected: 05/21/2024 , Expires: 07/21/2025 Start: 05-19-2024 Screening for malignant neoplasm of breast Mammogram [facility] Start: 1970 Screening for malignant neoplasm of colon [facility] THIN PREP TIS PAP AN D HR HPV DNA THIN PREP TIS PAP AND HR HPV DNA Pathology and Cytology Routine Well woman exam with routine gynecological exam Ordered: 06/08/2024 [facility] Comment on above: Ordered: 06/08/2024 Immunizations Immunization Date Immunization Notes Care Provider Fa cility 12-15-2020 SARS-CoV-2 (COVID-19 ) mRNA-1273 vaccine Leon WHYTE [facility] 03-22-2020 SARS-CoV-2 (COVID-19 ) mRNA-1273 vaccine Leon WHYTE [facility] 02-22-2020 SARS-CoV-2 (COVID-19 ) [id number] vaccine Leon WHYTE [facility] Payers Date Payer Category Payer Self-pay 2022 [facility] BCBS [id number] 2022 Unknown [id number] 2019 Unknown [id number] 1970 Unknown [id number] 2.16.840.1.971183.3.579.2. 593 1970 Unknown [id number] 2.16.840.1.077113.3.579.2. 593 1970 Unknown [id number] 2.16.840.1.137326.3.579.2. 593 1971 Unknown [id number] 2.16.840.1.461717.3.579.2. 593 1970 Unknown [id number] 2.16.840.1.371792.3.579.2. 593 1970 Unknown [id number] 2.16.840.1.061023.3.579.2. 593 1970 Unknown [id number] 2.16.840.1.965318.3.579.2. 593 1970 Unknown [id number] 2.16.840.1.103943.3.579.2. 593 1971 Unknown [id number] 2.16.840.1.907040.3.579.2. 593 1971 Unknown [id number] 2.16.840.1.166429.3.579.2. 593 1971 Unknown [id number] 2.16.840.1.247360.3.579.2. 593 1971 Unknown [id number] 2.16.840.1.557221.3.579.2. 593 1971 Unknown [id number] 2.16.840.1.916347.3.579.2. 593 1971 Unknown [id number] 2.16.840.1.043112.3.579.2. 593 1971 Unknown [id number] 2.16.840.1.466550.3.579.2. 593 1971 Unknown [id number] 2.16.840.1.667398.3.579.2. 593 1971 Unknown [id number] 2.16.840.1.774719.3.579.2. 593 1971 Unknown [id number] 2.16.840.1.132259.3.579.2. 593 1971 Unknown [id number] 2.16.840.1.669490.3.579.2. 593 1971 Unknown [id number] 2.16.840.1.803754.3.579.2. 593 1971 Unknown [id number] 2.16.840.1.190992.3.579.2. 593 1971 Unknown [id number] 2.16.840.1.908425.3.579.2. 593 1971 Unknown [id number] 2.16.840.1.619827.3.579.2. 593 1971 Unknown [id number] 2.16.840.1.264310.3.579.2. 593 1971 Unknown [id number] 2.16.840.1.150460.3.579.2. 727 1970 Unknown [id number] 2.16.840.1.767606.3.579.2. 727 1971 Unknown [id number] 2.16.840.1.264538.3.579.2. 9 1971 Unknown [id number] 2.16.840.1.358206.3.579.2. 1259 1971 Unknown [id number] 2.16.840.1.891296.3.579.2. 1259 1971 Unknown [id number] 2.16.840.1.779704.3.579.2. 1259 1970 Unknown [id number] 2.16.840.1.224371.3.579.2. 1259 1958 Self-pay [id number] Unknown [id number] 2.16.840.1.939312.3.579.2. 531 Social History Date Type Detail Facility Start: 10-08-2022 End: 09-10-2023 Tobacco smoking status Never smoked tobacco (finding) [facility] Tobacco smoking status Never [facility] Start: 09-10-2023 Sex Assigned At Female F [facility] Start: 1970 Sex Assigned At Female F [facility] Start: 09-10-2023 Tobacco use and exposure Smokeless tobacco non-user [facility] Start: 09-10-2023 End: 06-08-2024 Alcoholic beverage intake Lifetime non-drinker (finding) [facility] Start: 09-10-2023 History of Social function [facility] Start: 1970 Sex assigned at Not on file [facility] Tobacco smoking stat [facility] Unknown if ever smoked [facility] Work Phone: Start: 06-04-2024 Sex Female (finding) [facility] Functional Status Date Assessment Result Facility 10-08-2022 Functional Status N/A [facility] History of Present illness Narrative 06-08-2024 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 Exam conducted with a doors prefitter present. Vitals: Estimated body mass index is [...] Dipika Farley DO documented in this encounter [facility] Clinical Note 10-08-2022 Note Date & Type [...] Recorded SARS-CoV-2 (COVID-19) mRNA-1273 vaccine 02/22/2020 Recorded [facility] Comment on above: Result Comment: [...] by: JAYDEN HENDERSON Date: 2021-09-04 16:23 [facility] Evaluation + Plan note Note Date & Type Note Facility Evaluation + Plan note No data available for this section [facility] Evaluation note Note Date & Type Note Facility Evaluation note No assessment information availa [facility] Work Phone: Evaluation note Note Date & Type Note Facility Evaluation note Diagnosis Abnormal mammogram of right breast- Primary documented in this encounter [facility] Evaluation note Note Date & Type Note Facility Evaluation note Diagnosis Well woman exam with routine gynecological exam Routine gynecological examination Osteoporosis, post-menopausal (CMS/HCC) Senile osteoporosis H/O: hysterectomy Acquired absence of both cervix and uterus documented in this encounter [facility] Hospital Discharge instructions Note Date & Type Note Facility Hospital Discharge instructions No data available for this section [facility] Progress note Note Date & Type Note Facility Progress note No data available for this section [facility] Summary Purpose Family History No Family History [...] and content) DATE CREATED AUTHOR 06/24/2022 [facility] DATE CREATED AUTHOR AUTHOR'S ORGANIZ ATION 11/01/2022 [facility] DATE CREATED AUTHOR AUTHOR'S ORGANIZ ATION 06/08/2024 [facility] DATE CREATED AUTHOR AUTHOR'S ORGANIZ ATION 06/10/2024 [facility] EPIC Patient Care team informatio n (unrecognized section and content) Team Status: Inactive Member Role Status Dates Dipika Farley Attending Provider Active Start: Shine 2023 End: June 17, 2023 Team Status: Inactive Member Role Status Dates Dipika Farley Attending Provider Active Start: 2023 End: July 30, 2023 Devulcanizer Tender Relationship Specialty Start Date End Date Mikey Davis MD [address] [place] [phone] PCP - General Family Medicine 06/11/23 Devulcanizer Tender Relationship Specialty Start Date End Date Mikey Davis MD [address] [place] [phone] PCP - General Family Medicine 06/11/23 Team Status: Active Member Role Status Dates Mikey Davis MD Primary Care Provider Active Team Status: Inactive Member Role Status Dates Mikey Davis MD Primary Care Provide r, Attending Provider Active Start: June 03, 2024 End: June 03, 2024 Devulcanizer Tender Relationship Specialty Start Date End Date Mikey Davis MD [address] [place] [phone] PCP - General Family Medicine 06/11/23 Devulcanizer Tender Relationship Specialty Start Date End Date Mikey Davis MD [address] [place] [phone] PCP - General Family Medicine 06/11/23 Goals [...] BE BASED ON THE PRIMARY CLINICAL RECORDS. [facility]. provides no warranty or guarantee of the accuracy or completeness of information in this document.
--- NOTE | 2024-11-16 12:38 | ECG_ITS ---
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 Measurements Intervals [place] Rate: 54 P: 46 AR: 150 QRS: 18 QRSD: 90 T: 56 QT: 488 QTc: 463 Interpretive Statements SINUS BRADYCARDIA POSSIBLE LEFT ATRIAL ENLARGEMENT [-0.1mV P WAVE IN V1/V2] PROLONGED QT INTERVAL Compared to ECG 06/13/2023 15:06:59 Prolonged QT interval now present Electronically Signed On 11-16-2024 18:06:05 EDT by LANETTE RO M.D.
[2024-11-16 12:51] LABS: Hematocrit 41.6 % (36.0-48.0); Hemoglobin 14.0 g/dL (12.0-16.0); Immature Granulocytes Abs Auto 0.00 10^3/uL (0.00-0.03); Immature Granulocytes Pct Auto 0.0 % (0.0-0.5); Lymphocytes Absolute Auto 1.7 10^3/uL (1.2-3.8); Mean Corpuscular HGB Conc 33.7 g/dL (29.9-35.2); Mean Corpuscular Hemoglobin 28.9 pg (26.7-34.0); Mean Corpuscular Volume 86.0 fL (81.0-99.0); Platelet Count 244 10^3/uL (150-450); Red Blood Count 4.84 10^6/uL (4.20-5.40); White Blood Count 6.1 10^3/uL (4.0-11.0)
[2024-11-16 14:00] LABS: Alanine Aminotransferase 26 U/L (14-59); Albumin Globulin Ratio 1.3; Albumin Level 4.3 g/dL (3.4-5.0); Alkaline Phosphatase 61 U/L (46-116); Anion Gap 11.9; Aspartate Amino Transferase 17 U/L (15-37); Blood Urea Nitrogen 11.0 mg/dL (7.0-18.0); Calcium 9.2 mg/dL (8.5-10.1); Carbon Dioxide 27.9 mmol/L (21.0-32.0); Chloride 103 mmol/L (98-107); Estimated GFR (African America >60 (>=60 mL/min/1.73m^2); Estimated GFR (Non-African Ame >60 (>=60 mL/min/1.73m^2); Free T3 3.05 pg/mL (2.18-3.98); Globulin 3.3 g/dL; Glucose 92 mg/dL (74-106); NT Pro B Type Natriuretic Pept 165.0 pg/mL (<=900.0); Potassium 3.8 mmol/L (3.5-5.1); Sodium 139 mmol/L (136-145); Thyroid Stimulating Hormone 2.439 uIU/mL (0.358-3.740); Total Protein 7.6 g/dL (6.4-8.2)
== END 2024-11-16 12:27 | disposition home or self-care (01) ==
LOC: LAB 12:27
PROVIDERS: PCP Family Medicine; Visit Provider Family Medicine
DX: I10 Essential (primary) hypertension (principal)
CPT/HCPCS: 36415; 80053; 83880; 84436; 84443; 84481; 84484; 85025; 93005

== ENCOUNTER 2024-11-19 06:46 | Outpatient (OUT) | payer BC, SELFPAY ==
--- OUTSIDE RECORDS SUMMARY | 2024-11-19 06:51 | XMS_ITS | CCD ---
Author Organization [facility] Care Team Providers Care Drug Safety Data Management Specialist Name Role Phone BEATRIZ, DR JAYDEN Bobby Admitting Unavailable WEST, DR JAYDEN Bobby Attending Unavailable NADERER, DR MIKEY Latif Primary Care Unavailable WEST, DR JAYDEN Bobby Consulting Unavailable NADERER, DR MIKEY Latif Primary Care Unavailable WEST, DR JAYDEN Bobby Attending Unavailable WEST, DR JYADEN Bobby Admitting Unavailable WEST, DR JAYDEN Bobby [...] MD Primary Care Provider Mikey Davis MD Attending Provider [phone] Martine, Dipika Admitting Unavailable Martine, Dipika [...] Medication Allergies] Propensity to adverse reactions (disorder) [facility] Repository Medications Current Medications Medication [...] Peripheral vascular disease, unspecified; Translations: [Atherosclerosis of [place] arteries of extremities with rest pain, bilateral [...] GDLNon AGE GDLN ACOG TESTING Note . [facility] Comment on above: TESTS RESULT FLAG UN ITS REF RANGE LAB Clinician Provided Cytology Information Source.............Vagina No. of containers..01 ThinPrep Vial Age Algo ACOG Vandana... 30-65 01 FLAG LEGEND: L-Low Normal,H-High Normal,LL-Alert Low,HH-Alert High <-Panic Low,>-Panic High,A-Abnormal,AA-Critical Abnormal Performed at: 01 =G [address] [place] [address] Elisa Farley MD, HPV APTIMA Negative Negative [facility] Comment on above: This nucleic acid am plification test detects fourteen high- risk HPV types (16,18,31,33,35,39,45,51,52,56,58,59,66,68) without differentiation. Performed at: = - [facility] [place] [id number] Rn Ambulatory: Elisa Farley MD, Phone: [phone] Performed at: [facility] - [facility] [address] [address] [place], [place] [id number] Rn Ambulatory: Ramesh Marquez MD, Phone: [phone] IGP, APTIMA HPV, RFX 16/18,45 Note . [facility] Comment on above: TESTS RESULT FLAG UN ITS REF RANGE LAB DIAGNOSIS: 02 NEGATIVE FOR INTRAEPITHELIAL LESION OR MALIGNANCY. Specimen adequacy: 02 Satisfactory for evaluation. Performed by: Luis A Goodman, Quality Nurse (ASCP) . 02 Note: Note 03 The [...] High,A-Abnormal,AA-Critical Abnormal Performed at: 02 [facility] [place] [address] [address] [place] [address] Ramesh Marquez MD, 03 WB [facility] [address] [address] Elisa Farley MD, SPATULA-ALONE VAGINA [facility] Urinalysis macro (dipstick) panel (U)on 06-08-2024 Bilirubin, UA Negative Negative - 4(70) +++ mg/dL [facility] Blood, UA Negative Negative - 50 Ran/mcL [facility] Clarity, UA Clear [facility] Color, UA Yellow [facility] Glucose, UA Negative Negative - 2000(110) ++++ mg/dL [facility] Interpretation and review of laboratory results Normal [facility] Ketones, UA Negative Negative - 160(16) ++++ mg/dL [facility] Leukocytes, UA Negative Negative - 500+++ Vick/mcL [facility] Nitrite, UA Negative Negative - Positive [facility] pH, UA 5.5 5 - 9 [facility] Protein, UA Negative Negative - 2000(20) ++++ mg/dL [facility] Spec Grav, UA 1.005 1 - 1.03 [facility] Urobilinogen, UA 0.2 0.2 - 12 mg/dL [facility] MM special view RT w/CADon 0 06-04-2024 MM special view RT w/CAD [facility] [address] [place] [address] Mammography Report Signed Patient: Franky Cyr MR#: [id number] : 1970 Acct:[id number] Age/Sex: 54 / F Adm Date: 06/03/24 Loc: IN Room: Type: [facility] Attending Dr: Mikey Davis MD Ordering Provider: Mikey Davis MD Date of Service: 06/03/24 Procedure(s): MM special view RT w/CAD Accession Number(s): ([id number]) MM/MM special view RT w/CAD: R92.9 Copies [...] Stone Betancur M.D.06/04/2024 9:16 AM Dictation Location: [facility] Dictated By: Stone Betancur DO 06/04/24 0913 Signed By: 06/04/24 0916 Normal [facility] ALL LIPID PROFILE (FASTING)o n 05-25-2024 CHOL HDL RATIO 3 [facility] Comment on above: 3.3 - 4.4 LOW RISK 4.4 - 7.1 AVERAGE RISK 7.1 - 11.0 MODERATE RISK >11.0 HIGH RISK Cholesterol [Mass/Vol] 180 mg/dL NINF - 200 mg/dL [facility] Cholesterol in HDL [Mass/Vol] 61 mg/dL High 40 - 60 mg/dL [facility] Comment on above: > or =60 mg/dl - LOW CARDIOVASCULAR RISK <40 mg/dl - HIGH CARDIOVASCULAR RISK Magnesium [Mass/Vol] 112 mg/dL [facility] Comment on above: <100 mg/dl OPTIMAL 100-129 mg/dl NEAR OR ABOVE OPTIMAL 130-159 mg/dl BORDERLINE HIGH 160-189 mg/dl HIGH >190 mg/dl VERY HIGH Magnesium [Mass/Vol] 7.2 mg/dL [facility] Triglyceride [Mass/Vol] 36 mg/dL NINF - 150 mg/dL [facility] ALL THYROID STIM HORMONEon 0 05-25-2024 TSH Qn 2.173 m[IU]/L [facility] CCF CMP (CMP) (FOR REMOTE FH C USE)on 05-25-2024 Albumin [Mass/Vol] 3.6 g/dL 3.4 - 5.0 g/dL [facility] ALBUMIN GLOBULIN RATIO 1.1 [facility] ALP [Catalytic activity/Vol] 61 U/L 46 - 116 U/L [facility] ALT [Catalytic activity/Vol] 12 U/L Low 14 - 59 U/L [facility] Anion gap [Moles/Vol] 12.2 mmol/L [facility] AST [Catalytic activity/Vol] 14 U/L Low 15 - 37 U/L [facility] Bilirubin [Mass/Vol] 0.5 mg/dL 0.2 - 1 .0 mg/dL [facility] Calcium [Mass/Vol] 9.1 mg/dL 8.5 - 10. 1 mg/dL [facility] Chloride [Moles/Vol] 106 mmol/L 98 - 10 7 mmol/L [facility] CO2 [Moles/Vol] 27.3 mmol/L 21.0 - 32.0 mmol/L [facility] Creatinine [Mass/Vol] 0.97 mg/dL 0.55 - 1.02 mg/dL [facility] GFR/1.73 sq M.predicted CKD-EPI (S/P/Bld) [Vol rate/Area] >60 >=60 mL/min/1.73m 2 [facility] Globulin (S) [Mass/Vol] 3.3 g/dL [facility] Glucose [Mass/Vol] 82 mg/dL 74 - 106 mg/dL [facility] Potassium [Moles/Vol] 4.5 mmol/L 3.5 - 5.1 mmol/L [facility] Protein [Mass/Vol] 6.9 g/dL 6.4 - 8.2 g/dL [facility] Sodium [Moles/Vol] 141 mmol/L 136 - 145 mmol/L [facility] TB EGFR-NON AF NAURUAN >60 >=60 mL/min/1.73m 2 [facility] Urea nitrogen [Mass/Vol] 13 mg/dL 7.0 - 18.0 mg/dL [facility] Urea nitrogen/Creatinine [Mass ratio] 13.4 mg/mg [facility] MLR HEMOGLOBIN A1Con 025 Glucose [Mass/Vol] 100 mg/dL [facility] HbA1c (Bld) [Mass fraction] 5.1 % 4.5 - 6.2 % [facility] Comment on above: ADA RECOMMENDED LIMI T 4.0 - 6.0 ADA THERAPEUTIC TARGET < 7.0 ACTION SUGGESTED > 7.0 No Panel Informationon 05-25 Interpretation and review of laboratory results Abnormal [facility] MM TOMOSYNTHESIS SCREENING B Ion 05-20-2024 [place] [address] Mammography Report Signed Patient: FRANKY CYR MR#: [id number] : 1970 Acct:[id number] Age/Sex: 54 / F ADM Date: 05/20/24 Loc: MAMMO Attending Dr: Dipika Farley D.O. Ordering Physician: Dipika Fraley D.O. Results: Date of Service: 05/20/24 Follow Up: Procedure(s): MM tomosynthesis screening BI Accession Number(s): [id number] cc: Dipika Farley D.O.; Mikey Davis M.D. Patient Name: FRANKY CYR MR#: [id number] : 1970 Exam Date: 05/20/2024 Ordering Doctor: [...] breast cancer at age 71. LOCATION: [facility] BREAST COMPOSITION: The breasts are extremely dense, [...] Signed By: 05/20/24 1439 DD/ 38 TD/TT: It Account Manager: [facility] Radiology, Radiologi MD meli - 05/20/2024 [place] [address] Mammography Report Signed Patient: FRANKY CYR MR#: [id number] : 1970 Acct:[id number] Age/Sex: 54 / F ADM Date: 05/20/24 Loc: MAMMO Attending Dr: Dipika Farley D.O. Ordering Physician: Dipika Farley D.O. Results: Date of Service: 05/20/24 Follow Up: Procedure(s): MM tomosynthesis screening BI Accession Number(s): [id number] cc: Dipika Farley D.O.; Mikey Davis M.D. Patient Name: FARNKY CYR MR#: [id number] : 1970 Exam Date: 05/20/2024 Ordering Doctor: [...] breast cancer at age 71. LOCATION: [facility] BREAST COMPOSITION: The breasts are extremely dense, [...] D.O. Signed By: 05/20/241438 DD/ 38 TD/TT: It Account Manager: [facility] Radiology Study observation (narrative) [facility] MM TOMOSYNTHESIS SCREENING B IOrdered By: Radiologist Radiology on 05-20-2024 [facility] Work Phone: Luciano 07-30-2023 L Specimen: [id number] Received: 07/30/23 Status: NYA Moseley Num: [id number] Spec Type: Surgical Subm Dr: Dipika Farley Tissues: A Uterus w/ or w/o tubes ovaries except neoplastic or prolap (CERVIX, KATHY FT Procedures: HE/12, Gross/Micro L5 Age/ Patient Sex Location Account Attending Physician Franky Cyr 53/F LABELL [id number] Dipika Farley SPEC NUM: [id number] RECD: 07/30/23 STATUS: NYA MOSELEY NUM: [id number] AVNI: 07/30/[address]: Dipika Farley ENTERED: 07/30/[address] [facility] [address]: Isabel,Lab SPEC TYPE: Surgical DEPT: KATHLEEN [...] cm in diameter). Each tube contains Specimen: [id number] Received: 07/30/23 Status: NYA Pradip Num: [id number] Spec Type: Surgical Subm Dr: Dipika Farley Tissues: A Uterus w/ or w/o tubes ovaries except neoplastic or prolap (CERVIX, KATHY FT Procedures: HE/12, Gross/Micro L5 Patient: naveenFranky [id number] (Continued) Specimen: [id number] Received: 07/30/23 (Continued) Gross Description (Continued) Signed (signature on file) Nishant Cueto MD 07/31/23 1454 Specimen: [id number] Received: 07/30/23 Status: NYA Moseley Num: [id number] Spec Type: Surgical Subm Dr: Dipika Farley Tissues: A Uterus w/ or w/o tubes ovaries except neoplastic or prolap (CERVIX, KATHY FT Procedures: Neo/Micro L5 Patient: Franky Cyr [id number] (Continued) Specimen: [id number] Received: 07/30/23 (Continued) Gross Description (Continued) a perez-purple smooth serosal surface containing multiple paratubal cysts ranging from 0.1 to 0.3 cm. Sectioning into each tube demonstrates an intact luminal center lined by unremarkable perez mucosa. Water Operator sections submitted as follows: A1: Anterior cervix A2: Posterior cervix A3?A4: Anterior endomyometrium A5?A6: Posterior endomyometrium A7?A8: Nodules A9: Fallopian tube #1 A10: Fallopian tube #2 CPT Codes 50601 Specimen: [id number] Received: 07/30/23 Status: NYA Moseley Num: [id number] Spec Type: Surgical Subm Dr: Dipika Farley Tissues: A Uterus w/ or w/o tubes ovaries except neoplastic or prolap (CERVIX, KATHY FT Procedures: , Gross/Micro L5 Patient: Franky Cyr [id number] (Continued) Signed (signature on file) Nishant Cueto MD 07/31/23 1454 Normal [facility] Physician [facility] Luciano 06-17-2023 L Specimen: [id number] Received: 06/17/23 Status: NYA Moseley Num: [id number] Spec Type: Surgical Subm Dr: Dipika Farley Tissues: A Endometrium - Curettings (EMC) Procedures: HE/, Gross/Micro L4 Age/ Patient Sex Location Account Attending Physician Franky Cyr 53/F LABELL [id number] Dipika Farley SPEC NUM: [id number] RECD: 06/17/23 STATUS: NYA MOSELEY NUM: [id number] AVNI: 06/17/[address]: Dipika Farley ENTERED: [...] perez. D C hysteroscopy, MyoSure TW Specimen: [id number] Received: 06/17/23 Status: NYA Moseley Num: [id number] Spec Type: Surgical Subm Dr: Dipika Farley Tissues: A Endometrium - Curettings (EMC) Procedures: HE/Mickey, Gross/Micro L4 Patient: Franky Cyr [id number] (Continued) Specimen: [id number] Received: 06/17/23 (Continued) Signed (signature on file) Rich Flores MD 06/19/23 1529 Specimen: [id number] Received: 06/17/23 Status: NYA Moseley Num: [id number] Spec Type: Surgical Subm Dr: Dipika Farley Tissues: A Endometrium - Curettings (EMC) Procedures: CORTES/Neo Arevalo/Tammy L4 Patient: Franky Cyr [id number] (Continued) Specimen: [id number] Received: 06/17/23 (Continued) CPT Codes 04208 Specimen: [id number] Received: 06/17/23 Status: NYA Moseley Num: [id number] Spec Type: Surgical Subm Dr: Dipika Farley Tissues: A Endometrium - Curettings (EMC) Procedures: HE/2, Gross/Micro L4 Patient: Franky Cyr [id number] (Continued) Signed (signature on file) Rich Flores MD 06/19/23 1529 Normal [facility] Pathology Noteon 10-31-2022 Pathology Note [id number]#1.00CD :127 Normal [facility] Reminderson 10-30-2022 Reminders - From: Shavon Mcguire LPN To: N - Clinical; Sent: 10/30/2022 11:35:53 EDT Show up: 09/22/2032 07:00:00 EDT Subject: colonoscopy recall Due Date/Time: 10/23/2032 07:00:00 EDT Reminder/Recall Patient due for screening colonoscopy 10/23/2032. Normal [facility] Outside Colonoscopyon 2022 Outside Colonoscopy [id number]#1.00C D:127 Normal [facility] Lab Reportson 10-23-2022 Lab Reports [id number]#1.00C D:127 [facility] Consent for Procedure/Surger yon 10-09-2022 Consent for Procedure/Surgery [id number]#1.00C D:127 Normal [facility] Formson 10-09-2022 Forms [id number]#1.00C D:127 Normal [facility] Ambulatory Visit Summaryon 0 10-08-2022 [...] Vascular insufficiency Very low density lipoprotinemia Normal [facility] Physician Referralon 023 Physician Referral [id number]#1.00C D:127 Normal [facility] US PELVIS AND TRANSVAGon US [...] by: RANDALL LEMONS Date: 2022-06-21 07:02 Normal [facility] PAP ACOG PANEL 2: 30 to 65on 06-17-2022 . . Normal [facility] Comment on above: Result Comment: Perf ormed at: WB Performed By: #### 4 [id number] ####[facility] [address] [place] [address]DrBrianne Flores Age Gdln ACOG Testing 30-65 Normal [facility] Comment on above: Performed By: #### 4 [id number] ####[facility] [address] [place] [address]DrBrianne Flores DIAGNOSIS: Comment Normal [facility] Comment on above: Result Comment: NEGA TIVE FOR INTRAEPITHELIAL LESION OR MALIGNANCY. Performed at: WB Performed By: #### 4 [id number] ####[facility] [address] [place] [address]DrBrianne Flores HPV Aptima Negative Normal Negative [facility] Comment on above: Result Comment: This nucleic acid amplification test detects fourteen high-risk HPV types (16,18,31,33,35,39,45,51,52,56,58,59,66,68) without differentiation. Performed at: =G Performed By: #### 4 [id number] ####[facility] [address] [place], [place] [address]DrBrianne Flores HPV Genotype Reflex Comment Normal [facility] Comment on above: Result Comment: Crit walter not met, HPV Genotype not performed. Performed at: WB Performed By: #### 4 [id number] ####[facility] [address] [place], [place] [address]Dr. Fernando Flores Methodology: Comment Normal [facility] Comment on above: Result Comment: This liquid based ThinPrep(R) pap test was screened with the use of an image guided system. Performed at: WB Performed By: #### 4 [id number] ####[facility] [address] [place], [place] [address]Dr. Fernando Flores Note: Comment Normal [facility] Comment on above: Result Comment: The Pap smear is a screening test designed to aid in the detection of premalignant and malignant conditions of the uterine cervix. It is not a diagnostic procedure and should not be used as the sole means of detecting cervical cancer. Both false-positive and false-negative reports do occur. . Performed at: WB Performed By: #### 4 [id number] ####[facility] [address] [place], [place] [address]DrBrianne Flores Performed by: Comment Normal [facility] Comment on above: Result Comment: Concetta Riggins, Quality Nurse (ASCP) Performed at: WB Performed By: #### 4 [id number] ####[facility] [address] [place], [place] [address]Dr. Fernando Flores Specimen adequacy: Comment Normal [facility] Comment on above: Result Comment: Sati sfactory for evaluation. Endocervical and/or squamous metaplastic cells (endocervical component) are present. Performed at: WB Performed By: #### 4 [id number] ####[facility] [address] [place], [place] [address]Dr. Fernando Flores Covid-19 PCR (CVDTB)on 03-3 0-2023 SARS-CoV-2 (COVID-19) RNA ALISON+probe Ql (Unsp spec) Not detected Normal NOT DETECTED [facility] Comment on above: Result Comment: When diagnostic [...] for this test is supported by the [place] of Health and Human Service's declaration that [...] used). Performed By: #### T 4 #### [facility] [address] [place] [address] Dr. Fernando Flores INFLUENZA A AND B AGon 05-23 INFLUANE SEE BELOW Normal [facility] Comment on above: Result Comment: Nega tive for Flu A protein angiten. Infection due to Flu A cannot be ruled out. Flu A angiten in the sample may be below the detection limit of the test. Performed By: #### S EROTON #### [facility] [address] [place] [address] Dr. Fernando Flores INFLUBNEGH SEE BELOW Normal [facility] Comment on above: Result Comment: Nega tive for Flu B protein antigen. Infection due to Flu B cannot be ruled out. Flu B antigen in the sample may be below the detection limit of the test. Performed By: #### S EROTON #### [facility] [address] [place] [address] Dr. Fernando Flores INFLUENZA A AG Negative Normal NEGATIVE SEE COMMENT [facility] Comment on above: Performed By: #### S EROTON #### [facility] [address] [place] [address] Dr. Fernando Flores INFLUENZA B AG Negative Normal NEGATIVE SEE COMMENT [facility] Comment on above: Performed By: #### S EROTON #### [facility] [address] [place] [address] [address] Fernando Flores MG MAMM SCREEN 3D KATHY CADon 05-17-2022 MG MAMM SCREEN 3D KATHY CAD Patient: FRANKY CYR Exam Date: 05/17/2022 : 1970 Gender:F Ordering : DR DIPIKA FARLEY . Admission #: [id number] Family : Order #: [id number] CLICK HERE TO VIEW EXAM RADIOLOGY REPORT [...] breast cancer at age 71. LOCATION: [facility] BREAST COMPOSITION: Extremely dense, which lowers the [...] M.D. on 05/17/2022 at 11:51 Normal [facility] THYROGLOBULINon 01-26-2022 Thyroglobulin 21 ng/mL Normal [facility] Comment on above: Result Comment: This test [...] ng/mL. Performed By: #### Cathie VIDALES #### [facility] [address] [place], [place] [address] Dr. Fernando Flores ESTRONEon 01-23-2022 Estrone, Serum 29 pg/mL Normal [facility] Comment on above: Result Comment: Rang e Adult (Premenopausal) 27 - 231 Menstrual Cycle (1-10 days) 19 - 149 Menstrual Cycle (11-20 days) 32 - 176 Menstrual Cycle (21-30 days) 37 - 200 Adult (Postmenopausal) 0 - 125 Performed By: #### Bernadette MARTINEZ #### [facility] [address] [place] [address] [address] Fernando Flores REVERSE T3on 01-22-2022 Reverse T3, Serum 14.4 ng/dL Normal 9.2-24.1 [facility] Comment on above: Result Comment: This test was developed and its performance characteristics determined by [employer]. It has not been cleared or approved by the Food and Drug Administration. Performed By: #### Henrik EVRT3 #### [facility] [address] [place] [id number] Fernando Flores TESTOSTERONE, FREE,DIRECT, T OTALon 01-22-2022 Free Testosterone(Direct) 1.9 pg/mL Normal 0.0-4.2 [facility] Comment on above: Result Comment: Perf ormed at: BN Performed By: #### T ESTFRD ####[facility] [address] [place], [place] [address]KcDr. Fernando Flores Testosterone [Mass/Vol] 30 ng/dL Normal 4-50 [facility] Comment on above: Result Comment: Perf ormed at: CB Performed By: #### T ESTFRD ####[facility] [address] [place], [place] [address]AmDr. Fernando Flores [facility]on 12-26 SARS-CoV-2 (COVID-19) RNA ALISON+probe Ql (Unsp spec) Not detected Normal NOT DETECTED [facility] Comment on above: Result Comment: When diagnostic [...] for this test is supported by the [place] of Health and Human Service's declaration that [...] be used). Performed By: #### C VDTBH ####[facility] [address] [place] [address]Dr. Fernando Flores SEROTONINon 01-20-2022 Serotonin, Serum 162 ng/mL Normal 31-207 [facility] Comment on above: Performed By: #### S EROTON #### [facility] [address] [place] [address] Dr. Fernando Flores THYROGLOBULIN ABon 2 Thyroglobulin Antibody <1.0 Normal 0.0-0.9 [facility] Comment on above: Result Comment: Thyr oglobulin Antibody measured by [employer] Methodology Performed By: #### T HYGAB ####[facility] [address] [place] [address]Dr. Fernando Flores VIT D 1 25 DIHYDROXYon 01-19 Calcitriol(1,25 di-OH Vit D) 62.0 pg/mL Normal 24.8-81.5 [facility] Comment on above: Performed By: #### S EROTON #### [facility] [address] [place] [address] Dr. Fernando Flores C-PEPTIDE, SERUMon 2 C-Peptide, Serum 1.8 ng/mL Normal 1.1-4.4 [facility] Comment on above: Result Comment: C-Pe ptide reference interval is for fasting patients. Performed By: #### C PEPT ####[facility] [address] [place], [place] [address]QcDr. Fernando Flores INSULINon 01-18-2022 Insulin 6.7 uIU/mL Normal 2.6-24.9 [facility] Comment on above: Performed By: #### T 4 #### [facility] [address] [place], [place] [address] Dr. Fernando Flores CORTISOLon 01-17-2022 Cortisol 14.2 ug/dL Normal [facility] Comment on above: Result Comment: Floyd isol AM 6.2 - 19.4 Cortisol PM 2.3 - 11.9 Performed By: #### C ORTISO #### [facility] [address] [place] [address] [address] Fernando Flores DHEA-SULFATEon 01-17-2022 DHEA-Sulfate 93.7 ug/dL Normal 41.2-243.7 [facility] Comment on above: Performed By: #### S EROTON #### [facility] [address] [place], [place] [address] Dr. Fernando Flores ESTRADIOLon 01-17-2022 Estradiol 24.6 pg/mL Normal [facility] Comment on above: Result Comment: Adul t Female: Follicular phase 12.5 - 166.0 Ovulation phase 85.8 - 498.0 Luteal phase 43.8 - 211.0 Postmenopausal <6.0 - 54.7 1st trimester 215.0 - >4300.0 Sanjay ECLIA methodology Performed By: #### S EROTON #### [facility] [address] [place], [place] [address] Dr. Fernando Flores PROGESTERONEon 01-17-2022 Progesterone 0.7 ng/mL Normal [facility] Comment on above: Result Comment: Foll icular phase 0.1 - 0.9 Luteal phase 1.8 - 23.9 Ovulation phase 0.1 - 12.0 First trimester 11.0 - 44.3 Second trimester 25.4 - 83.3 Third trimester 58.7 - 214.0 Postmenopausal 0.0 - 0.1 Performed By: #### P JASWINDER #### [facility] [address] [place] [address] [address] Fernando Flores SEX HORMONE-BINDING GLOBULIN on 01-17-2022 Sex Horm Binding Glob, Serum 115.0 nmol/L Normal 17.3-125.0 [facility] Comment on above: Performed By: #### S EROTON #### [facility] [address] [place] [address] [address] Fernando Flores T3, TOTAL (TRIIODOTHYRONINE) on 01-17-2022 T3, TOTAL 120 ng/dL Normal 71-180 [facility] Comment on above: Performed By: #### T 3TOTAL ####[facility] [id number] [address]Dr. Fernando Flores THYROID PEROXIDASE ABon 12-26 Thyroid Peroxidase (TPO) Ab <9 Normal 0-34 [facility] Comment on above: Performed By: #### S EROTON #### [facility] [address] [address] [address] Fernando Flores FREE T3on 01-16-2022 FREE T3 2.86 pg/mlL Normal 2.18-3.98 [facility] Comment on above: Performed By: #### T 4 #### [facility] [address] [address] [address] Fernando Flores FREE T4on 01-16-2022 Free T4 [Mass/Vol] 1.04 ng/dL Normal 0.76-1.[address] [facility] Comment on above: Performed By: #### F T4 ####[facility] [address] [address]Dr. Fernando Flores GLUCOSE BLOODon 01-16-2022 Glucose [Mass/Vol] 90 mg/dL Normal 74-[address] [facility] Comment on above: Performed By: #### S EROTON #### [facility] [address] [address] [address] Fernando Flores GLYCOHEMOGLOBIN A1Con 2021 ADA RECOMMENDATION SEE BELOW Normal [facility] Comment on above: Result Comment: ADA RECOMMENDED LIMIT 4.0 - 6.0 ADA THERAPEUTIC TARGET < 7.0 ACTION SUGGESTED > 7.0 Performed By: #### S EROTON #### [facility] [address] [place] [address] Dr. Fernando Flores Glucose [Mass/Vol] 103 mg/dL Normal [facility] Comment on above: Performed By: #### S EROTON #### [facility] [address] [place] [address] Dr. Fernando Flores HbA1c (Bld) [Mass fraction] 5.2 % Normal 4.5-6.2 [facility] Comment on above: Performed By: #### S EROTON #### [facility] [address] [place] [address] Dr. Fernando Flores T4on 01-16-2022 T4 [Mass/Vol] 7.40 ug/dL Normal 4.80-13.90 [facility] Comment on above: Performed By: #### T 4 #### [facility] [address] [place] [address] Dr. Fernando Flores TSHon 01-16-2022 TSH 1.776 uIU/mL Normal 0.358-3.740 [facility] Comment on above: Performed By: #### S EROTON #### [facility] [address] [place] [address] Dr. Fernando Flores VC CONSULT FOLLOWUPon 2021 VC CONSULT FOLLOWUP Patient: FRANKY CYR Exam Date: 01/14/2022 : 1970 Gender:F Ordering : DR JAYDEN HENDERSON M.D. Admission #: [id number] Family : Order #: [id number] CLICK HERE TO VIEW EXAM RADIOLOGY REPORT [...] Henderson MD on 01/14/2022 at 16:01 Normal [facility] VC EXT VENOUS RT LIMITEDon 1 03-16-2021 VC EXT VENOUS RT LIMITED Patient: FRANKY CYR Exam Date: 01/14/2022 : 1970 Gender:F Ordering : DR JAYDEN HENDERSON M.D. Admission #: [id number] Family : Order #: [id number] CLICK HERE TO VIEW EXAM RADIOLOGY REPORT [...] Henderson MD on 01/14/2022 at 16:04 Normal [facility] VC CONSULT FOLLOWUPon 2021 VC CONSULT FOLLOWUP Patient: FRANKY CYR Exam Date: 12/27/2021 : 1970 Gender:F Ordering : DR JAYDEN HENDERSON M.D. Admission #: [id number] Family : Order #: [id number] CLICK HERE [...] Henderson MD on 12/27/2021 at 15:30 Normal [facility] VC EXT VENOUS RT LIMITEDon 1 02-26-2021 VC EXT VENOUS RT LIMITED Patient: FRANKY CYR Exam Date: 12/27/2021 : 1970 Gender:F Ordering : DR JAYDEN HENDERSON M.D. Admission #: [id number] Family : Order #: [id number] CLICK HERE TO VIEW EXAM RADIOLOGY REPORT [...] Henderson MD on 12/27/2021 at 15:17 Normal [facility] VC INJ FOAM SCLERO W US MLTI on 12-21-2021 VC INJ FOAM SCLERO W US MLTI Patient: FRANKY CYR Exam Date: 12/21/2021 : 1970 Gender:F Ordering : DR JAYDEN HENDERSON M.D. Admission #: [id number] Family : Order #: [id number] CLICK HERE TO VIEW EXAM RADIOLOGY REPORT [...] weeks, (more content not included)... Normal [facility] VC CONSULT FOLLOWUPon 2021 VC CONSULT FOLLOWUP Patient: FRANKY CYR Exam Date: 12/13/2021 : 1970 Gender:F Ordering : DR JAYDEN HENDERSON M.D. Admission #: [id number] Family : Order #: [id number] CLICK HERE TO VIEW EXAM RADIOLOGY REPORT [...] Jayden Henderson MD on 12/13/2021 at 08:24 [facility] VC EXT VENOUS LT LIMITEDon 1 VC EXT VENOUS LT LIMITED Patient: FRANKY CYR. Exam Date: 12/13/2021 : 1970 Gender:F Ordering : DR JAYDEN HENDERSON M.D. Admission #: [id number] Family : Order #: [id number] CLICK HERE TO VIEW EXAM RADIOLOGY REPORT [...] Henderson MD on 12/13/2021 at 08:16 Normal [facility] VC ENDOVENOUS ABL 1ST V LTon 12-07-2021 VC ENDOVENOUS ABL 1ST V LT Patient: ANDRZEJGoldVETO FRANKY AlvaradoBrianne Exam Date: 12/07/2021 : 1970 Gender:F Ordering : DR JADYEN HENDERSON M.D. Admission #: [id number] Family : Order #: [id number] CLICK HERE TO VIEW EXAM CORRECTION: Changed [...] Henderson MD on 12/07/2021 at 10:27 Normal [facility] VC CONSULT FOLLOWUPon 2021 VC CONSULT FOLLOWUP Patient: FRANKY CYR Exam Date: 11/29/2021 : 1970 Gender:F Ordering : DR JAYDEN HENDERSON M.D. Admission #: [id number] Family : Order #: [id number] CLICK HERE TO VIEW EXAM RADIOLOGY REPORT [...] Henderson MD on 11/29/2021 at 09:01 Normal [facility] VC EXT VENOUS RT LIMITEDon 1 VC EXT VENOUS RT LIMITED Patient: FRANKY CYR Exam Date: 11/29/2021 : 1970 Gender:F Ordering : DR JAYDEN HENDERSON M.D. Admission #: [id number] Family : Order #: [id number] CLICK HERE TO VIEW EXAM RADIOLOGY REPORT [...] Henderson MD on 11/29/2021 at 08:44 Normal [facility] VC ENDOVENOUS ABL 1ST V RTon 11-22-2021 VC ENDOVENOUS ABL 1ST V RT Patient: FRANKY CYR Exam Date: 11/22/2021 : 1970 Gender:F Ordering : DR JAYDEN HENDERSON M.D. Admission #: [id number] Family : Order #: [id number] CLICK HERE TO VIEW EXAM RADIOLOGY REPORT [...] M.D. on 11/22/2021 at 14:45 Normal [facility] CRPon 09-20-2021 CRP [Mass/Vol] mg/L Normal <=1.0 [facility] Comment on above: Performed By: #### S EROTON #### [facility] [address] [place], [place] [address] Dr. Fernando Flores SED RATE [facility] 2021 SED RATE 5 mm/hr Normal <=30 [facility] Comment on above: Performed By: #### S EDR ####[facility] [address] [place], [place] [address]FkDr. Fernando Flores US PELVIS AND TRANSVAGon US [...] by: RANDALL LEMONS Date: 2021-09-11 14:02 Normal [facility] CTA ABD JAKE WWO CON LE [...] RANDALL LEMONS Date: 2021-08-10 11:03 Normal [facility] VC COMP CONSULTATIONon 07-31 VC COMP CONSULTATION Patient: FRANKY CYR Exam Date: 07/31/2021 : 1970 Gender:F Ordering : DR JAYDEN HENDERSON M.D. Admission #: [id number] Family : Order #: [id number] CLICK HERE TO VIEW EXAM RADIOLOGY REPORT [...] sa (more content not included)... Normal [facility] VC VENOUS REFLUX KATHY LMTon 0 07-31-2021 VC VENOUS REFLUX KATHY LMT Patient: FRANKY CYR Exam Date: 07/31/2021 : 1970 Gender:F Ordering : DR JAYDEN HENDERSON M.D. Admission #: [id number] Family : Order #: [id number] CLICK HERE TO VIEW EXAM RADIOLOGY REPORT [...] the GSV and connects to the incompetent patient support specialist. Incompetent patent varicose vein extends from the [...] or chronic thrombus Compressibility: Normal Flow: Normal [employer]: Mid medial thigh measures 3.2 mm with [...] Henderson MD on 07/31/2021 at 11:39 Normal [facility] XR LSPINE MIN 4 VIEWSon 06-24 [...] by: RANDALL LEMONS Date: 2021-07-03 13:34 Normal [facility] Vital Signs Date Time Vital Sign Value Performing Clinician Facility 06-08-2024 13:16-0400 Body mass index (BMI) [Ratio] 21.97 kg/m2 Dipika Martine DO Work Phone: [facility] 06-08-2024 13:16-0400 Body weight 58.06 kg Dipika Martine DO Work Phone: [facility] 06-08-2024 13:16-0400 Diastolic blood pressure 72 mm[Hg] Dipika Martine DO Work Phone: [facility] 06-08-2024 13:16-0400 Systolic blood pressure 118 mm[Hg] Dipika Martine DO Work Phone: [facility] 10-08-2022 15:23-0400 Blood Pressure Location Leon BARTONL [facility] [place] 10-08-2022 15:23-0400 Diastolic blood pressure 78 mm[Hg] Leon BARTONL [facility] [place] 10-08-2022 15:23-0400 Heart rate 70 /min Leon NILL [facility] [place] 10-08-2022 15:23-0400 Respiratory rate 16 /min Leon BARTONL [facility] [place] 10-08-2022 15:23-0400 Systolic blood pressure 116 mm[Hg] Leon BARTONL [facility] [place] Encounters Encounter Date Encounter Type Care Provider Facility Start: 06-08-2024 End: 06-08-2024 Bamboo flowsheet Dipika Martine DO Work Phone: [facility] Start: 06-08-2024 End: 06-11-2024 Bamboo flowsheet Dipika Martine DO Work Phone: [facility] Start: 06-08-2024 End: 06-11-2024 Clinisync Result Encounter Dipika Martine DO Work Phone: [facility] External Department Unsolicited Start: 06-08-2024 End: [...] encounter procedure Mikey Davis MD Work Phone: [facility] Work Phone: Start: 06-03-2024 End: 06-03-2024 ambulatory Mikey Davis MD Work Phone: [facility] Work Phone: Start: 05-25-2024 [...] Start: 07-30-2023 End: 07-30-2023 ambulatory Dipika Lasto [facility] Work Phone: Start: 07-30-2023 End: 07-30-2023 Departed Referred Dipika Farley Work Phone: [facility] [place] [facility] Start: 07-02-2023 End: 07-02-2023 ambulatory DIPIKAArthur LASTO Not Available Start: 06-17-2023 End: 06-17-2023 ambulatory Dipika Lasto [facility] Work Phone: Start: 06-17-2023 End: 06-17-2023 Departed Referred Dipika Farley Work Phone: [facility] [place] [facility] Start: 06-11-2023 End: 06-11-2023 ambulatory DIPIKA LASTO Not Available Start: 10-23-2022 End: 10-24-2022 ambulatory Leon WHYTE Facility:CD:[id number] Start: 10-08-2022 End: 10-09-2022 ambulatory Leon [...] 05-25-2024 [facility] CMP (CMP) (FOR R EMOTE [facility] USE) Mikey Davis MD Work Phone: Start: [...] Screening for malignant neoplasm of breast Mammogram [facility] Start: 05-20-2025 Screening for malignant neoplasm of breast Mammogram [facility] Start: 06-08-2024 End: 06-08-2025 DXA Skeletal system Views for bone density DEXA bone density Imaging Routine Osteoporosis, post-menopausal ([facility]/HCC) Expected: 06/08/2024 (Approximate), Expires: 06/08/2025 [facility] Work Phone: Comment on above: Expected: 06/08/2024 (Approximate), Expires: 06/08/2025 Start: 06-08-2024 End: 06-08-2024 Patient encounter procedure 06/08/2024 1:00 PM EDT Office Visit [facility] [address] [place] [address] Dipika Farley, DO [address] [place] [address] Arrived [facility] Comment on above: Arrived Start: 06-03-2024 Mammography of right breast MM special view RT w/CAD [place] Start: 06-03-2024 MG Breast - right Single view [place] Start: 06-01-2024 End: 06-01-2024 Patient encounter procedure 06/01/2024 1:10 PM EDT Office Visit [facility] OB [address] [place] [phone] Dipika Farley, DO [address] [facility] [address] [place] [address] [facility] Start: 05-21-2024 End: 07-21-2025 MG Breast - right Diagnostic Right diagnostic mammogram Imaging Routine Abnormal mammogram of right breast Expected: 05/21/2024, Expires: 07/21/2025 [facility] Work Phone: Comment on above: Expected: 05/21/2024 , Expires: 07/21/2025 Start: 05-21-2024 End: 07-21-2025 US Breast - right limited Right breast US limited Imaging Routine Abnormal mammogram of right breast Expected: 05/21/2024, Expires: 07/21/2025 [facility] Comment on above: Expected: 05/21/2024 , Expires: 07/21/2025 Start: 05-19-2024 Screening for malignant neoplasm of breast Mammogram [facility] Start: 1970 Screening for malignant neoplasm of colon [facility] THIN PREP TIS PAP AN D HR HPV DNA THIN PREP TIS PAP AND HR HPV DNA Pathology and Cytology Routine Well woman exam with routine gynecological exam Ordered: 06/08/2024 [facility] Comment on above: Ordered: 06/08/2024 Immunizations Immunization Date Immunization Notes Care Provider Fa cility 12-15-2020 SARS-CoV-2 (COVID-19 ) mRNA-1273 vaccine Leon WHYTE [facility] [place] 03-22-2020 SARS-CoV-2 (COVID-19 ) mRNA-1273 vaccine Leon WHYTE [facility] [place] 02-22-2020 SARS-CoV-2 (COVID-19 ) [id number] vaccine Leon WHYTE [facility] [place] Payers Date Payer Category Payer Self-pay 2022 [facility] BCBS [id number] 2022 Unknown [id number] 2019 Unknown [id number] 1970 Unknown [id number] 2.16.840.1.543256.3.579.2. 593 1970 Unknown [id number] 2.16.840.1.690064.3.579.2. 593 1971 Unknown [id number] 2.16.840.1.730893.3.579.2. 593 1971 Unknown [id number] 2.16.840.1.895412.3.579.2. 593 1971 Unknown [id number] 2.16.840.1.442930.3.579.2. 593 1971 Unknown [id number] 2.16.840.1.018926.3.579.2. 593 1971 Unknown [id number] 2.16.840.1.705587.3.579.2. 593 1971 Unknown [id number] 2.16.840.1.077135.3.579.2. 593 1971 Unknown [id number] 2.16.840.1.908123.3.579.2. 593 1971 Unknown [id number] 2.16.840.1.881133.3.579.2. 593 1971 Unknown [id number] 2.16.840.1.469648.3.579.2. 593 1971 Unknown [id number] 2.16.840.1.188586.3.579.2. 593 1971 Unknown [id number] 2.16.840.1.501502.3.579.2. 593 1971 Unknown [id number] 2.16.840.1.326193.3.579.2. 593 1971 Unknown [id number] 2.16.840.1.089419.3.579.2. 593 1971 Unknown [id number] 2.16.840.1.134584.3.579.2. 593 1971 Unknown [id number] 2.16.840.1.139579.3.579.2. 593 1971 Unknown [id number] 2.16.840.1.279005.3.579.2. 593 1971 Unknown [id number] 2.16.840.1.906523.3.579.2. 593 1971 Unknown [id number] 2.16.840.1.002032.3.579.2. 593 1971 Unknown [id number] 2.16.840.1.256328.3.579.2. 593 1971 Unknown [id number] 2.16.840.1.083350.3.579.2. 593 1971 Unknown [id number] 2.16.840.1.371760.3.579.2. 593 1971 Unknown [id number] 2.16.840.1.797124.3.579.2. 593 1971 Unknown [id number] 2.16.840.1.649729.3.579.2. 727 1971 Unknown [id number] 2.16.840.1.373292.3.579.2. 727 1971 Unknown [id number] 2.16.840.1.304022.3.579.2. 9 1971 Unknown [id number] 2.16.840.1.888604.3.579.2. 1259 1971 Unknown [id number] 2.16.840.1.155005.3.579.2. 1259 1971 Unknown [id number] 2.16.840.1.214306.3.579.2. 1259 1971 Unknown [id number] 2.16.840.1.642706.3.579.2. 1259 1958 Self-pay [id number] Unknown [id number] 2.16.840.1.420973.3.579.2. 531 Social History Date Type Detail Facility Start: 10-08-2022 End: 09-10-2023 Tobacco smoking status Never smoked tobacco (finding) [facility] Tobacco smoking status Never [facility] Start: 09-10-2023 Sex Assigned At Female [facility] Start: 1970 Sex Assigned At Female F [facility] Start: 09-10-2023 Tobacco use and exposure Smokeless tobacco non-user [facility] Start: 09-10-2023 End: 06-08-2024 Alcoholic beverage intake Lifetime non-drinker (finding) [facility] Start: 09-10-2023 History of Social function [facility] Start: 1970 Sex assigned at Not on file [facility] Tobacco smoking stat [facility] Unknown if ever smoked [facility] Work Phone: Start: 06-04-2024 Sex Female (finding) [facility] Functional Status Date Assessment Result Facility 10-08-2022 Functional Status N/A [facility] [place] History of Present illness Narrative 06-08-2024 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 Exam conducted with a strip catcher present. Vitals: Estimated body mass index is [...] Dipika Farley DO documented in this encounter [facility] Clinical Note 10-08-2022 Note Date & Type [...] Recorded SARS-CoV-2 (COVID-19) mRNA-1273 vaccine 02/22/2020 Recorded [facility] Comment on above: Result Comment: [...] by: JAYDEN HENDERSON Date: 2021-09-04 16:23 [facility] Evaluation + Plan note Note Date & Type Note Facility Evaluation + Plan note No data available for this section [facility] [place] Evaluation note Note Date & Type Note Facility Evaluation note No assessment information availa [facility] Work Phone: Evaluation note Note Date & Type Note Facility Evaluation note Diagnosis Abnormal mammogram of right breast- Primary documented in this encounter [facility] Evaluation note Note Date & Type Note Facility Evaluation note Diagnosis Well woman exam with routine gynecological exam Routine gynecological examination Osteoporosis, post-menopausal (CMS/HCC) Senile osteoporosis H/O: hysterectomy Acquired absence of both cervix and uterus documented in this encounter [facility] Hospital Discharge instructions Note Date & Type Note Facility Hospital Discharge instructions No data available for this section [facility] [place] Progress note Note Date & Type Note Facility Progress note No data available for this section [facility] [place] Summary Purpose Family History No Family History [...] and content) DATE CREATED AUTHOR 06/24/2022 [facility] DATE CREATED AUTHOR AUTHOR'S ORGANIZ ATION 11/01/2022 [facility] DATE CREATED AUTHOR AUTHOR'S ORGANIZ ATION 06/08/2024 [facility] DATE CREATED AUTHOR AUTHOR'S ORGANIZ ATION 06/10/2024 [facility] EPIC Patient Care team informatio n (unrecognized section and content) Team Status: Inactive Member Role Status Dates Dipika Farley Attending Provider Active Start: Shine 2023 End: June 17, 2023 Team Status: Inactive Member Role Status Dates Dipika Farley Attending Provider Active Start: 2023 End: July 30, 2023 Drug Safety Data Management Specialist Relationship Specialty Start Date End Date Mikey Davis MD [address] [place] [phone] PCP - General Family Medicine 06/11/23 Drug Safety Data Management Specialist Relationship Specialty Start Date End Date Mikey Davis MD [address] [place] [phone] PCP - General Family Medicine 06/11/23 Team Status: Active Member Role Status Dates Mikey Davis MD Primary Care Provider Active Team Status: Inactive Member Role Status Dates Mikey Davis MD Primary Care Provide r, Attending Provider Active Start: June 03, 2024 End: June 03, 2024 Drug Safety Data Management Specialist Relationship Specialty Start Date End Date Mikey Davis MD [address] [place] [phone] PCP - General Family Medicine 06/11/23 Drug Safety Data Management Specialist Relationship Specialty Start Date End Date Mikey Davis MD [address] [place] [phone] PCP - General Family Medicine 06/11/23 Goals [...] BE BASED ON THE PRIMARY CLINICAL RECORDS. [facility]. provides no warranty or guarantee of the accuracy or completeness of information in this document.
[2024-11-19 07:32] LABS: Cholesterol 200 mg/dL (<=200); HDL Cholesterol 67 mg/dL (40-60); Triglycerides 35 mg/dL (<=150); VLDL CHOLESTEROL 7.0 mg/dL
[2024-11-20 04:07] LABS: FSH 109.0 mIU/mL (.)
== END 2024-11-19 06:47 | disposition home or self-care (01) ==
LOC: LAB 06:48
PROVIDERS: PCP Family Medicine; Visit Provider Family Medicine
DX: I10 Essential (primary) hypertension (principal)
CPT/HCPCS: 36415; 80061; 82670; 83001; 83002; 83036; 84144; 84146

== ENCOUNTER 2024-11-24 06:47 | Outpatient (OUT) | payer BC, SELFPAY ==
--- OUTSIDE RECORDS SUMMARY | 2024-06-08 12:44 | XMS_ITS ---
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 Tester Name Role Phone DIPIKA JONES Attending Unavailable Mikey Subramanian Attending Unavailable Mikey Subramanian Primary Care Unavailable Mikey Subramanian Admitting Unavailable PROBLEMS DATE TYPE CONDITION / CODE ATTENDING STATUS MIRA RCE 06/03/2024 Unknown Other abnormal a nd inconclusive findings on diagnostic imaging of breast / R92.8(ICD-10) Mikey Subramanian [facility] PROCEDURES No Procedure Records Found RESULTS MM SPECIAL VIEW RT W/CAD Observed: 06/04 9:13 AM Status: COMPLETED Source: [facility] [address] [place], [place] [id number] Mammography Report Signed Patient: Franky Cyr MR#: [id number] : 1970 Acct:[id number] Age/Sex: 54 / F Adm Date: 06/03/24 Loc: ID Room: Type: [facility] Attending Dr: Mikey Subramanian MD Ordering Provider: Mikey Subramanian MD Date of Service: 06/03/24 Procedure(s): MM special view RT w/CAD Accession Number(s): ([id number]) MM/MM special view RT w/CAD: R92.9 Copies to: Mikey Subramanian MD RIGHT Diagnostic Full Field digital mammogram with 3-D imaging. Magnification views with mediolateral view COMPARISON: 05/20/2024 HISTORY: Annual screening BREAST COMPOSITION: Scattered fibroglandular densities of the breast parenchyma identified BREAST CALCIFICATIONS: Grouping of calcifications redemonstrated. These have a benign appearance. May represent milk of calcium. VASCULAR CALCIFICATIONS: None ARCHITECTURAL DISTORTION: None BREAST NODULE: None AXILLARY LYMPH NODES: Normal POSTSURGICAL CHANGES: None MM/MM special view RT w/CAD IMPRESSION: Redemonstration of grouping of microcalcifications with probably benign appearance. Six- month follow-up mammogram recommended. RESULT CODE: 3 Probably Benign Finding Short Term Follow-Up DENSITY CODE: 2 (approximately 25-50% glandular) There are scattered areas of fibroglandular density. FOLLOW UP: 6M THE FALSE-NEGATIVE RATE OF MAMMOGRAPHY IS APPROXIMATELY 10%. IMAGING OF A PALPABLE ABNORMALITY MUST BE BASED ON CLINICAL GROUNDS. PATIENT WAS ENTERED INTO A REMINDER SYSTEM WITH A T[employer] DUE DATE FOR THE NEXT MAMMOGRAM. Impression dictated by: Stone Betancur M.D.06/04/2024 9:16 AM Dictation Location: [facility] Dictated By: Stone Betancur DO 06/04/24 0913 Signed By: <Electronically signed by Stone Betancur DO in OV> 06/04/24 0916 ALLERGIES No Allergies Records Found ENCOUNTERS ADMIT/DISCHARGE ACCOUNT NUMBER ADMITTING ENCOUNTER CLASS LOCATION SOURCE 06/08/2024/06/09/19 [id number] Ambulatory Building:[facility] EPIC 06/03/2024/06/04/19 [id number] [facility] PAYERS ENCOUNTER GUARANTOR PAYER SUBSCRIBER SOURCE 06/08/2024 FRANKY BURDENB: [place], [place] [address]Gem: (HP) Primary Insurance:BCBSPoli cy Number: [id number] aaron Date:2022-02-24 FRANKY BURDENB: [id number] [place] [address] [facility] EPIC 06/03/2024 Franky [address] [place] [address]Avq: (HP) Primary Insurance:[place] BC/BSPolicy Number: [id number] aaron Date:2024-05-25 Franky BurdenB: [id number] [facility] [place] [address]Wsg: () [facility] 06/03/2024 Secondary Insurance:Self PayPolicy Number: Effective Date:2024-05-28 NOT GIVENUNK [facility]
--- NOTE | 2024-11-24 06:51 | US_ITS ---
The [address] [address] Patient Name: FRANKY CYR MRN: [id number] date: 1970 Sex: F Assigned Patient Location: Current Patient Location: Accession/Order Number: [id number] Exam Date: 11/24/2024 06:52 Report Date: 12/01/2024 15:33 At the request of: HUMBLE GLASS MD Procedure: US renal doppler Renal ultrasound with Doppler examination. Reason for exam: Hypertension. COMPARISON: None. TECHNIQUE: Grayscale, color Doppler and spectral Doppler analysis of the kidneys were obtained. FINDINGS: The right kidney measures 10.9 cm. The left kidney measures 10.4 cm. No evidence of hydronephrosis or shadowing stone. A presumed small angiomyolipoma is seen involving the inferior pole of the right kidney measuring 4 mm. Imaging of the urinary bladder demonstrates a bladder volume of 124 mL. No focal mass or shadowing stone. Left kidney Doppler: Normal Doppler waveforms are identified without parvus tardus. Normal systolic velocities are present largest measuring 123 cm/s. Renal vein is patent. Left kidney RAR: 1.3. Right kidney Doppler: Normal Doppler flow waveforms are identified without parvus tardus. Normal systolic velocities largest measuring 118 cm/s. Renal vein is patent. Right kidney RAR: 1.3. 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 No acute findings are seen involving the kidneys. No ultrasound evidence of renal artery stenosis. Impression dictated by: Merritt Grace Jr., D.OBrianne 12/01/2024 3:33 PM Dictation Location: [place] [address] Electronically authenticated by: [id number] Y Date: 12/01/2024 15:33
== END 2024-11-24 06:48 | disposition home or self-care (01) ==
LOC: US 06:48
PROVIDERS: PCP Family Medicine; Visit Provider Family Medicine
DX: M81.0 Age-related osteoporosis without current pathological fracture (principal); I10 Essential (primary) hypertension; R92.8 Other abnormal and inconclusive findings on diagnostic imaging of breast; R92.321 Mammographic fibroglandular density, right breast
CPT/HCPCS: 76775; 77080; 93975

== ENCOUNTER 2024-11-24 07:01 | Outpatient (OUT) | payer BC, SELFPAY ==
--- OUTSIDE RECORDS SUMMARY | 2024-11-17 12:00 | XMS_ITS ---
Author Organization [facility] in [place] Address [address] [place] [address] Care Team Providers Care Lighting Technician Name Role Phone Hu Sullivan Primary Care Provider [phone] REASON FOR VIS[address] per [address] Nate FONTANA PATIENT Encounters Encounter Location Date Provider Diagnosis [facility] [address] [facility] [place] [address] 11/17/2024 Hu Sullivan Plan Of Treatment No Information Progress Notes * Charlene CYROB:1969 (54 yo F)Acc No.[id number]:11/17/2024 UNLOCKED PROGRESS NOTE Progress Note Patient: Augusta WILKINSON Provider: Macy Sullivan MD (TTC) :1970 A ge:54 Y S ex:Female Date:11/17/2024 Address:[address] [place], [place] [id number] Subjective: * Chief Complaints: * [address] Nate FONTANA PATIENT. * Medical History: Objective: * Vitals: Assessment: Plan: * Treatment: * * Electronic signature of Hu Sullivan MD, [id number] on 11/24/2024 at 07:05 AM EDT Sign off status: Pending Visit Status: C ANCPHONE (Cancelled Phone) * Provider: Macy Sullivan MD (TTC) Date: 0 11/17/2024 Generated for Printi ng/Faxing/eTransmitting on: 1 07:05 AM EDT
--- OUTSIDE RECORDS SUMMARY | 2024-11-18 05:16 | XMS_ITS ---
Author Organization The [facility] in [place] Address [address] [place] [address] Care Team Providers Care Stave Cutting Supervisor Name Role Phone Nate Hu Primary Care Provider REASON FOR VISIT US orders Encounters Encounter Location Date Provider Diagnosis [facility] [address] [facility] [place] [address] 11/18/2024 Hu Nate Hypertension I10 Assessments Encounter Date Diagnosis (ICD Code) Assessment Notes Treatment Notes Treatment Clinical Notes Section Notes 11/18/2024 Hypertension (ICD-10 - I10) Plan Of Treatment Pending Test Test Name Order Date US Renal Arterial Duplex 11/18/2024 US KIDNEYS 11/18/2024 Progress Notes * Charlene CYROB:1969 (54 yo F)Acc No.[id number]:11/18/2024 Patient: Henrik Augusta WHITEHEAD :1970 A ge:54 Y S ex:Female Address:[address] [place] [address] [place], [address] Subjective: * Chief Complaints: * U S orders * Medical History: * Surgical History: * Hospitalization/Major Diagno stic Procedure: * Medications: Objective: * Vitals: * Physical Examination: Assessment: * Assessment: 1. H ypertension - I10 (Primary) Plan: * Treatment: * Procedure Codes: * true * Date: Generated for Printi ng/Faxing/eTransmitting on: 1 07:05 AM EDT
--- OUTSIDE RECORDS SUMMARY | 2024-11-24 07:05 | XMS_ITS | Encounter Summary ---
Author Organization [facility] Address [address] [place] [address] Care Team Providers Care Search Engine Optimization Strategist Name Role Phone Mikey Subramanian MD Primary Care Provider [phone] Encounter Details Date Type Department Care Team (Late st Contact Info) Description 06/16/2023 Orders Only [facility] [address] [place] [address] Mikey Subramanian MD [address] [place] [address] Social History Tobacco Use Types Packs/Day Years [...] on filedocumented in this encounter Care Teams Search Engine Optimization Strategist Relationship Specialty Start Date End Date Mikey Subramanian MD PCP - General Family Medicine 06/11/23 documented as of this encounter
--- OUTSIDE RECORDS SUMMARY | 2024-11-24 07:05 | XMS_ITS | Encounter Summary ---
Author Organization [facility] Address [address] [facility] [place] [address] Care Team Providers Care Insulation Board Back Tender Name Role Phone Mikey Subramanian MD Primary Care Provider [phone] Encounter Details Date Type Department Care Team (Late st Contact Info) Description 06/20/2023 Abstract [facility] [address] [place] [address] Christiane Garcse LPN [address] [place] [id number] Social History Tobacco Use Types Packs/Day Years [...] on filedocumented in this encounter Care Teams Insulation Board Back Tender Relationship Specialty Start Date End Date Mikey Subramanian MD PCP - General Family Medicine 06/11/23 documented as of this encounter
--- OUTSIDE RECORDS SUMMARY | 2024-11-24 07:05 | XMS_ITS | Encounter Summary ---
Author Organization [facility] Address [address] [place] [address] Care Team Providers Care Dairy Inspector Name Role Phone Karo Davis MD Primary Care Provider [phone] Encounter Details Date Type Department Care Team (Late st Contact Info) Description 06/13/2023 Clinisync Result Encounter [facility] External Department Unsolicited Praveen Farley, DO [address] [facility] [address] [place] [id number] Social History Tobacco Use Types Packs/Day Years [...] Procedure Name Priority Date/Time Associated Diagnosis Comments ECG 12-LEAD 06/13/2023 3:06 PM EDT documented in this encounter Results * ECG 12-LEAD (06/13/2023 3:06 PM EDT) Anatomical Region Laterality Modality Other 06/13/2023 3:06 PM EDT Narrative 06/13/2023 5:53 PM EDT [facility] [address] [place] [address] Electrocardiograph Report Signed Patient: FRANKY CYR MR#: [id number] : 1970 Acct:[id number] Age/Sex: 53 / F ADM Date: 06/13/23 Loc: PST Attending Dr: Praveen Farley D.O. Ordering Physician: Praveen Farley D.O. Date of Service: 06/13/23 Procedure(s): ECG 12 lead Accession Number(s): [id number] cc: [facility] Test Date: 2023-06-13 Pat Name: FRANKY CYR Department: Room: - Gender: Female Packer Fuser: : 1970 Requested By: KARO DAVIS Order Number: [id number] Reading MD: DONOVAN RICO Measurements Intervals Rosenberg Rate: 49 P: 59 NV: 145 QRS: 9 QRSD: 88 T: 52 QT: 444 QTc: 403 Interpretive Statements SINUS BRADYCARDIA POSSIBLE RIGHT VENTRICULAR CONDUCTION DELAY [RSR (QR) IN V1/V2] No previous ECG available for comparison Electronically Signed On 06-13-2023 17:53:03 EDT by DONOVAN RICO Dictated By: Donovan Rico D.O. Signed By: 06/13/23 1753 DD/ 1506 TD/TT: Head Loader: Procedure Note Radiology, Radiologist, MD - 06/13/2023 [place] [address] Electrocardiograph Report Signed Patient: FRANKY CYR R#: [id number] : 1970Acct:[id number] Age/Sex: 53 / FADM Date: 06/13/23 Loc: [facility] Attending Dr: Praveen Farley D.O. Ordering Physician: Praveen Farley D.O. Date of Service: 06/13/23 Procedure(s): ECG 12 lead Accession Number(s): [id number] cc: [facility] Test Date: 2023-06-13 Pat Name: FRANKY CYR Department: Room: - Gender: Female Packer Fuser: : 1970 Requested By: KARO DAVIS Order Number: [id number] Reading MD: DONOVAN RICO Measurements Intervals Rosenberg Rate: 49 P: 59 NV: 145 QRS: 9 QRSD: 88 T: 52 QT: 444 QTc: 403 Interpretive Statements SINUS BRADYCARDIA POSSIBLE RIGHT VENTRICULAR CONDUCTION DELAY [RSR (QR) IN V1/V2] No previous ECG available for comparison Electronically Signed On 06-13-2023 17:53:03 EDT by DONOVAN RICO Dictated By: Donovan Rico D.O. Signed By:06/13/23 7942 DD/ 1506 TD/TT: Head Loader: us Praveen Martine DO [facility] Final Result documented in this encounter Visit Diagnoses Not on filedocumented in this encounter Care Teams Dairy Inspector Relationship Specialty Start Date End Date Karo Davis MD PCP - General Family Medicine 06/11/23 documented as of this encounter
--- OUTSIDE RECORDS SUMMARY | 2024-11-24 07:06 | XMS_ITS | Encounter Summary ---
Author Organization Not iT Sys tem Address [facility]-[id number] [address] [place] [address] Care Team Providers Care Design Director Name Role Phone Mikey Subramanian MD Primary Care Provider Encounter Details Date Type Department Care Team (Late st Contact Info) Description 08/14/2021 Orders Only [facility] [address] [place] [address] Ref Prov, [place] [address] Social History Tobacco Use Types Packs/Day Years [...] on filedocumented in this encounter Care Teams Design Director Relationship Specialty Start Date End Date Mikey Subramanian MD PCP - General Family Medicine 10/12/21 documented as of this encounter
--- OUTSIDE RECORDS SUMMARY | 2024-11-24 07:06 | XMS_ITS | Encounter Summary ---
Author Organization [facility] Address [address] [place] [address] Care Team Providers Care Hydrate Thickener Operator Name Role Phone Mikey Subramanian MD Primary Care Provider [phone] Encounter Details Date Type Department Care Team (Late st Contact Info) Description 05/20/2023 Clinisync Result Encounter [facility] External Department Unsolicited Dipika Farley, DO [address] [facility] [place] [address] Social History Tobacco Use Types Packs/Day Years [...] EDT Narrative 05/20/2023 4:12 PM EDT The [address] [address] Ultrasound Report Signed Patient: FRANKY CYR MR#: [id number] : 1970 Acct:[id number] Age/Sex: 53 / F ADM Date: 05/20/23 Loc: US Attending Dr: Dipika Farley D.O. Ordering Physician: Dipika Farley D.O. Date of Service: 05/20/23 Procedure(s): US pelvis w/ transvaginal Accession Number(s): [id number] cc: Dipika Farley D.O.; Mikey Subramanian M.D. The [place] [id number] Patient Name: FRANKY CYR MRN: [facility]:[id number] date: 1970 Sex: F Assigned Patient Location: US Current Patient Location: MAMMO Accession/Order Number: [id number] Exam Date: 05/20/2023 14:00 Report Date: 05/20/2023 [...] By: Jayden Henderson M.D. Signed By: 05/20/23 1615 DD/ 1609 TD/TT: Drum Sander Setter: Procedure Note Radiology, Radiologist, - 05/20/2023 [place] [address] Ultrasound Report Signed Patient: FRANKY CYR JMR#: [id number] : 1970Acct:[id number] Age/Sex: 53 / FADM Date: 05/20/23 Loc: US Attending Dr: Dipika Farley D.O. Ordering Physician: Dipika Farley D.O. Date of Service: 05/20/23 Procedure(s): US pelvis w/ transvaginal Accession Number(s): [id number] cc: Dipika Farley D.O.; Mikey Subramanian M.D. [place] [id number] Patient Name: FRANKY CYR MRN: [id number] date: 1970 Sex: F Assigned Patient Location: [place] Current Patient Location: [facility] Accession/Order Number: [id number] Exam Date: 05/20/2023 14:00 Report Date: 05/20/2023 [...] Dictated By: Jayden Henderson M.D. Signed By:05/20/23 3333 DD/ 1609 TD/TT: Drum Sander Setter: us Dipika Martine DO [facility] Final Result documented in this encounter Visit Diagnoses Not on filedocumented in this encounter Care Teams Hydrate Thickener Operator Relationship Specialty Start Date End Date Mikey Subramanian MD PCP - General Family Medicine 06/11/23 documented as of this encounter
--- OUTSIDE RECORDS SUMMARY | 2024-11-24 07:06 | XMS_ITS | Encounter Summary ---
Author Organization [facility] Address [address] [place] [address] Care Team Providers Care Booking Supervisor Name Role Phone Mikey Subramanian MD Primary Care Provider [phone] Encounter Details Date Type Department Care Team (Late st Contact Info) Description 06/07/2024 Results Follow-Up [facility] [address] [place] [address] Christiane Mendez MA Right diagnostic mammogram Social [...] on filedocumented in this encounter Care Teams Booking Supervisor Relationship Specialty Start Date End Date Mikey Subramanian MD PCP - General Family Medicine 06/11/23 documented as of this encounter
--- OUTSIDE RECORDS SUMMARY | 2024-11-24 07:06 | XMS_ITS | Encounter Summary ---
Author Organization [employer] Address [id number] [address] [place] [address] Care Team Providers Care Medical Logistics Specialist Name Role Phone Mikey Subramanian MD Primary Care Provider [phone] Encounter Details Date Type Department Care Team (Late st Contact Info) Description 01/31/2022 Telephone [facility] [address] [place] [address] Pam Urrutia, LOUISE Social History Tobacco Use [...] on filedocumented in this encounter Care Teams Medical Logistics Specialist Relationship Specialty Start Date End Date Mikey Subramanian MD PCP - General Family Medicine 10/12/21 documented as of this encounter
--- OUTSIDE RECORDS SUMMARY | 2024-11-24 07:06 | XMS_ITS | Encounter Summary ---
Author Organization [facility] Address [address] [facility] [place] [address] Care Team Providers Care Academic Affairs Specialist Name Role Phone Mikey Subramanian MD Primary Care Provider [phone] Encounter Details Date Type Department Care Team (Late st Contact Info) Description 07/31/2023 Abstract [facility] [address] [place] [address] Christiane Garces LPN [address] [place] [id number] Social History Tobacco Use Types Packs/Day Years [...] on filedocumented in this encounter Care Teams Academic Affairs Specialist Relationship Specialty Start Date End Date Mikey Subramanian MD PCP - General Family Medicine 06/11/23 documented as of this encounter
--- OUTSIDE RECORDS SUMMARY | 2024-11-24 07:06 | XMS_ITS | Encounter Summary ---
Author Organization [facility] Address [address] [place] [address] Care Team Providers Care Drupal Programmer Name Role Phone Mikey Subramanian MD Primary Care Provider Encounter Details Date Type Department Care Team (Late st Contact Info) Description 05/21/2023 Orders Only [facility] [address] [facility] [address] Mikey Subramanian MD [address] [place] [address] Social History Tobacco Use Types Packs/Day Years [...] on filedocumented in this encounter Care Teams Drupal Programmer Relationship Specialty Start Date End Date Mikey Subramanian MD PCP - General Family Medicine 06/11/23 documented as of this encounter
--- OUTSIDE RECORDS SUMMARY | 2024-11-24 07:06 | XMS_ITS | Encounter Summary ---
Author Organization [facility] Address [address] [place] [address] Care Team Providers Care Skilled Nursing Professional Name Role Phone Mikey Subramanian MD Primary Care Provider Encounter Details Date Type Department Care Team (Late st Contact Info) Description 06/04/2024 External Result Encounter [facility] External Department Unsolicited Mikey Subramanian MD [address] [place] [address] Social History Tobacco Use Types Packs/Day Years [...] Stone Betancur M.D.06/04/2024 9:16 AM Dictation Location: [facility] Dictated By: Stone Betancur DO 06/04/24912 Signed By: <Electronically signed by Stone Betnacur DO in OV> 06/04/24 0916 Narrative 06/04/2024 9:18 AM EDT [address] [address] Mammography Report Signed Patient: Augusta Lopez MR#: [id number] : 1970 Acct:[id number] Age/Sex: 54 / F Adm Date: 06/03/24 Loc: [place] Room: Type: [facility] Attending Dr: Mikey Subramanian MD Ordering Provider: Mikey Subramanian MD Date of Service: 06/03/24 Procedure(s): MM special view RT w/CAD Accession Number(s): ([id number]) MM/MM special view RT w/CAD: R92.9 Copies [...] w/CAD Procedure Note Radiology, Radiologist, - 06/04/[address] [address] Mammography Report Signed Patient: Augusta Lopez JMR#: [id number] : 1970Acct:[id number] Age/Sex: 54 / FAdm Date: 06/03/24 Loc: [place] Room:Type: [facility] Attending Dr: Mikey Subramanian MD Ordering Provider: Mikey Subramanian MD Date of Service: 06/03/24 Procedure(s): MM special view RT w/CAD Accession Number(s): ([id number]) MM/MM special view RT w/CAD: R92.9 Copies [...] Stone Betancur M.D.06/04/2024 9:16 AM Dictation Location: [facility] Dictated By: Stone Betancur DO 06/04/24 0913 Signed By: <Electronically signed by Stone Betancur DO in OV> 06/04/24 0916 us Mikey Subramanian MD IMG BI PROCEDURES Final Result documented in this encounter Visit Diagnoses Not on filedocumented in this encounter Care Teams Skilled Nursing Professional Relationship Specialty Start Date End Date Mikey Subramanian MD PCP - General Family Medicine 06/11/23 documented as of this encounter
--- OUTSIDE RECORDS SUMMARY | 2024-11-24 07:06 | XMS_ITS | Encounter Summary ---
Author Organization [facility] Address [address] [facility] [place] [address] Care Team Providers Care Main Line Station Engineer Name Role Phone Mikey Subramanian MD Primary Care Provider [phone] Encounter Details Date Type Department Care Team (Late st Contact Info) Description 11/16/2024 Telephone [facility] [address] [place] [address] [place] [address] Mary Huff LPN Social History Tobacco Use [...] breast documented in this encounter Care Teams Main Line Station Engineer Relationship Specialty Start Date End Date Mikey Subramanian MD PCP - General Family Medicine 06/11/23 documented as of this encounter
--- OUTSIDE RECORDS SUMMARY | 2024-11-24 07:06 | XMS_ITS | Clinical Summary ---
Author Organization [facility] Address [address] [facility] [place] [address] Care Team Providers Care Insurance Follow Up Rep Name Role Phone Mikey Subramanian MD Primary Care Provider [phone] Allergies No known active allergies Medications ibuprofen 800 MG tablet Take 800 mg by mouth every 8 (eight) hours 4 Active clobetasol (Temovate) 0.05 % creamIndication s:Vaginal itching Apply 1 application topically Daily for 14 days 45 g 5 10/28/19 25 Active Problems Problem Noted Date Diagnosed Date Abnormal mammogram of right breast 05/21/2024 Encounters Date Type Department Care Team Description 11/18/2024 Telephone [facility] [address] [place], [facility] Praveen Farley, 11/16/2024 Telephone [facility] [address] [place] [address] aMry Huff LPN 10/13/2024 Telephone [facility] [address] [place] [address] Ivelisse Gil MA from Last 3 Months Family History Medical History Relation Name Comments Cancer Father Scott Diabetes Father Scott Hypertension Father Scott Stroke Father Scott Rheum arthritis Mother Gabby Clunk Relation Name Status Comments Father Scott Mother Gabby Clunk Social History Tobacco Use Types Packs/Day Years [...] Vaccine (#1) 2024 01/07/2024 Mammogram 06/04/2025 06/04/2024, 03/2 08/2024, 05/20/2023, Additional history exists Cervical Cancer Screening [...] Stone Betancur M.D.06/04/2024 9:16 AM Dictation Location: [facility] Dictated By: Stone Betancur DO 06/04/249[address] Signed By: <Electronically signed by Stone Betancur DO in OV> 06/04/2416 Narrative 06/04/2024 9:18 AM EDT [address] [address] Mammography Report Signed Patient: Augusta Lopez MR#: [id number] : 1970 Acct:[id number] Age/Sex: 54 / F Adm Date: 06/03/24 Loc: [place] Room: Type: [facility] Attending Dr: Mikey Subramanian MD Ordering Provider: Mikey Subramanian MD Date of Service: 06/03/24 Procedure(s): MM special view RT w/CAD Accession Number(s): ([id number]) MM/MM special view RT w/CAD: R92.9 Copies [...] view RT w/CAD Procedure Note Radiology, Radiologist, MD - 06/04/2024 [address] [place] [address] Mammography Report Signed Patient: Augusta Lopez JMR#: [id number] : 1970Acct:[id number] Age/Sex: 54 / FAdm Date: 06/03/24 Loc: [place] Room:Type: [facility] Attending Dr: Mikey Subramanian MD Ordering Provider: Mikey Subramanian MD Date of Service: 06/03/24 Procedure(s): MM special view RT w/CAD Accession Number(s): ([id number]) MM/MM special view RT w/CAD: R92.9 Copies [...] Stone Betancur M.D.06/04/2024 9:16 AM Dictation Location: [facility] Dictated By: Stone Bteancur DO 06/04/24 0913 Signed By: <Electronically signed by Stone Betancur DO in OV> 06/04/24 0916 us Mikey Subramanian MD IMG BI PROCEDURES Final Result from Last 3 Months or Most Recently Relevant to Health Maintenance Insurance BCBS Care Teams Insurance Follow Up Rep Relationship Specialty Start Date End Date Mikey Subramanian MD PCP - General Family Medicine 06/11/23
--- OUTSIDE RECORDS SUMMARY | 2024-11-24 07:06 | XMS_ITS | Encounter Summary ---
Author Organization [employer] Address [id number] [address] [place] [address] Care Team Providers Care Chiropractic Teacher Name Role Phone Mikey Subramanian MD Primary Care Provider [phone] Encounter Details Date Type Department Care Team (Late st Contact Info) Description 08/14/2021 [facility] [address] [place] [address] Hansel Bowman CMA Social History Tobacco Use Types Packs/Day [...] on filedocumented in this encounter Care Teams Chiropractic Teacher Relationship Specialty Start Date End Date Mikey Subramanian MD PCP - General Family Medicine 10/12/21 documented as of this encounter
--- OUTSIDE RECORDS SUMMARY | 2024-11-24 07:06 | XMS_ITS | Encounter Summary ---
Author Organization [facility] Address [address] [place] [place] [address] Care Team Providers Care Manager Loss Prevention Name Role Phone Mikey Subramanian MD Primary Care Provider [phone] Encounter Details Date Type Department Care Team (Late st Contact Info) Description 11/18/2024 Telephone [facility] [address] [place] [address] Praveen Farley, [address] [facility] [address] Douglas [place], [facility] Social History Tobacco Use Types Packs/Day Years [...] encounter Miscellaneous Notes * Telephone Encounter - Christiane Garces LPN - 11/18/2024 1:[address] Farley had scheduled or ordered a diagnostic mammogram a repeat, but it was sent to [facility] centralized scheduling. And I need it sent to [facility] because I cannot have it done here at [facility],I guess due to what needs to be done or The pictures that need to be done. So if that could be sentto [facility] to [facility] to be scheduled, I would appreciate it. You can call me back at [phone]. Patient order was sent to [facility] so this can be scheduled. Patient aware and voiced understanding. documented in this encounter Plan of Treatment Not on file documented as of this encounter Visit Diagnoses Not on filedocumented in this encounter Care Teams Manager Loss Prevention Relationship Specialty Start Date End Date Mikey Subramanian MD PCP - General Family Medicine 06/11/23 documented as of this encounter
--- OUTSIDE RECORDS SUMMARY | 2024-11-24 07:06 | XMS_ITS | Encounter Summary ---
Author Organization [facility] Address [address] [place] [address] Care Team Providers Care Farm Machine Operator Name Role Phone Mikey Subramanian MD Primary Care Provider [phone] Encounter Details Date Type Department Care Team (Late st Contact Info) Description 05/20/2023 Clinisync Result Encounter [facility] External Department Unsolicited Mikey Subramanian MD [address] [place] [address] Social History Tobacco Use Types Packs/Day Years [...] EDT Narrative 05/20/2023 3:29 PM EDT The [address] [address] Mammography Report Signed Patient: FRANKY CYR MR#: [id number] : 1970 Acct:[id number] Age/Sex: 53 / F ADM Date: 05/20/23 Loc: MAMMO Attending Dr: Mikey Subramanian M.D. Ordering Physician: Mikey Subramanian M.D. Results: Date of Service: 05/20/23 Follow Up: Procedure(s): MM tomosynthesis screening BI Accession Number(s): [id number] cc: Mikey Subramanian M.D. Patient Name: FRANKY CYR MR#: [id number] : 1970 Exam Date: 05/20/2023 Ordering Doctor: [...] breast cancer at age 71. LOCATION: [facility] BREAST COMPOSITION: Extremely dense, which [...] Signed By: 05/20/23 1529 DD/ 1528 TD/TT: Business Data Analyst: Procedure Note Radiology, RadiologistMD - 05/20/2023 [place] [address] Mammography Report Signed Patient: FRANKY CYR JMR#: [id number] : 1970Acct:[id number] Age/Sex: 53 / FADM Date: 05/20/23 Loc: MAMMO Attending Dr: Mikey Subramanian M.D. Ordering Physician: Mikey Subramanian M.D.Results: Date of Service: 05/20/23Follow Up: Procedure(s): MM tomosynthesis screening BI Accession Number(s): [id number] cc: Mikey Subramanian M.D. Patient Name: FRANKY CYR MR#: [id number] : 1970 Exam Date: 05/20/2023 Ordering Doctor: DR Mikey Subramanian . RADIOLOGY REPORT PROCEDURE: MM TOMOSYNTHESIS SCREENING BI COMPARISON: MG MAMM SCREEN 3D KATYH CAD, 05/17/2022. MG MAMM SCREEN 3DBIL CAD, 05/10/2021. INDICATIONS: screening Calculator Name NCI Breast Cancer Risk Assessment Tool 5 Year Breast Cancer Risk 1.60% Lifetime Breast Cancer Risk 12.60% Personal Breast Cancer No Personal Ovarian Cancer No Treatments None Family Cancers Grandmother-paternal with breast cancer at age 70. LOCATION: [facility] BREAST COMPOSITION: Extremely dense, which [...] M.D. Signed By:05/20/23 1529 DD/ 1528 TD/TT: Business Data Analyst: Mikey Subramanian MD [facility] Final Result documented in this encounter Visit Diagnoses Not on filedocumented in this encounter Care Teams Farm Machine Operator Relationship Specialty Start Date End Date Mikey Subramanian MD PCP - General Family Medicine 06/11/23 documented as of this encounter
--- OUTSIDE RECORDS SUMMARY | 2024-11-24 07:06 | XMS_ITS | Patient Health Record ---
Author Organization The [facility] in [place] Address [address] [place] [address] Care Team Providers Care Chassis Wirer Name Role Phone Hu Glass Primary Care Provider Allergies No Known Allergies Results Component Value Reference Range Notes PROLACTIN Reviewed date:11/20/2024 02:37:35 PM Interpretation: Performing Lab: Notes/Report: [facility] , Prolactin 12.8 3.6-25.2 ng/mL Performing Lab: see note LC - [facility] LB FREE T3 Reviewed date:11/16/2024 03:16:12 PM Interpretation: Performing Lab: Notes/Report: [facility] , Free T3 3.05 2.18-3.98 pg/mL Performing Lab: see note ML - [facility] LB T4 Reviewed date:11/16/2024 03:16:12 PM Interpretation: Performing Lab: Notes/Report: [facility] , T4 Thyroxine 6.70 4.80-13.90 ug/dL Performing Lab: see note ML - [facility] LB TSH Reviewed date:11/16/2024 03:16:12 PM Interpretation: Performing Lab: Notes/Report: [facility] , Thyroid Stimulating Hormone 2.439 0.358-3.740 u IU/mL Performing Lab: see note - [facility] LB Troponin I High Sensitivity Reviewed date:11/16/2024 03:16:12 PM Interpretation: Performing Lab: Notes/Report: [facility] , Troponin I High Sensitivity 9.2 4.0-51.3 pg/m L CUT-OFF POINTS HAVE BEEN ESTABLISHED BASED ON THE FOURTH UNIVERSAL DEFINITION OF MYOCARDIAL INFARCTION. THE UPPER REFERENCE LIMIT (URL) OF TROPONIN, DEFINED THE 99TH PERCENTILE OF cTnI DISTRIBUTION IN A REFERENCE POPULATION, HAS BEEN CONFIRMED THE DECISION THRESHOLD FOR ME DIAGNOSIS. 99TH PERCENTILE = 51.4 PG/ML NOTE: HIGH-SENSITIVITY TROPONIN ASSAY IS NOT INTENDED TO BE USED IN ISOLATION BUT SHOULD BE INTERPRETED IN CONJUNCTION WITH OTHER DIAGNOSTIC AND CLINICAL INFORMATION. Performing Lab: see note ML - [facility] LB LIPID PROFILE Reviewed date:11/19/2024 11:53:41 AM Interpretation: Performing Lab: Notes/Report: [facility] , Triglycerides 35 <=150 mg/dL Cholesterol 200 <=200 mg/dL HDL Cholesterol 67 40-60 mg/dL > or =60 mg/dl - LOW CARDIOVASCULAR RISK <40 mg/dl - HIGH CARDIOVASCULAR RISK LDL Cholesterol Calculated 126.0 <100 mg/dl OPTIMAL 100-129 mg/dl NEAR OR ABOVE OPTIMAL 130-159 mg/dl BORDERLINE HIGH 160-189 mg/dl HIGH >190 mg/dl VERY HIGH VLDL CHOLESTEROL 7.0 Chol HDL Ratio 3.0 3.3 - 4.4 LOW RISK 4.4 - 7.1 AVERAGE RISK 7.1 - 11.0 MODERATE RISK >11.0 HIGH RISK Performing Lab: see note ML - [facility] LB GLYCOHEMOGLOBIN A1C Reviewed date:11/19/2024 11:53:41 AM Interpretation: Performing Lab: Notes/Report: [facility] , Glycohemoglobin A1C 5.2 4.5-6.2 % ADA RECOMMENDED LIMIT 4.0 - 6.0 ADA THERAPEUTIC TARGET < 7.0 ACTION SUGGESTED > 7.0 Estimated Average Glucose 103 Performing Lab: see note ML - [facility] LB ECG 12 lead Reviewed date:11/16/2024 08:54:59 PM Interpretation: Performing Lab: Notes/Report: Source Facility: [facility] [place] [address] [place] [address] Electrocardiograph Report Signed Patient: FRANKY CYR MR#: [id number] : 1970 Acct:[id number] Age/Sex: 54 / F ADM Date: 11/16/24 Loc: LAB Attending Dr: Humble Glass M.D. Ordering Physician: Humble Glass M.D. 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 Measurements Intervals [place] Rate: 54 P: 46 WI: 150 QRS: 18 QRSD: 90 T: 56 QT: 488 QTc: 463 Interpretive Statements SINUS BRADYCARDIA POSSIBLE LEFT ATRIAL ENLARGEMENT [-0.1mV P WAVE IN V1/V2] PROLONGED QT INTERVAL Compared to ECG 06/13/2023 15:06:59 Prolonged QT interval now present Electronically Signed On 11-16-2024 18:06:05 EDT by LANETTE RO M.D. Dictated By: LANETTE RO Signed By: 11/16/24180511/16/24 180 DD/ 1238 TD/TT: Incident Handler: PROF Aleman(COMP METB) Reviewed date:11/16/2024 03:16:12 PM Interpretation: Performing Lab: Notes/Report: [facility] , Sodium 139 136-145 mmol/L Potassium 3.8 3.5-5.1 mmol/L Chloride 103 98-107 mmol/L Carbon Dioxide 27.9 21.0-32.0 mmol/L Anion Gap 11.9 Glucose 92 74-106 mg/dL Blood Urea Nitrogen 11.0 7.0-18.0 mg/dL Creatinine 0.78 0.55-1.02 mg/dL Estimated GFR ( Gwen >60 >=60 mL/min/1.73m 2 Estimated GFR (Non- Estephanie >60 >=60 mL/min/1.73m 2 BUN Creatinine Ratio 14.1 Calcium 9.2 8.5-10.1 mg/dL Bilirubin Total 0.6 0.2-1.0 mg/dL Aspartate Amino Transferase 17 15-37 U/L Alanine Aminotransferase 26 14-59 U/L Alkaline Phosphatase 61 46-116 U/L Total Protein 7.6 6.4-8.2 g/dL Albumin Level 4.3 3.4-5.0 g/dL Globulin 3.3 Albumin Globulin Ratio 1.3 Performing Lab: see note ML - [facility] LB CBC AUTO DIFF Reviewed date:11/16/2024 03:16:12 PM Interpretation: Performing Lab: Notes/Report: [facility] , White Blood Count 6.1 4.0-11.0 10 3/uL Red Blood Count 4.84 4.20-5.40 10 6/uL Hemoglobin 14.0 12.0-16.0 g/dL Hematocrit 41.6 36.0-48.0 % Mean Corpuscular Volume 86.0 81.0-99.0 fL Mean Corpuscular Hemoglobin 28.9 26.7-34.0 pg Mean Corpuscular HGB Conc 33.7 29.9-35.2 g/dL Red Cell Distribution Width 13.2 11.0-15.0 % Platelet Count 244 150-450 10 3/uL Mean Platelet Volume 11.6 9.5-13.5 fL Neutrophils Percent Auto 59.7 43.0-75.0 % Lymphocytes Percent Auto 27.6 20.5-60.0 % Monocytes Percent Auto 9.0 1.7-12.0 % Eosinophils Percent Auto 3.0 0.9-7.0 % Basophils Percent Auto 0.7 0.2-2.0 % Immature Granulocytes Pct Auto 0.0 0.0-0.5 % Neutrophils Absolute Auto 3.6 1.4-6.5 10 3/uL Lymphocytes Absolute Auto 1.7 1.2-3.8 10 3/uL Monocytes Absolute Auto 0.6 0.3-0.8 10 3/uL Eosinophils Absolute Auto 0.2 0.0-0.7 10 3/uL Basophils Absolute Auto 0.0 0.0-0.1 10 3/uL Immature Granulocytes Abs Auto 0.00 0.00-0.03 10 3/uL Performing Lab: see note ML - [facility] LB BNP Reviewed date:11/16/2024 03:16:12 PM Interpretation: Performing Lab: Notes/Report: [facility] , NT Pro B Type Natriuretic Pept 165.0 <=900.0 pg/mL Performing Lab: see note ML - [facility] LB Estradiol Reviewed date:11/20/2024 02:37:35 PM Interpretation: Performing Lab: Notes/Report: [facility] , Estradiol <5.0 . pg/mL Adult Female Range Follicular phase 12.5 - 166.0 Ovulation phase 85.8 - 498.0 Luteal phase 43.8 - 211.0 Postmenopausal <6.0 - 54.7 1st trimester 215.0 - >4300.0 Sanjay ECLIA methodology Performing Lab: see note [facility]SH Reviewed date:11/20/2024 02:37:35 PM Interpretation: Performing Lab: Notes/Report: [facility] , FSH 109.0 . mIU/mL Adult Female Range Follicular phase 3.5 - 12.5 Ovulation phase 4.7 - 21.5 Luteal phase 1.7 - 7.7 Postmenopausal 25.8 - 134.8 Performing Lab: see note [facility] Luteinizing Hormone(LH) Reviewed date:11/20/2024 02:37:35 PM Interpretation: Performing Lab: Notes/Report: [facility] , Luteinizing Hormone(LH) 47.5 . mIU/mL Adult Female Range Follicular phase 2.4 - 12.6 Ovulation phase 14.0 - 95.6 Luteal phase 1.0 - 11.4 Postmenopausal 7.7 - 58.5 Performing Lab: see note [facility] Progesterone Reviewed date:11/20/2024 02:37:35 PM Interpretation: Performing Lab: Notes/Report: [facility] , Progesterone 0.2 . ng/mL Follicular phase 0.1 - 0.9 Luteal phase 1.8 - 23.9 Ovulation phase 0.1 - 12.0 First trimester 11.0 - 44.3 Second trimester 25.4 - 83.3 Third trimester 58.7 - 214.0 Postmenopausal 0.0 - 0.1 Performed at: [address] [id number] Electrician Front: Yash Cornelius PhD, Phone: [phone] Performing Lab: see note [facility] LB Reason For Referral No Information Medications Medication SIG (Take, Route, Fr equency, [...] Problem Status W/U Status Risk Notes Problem Chest pain (60546508) Chest pain (R07.9) Active confirmed Problem Hypertension (93899268) Hypertension (I10) Active confirmed Problem Arthritis (4613592) Arthritis (M19.90) Active confirmed Vital Signs Blood pressure diastolic 88 mm Hg 11/17/2024 Height 63 in 11/17/2024 Blood pressure systolic 142 mm Hg 11/17/2024 Weight 130.8 lbs 11/17/2024 BMI 23.17 kg/m2 11/17/2024 Procedures Procedure Date Ordered Date Performed Result Body Sit e Sleep study - Diagnostic Polysonogram 11/17/2024 N/A CARDIO Stress Test - Cardiolite 11/17/2024 N/A CARDIO EKG 11/16/2024 N/A Encounters Encounter Location Date Provider Diagnosis [facility] [address] [place] [address] 09/01/2024 uH [facility] [address] [place] [address] 11/16/2024 Hu Hoy Hypertension I10 and Chest pain R07.9 [facility] [address] [place] [address] 11/16/2024 Hu nathalia [facility] [address] [place] [address] 11/17/2024 Hu nathalia [facility] [address] [place] [address] 11/18/2024 Hu Hoy Hypertension I10 [facility] [address] [place] [address] 11/17/2024 Hu Glass Hypertension I10 and Snoring R06.83 Assessments Encounter Date Diagnosis (ICD Code) Assessment Notes Treatment Notes Treatment Clinical Notes Section Notes 11/17/2024 Hypertension (ICD-10 - I10) 11/17/2024 Snoring (ICD-10 - R06.83) 11/16/2024 Hypertension (ICD-10 - I10) 11/16/2024 Chest pain (ICD-10 - R07.9) 11/18/2024 Hypertension (ICD-10 - I10) Plan Of Treatment Pending Test Test Name Order Date HEMOGLOBIN A1C (GLYCO) 11/17/2024 LIPID PANEL (CHOL/TRIG/HDL/LDL) 11/18/19 CARDIO Stress Test - Cardiolite 11/18/19 Sleep study - Diagnostic Polysonogram CARDIO EKG 11/16/2024 FSH+LH+Prog+E2 11/17/2024 High Sensitivity Troponin 11/16/2024 US Renal Arterial Duplex 11/18/2024 US KIDNEYS 11/18/2024 THYROID PANEL (T4/TSH/FREE T3) 5 Insurance Providers Payer Name Payer Address Payer Phone Subscriber Number Group Number Insured Name Patient Relationship to Insured Coverage Start Date Coverage End Date [employer] ACCESS PPO PLUS LOCAL PLAN [address] [place] [address] [phone] [id number] Franky Gamino Self - patient is the insured Medical (General) History Medical History History ICD Code Arthritis M19.90 Surgical History Surgery Date(Month/Year) Hysterectomy
--- OUTSIDE RECORDS SUMMARY | 2024-11-24 07:06 | XMS_ITS | Encounter Summary ---
Author Organization [facility] Address [address] [facility] [place] [address] Care Team Providers Care Heavy Cleaner Name Role Phone Mikey Subramanian MD Primary Care Provider [phone] Encounter Details Date Type Department Care Team (Late st Contact Info) Description 06/17/2024 Orders Only [facility] [address] [place] [address] [place], [place] [address] [place] [address] Social History Tobacco Use Types Packs/Day Years [...] on filedocumented in this encounter Care Teams Heavy Cleaner Relationship Specialty Start Date End Date Mikey Subramanian MD PCP - General Family Medicine 06/11/23 documented as of this encounter
--- OUTSIDE RECORDS SUMMARY | 2024-11-24 07:06 | XMS_ITS | Clinical Summary ---
Author Organization [facility] Address [id number] [address] [place] [address] Care Team Providers Care Manager Asset Management Name Role Phone Mikey Subramanian MD Primary Care Provider [phone] Allergies No known active allergies Medications No [...] on file Insurance [employer] Care Teams Manager Asset Management Relationship Specialty Start Date End Date Mikey Subramanian MD PCP - General Family Medicine 10/12/21
--- OUTSIDE RECORDS SUMMARY | 2024-11-24 07:06 | XMS_ITS | Encounter Summary ---
Author Organization [facility] Address [address] [facility] [place] [address] Care Team Providers Care Wet Roller Name Role Phone Mikey Subramanian MD Primary Care Provider [phone] Encounter Details Date Type Department Care Team (Late st Contact Info) Description 09/02/2023 Orders Only [facility] [address] [place] [id number] Christiane Garces LPN [address] [place] [id number] Social History Tobacco Use Types Packs/Day Years [...] on filedocumented in this encounter Care Teams Wet Roller Relationship Specialty Start Date End Date Mikey Subramanian MD PCP - General Family Medicine 06/11/23 documented as of this encounter
== END 2024-11-24 07:02 | disposition home or self-care (01) ==
LOC: RAD 07:02
PROVIDERS: PCP Family Medicine; Visit Provider Obstetrics & Gynecology
DX: M81.0 Age-related osteoporosis without current pathological fracture (principal)
CPT/HCPCS: 77080

== ENCOUNTER 2024-11-30 06:52 | Outpatient (OUT) | payer BC, SELFPAY ==
--- OUTSIDE RECORDS SUMMARY | 2024-11-17 04:15 | XMS_ITS ---
Author Organization The [facility] in [place] Address [address] [place] [address] Care Team Providers Care Chef Name Role Phone Hu Sullivan Primary Care Provider Allergies No Known Allergies Results Component Value Reference Range Notes PROLACTIN Reviewed date:11/20/2024 02:37:35 PM Interpretation: Performing Lab: Notes/Report: [facility] , Prolactin 12.8 3.6-25.2 ng/mL Performing Lab: see note LC - [facility] LB REASON FOR VISIT Establishing care- saw Dr Subramanian in the past but not regularly, HTN Medications Medication SIG (Take, Route, Fr equency, Duration) Notes Start Date End Date Status Irbesartan 75 MG 1 tablet Orally Once a day; Duration: 30 days 11/17/2024 Active Fish Oil Active Multivitamin Active Social History Tobacco Use: Social History Observation Description Date Details (start date - stop date) Never Smoker NA - NA Tobacco Control (Standard) Question Answer Notes Tobacco use: Nonsmoker AUDIT-C (Standard) Question Answer Notes Did you have a drink contain ing alcohol in the past year? Yes How often did you have a dri nk containing alcohol in the past year? 2 to 4 times a month (2 points) How many drinks did you have on a typical day when you were drinking in the past year? 1 or 2 drinks (0 point) How often did you have six o r more drinks on one occasion in the past year? Less than monthly (1 point) Points 3 Interpretation Positive Problems Problem Type SNOMED Code ICD Code Onset Dates Problem Status W/U Status Risk Notes Problem Arthritis (5748664) Arthritis (M19.90) Active confirmed Vital Signs Weight 130.8 lbs 11/17/2024 Height 63 in 11/17/2024 Blood pressure systolic 142 mm Hg 11/18/19 25 Blood pressure diastolic 88 mm Hg 025 BMI 23.17 kg/m2 11/17/2024 Procedures Procedure Date Ordered Date Performed Result Body Sit e CARDIO Stress Test - Cardiolite 11/17/2024 N/A Sleep study - Diagnostic Polysonogram 11/17/2024 N/A Encounters Encounter Location Date Provider Diagnosis [facility] [address] [place] [address] 11/17/2024 Hu Sullivan Hypertension I10 and Snoring R06.83 Assessments Encounter Date Diagnosis (ICD Code) Assessment Notes Treatment Notes Treatment Clinical Notes Section Notes 11/17/2024 Hypertension (ICD-10 - I10) 11/17/2024 Snoring (ICD-10 - R06.83) Plan Of Treatment Medication Medication Name Sig Start Date Stop Date Notes Irbesartan 75 MG 1 tablet Orally Once a day; Duration: 30 days 11/17/2024 Pending Test Test Name Order Date HEMOGLOBIN A1C (GLYCO) 11/17/2024 LIPID PANEL (CHOL/TRIG/HDL/LDL) 11/18/19 25 CARDIO Stress Test - Cardiolite 11/18/19 25 Sleep study - Diagnostic Polysonogram FSH+LH+Prog+E2 11/17/2024 Progress Notes * KIRAJADA CharleneOB:1969 (54 yo F)Acc No.[id number]:11/17/2024 Progress Note Patient: Augusta WILKINSON Provider: Macy Sullivan (TTC)MD :1970 A ge:54 Y S ex:Female Date:11/17/2024 Address:[address] [place] [address] [id number] Check In:08:06 AM ESTCheck O ut:08:53 AM EST Subjective: * Chief Complaints: * E stablishing care- saw Dr Subramanian in the past but not regularlyHTN * HPI: D epression Screening: PHQ-2 (2015 Edition) T otal Score 0 L ittle interest or pleasure in doing things??Not at all F eeling down, depressed, or hopeless? N ot at all + Fh Hypertension. I nterim History: Patient presents for high blood pressure check. Doing well on medication. Denies chest pain, palpitations, lightheadedness, or vision changes. * ROS: G eneral/Constitutional: Lightheadedness d enies. F ever d enies. H eadache d enies. C ardiovascular: Chest pain d enies. P alpitations d enies. ? R espiratory: Cough d enies. S hortness of breath d enies. ? * Active Problem List M19.90 Arthritis Modified On:11/17/2024/U Status:confirmed I10 Hypertension Modified On:11/16/2024/U Status:confirmed R07.9 Chest pain Modified On:11/16/2024/ Status:confirmed * Medical History: * Surgical History: H ysterectomy * Hospitalization/Major Diagno stic Procedure: D enies Past Hospitalization * Family History: F ather: alive, Hyperlipidemia, Heart Attack, COPD, Inflammatory Bowel Disease, diagnosed with Other malignant neoplasm of unspecified site, Diabetes mellitus without mention of complication, type II or unspecified type, not stated as uncontrolled, Unspecified essential hypertension, Unspecified heart disease. M other: . B rother(s): alive, Depression, Bipolar, Alcoholism, diagnosed with Unspecified essential hypertension. S on(s): alive, Eye Lesions. D augcharleser(s): alive. 1 brother(s) . 1 son(s) , 1 daughter(s) . . * Social History: T obacco Use: T obacco Control (Standard) T obacco use: N onsmoker D rug/Alcohol: A ZULAY-C (Standard) D id you have a drink containing alcohol in the past year? Y es H ow often did you have a drink containing alcohol in the past year? 2 to 4 times a month (2 points) H ow many drinks did you have on a typical day when you were drinking in the past year? 1 or 2 drinks (0 point) H ow often did you have six or more drinks on one occasion in the past year? L ess than monthly (1 point) P oints 3 I nterpretation P ositive * Medications: T akingFish Oil Multivitamin Taking Fish Oil Taking Multivitamin DiscontinuedAzithromycin 250 MG Tablet 2 tabs today then 1 tab Orally daily Meclizine HCl 25 MG Tablet 1 tablet as needed Orally Q 6 hours predniSONE 20 MG Tablet 2 tablets Orally Once a day Medication List reviewed and reconciled with the patientDiscontinued Azithromycin 250 MG Tablet 2 tabs today then 1 tab Orally daily Discontinued Meclizine HCl 25 MG Tablet 1 tablet as needed Orally Q 6 hours Discontinued predniSONE 20 MG Tablet 2 tablets Orally Once a day Medication List reviewed and reconciled with the patient * Allergies: N .K.D.A.no[Allergies Verified] Objective: * Vitals: W t:130.8lbs, Ht: 63 in, BP:142/88mm Hg, BMI:23.17Index. * Examination: G eneral Examination: GENERAL APPEARANCE: in no acute distress, well developed, well nourished. LUNGS: clear to auscultation bilaterally. CARDIO: regular rate and rhythm, S1, S2 normal, no murmurs. Assessment: * Assessment: 1. H ypertension - I10 (Primary) 2 . S noring - R06.83 Plan: * Treatment: 2. S noring P rocedure: Sleep study - Diagnostic Polysonogram * Procedure Codes: * * Sign off status: Completed Visit Status: C HK (Check Out) true * Provider: Macy Sullivan ([facility])MD Date: 0 11/17/2024 Generated for Gilmar coffman/Matt/eTransmitting on: 1 06:54 AM EDT History and Physical Notes * HPI (History of Present Illness) Category Sub-Category Detail Notes Category Not es Depression Screening PHQ-2 (2015 Edition) Total Score: 0 + Fh Hypertension Little interest or pleasure in doing thi ngs?: Not at all Feeling down, depressed, or hopeless?: N ot at all Examination Category Sub-Category Detail Notes Category Not es General Examination GENERAL APPEARANCE: in no ac joi distress, well developed, well nourished CARDIO: regular rate and rhy thm, S1, S2 normal, no murmurs LUNGS: clear to auscultatio n bilaterally
--- OUTSIDE RECORDS SUMMARY | 2024-11-17 12:00 | XMS_ITS ---
Author Organization [facility] in [place] Address [address] [place] [address] Care Team Providers Care Heat Treating Operator Name Role Phone Hu Sullivan Primary Care Provider REASON FOR VISIT per Dr Nate FONTANA PATIENT Encounters Encounter Location Date Provider Diagnosis [facility] [address] [facility] [place] [address] 11/17/2024 Hu Sullivan Plan Of Treatment No Information Progress Notes * Charlene CYROB:1969 (54 yo F)Acc No.[id number]:11/17/2024 UNLOCKED PROGRESS NOTE Progress Note Patient: Augusta WILKINSON Provider: Macy Sullivan MD (TTC) :1970 A ge:54 Y S ex:Female Date:11/17/2024 Address:[address] [place], [place] [id number] Subjective: * Chief Complaints: * [address] Nate FONTANA PATIENT. * Medical History: Objective: * Vitals: Assessment: Plan: * Treatment: * * Electronic signature of Hu Sullivan MD, [id number] on 11/30/2024 at 06:54 AM EDT Sign off status: Pending Visit Status: C ANCPHONE (Cancelled Phone) * Provider: Macy Sullivan MD (TTC) Date: 0 11/17/2024 Generated for Printi ng/Faxing/eTransmitting on: 1 06:54 AM EDT
--- OUTSIDE RECORDS SUMMARY | 2024-11-18 05:16 | XMS_ITS ---
Author Organization The [facility] in [place] Address [address] [place] [address] Care Team Providers Care Measurement Technician Name Role Phone Nate Hu Primary Care Provider REASON FOR VISIT US orders Encounters Encounter Location Date Provider Diagnosis [facility] [address] [facility] [place] [address] 11/18/2024 Hu Nate Hypertension I10 Assessments Encounter Date Diagnosis (ICD Code) Assessment Notes Treatment Notes Treatment Clinical Notes Section Notes 11/18/2024 Hypertension (ICD-10 - I10) Plan Of Treatment Pending Test Test Name Order Date US Renal Arterial Duplex 11/18/2024 US KIDNEYS 11/18/2024 Progress Notes * Charlene CYROB:1969 (54 yo F)Acc No.[id number]:11/18/2024 Patient: Henrik Augusta WHITEHEAD :1970 A ge:54 Y S ex:Female Address:[address] [place] [address] [place], [address] Subjective: * Chief Complaints: * U S orders * Medical History: * Surgical History: * Hospitalization/Major Diagno stic Procedure: * Medications: Objective: * Vitals: * Physical Examination: Assessment: * Assessment: 1. H ypertension - I10 (Primary) Plan: * Treatment: * Procedure Codes: * true * Date: Generated for Printi ng/Faxing/eTransmitting on: 1 06:55 AM EDT
--- OUTSIDE RECORDS SUMMARY | 2024-11-24 04:15 | XMS_ITS ---
Author Organization [facility] in [place] Address [address] [place] [address] Care Team Providers Care Liquid Compounder Name Role Phone Hu Sullivan Primary Care Provider REASON FOR VISIT htn Encounters Encounter Location Date Provider Diagnosis [facility] [address] [facility] [place] [address] 11/24/2024 Hu Sullivan Plan Of Treatment No Information Progress Notes * Charlene CYROB:1969 (54 yo F)Acc No.[id number]:11/24/2024 UNLOCKED PROGRESS NOTE Progress Note Patient: Augusta WILKINSON Provider: Macy Sullivan MD (TTC) :1970 A ge:54 Y S ex:Female Date:11/24/2024 Address:[address] [place] [address] [id number] Subjective: * Chief Complaints: * 1 . Htn. * Medical History: Objective: * Vitals: Assessment: Plan: * Treatment: * * Electronic signature of Hu Sullivan MD, [id number] on 11/30/2024 at 06:55 AM EDT Sign off status: Pending Visit Status: C ANCPHONE (Cancelled Phone) * Provider: Macy Sullivan MD (TTC) Date: Generated for Printi ng/Faxing/eTransmitting on: 06:55 AM EDT
--- OUTSIDE RECORDS SUMMARY | 2024-11-24 09:30 | XMS_ITS ---
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 * Medical History: Objective: * Vitals: Assessment: Plan: * Treatment: * * Electronic signature of Hu Sullivan MD, [id number] on 11/30/2024 at 06:55 AM EDT Sign off status: Pending Visit Status: C ANCPHONE (Cancelled Phone) * Provider: Macy Sullivan MD (TTC) Date: 1 Generated for Gilmar coffman/Matt/eTransmitting on: 1 06:55 AM EDT
--- NOTE | 2024-11-30 06:45 | NM_ITS ---
Patient Name: FRANKY CYR MR#: [id number] : 1970 Exam Date: 11/30/2024 Ordering Doctor: DR HUMBLE GLASS . RADIOLOGY REPORT PROCEDURE: NM SHAYNE PERF SPECT REST STR COMPARISON: None. INDICATIONS: HYPERTENSION, CHEST TIGHTNESS, NEAR SYNCOPE TECHNIQUE: Exam Description: Stress/Rest two day protocol gated SPECT Rest Imaging: mCi Tc-99m Cardiolite IV on Stress Imaging mCi Tc-99m Cardiolite IV on Exercise Protocol: 0.4 mg Lexiscan given IV Heart Rate (bpm): Rest: Max: PMHR: Blood Pressure: Rest: Max: Symptoms: Rest and peak stress ECG findings were This report was transmitted to the referring physician at the report approval time, and the office called to confirm receipt. FINDINGS: QUALITY OF STUDY: Good PERFUSION DEFECT: None LOCATION: SIZE: SEVERITY: TYPE: WALL MOTION: Normal LV SIZE: mL. TID / TCD: 0.9 LVEF: Calculated EF 62 %. SUMMARY: Myocardial perfusion imaging study CONCLUSION: -No ischemia is noted in myocardial perfusion stress study. -Normal myocardial perfusion study. -Normal global left ventricular function -No transient ischemic dilatation. -ECG Stress will be reported separately Dictated by: Victoria Lowry MD on 12/01/2024 at 10:59. Approved by: Victoria Lowry MD on 12/01/2024 at 11:04
--- OUTSIDE RECORDS SUMMARY | 2024-11-30 06:54 | XMS_ITS | CCD ---
Author Organization [facility] Care Team Providers Care Brewery Representative Name Role Phone BEATRIZ, DR JAYDEN Bobby [...] Consulting Unavailable MIKEY DAVIS Primary Care Physician [phone] Leon WHYTE Attending Unavailable MIKEY DAVIS Referring Unavailable Leon WHYTE Attending Unavailable Martine, Dipika Attending Provider Mikey Davis MD Primary Care Provider Mikey Davis MD Primary Care Provider Mikey Davis MD Attending Provider [phone] Martine, Dipika Admitting Unavailable Martine, Dipika [...] Medication Allergies] Propensity to adverse reactions (disorder) [facility] Repository Medications Current Medications Medication Drug Class(es) [...] Peripheral vascular disease, unspecified; Translations: [Atherosclerosis of [place] arteries of extremities with rest pain, bilateral [...] GDLNon AGE GDLN ACOG TESTING Note . [facility] Comment on above: TESTS RESULT FLAG UN ITS REF RANGE LAB Clinician Provided Cytology Information Source.............Vagina No. of containers..01 ThinPrep Vial Age Algo ACOG Vandana... 30-65 01 FLAG LEGEND: L-Low Normal,H-High Normal,LL-Alert Low,HH-Alert High <-Panic Low,>-Panic High,A-Abnormal,AA-Critical Abnormal Performed at: 01 =G [address] [place] [address] Elisa Farley MD, HPV APTIMA Negative Negative [facility] Comment on above: This nucleic acid am plification test detects fourteen high- risk HPV types (16,18,31,33,35,39,45,51,52,56,58,59,66,68) without differentiation. Performed at: = - [facility] [place] [id number] Linen Keeper: Elisa Farley MD, Phone: [phone] Performed at: [facility] [address] [place], [place] [id number] Linen Keeper: Ramesh Marquez MD, Phone: [phone] IGP, APTIMA HPV, RFX 16/18,45 Note . [facility] Comment on above: TESTS RESULT FLAG UN ITS REF RANGE LAB DIAGNOSIS: 02 NEGATIVE FOR INTRAEPITHELIAL LESION OR MALIGNANCY. Specimen adequacy: 02 Satisfactory for evaluation. Performed by: Luis A Goodman, Core Inspector (ASCP) . 02 Note: Note 03 The [...] High,A-Abnormal,AA-Critical Abnormal Performed at: 02 KWCYT [facility] [address] [address] [place] [address] Ramesh Marquez MD, 03 WB [facility] [address] [address] Elisa Farley MD, SPATULA-ALONE VAGINA [facility] Urinalysis macro (dipstick) panel (U)on 06-08-2024 Bilirubin, UA Negative Negative - 4(70) +++ mg/dL [facility] Blood, UA Negative Negative - 50 Ran/mcL [facility] Clarity, UA Clear [facility] Color, UA Yellow [facility] Glucose, UA Negative Negative - 2000(110) ++++ mg/dL [facility] Interpretation and review of laboratory results Normal [facility] Ketones, UA Negative Negative - 160(16) ++++ mg/dL [facility] Leukocytes, UA Negative Negative - 500+++ Vick/mcL [facility] Nitrite, UA Negative Negative - Positive [facility] pH, UA 5.5 5 - 9 [facility] Protein, UA Negative Negative - 2000(20) ++++ mg/dL [facility] Spec Grav, UA 1.005 1 - 1.03 [facility] Urobilinogen, UA 0.2 0.2 - 12 mg/dL [facility] MM special view RT w/CADon 0 06-04-2024 MM special view RT w/CAD [facility] [address] [place] [address] Mammography Report Signed Patient: Franky Cyr MR#: [id number] : 1970 Acct:[id number] Age/Sex: 54 / F Adm Date: 06/03/24 Loc: [place] Room: Type: [facility] Attending Dr: Mikey Davis MD Ordering Provider: Mikey Davis MD Date of Service: 06/03/24 Procedure(s): MM special view RT w/CAD Accession Number(s): ([id number]) MM/MM special view RT w/CAD: R92.9 Copies [...] M.D.06/04/2024 9:16 AM Dictation Location: [facility] Dictated By: Stone Betancur DO 06/04/24 0913 Signed By: 06/04/24 0916 Normal [facility] ALL LIPID PROFILE (FASTING)o n 05-25-2024 CHOL HDL RATIO 3 [facility] Comment on above: 3.3 - 4.4 LOW RISK 4.4 - 7.1 AVERAGE RISK 7.1 - 11.0 MODERATE RISK >11.0 HIGH RISK Cholesterol [Mass/Vol] 180 mg/dL NINF - 200 mg/dL [facility] Cholesterol in HDL [Mass/Vol] 61 mg/dL High 40 - 60 mg/dL [facility] Comment on above: > or =60 mg/dl - LOW CARDIOVASCULAR RISK <40 mg/dl - HIGH CARDIOVASCULAR RISK Magnesium [Mass/Vol] 112 mg/dL [facility] Comment on above: <100 mg/dl OPTIMAL 100-129 mg/dl NEAR OR ABOVE OPTIMAL 130-159 mg/dl BORDERLINE HIGH 160-189 mg/dl HIGH >190 mg/dl VERY HIGH Magnesium [Mass/Vol] 7.2 mg/dL [facility] Triglyceride [Mass/Vol] 36 mg/dL NINF - 150 mg/dL [facility] ALL THYROID STIM HORMONEon 0 05-25-2024 TSH Qn 2.173 m[IU]/L [facility] CCF CMP (CMP) (FOR REMOTE FH C USE)on 05-25-2024 Albumin [Mass/Vol] 3.6 g/dL 3.4 - 5.0 g/dL [facility] ALBUMIN GLOBULIN RATIO 1.1 [facility] ALP [Catalytic activity/Vol] 61 U/L 46 - 116 U/L [facility] ALT [Catalytic activity/Vol] 12 U/L Low 14 - 59 U/L [facility] Anion gap [Moles/Vol] 12.2 mmol/L [facility] AST [Catalytic activity/Vol] 14 U/L Low 15 - 37 U/L [facility] Bilirubin [Mass/Vol] 0.5 mg/dL 0.2 - 1 .0 mg/dL [facility] Calcium [Mass/Vol] 9.1 mg/dL 8.5 - 10. 1 mg/dL [facility] Chloride [Moles/Vol] 106 mmol/L 98 - 10 7 mmol/L [facility] CO2 [Moles/Vol] 27.3 mmol/L 21.0 - 32.0 mmol/L [facility] Creatinine [Mass/Vol] 0.97 mg/dL 0.55 - 1.02 mg/dL [facility] GFR/1.73 sq M.predicted CKD-EPI (S/P/Bld) [Vol rate/Area] >60 >=60 mL/min/1.73m 2 [facility] Globulin (S) [Mass/Vol] 3.3 g/dL [facility] Glucose [Mass/Vol] 82 mg/dL 74 - 106 mg/dL [facility] Potassium [Moles/Vol] 4.5 mmol/L 3.5 - 5.1 mmol/L [facility] Protein [Mass/Vol] 6.9 g/dL 6.4 - 8.2 g/dL [facility] Sodium [Moles/Vol] 141 mmol/L 136 - 145 mmol/L [facility] TB EGFR-NON AF LATVIAN >60 >=60 mL/min/1.73m 2 [facility] Urea nitrogen [Mass/Vol] 13 mg/dL 7.0 - 18.0 mg/dL [facility] Urea nitrogen/Creatinine [Mass ratio] 13.4 mg/mg [facility] MLR HEMOGLOBIN A1Con 025 Glucose [Mass/Vol] 100 mg/dL [facility] HbA1c (Bld) [Mass fraction] 5.1 % 4.5 - 6.2 % [facility] Comment on above: ADA RECOMMENDED LIMI T 4.0 - 6.0 ADA THERAPEUTIC TARGET < 7.0 ACTION SUGGESTED > 7.0 No Panel Informationon 05-25 Interpretation and review of laboratory results Abnormal [facility] MM TOMOSYNTHESIS SCREENING B Ion 05-20-2024 [place] [address] Mammography Report Signed Patient: FRANKY CYR MR#: [id number] : 1970 Acct:[id number] Age/Sex: 54 / F ADM Date: 05/20/24 Loc: MAMMO Attending Dr: Dipika Farley D.O. Ordering Physician: Dipika Farley D.O. Results: Date of Service: 05/20/24 Follow Up: Procedure(s): MM tomosynthesis screening BI Accession Number(s): [id number] cc: Dipika Farley D.O.; Mikey Davis M.D. Patient Name: FRANKY CYR MR#: [id number] : 1970 Exam Date: 05/20/2024 Ordering Doctor: [...] breast cancer at age 71. LOCATION: [facility] BREAST COMPOSITION: The breasts are extremely [...] Signed By: 05/20/24 1439 DD/ 38 TD/TT: Buffer Chrome: [facility] Radiology, Radiologi MD meli - 05/20/2024 [place] [address] Mammography Report Signed Patient: FRANKY CYR MR#: [id number] : 1970 Acct:[id number] Age/Sex: 54 / F ADM Date: 05/20/24 Loc: MAMMO Attending Dr: Dipika Farley D.O. Ordering Physician: Dipika Farley D.O. Results: Date of Service: 05/20/24 Follow Up: Procedure(s): MM tomosynthesis screening BI Accession Number(s): [id number] cc: Dipika Farley D.O.; Mikey Davis M.D. Patient Name: FRANKY CYR MR#: [id number] : 1970 Exam Date: 05/20/2024 Ordering Doctor: [...] breast cancer at age 71. LOCATION: [facility] BREAST COMPOSITION: The breasts are extremely [...] D.O. Signed By: 05/20/241438 DD/ 38 TD/TT: Buffer Chrome: [facility] Radiology Study observation (narrative) [facility] MM TOMOSYNTHESIS SCREENING B IOrdered By: Radiologist Radiology on 05-20-2024 [facility] Work Phone: Luciano 07-30-2023 L Specimen: [id number] Received: 07/30/23 Status: NYA Moseley Num: [id number] Spec Type: Surgical Subm Dr: Dipika Farley Tissues: A Uterus w/ or w/o tubes ovaries except neoplastic or prolap (CERVIX, KATHY FT Procedures: HE/12, Gross/Micro L5 Age/ Patient Sex Location Account Attending Physician Franky Cyr 53/F [facility] [id number] Dipika Farley SPEC NUM: [id number] RECD: 07/30/23 STATUS: NYA MOSELEY NUM: [id number] AVNI: 07/30/[address]: Dipika Farley ENTERED: 07/30/23 [facility] DR: Isabel,Lab SPEC TYPE: Surgical [...] cm in diameter). Each tube contains Specimen: [id number] Received: 07/30/23 Status: NYA Pradip Num: [id number] Spec Type: Surgical Subm Dr: Dipika Farley Tissues: A Uterus w/ or w/o tubes ovaries except neoplastic or prolap (CERVIX, KATHY FT Procedures: HE/12, Gross/Micro L5 Patient: naveenFranky [id number] (Continued) Specimen: [id number] Received: 07/30/23 (Continued) Gross Description (Continued) Signed (signature on file) Nishant Cueto MD 07/31/23 1454 Specimen: [id number] Received: 07/30/23 Status: NYA Moseley Num: [id number] Spec Type: Surgical Subm Dr: Dipika Farley Tissues: A Uterus w/ or w/o tubes ovaries except neoplastic or prolap (CERVIX, KATHY FT Procedures: Neo/Micro L5 Patient: Franky Cyr [id number] (Continued) Specimen: [id number] Received: 07/30/23 (Continued) Gross Description (Continued) a perez-purple smooth serosal surface containing multiple paratubal cysts ranging from 0.1 to 0.3 cm. Sectioning into each tube demonstrates an intact luminal center lined by unremarkable perez mucosa. Lining Caser sections submitted as follows: A1: Anterior cervix A2: Posterior cervix A3?A4: Anterior endomyometrium A5?A6: Posterior endomyometrium A7?A8: Nodules A9: Fallopian tube #1 A10: Fallopian tube #2 CPT Codes 10834 Specimen: [id number] Received: 07/30/23 Status: NYA Moseley Num: [id number] Spec Type: Surgical Subm Dr: Dipika Farley Tissues: A Uterus w/ or w/o tubes ovaries except neoplastic or prolap (CERVIX, KATHY FT Procedures: , Gross/Micro L5 Patient: Franky Cyr [id number] (Continued) Signed (signature on file) Nishant Cueto MD 07/31/23 1454 Normal [facility] Physician [facility] Luciano 06-17-2023 L Specimen: [id number] Received: 06/17/23 Status: NYA Moseley Num: [id number] Spec Type: Surgical Subm Dr: Dipika Farley Tissues: A Endometrium - Curettings (EMC) Procedures: HE/, Gross/Micro L4 Age/ Patient Sex Location Account Attending Physician Franky Cyr 53/F [facility] [id number] Dipika Farley SPEC NUM: [id number] RECD: 06/17/23 STATUS: NYA MOSELEY NUM: [id number] AVNI: 06/17/[address]: Dipika Farley ENTERED: [...] perez. D C hysteroscopy, MyoSure TW Specimen: [id number] Received: 06/17/23 Status: NYA Moseley Num: [id number] Spec Type: Surgical Subm Dr: Dipika Farley Tissues: A Endometrium - Curettings (EMC) Procedures: HE/Mickey, Gross/Micro L4 Patient: Franky Cyr [id number] (Continued) Specimen: [id number] Received: 06/17/23 (Continued) Signed (signature on file) Rich Flores MD 06/19/23 1529 Specimen: [id number] Received: 06/17/23 Status: NYA Moseley Num: [id number] Spec Type: Surgical Subm Dr: Dipika Farley Tissues: A Endometrium - Curettings (EMC) Procedures: CORTES/Neo Arevalo/Tammy L4 Patient: Franky Cyr [id number] (Continued) Specimen: [id number] Received: 06/17/23 (Continued) CPT Codes 44870 Specimen: [id number] Received: 06/17/23 Status: NYA Moseley Num: [id number] Spec Type: Surgical Subm Dr: Dipika Farley Tissues: A Endometrium - Curettings (EMC) Procedures: HE/2, Gross/Micro L4 Patient: Franky Cyr [id number] (Continued) Signed (signature on file) Rich Folres MD 06/19/23 1529 Normal [facility] Pathology Noteon 10-31-2022 Pathology Note [id number] :127 Normal [facility] Reminderson 10-30-2022 Reminders - From: Shavon Mcguire LPN To: N - Clinical; Sent: 10/30/2022 11:35:53 EDT Show up: 09/22/2032 07:00:00 EDT Subject: colonoscopy recall Due Date/Time: 10/23/2032 07:00:00 EDT Reminder/Recall Patient due for screening colonoscopy 10/23/2032. Normal [facility] Outside Colonoscopyon 2022 Outside Colonoscopy [id number]#1.00C D:127 Normal [facility] Lab Reportson 10-23-2022 Lab Reports [id number]#1.00C D:127 [facility] Consent for Procedure/Surger yon 10-09-2022 Consent for Procedure/Surgery [id number]#1.00C D:127 Normal [facility] Formson 10-09-2022 Forms [id number]#1.00C D:127 Normal [facility] Ambulatory Visit Summaryon 0 10-08-2022 Ambulatory Visit [...] Vascular insufficiency Very low density lipoprotinemia Normal [facility] Physician Referralon 023 Physician Referral [id number]#1.00C D:127 Normal [facility] US PELVIS AND TRANSVAGon US PELVIS AND [...] by: RANDALL LEMONS Date: 2022-06-21 07:02 Normal [facility] PAP ACOG PANEL 2: 30 to 65on 06-17-2022 . . Normal [facility] Comment on above: Result Comment: Perf ormed at: WB Performed By: #### 4 [id number] ####[facility] [address] [place] [address]DrBrianne Flores Age Gdln ACOG Testing 30-65 Normal [facility] Comment on above: Performed By: #### 4 [id number] ####[facility] [address] [place] [address]DrBrianne Flores DIAGNOSIS: Comment Normal [facility] Comment on above: Result Comment: NEGA TIVE FOR INTRAEPITHELIAL LESION OR MALIGNANCY. Performed at: WB Performed By: #### 4 [id number] ####[facility] [address] [place] [address]DrBrianne Flores HPV Aptima Negative Normal Negative [facility] Comment on above: Result Comment: This nucleic acid amplification test detects fourteen high-risk HPV types (16,18,31,33,35,39,45,51,52,56,58,59,66,68) without differentiation. Performed at: =G Performed By: #### 4 [id number] ####[facility] [address] [place], [place] [address]DrBrianne Flores HPV Genotype Reflex Comment Normal [facility] [place] Comment on above: Result Comment: Crit walter not met, HPV Genotype not performed. Performed at: WB Performed By: #### 4 [id number] ####[facility] [address] [place], [place] [address]Dr. Fernando Flores Methodology: Comment Normal [facility] Comment on above: Result Comment: This liquid based ThinPrep(R) pap test was screened with the use of an image guided system. Performed at: WB Performed By: #### 4 [id number] ####[facility] [address] [place], [place] [address]Dr. Fernando Flores Note: Comment Normal [facility] Comment on above: Result Comment: The Pap smear is a screening test designed to aid in the detection of premalignant and malignant conditions of the uterine cervix. It is not a diagnostic procedure and should not be used as the sole means of detecting cervical cancer. Both false-positive and false-negative reports do occur. . Performed at: WB Performed By: #### 4 [id number] ####[facility] [address] [place], [place] [address]DrBrianne Flores Performed by: Comment Normal [facility] Comment on above: Result Comment: Concetta Riggins, Core Inspector (ASCP) Performed at: WB Performed By: #### 4 [id number] ####[facility] [address] [place], [place] [address]Dr. Fernando Flores Specimen adequacy: Comment Normal [facility] Comment on above: Result Comment: Sati sfactory for evaluation. Endocervical and/or squamous metaplastic cells (endocervical component) are present. Performed at: WB Performed By: #### 4 [id number] ####[facility] [address] [place], [place] [address]Dr. Fernando Flores Covid-19 PCR (CVDTB)on 03-3 0-2023 SARS-CoV-2 (COVID-19) RNA ALISON+probe Ql (Unsp spec) Not detected Normal NOT DETECTED [facility] Comment on above: Result Comment: When [...] for this test is supported by the [place] of Health and Human Service's declaration that [...] used). Performed By: #### T 4 #### [facility] [address] [place] [address] Dr. Fernando Flores INFLUENZA A AND B AGon 05-23 INFLUANE SEE BELOW Normal [facility] Comment on above: Result Comment: Nega tive for Flu A protein angiten. Infection due to Flu A cannot be ruled out. Flu A angiten in the sample may be below the detection limit of the test. Performed By: #### S EROTON #### [facility] [address] [place] [address] Dr. Fernando Flores INFLUBNEGH SEE BELOW Normal [facility] Comment on above: Result Comment: Nega tive for Flu B protein antigen. Infection due to Flu B cannot be ruled out. Flu B antigen in the sample may be below the detection limit of the test. Performed By: #### S EROTON #### [facility] [address] [place] [address] Dr. Fernando Flores INFLUENZA A AG Negative Normal NEGATIVE SEE COMMENT [facility] Comment on above: Performed By: #### S EROTON #### [facility] [address] [place] [address] Dr. Fernando Flores INFLUENZA B AG Negative Normal NEGATIVE SEE COMMENT [facility] Comment on above: Performed By: #### S EROTON #### [facility] [address] [place] [address] [address] Fernando Flores MG MAMM SCREEN 3D KATHY CADon 05-17-2022 MG MAMM SCREEN 3D KATHY CAD Patient: FRANKY CYR Exam Date: 05/17/2022 : 1970 Gender:F Ordering : DR DIPIKA FARLEY . Admission #: [id number] Family : Order #: [id number] CLICK HERE TO VIEW EXAM RADIOLOGY REPORT [...] breast cancer at age 71. LOCATION: [facility] BREAST COMPOSITION: Extremely dense, which lowers [...] M.D. on 05/17/2022 at 11:51 Normal [facility] THYROGLOBULINon 01-26-2022 Thyroglobulin 21 ng/mL Normal [facility] Comment on above: [...] ng/mL. Performed By: #### Cathie VIDALES #### [facility] [address] [place], [place] [address] Dr. Fernando Flores ESTRONEon 01-23-2022 Estrone, Serum 29 pg/mL Normal [facility] Comment on above: Result Comment: Rang e Adult (Premenopausal) 27 - 231 Menstrual Cycle (1-10 days) 19 - 149 Menstrual Cycle (11-20 days) 32 - 176 Menstrual Cycle (21-30 days) 37 - 200 Adult (Postmenopausal) 0 - 125 Performed By: #### Bernadette MARTINEZ #### [facility] [address] [place] [address] [address] Fernando Flores REVERSE T3on 01-22-2022 Reverse T3, Serum 14.4 ng/dL Normal 9.2-24.1 [facility] Comment on above: Result Comment: This test was developed and its performance characteristics determined by [facility] [employer]. It has not been cleared or approved by the Food and Drug Administration. Performed By: #### Henrik EVRT3 #### [facility] [id number] Fernando Flores TESTOSTERONE, FREE,DIRECT, T OTALon 01-22-2022 Free Testosterone(Direct) 1.9 pg/mL Normal 0.0-4.2 [facility] Comment on above: Result Comment: Perf ormed at: BN Performed By: #### T ESTFRD ####[facility] [address] [place], [place] [address]AwDr. Fernando Flores Testosterone [Mass/Vol] 30 ng/dL Normal 4-50 [facility] Comment on above: Result Comment: Perf ormed at: CB Performed By: #### T ESTFRD ####[facility] [address] [place], [place] [address]PkDr. Fernando Flores [facility]on 12-26 SARS-CoV-2 (COVID-19) RNA ALISON+probe Ql (Unsp spec) Not detected Normal NOT DETECTED [facility] Comment on above: Result Comment: When [...] for this test is supported by the [place] of Health and Human Service's declaration that [...] be used). Performed By: #### C VDTBH ####[facility] [address] [place] [address]Dr. Fernando Flores SEROTONINon 01-20-2022 Serotonin, Serum 162 ng/mL Normal 31-207 [facility] Comment on above: Performed By: #### S EROTON #### [facility] [address] [place] [address] Dr. Fernando Flores THYROGLOBULIN ABon 2 Thyroglobulin Antibody <1.0 Normal 0.0-0.9 [facility] Comment on above: Result Comment: Thyr oglobulin Antibody measured by [employer] Methodology Performed By: #### T HYGAB ####[facility] [address] [place] [address]Dr. Fernando Flores VIT D 1 25 DIHYDROXYon 01-19 Calcitriol(1,25 di-OH Vit D) 62.0 pg/mL Normal 24.8-81.5 [facility] Comment on above: Performed By: #### S EROTON #### [facility] [address] [place] [address] Dr. Fernando Flores C-PEPTIDE, SERUMon 2 C-Peptide, Serum 1.8 ng/mL Normal 1.1-4.4 [facility] Comment on above: Result Comment: C-Pe ptide reference interval is for fasting patients. Performed By: #### C PEPT ####[facility] [address] [place], [place] [address]NuDr. Fernando Flores INSULINon 01-18-2022 Insulin 6.7 uIU/mL Normal 2.6-24.9 [facility] Comment on above: Performed By: #### T 4 #### [facility] [address] [place], [place] [address] Dr. Fernando Flores CORTISOLon 01-17-2022 Cortisol 14.2 ug/dL Normal [facility] Comment on above: Result Comment: Floyd isol AM 6.2 - 19.4 Cortisol PM 2.3 - 11.9 Performed By: #### C ORTISO #### [facility] [address] [address] [address] Fernando Flores DHEA-SULFATEon 01-17-2022 DHEA-Sulfate 93.7 ug/dL Normal 41.2-243.7 [facility] Comment on above: Performed By: #### S EROTON #### [facility] [address] [place], [place] [address] Dr. Fernando Flores ESTRADIOLon 01-17-2022 Estradiol 24.6 pg/mL Normal [facility] Comment on above: Result Comment: Adul t Female: Follicular phase 12.5 - 166.0 Ovulation phase 85.8 - 498.0 Luteal phase 43.8 - 211.0 Postmenopausal <6.0 - 54.7 1st trimester 215.0 - >4300.0 Sanjay ECLIA methodology Performed By: #### S EROTON #### [facility] [address] [place], [place] [address] Dr. Fernando Flores PROGESTERONEon 01-17-2022 Progesterone 0.7 ng/mL Normal [facility] Comment on above: Result Comment: Foll icular phase 0.1 - 0.9 Luteal phase 1.8 - 23.9 Ovulation phase 0.1 - 12.0 First trimester 11.0 - 44.3 Second trimester 25.4 - 83.3 Third trimester 58.7 - 214.0 Postmenopausal 0.0 - 0.1 Performed By: #### P JASWINDER #### [facility] [address] [address] [address] Fernando Flores SEX HORMONE-BINDING GLOBULIN on 01-17-2022 Sex Horm Binding Glob, Serum 115.0 nmol/L Normal 17.3-125.0 [facility] Comment on above: Performed By: #### S EROTON #### [facility] [address] [address] [address] Fernando Flores T3, TOTAL (TRIIODOTHYRONINE) on 01-17-2022 T3, TOTAL 120 ng/dL Normal 71-180 [facility] Comment on above: Performed By: #### T 3TOTAL ####[facility] [address] [place] [address]Dr. Fernando Flores THYROID PEROXIDASE ABon 12-26 Thyroid Peroxidase (TPO) Ab <9 Normal 0-34 [facility] Comment on above: Performed By: #### S EROTON #### [facility] [address] [address] [address] Fernando Flores FREE T3on 01-16-2022 FREE T3 2.86 pg/mlL Normal 2.18-3.98 [facility] Comment on above: Performed By: #### T 4 #### [facility] [address] [address] [address] Fernando Flores FREE T4on 01-16-2022 Free T4 [Mass/Vol] 1.04 ng/dL Normal 0.76-1.46 [facility] [place] [facility] Comment on above: Performed By: #### F T4 ####[facility] [address] [address]Dr. Fernando Flores GLUCOSE BLOODon 01-16-2022 Glucose [Mass/Vol] 90 mg/dL Normal 74-106 [facility] [place] [facility] Comment on above: Performed By: #### S EROTON #### [facility] [address] [address] [address] Fernando Flores GLYCOHEMOGLOBIN A1Con 2021 ADA RECOMMENDATION SEE BELOW Normal [facility] [place] [facility] Comment on above: Result Comment: ADA RECOMMENDED LIMIT 4.0 - 6.0 ADA THERAPEUTIC TARGET < 7.0 ACTION SUGGESTED > 7.0 Performed By: #### S EROTON #### [facility] [address] [place] [address] Dr. Fernando Flores Glucose [Mass/Vol] 103 mg/dL Normal [facility] Comment on above: Performed By: #### S EROTON #### [facility] [address] [place] [address] Dr. Fernando Flores HbA1c (Bld) [Mass fraction] 5.2 % Normal 4.5-6.2 [facility] Comment on above: Performed By: #### S EROTON #### [facility] [address] [place] [address] Dr. Fernando Flores T4on 01-16-2022 T4 [Mass/Vol] 7.40 ug/dL Normal 4.80-13.90 [facility] Comment on above: Performed By: #### T 4 #### [facility] [address] [place] [address] Dr. Fernando Flores TSHon 01-16-2022 TSH 1.776 uIU/mL Normal 0.358-3.740 [facility] Comment on above: Performed By: #### S EROTON #### [facility] [address] [place] [address] Dr. Fernando Flores VC CONSULT FOLLOWUPon 2021 VC CONSULT FOLLOWUP Patient: FRANKY CYR Exam Date: 01/14/2022 : 1970 Gender:F Ordering : DR JAYDEN HENDERSON M.D. Admission #: [id number] Family : Order #: [id number] CLICK HERE TO VIEW EXAM RADIOLOGY REPORT [...] on 01/14/2022 at 15:58 Approved by: Jayden eHnderson MD on 01/14/2022 at 16:01 Normal [facility] VC EXT VENOUS RT LIMITEDon 1 03-16-2021 VC EXT VENOUS RT LIMITED Patient: FRANKY CYR Exam Date: 01/14/2022 : 1970 Gender:F Ordering : DR JAYDEN HENDERSON M.D. Admission #: [id number] Family : Order #: [id number] CLICK HERE TO VIEW EXAM RADIOLOGY REPORT [...] Henderson MD on 01/14/2022 at 16:04 Normal [facility] VC CONSULT FOLLOWUPon 2021 VC CONSULT FOLLOWUP Patient: FRANKY CYR Exam Date: 12/27/2021 : 1970 Gender:F Ordering : DR JAYDEN HENDERSON M.D. Admission #: [id number] Family : Order #: [id number] CLICK HERE [...] Henderson MD on 12/27/2021 at 15:30 Normal [facility] VC EXT VENOUS RT LIMITEDon 1 02-26-2021 VC EXT VENOUS RT LIMITED Patient: FRANKY CYR Exam Date: 12/27/2021 : 1970 Gender:F Ordering : DR JAYDEN HENDERSON M.D. Admission #: [id number] Family : Order #: [id number] CLICK HERE TO VIEW EXAM RADIOLOGY REPORT [...] Henderson MD on 12/27/2021 at 15:17 Normal [facility] VC INJ FOAM SCLERO W US MLTI on 12-21-2021 VC INJ FOAM SCLERO W US MLTI Patient: FRANKY CYR Exam Date: 12/21/2021 : 1970 Gender:F Ordering : DR JAYDEN HENDERSON M.D. Admission #: [id number] Family : Order #: [id number] CLICK HERE TO VIEW EXAM RADIOLOGY REPORT [...] weeks, (more content not included)... Normal [facility] VC CONSULT FOLLOWUPon 2021 VC CONSULT FOLLOWUP Patient: FRANKY CYR Exam Date: 12/13/2021 : 1970 Gender:F Ordering : DR JAYDEN HENDERSON M.D. Admission #: [id number] Family : Order #: [id number] CLICK HERE TO VIEW EXAM RADIOLOGY REPORT [...] Jayden Henderson MD on 12/13/2021 at 08:24 [facility] VC EXT VENOUS LT LIMITEDon 1 VC EXT VENOUS LT LIMITED Patient: FRANKY CYR. Exam Date: 12/13/2021 : 1970 Gender:F Ordering : DR JAYDEN HENDERSON M.D. Admission #: [id number] Family : Order #: [id number] CLICK HERE TO VIEW EXAM RADIOLOGY REPORT [...] Henderson MD on 12/13/2021 at 08:16 Normal [facility] VC ENDOVENOUS ABL 1ST V LTon 12-07-2021 VC ENDOVENOUS ABL 1ST V LT Patient: ANDRZEJGoldVETO FRANKY AlvaradoBrianne Exam Date: 12/07/2021 : 1970 Gender:F Ordering : DR JAYDEN HENDERSON M.D. Admission #: [id number] Family : Order #: [id number] CLICK HERE TO VIEW EXAM CORRECTION: Changed [...] Henderson MD on 12/07/2021 at 10:27 Normal [facility] VC CONSULT FOLLOWUPon 2021 VC CONSULT FOLLOWUP Patient: FRANKY CYR Exam Date: 11/29/2021 : 1970 Gender:F Ordering : DR JAYDEN HENDERSON M.D. Admission #: [id number] Family : Order #: [id number] CLICK HERE TO VIEW EXAM RADIOLOGY REPORT [...] Henderson MD on 11/29/2021 at 09:01 Normal [facility] VC EXT VENOUS RT LIMITEDon 1 VC EXT VENOUS RT LIMITED Patient: FRANKY CYR Exam Date: 11/29/2021 : 1970 Gender:F Ordering : DR JAYDEN HENDERSON M.D. Admission #: [id number] Family : Order #: [id number] CLICK HERE TO VIEW EXAM RADIOLOGY REPORT [...] Henderson MD on 11/29/2021 at 08:44 Normal [facility] VC ENDOVENOUS ABL 1ST V RTon 11-22-2021 VC ENDOVENOUS ABL 1ST V RT Patient: FRANKY CYR Exam Date: 11/22/2021 : 1970 Gender:F Ordering : DR JAYDEN HENDERSON M.D. Admission #: [id number] Family : Order #: [id number] CLICK HERE TO VIEW EXAM RADIOLOGY REPORT [...] M.D. on 11/22/2021 at 14:45 Normal [facility] CRPon 09-20-2021 CRP [Mass/Vol] mg/L Normal <=1.0 [facility] Comment on above: Performed By: #### S EROTON #### [facility] [address] [place], [place] [address] Dr. Fernando Flores SED RATE [facility] 2021 SED RATE 5 mm/hr Normal <=30 [facility] Comment on above: Performed By: #### S EDR ####[facility] [address] [place], [place] [address]SfDr. Fernando Flores US PELVIS AND TRANSVAGon US [...] by: RANDALL LEMONS Date: 2021-09-11 14:02 Normal [facility] CTA ABD JAKE WWO CON LE [...] RANDALL LEMONS Date: 2021-08-10 11:03 Normal [facility] VC COMP CONSULTATIONon 07-31 VC COMP CONSULTATION Patient: FRANKY CYR Exam Date: 07/31/2021 : 1970 Gender:F Ordering : DR JAYDEN HENDERSON M.D. Admission #: [id number] Family : Order #: [id number] CLICK HERE TO VIEW EXAM RADIOLOGY REPORT [...] sa (more content not included)... Normal [facility] VC VENOUS REFLUX KATHY LMTon 0 07-31-2021 VC VENOUS REFLUX KATHY LMT Patient: FRANKY CYR Exam Date: 07/31/2021 : 1970 Gender:F Ordering : DR JAYDEN HENDERSON M.D. Admission #: [id number] Family : Order #: [id number] CLICK HERE TO VIEW EXAM RADIOLOGY REPORT [...] the GSV and connects to the incompetent change management consultant. Incompetent patent varicose vein extends from the [...] or chronic thrombus Compressibility: Normal Flow: Normal Strategic Development Manager: Mid medial thigh measures 3.2 mm [...] Henderson MD on 07/31/2021 at 11:39 Normal [facility] XR LSPINE MIN 4 VIEWSon 06-24 [...] by: RANDALL LEMONS Date: 2021-07-03 13:34 Normal [facility] Vital Signs Date Time Vital Sign Value Performing Clinician Facility 06-08-2024 13:16-0400 Body mass index (BMI) [Ratio] 21.97 kg/m2 Dipika Martine DO Work Phone: [facility] 06-08-2024 13:16-0400 Body weight 58.06 kg Dipika Martine DO Work Phone: [facility] 06-08-2024 13:16-0400 Diastolic blood pressure 72 mm[Hg] Dipika Martine DO Work Phone: [facility] 06-08-2024 13:16-0400 Systolic blood pressure 118 mm[Hg] Dipika Martine DO Work Phone: [facility] 10-08-2022 15:23-0400 Blood Pressure Location [facility] [place] 10-08-2022 15:23-0400 Diastolic blood pressure 78 mm[Hg] [facility] [place] 10-08-2022 15:23-0400 Heart rate 70 /min Leon NILL [facility] [place] 10-08-2022 15:23-0400 Respiratory rate 16 /min [facility] [place] 10-08-2022 15:23-0400 Systolic blood pressure 116 mm[Hg] [facility] [place] Encounters Encounter Date Encounter Type Care Provider Facility Start: 06-08-2024 End: 06-08-2024 Bamboo flowsheet Dipika Martine DO Work Phone: [facility] Start: 06-08-2024 End: 06-11-2024 Bamboo flowsheet Dipika Martine DO Work Phone: [facility] Start: 06-08-2024 End: 06-11-2024 Clinisync Result Encounter Dipika Martine DO Work Phone: [facility] External Department Unsolicited Start: 06-08-2024 End: 06-08-2024 [...] encounter procedure Mikey Davis MD Work Phone: [facility] Work Phone: Start: 06-03-2024 End: 06-03-2024 ambulatory Mikey Davis MD Work Phone: [facility] Work Phone: Start: 05-25-2024 End: 05-25-2024 [...] Start: 07-30-2023 End: 07-30-2023 ambulatory Dipika Lasto [facility] Work Phone: Start: 07-30-2023 End: 07-30-2023 Departed Referred Dipika Farley Work Phone: [facility] [place] [facility] Start: 07-02-2023 End: 07-02-2023 ambulatory DIPIKAArthur LASTO Not Available Start: 06-17-2023 End: 06-17-2023 ambulatory Dipika Lasto [facility] Work Phone: Start: 06-17-2023 End: 06-17-2023 Departed Referred Dipika Farley Work Phone: [facility] [place] [facility] Start: 06-11-2023 End: 06-11-2023 ambulatory DIPIKA LASTO Not Available Start: 10-23-2022 End: 10-24-2022 ambulatory Leon WHYTE Facility:[id number] Start: 10-08-2022 End: 10-09-2022 ambulatory Leon [...] 05-25-2024 [facility] CMP (CMP) (FOR [facility] USE) Mikey Davis MD Work Phone: Start: [...] Screening for malignant neoplasm of breast Mammogram [facility] Start: 05-20-2025 Screening for malignant neoplasm of breast Mammogram [facility] Start: 06-08-2024 End: 06-08-2025 DXA Skeletal system Views for bone density DEXA bone density Imaging Routine Osteoporosis, post-menopausal ([facility]/HCC) Expected: 06/08/2024 (Approximate), Expires: 06/08/2025 [facility] Work Phone: Comment on above: Expected: 06/08/2024 (Approximate), Expires: 06/08/2025 Start: 06-08-2024 End: 06-08-2024 Patient encounter procedure 06/08/2024 1:00 PM EDT Office Visit [facility] [address] [place] [address] Dipika Farley, DO [address] [place] [address] Arrived [facility] Comment on above: Arrived Start: 06-03-2024 Mammography of right breast MM special view RT w/CAD [facility] Start: 06-03-2024 MG Breast - right Single view [facility] Start: 06-01-2024 End: 06-01-2024 Patient encounter procedure 06/01/2024 1:10 PM EDT Office Visit [facility] [address] [place] [phone] Dipika Farley, DO [address] [facility] [place] [address] [facility] Start: 05-21-2024 End: 07-21-2025 MG Breast - right Diagnostic Right diagnostic mammogram Imaging Routine Abnormal mammogram of right breast Expected: 05/21/2024, Expires: 07/21/2025 [facility] Work Phone: Comment on above: Expected: 05/21/2024 , Expires: 07/21/2025 Start: 05-21-2024 End: 07-21-2025 US Breast - right limited Right breast US limited Imaging Routine Abnormal mammogram of right breast Expected: 05/21/2024, Expires: 07/21/2025 [facility] Comment on above: Expected: 05/21/2024 , Expires: 07/21/2025 Start: 05-19-2024 Screening for malignant neoplasm of breast Mammogram [facility] Start: 1970 Screening for malignant neoplasm of colon [facility] THIN PREP TIS PAP AN D HR HPV DNA THIN PREP TIS PAP AND HR HPV DNA Pathology and Cytology Routine Well woman exam with routine gynecological exam Ordered: 06/08/2024 [facility] Comment on above: Ordered: 06/08/2024 Immunizations Immunization Date Immunization Notes Care Provider Fa cility 12-15-2020 SARS-CoV-2 (COVID-19 ) mRNA-1273 vaccine Leon [facility] [place] 03-22-2020 SARS-CoV-2 (COVID-19 ) mRNA-1273 vaccine Leon [facility] [place] 02-22-2020 SARS-CoV-2 (COVID-19 ) [id number] vaccine Leon WHYTE [facility] [place] Payers Date Payer Category Payer Self-pay 2022 [facility] BCBS [id number] 2022 Unknown [id number] 2019 Unknown [id number] 1970 Unknown [id number] 2.16.840.1.218283.3.579.2. 593 1970 Unknown [id number] 2.16.840.1.545160.3.579.2. 593 1970 Unknown [id number] 2.16.840.1.197243.3.579.2. 593 1970 Unknown [id number] 2.16.840.1.626294.3.579.2. 593 1971 Unknown [id number] 2.16.840.1.235577.3.579.2. 593 1971 Unknown [id number] 2.16.840.1.206002.3.579.2. 593 1971 Unknown [id number] 2.16.840.1.106881.3.579.2. 593 1971 Unknown [id number] 2.16.840.1.589450.3.579.2. 593 1971 Unknown [id number] 2.16.840.1.965506.3.579.2. 593 1971 Unknown [id number] 2.16.840.1.893887.3.579.2. 593 1971 Unknown [id number] 2.16.840.1.196472.3.579.2. 593 1971 Unknown [id number] 2.16.840.1.777746.3.579.2. 593 1971 Unknown [id number] 2.16.840.1.996236.3.579.2. 593 1971 Unknown [id number] 2.16.840.1.402164.3.579.2. 593 1971 Unknown [id number] 2.16.840.1.363664.3.579.2. 593 1971 Unknown [id number] 2.16.840.1.022203.3.579.2. 593 1971 Unknown [id number] 2.16.840.1.338585.3.579.2. 593 1971 Unknown [id number] 2.16.840.1.336471.3.579.2. 593 1971 Unknown [id number] 2.16.840.1.339207.3.579.2. 593 1971 Unknown [id number] 2.16.840.1.332379.3.579.2. 593 1971 Unknown [id number] 2.16.840.1.792645.3.579.2. 593 1971 Unknown [id number] 2.16.840.1.019463.3.579.2. 593 1971 Unknown [id number] 2.16.840.1.954563.3.579.2. 593 1971 Unknown [id number] 2.16.840.1.010508.3.579.2. 593 1971 Unknown [id number] 2.16.840.1.338460.3.579.2. 727 1971 Unknown [id number] 2.16.840.1.697678.3.579.2. 727 1971 Unknown [id number] 2.16.840.1.439499.3.579.2. 9 1970 Unknown [id number] 2.16.840.1.747444.3.579.2. 1259 1970 Unknown [id number] 2.16.840.1.034509.3.579.2. 1259 1971 Unknown [id number] 2.16.840.1.794129.3.579.2. 1259 1971 Unknown [id number] 2.16.840.1.060379.3.579.2. 1259 1959 Self-pay [id number] Unknown [id number] 2.16.840.1.378441.3.579.2. 531 Social History Date Type Detail Facility Start: 10-08-2022 End: 09-10-2023 Tobacco smoking status Never smoked tobacco (finding) [facility] Tobacco smoking status Never [facility] Start: 09-10-2023 Sex Assigned At Female F [facility] Start: 1970 Sex Assigned At Female F [facility] Start: 09-10-2023 Tobacco use and exposure Smokeless tobacco non-user [facility] Start: 09-10-2023 End: 06-08-2024 Alcoholic beverage intake Lifetime non-drinker (finding) [facility] Start: 09-10-2023 History of Social function [facility] Start: 1970 Sex assigned at Not on file [facility] Tobacco smoking stat [facility] Unknown if ever smoked [facility] Work Phone: Start: 06-04-2024 Sex Female (finding) [facility] Functional Status Date Assessment Result Facility 10-08-2022 Functional Status N/A [facility] History of Present illness Narrative 06-08-2024 Mary Huff, SATURATION DIVER - 06/08/2024 1:00 PM EDT Note Date [...] Father Scott Hypertension Father Scott Stroke Father cSott SURGICAL HISTORY Past Surgical History: Procedure Laterality [...] nursing note reviewed. Exam conducted with a developer evangelist present. Vitals: Estimated body mass index is [...] Dipika Farley DO documented in this encounter [facility] Clinical Note 10-08-2022 Note [...] Recorded SARS-CoV-2 (COVID-19) mRNA-1273 vaccine 02/22/2020 Recorded [facility] Comment on above: Result Comment: Elec tronically [...] by: JAYDEN HENDERSON Date: 2021-09-04 16:23 [facility] Evaluation + Plan note Note Date & Type Note Facility Evaluation + Plan note No data available for this section [facility] [place] Evaluation note Note Date & Type Note Facility Evaluation note No assessment information availa [facility] Work Phone: Evaluation note Note Date & Type Note Facility Evaluation note Diagnosis Abnormal mammogram of right breast- Primary documented in this encounter [facility] Evaluation note Note Date & Type Note Facility Evaluation note Diagnosis Well woman exam with routine gynecological exam Routine gynecological examination Osteoporosis, post-menopausal (CMS/HCC) Senile osteoporosis H/O: hysterectomy Acquired absence of both cervix and uterus documented in this encounter [facility] Hospital Discharge instructions Note Date & Type Note Facility Hospital Discharge instructions No data available for this section [facility] [place] Progress note Note Date & Type Note Facility Progress note No data available for this section [facility] [place] Summary Purpose Family History No Family History [...] and content) DATE CREATED AUTHOR 06/24/2022 [facility] DATE CREATED AUTHOR AUTHOR'S ORGANIZ ATION 11/01/2022 [facility] DATE CREATED AUTHOR AUTHOR'S ORGANIZ ATION 06/08/2024 [facility] DATE CREATED AUTHOR AUTHOR'S ORGANIZ ATION 06/10/2024 [facility] EPIC Patient Care team informatio n (unrecognized section and content) Team Status: Inactive Member Role Status Dates Dipika Farley Attending Provider Active Start: Shine 2023 End: June 17, 2023 Team Status: Inactive Member Role Status Dates Dipika Farley Attending Provider Active Start: 2023 End: July 30, 2023 Brewery Representative Relationship Specialty Start Date End Date Mikey Davis MD [address] [place] [phone] PCP - General Family Medicine 06/11/23 Brewery Representative Relationship Specialty Start Date End Date Mikey Davis MD [address] [place] [phone] PCP - General Family Medicine 06/11/23 Team Status: Active Member Role Status Dates Mikey Davis MD Primary Care Provider Active Team Status: Inactive Member Role Status Dates Mikey Davis MD Primary Care Provide r, Attending Provider Active Start: June 03, 2024 End: June 03, 2024 Brewery Representative Relationship Specialty Start Date End Date Mikey Davis MD [address] [place] [phone] PCP - General Family Medicine 06/11/23 Brewery Representative Relationship Specialty Start Date End Date Mikey Davis MD [address] [place] [phone] PCP - General Family Medicine 06/11/23 Goals [...] BE BASED ON THE PRIMARY CLINICAL RECORDS. Work in Field [facility]. provides no warranty or guarantee of the accuracy or completeness of information in this document.
--- OUTSIDE RECORDS SUMMARY | 2024-11-30 06:55 | XMS_ITS | Encounter Summary ---
Author Organization [facility] Address [address] [place] [address] Care Team Providers Care Swimming Pool Serviceperson Name Role Phone Mikey Subramanian MD Primary Care Provider [phone] Encounter Details Date Type Department Care Team (Late st Contact Info) Description 09/02/2023 Orders Only [facility] [address] [place] [id number] Christiane Garces LPN [address] [id number] Social History Tobacco Use Types Packs/Day Years [...] on filedocumented in this encounter Care Teams Swimming Pool Serviceperson Relationship Specialty Start Date End Date Mikey Subramanian MD PCP - General Family Medicine 06/11/23 documented as of this encounter
--- OUTSIDE RECORDS SUMMARY | 2024-11-30 06:55 | XMS_ITS | Encounter Summary ---
Author Organization [facility] Address [address] [place] [address] Care Team Providers Care Apron Cleaner Name Role Phone Mikey Subramanian MD Primary Care Provider [phone] Encounter Details Date Type Department Care Team (Late st Contact Info) Description 11/18/2024 Telephone [facility] [address] [place] [address] Praveen Farley, [address] [facility] [place], [facility] Social History Tobacco Use Types Packs/Day Years [...] a repeat, but it was sent to [place] centralized scheduling. And I need it sent to [facility] because I cannot have it done here at [place],I guess due to what needs to be done or The pictures that need to be done. So if that could be sentto over to [facility] to be scheduled, I would appreciate it. You can call me back at [phone]. Patient order was sent to [facility] so this can be scheduled. Patient aware and voiced understanding. documented in this encounter Plan of Treatment Not on file documented as of this encounter Visit Diagnoses Not on filedocumented in this encounter Care Teams Apron Cleaner Relationship Specialty Start Date End Date Mikey Subramanian MD PCP - General Family Medicine 06/11/23 documented as of this encounter
--- OUTSIDE RECORDS SUMMARY | 2024-11-30 06:55 | XMS_ITS | Patient Health Record ---
Author Organization The [facility] in [place] Address [address] [place] [address] Care Team Providers Care Apple Sorter Name Role Phone Hu Glass Primary Care Provider Allergies No Known Allergies Results Component Value Reference Range Notes PROLACTIN Reviewed date:11/20/2024 02:37:35 PM Interpretation: Performing Lab: Notes/Report: [facility] , Prolactin 12.8 3.6-25.2 ng/mL Performing Lab: see note LC - [facility] LB BNP Reviewed date:11/16/2024 03:16:12 PM Interpretation: Performing Lab: Notes/Report: [facility] , NT Pro B Type Natriuretic Pept 165.0 <=900.0 pg/mL Performing Lab: see note ML - [facility] LB CBC AUTO DIFF Reviewed date:11/16/2024 03:16:12 PM Interpretation: Performing Lab: Notes/Report: [facility] , White Blood Count 6.1 4.0-11.0 10 [...] 3/uL Performing Lab: see note ML - [facility] LB PROF 14(COMP METB) Reviewed date:11/16/2024 03:16:12 PM Interpretation: Performing Lab: Notes/Report: [facility] , Sodium 139 136-145 mmol/L Potassium 3.8 [...] 1.3 Performing Lab: see note ML - [facility] LB Estradiol Reviewed date:11/20/2024 02:37:35 PM Interpretation: Performing Lab: Notes/Report: [facility] , Estradiol <5.0 . pg/mL Postmenopausal <6.0 - 54.7 1st trimester 215.0 - >4300.0 Follicular phase 12.5 - 166.0 Sanjay ECLIA methodology Ovulation phase 85.8 - 498.0 Adult Female Range Luteal phase 43.8 - 211.0 Performing Lab: see note - [facility] LB FSH Reviewed date:11/20/2024 02:37:35 PM Interpretation: Performing Lab: Notes/Report: [facility] , FSH 109.0 . mIU/mL Follicular phase 3.5 - 12.5 Postmenopausal 25.8 - 134.8 Ovulation phase 4.7 - 21.5 Adult Female Range Luteal phase 1.7 - 7.7 Performing Lab: see note - [facility] LB Luteinizing Hormone(LH) Reviewed date:11/20/2024 02:37:35 PM Interpretation: Performing Lab: Notes/Report: [facility] , Luteinizing Hormone(LH) 47.5 . mIU/mL Ovulation phase 14.0 - 95.6 Luteal phase 1.0 - 11.4 Adult Female Range Follicular phase 2.4 - 12.6 Postmenopausal 7.7 - 58.5 Performing Lab: see note - [facility] LB Progesterone Reviewed date:11/20/2024 02:37:35 PM Interpretation: Performing Lab: Notes/Report: [facility] , Progesterone 0.2 . ng/mL Performed at: [facility] Roll Grinder: Yash Cornelius PhD, Phone: [phone] First trimester 11.0 - 44.3 Second trimester 25.4 - 83.3 Follicular phase 0.1 - 0.9 Ovulation phase 0.1 - 12.0 [address] [place], [place] [id number] Third trimester 58.7 - 214.0 Postmenopausal 0.0 - 0.1 Luteal phase 1.8 - 23.9 Performing Lab: see note - [facility] LB LIPID PROFILE Reviewed date:11/19/2024 11:53:41 AM Interpretation: Performing Lab: Notes/Report: [facility] , Triglycerides 35 <=150 mg/dL Cholesterol 200 <=200 mg/dL HDL Cholesterol 67 40-60 mg/dL <40 mg/dl - HIGH CARDIOVASCULAR RISK > or =60 mg/dl - LOW CARDIOVASCULAR RISK LDL Cholesterol Calculated 126.0 >190 mg/dl VERY HIGH 100-129 mg/dl NEAR OR ABOVE OPTIMAL 130-159 mg/dl BORDERLINE HIGH 160-189 mg/dl HIGH <100 mg/dl OPTIMAL VLDL CHOLESTEROL 7.0 Chol HDL Ratio 3.0 4.4 - 7.1 AVERAGE RISK 3.3 - 4.4 LOW RISK 7.1 - 11.0 MODERATE RISK >11.0 HIGH RISK Performing Lab: see note - [facility] GLYCOHEMOGLOBIN A1C Reviewed date:11/19/2024 11:53:41 AM Interpretation: Performing Lab: Notes/Report: [facility] , Glycohemoglobin A1C 5.2 4.5-6.2 % > 7.0 ADA RECOMMENDED LIMIT 4.0 - 6.0 ADA THERAPEUTIC TARGET < 7.0 ACTION SUGGESTED Estimated Average Glucose 103 Performing Lab: see note - [facility] LB ECG 12 lead Reviewed date:11/16/2024 08:54:59 PM Interpretation: Performing Lab: Notes/Report: Source Facility: [place] [address] Electrocardiograph Report Signed Patient: FRANKY CYR MR#: [id number] : 1970 Acct:[id number] Age/Sex: 54 / F ADM Date: 11/16/24 Loc: LAB Attending Dr: Bradley Glass M.D. Ordering Physician: Bradley Glass M.D. 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 Measurements Intervals [place] Rate: 54 P: 46 OK: 150 QRS: 18 QRSD: 90 T: 56 QT: 488 QTc: 463 Interpretive Statements SINUS BRADYCARDIA POSSIBLE LEFT ATRIAL ENLARGEMENT [-0.1mV P WAVE IN V1/V2] PROLONGED QT INTERVAL Compared to ECG 06/13/2023 15:06:59 Prolonged QT interval now present Electronically Signed On 11-16-2024 18:06:05 EDT by LANETTE RO M.D. Dictated By: LANETTE RO Signed By: 11/16/24180511/16/24 180 DD/ 1238 TD/TT: Drill Punch Operator: Troponin I High Sensitivity Reviewed date:11/16/2024 03:16:12 PM Interpretation: Performing Lab: Notes/Report: [facility] , Troponin I High Sensitivity 9.2 4.0-51.3 pg/m L PERCENTILE OF cTnI DISTRIBUTION IN A REFERENCE POPULATION, NOTE: HIGH-SENSITIVITY TROPONIN ASSAY IS NOT INTENDED TO BE UNIVERSAL DEFINITION OF MYOCARDIAL INFARCTION. THE UPPER CUT-OFF POINTS HAVE BEEN ESTABLISHED BASED ON THE FOURTH REFERENCE LIMIT (URL) OF TROPONIN, DEFINED THE 99TH DIAGNOSIS. HAS BEEN CONFIRMED THE DECISION THRESHOLD FOR OR WITH OTHER DIAGNOSTIC AND CLINICAL INFORMATION. USED IN ISOLATION BUT SHOULD BE INTERPRETED IN CONJUNCTION 99TH PERCENTILE = 51.4 PG/ML Performing Lab: see note ML - [facility] LB TSH Reviewed date:11/16/2024 03:16:12 PM Interpretation: Performing Lab: Notes/Report: [facility] , Thyroid Stimulating Hormone 2.439 0.358-3.740 u IU/mL Performing Lab: see note ML - [facility] LB T4 Reviewed date:11/16/2024 03:16:12 PM Interpretation: Performing Lab: Notes/Report: [facility] , T4 Thyroxine 6.70 4.80-13.90 ug/dL Performing Lab: see note ML - [facility] LB FREE T3 Reviewed date:11/16/2024 03:16:12 PM Interpretation: Performing Lab: Notes/Report: [facility] , Free T3 3.05 2.18-3.98 pg/mL Performing Lab: see note ML - [facility] LB Reason For Referral No Information Medications [...] W/U Status Risk Notes Problem Chest pain (24149653) Chest pain (R07.9) Active confirmed Problem Hypertension (24952762) Hypertension (I10) Active confirmed Problem Arthritis (2834152) Arthritis (M19.90) Active confirmed Vital Signs Blood pressure diastolic 88 mm Hg 11/17/2024 Height 63 in 11/17/2024 Blood pressure systolic 142 mm Hg 11/17/2024 Weight 130.8 lbs 11/17/2024 BMI 23.17 kg/m2 11/17/2024 Procedures Procedure Date Ordered Date Performed Result Body Sit e CARDIO EKG 11/16/2024 N/A CARDIO Stress Test - Cardiolite 11/17/2024 N/A Sleep study - Diagnostic Polysonogram 11/17/2024 N/A Encounters Encounter Location Date Provider Diagnosis [facility] [address] [place] [address] 11/17/2024 Hu Hoy Hypertension I10 and Snoring R06.83 [facility] [address] [place] [address] 09/01/2024 Hu Hoy [facility] [address] [place] [address] 11/16/2024 Hu Hoy Hypertension I10 and Chest pain R07.9 [facility] [address] [place] [address] 11/16/2024 Hu Brandy [facility] [address] [place] [address] 11/17/2024 Hu Brandy [facility] [address] [place] [address] 11/18/2024 Hu Glass Hypertension I10 [facility] [address] [place] [address] 11/29/2024 Hu Glass Assessments Encounter Date Diagnosis (ICD Code) Assessment Notes Treatment Notes Treatment Clinical Notes Section Notes 11/17/2024 Snoring (ICD-10 - R06.83) 11/17/2024 Hypertension (ICD-10 - I10) 11/16/2024 Chest pain (ICD-10 - R07.9) 11/16/2024 Hypertension (ICD-10 - I10) 11/18/2024 Hypertension (ICD-10 - I10) Plan Of [...] ACCESS PPO PLUS LOCAL PLAN [address] [place] [address] [phone] [id number] Franky Gamino Self - patient is the insured Medical (General) History Medical History History ICD Code Arthritis M19.90 Surgical History Surgery Date(Month/Year) Hysterectomy
--- OUTSIDE RECORDS SUMMARY | 2024-11-30 06:55 | XMS_ITS | Encounter Summary ---
Author Organization [facility] Address [address] [place] [address] Care Team Providers Care Process Planner Name Role Phone Mikey Subramanian MD Primary Care Provider [phone] Encounter Details Date Type Department Care Team (Late st Contact Info) Description 05/21/2023 Orders Only [facility] [address] [facility] [place] [address] Mikey Subramanian MD [address] [place] [address] Social History Tobacco Use Types Packs/Day Years [...] on filedocumented in this encounter Care Teams Process Planner Relationship Specialty Start Date End Date Mikey Subramanian MD PCP - General Family Medicine 06/11/23 documented as of this encounter
--- OUTSIDE RECORDS SUMMARY | 2024-11-30 06:55 | XMS_ITS | Encounter Summary ---
Author Organization [facility] Address [address] [place] [address] Care Team Providers Care Dental Scheduler Name Role Phone Mikey Subramanian MD Primary Care Provider [phone] Encounter Details Date Type Department Care Team (Late st Contact Info) Description 05/20/2023 Clinisync Result Encounter [facility] External Department Unsolicited Dipika Farley, DO [address] [place] [address] Social History Tobacco Use Types Packs/Day Years [...] EDT Narrative 05/20/2023 4:12 PM EDT The [address] [address] Ultrasound Report Signed Patient: FRANKY CYR MR#: [id number] : 1970 Acct:[id number] Age/Sex: 53 / F ADM Date: 05/20/23 Loc: [place] Attending Dr: Dipika Farley D.O. Ordering Physician: Dipika Farley D.O. Date of Service: 05/20/23 Procedure(s): US pelvis w/ transvaginal Accession Number(s): [id number] cc: Dipika Farley D.O.; Mikey Subramanian M.D. The [place] [id number] Patient Name: FRANKY CYR MRN: [facility]:[id number] date: 1970 Sex: F Assigned Patient Location: US Current Patient Location: MAMMO Accession/Order Number: [id number] Exam Date: 05/20/2023 14:00 Report Date: 05/20/2023 [...] By: Jayden Henderson M.D. Signed By: 05/20/23 1616 DD/ 1609 TD/TT: Butadiene Converter Operator: Procedure Note Radiology, Radiologist, - 05/20/2023 [place] [address] Ultrasound Report Signed Patient: FRANKY CYR JMR#: [id number] : 1970Acct:[id number] Age/Sex: 53 / FADM Date: 05/20/23 Loc: US Attending Dr: Dipika Farley D.O. Ordering Physician: Dipika Farley D.O. Date of Service: 05/20/23 Procedure(s): US pelvis w/ transvaginal Accession Number(s): [id number] cc: Dipika Farley D.O.; Mikey Subramanian M.D. [place] [id number] Patient Name: FRANKY CYR MRN: [facility]:[id number] date: 1970 Sex: F Assigned Patient Location: US Current Patient Location: [facility] Accession/Order Number: [id number] Exam Date: 05/20/2023 14:00 Report Date: 05/20/2023 [...] Dictated By: Jayden Henderson M.D. Signed By:05/20/23 2131 DD/ 1609 TD/TT: Butadiene Converter Operator: us Dipika Martine DO [facility] Final Result documented in this encounter Visit Diagnoses Not on filedocumented in this encounter Care Teams Dental Scheduler Relationship Specialty Start Date End Date Mikey Subramanian MD PCP - General Family Medicine 06/11/23 documented as of this encounter
--- OUTSIDE RECORDS SUMMARY | 2024-11-30 06:55 | XMS_ITS | Encounter Summary ---
Author Organization [facility] Address [address] [place] [address] Care Team Providers Care National Recruiter Name Role Phone Karo Davis MD Primary Care Provider [phone] Encounter Details Date Type Department Care Team (Late st Contact Info) Description 06/13/2023 Clinisync Result Encounter [facility] External Department Unsolicited Praveen Farley, DO [address] [place] [phone] Social History Tobacco Use Types Packs/Day Years [...] EDT Narrative 06/13/2023 5:53 PM EDT The [facility] [address] [place] [address] Electrocardiograph Report Signed Patient: FRANKY CYR MR#: [id number] : 1970 Acct:[id number] Age/Sex: 53 / F ADM Date: 06/13/23 Loc: PST Attending Dr: Praveen Farley D.O. Ordering Physician: Praveen Farley D.O. Date of Service: 06/13/23 Procedure(s): ECG 12 lead Accession Number(s): [id number] cc: [facility] Test Date: 2023-06-13 Pat Name: FRANKY CYR Department: Room: - Gender: Female Pad Machine Feeder: : 1970 Requested By: KARO DAVIS Order Number: [id number] Reading MD: DONOVAN RICO Measurements Intervals [place] Rate: 49 P: 59 GA: 145 QRS: 9 QRSD: 88 T: 52 QT: 444 QTc: 403 Interpretive Statements SINUS BRADYCARDIA POSSIBLE RIGHT VENTRICULAR CONDUCTION DELAY [RSR (QR) IN V1/V2] No previous ECG available for comparison Electronically Signed On 06-13-2023 17:53:03 EDT by DONOVAN RICO Dictated By: Donovan Rico D.O. Signed By: 06/13/23 1753 DD/ 1506 TD/TT: String Studies Director: Procedure Note Radiology, Radiologist, MD - 06/13/2023 [place] [address] Electrocardiograph Report Signed Patient: FRANKY CYR R#: [id number] : 1970Acct:[id number] Age/Sex: 53 / FADM Date: 06/13/23 Loc: [facility] Attending Dr: Praveen Farley D.O. Ordering Physician: Praveen Farley D.O. Date of Service: 06/13/23 Procedure(s): ECG 12 lead Accession Number(s): [id number] cc: [facility] Test Date: 2023-06-13 Pat Name: FRANKY CYR Department: Room: - Gender: Female Pad Machine Feeder: : 1970 Requested By: KARO DAVIS Order Number: [id number] Reading MD: DONOVAN RICO Measurements Intervals [place] Rate: 49 P: 59 GA: 145 QRS: 9 QRSD: 88 T: 52 QT: 444 QTc: 403 Interpretive Statements SINUS BRADYCARDIA POSSIBLE RIGHT VENTRICULAR CONDUCTION DELAY [RSR (QR) IN V1/V2] No previous ECG available for comparison Electronically Signed On 06-13-2023 17:53:03 EDT by DONOVAN RICO Dictated By: Donovan Rico D.O. Signed By:06/13/23 5332 DD/ 1506 TD/TT: String Studies Director: us Praveen Martine DO [facility] Final Result documented in this encounter Visit Diagnoses Not on filedocumented in this encounter Care Teams National Recruiter Relationship Specialty Start Date End Date Karo Davis MD PCP - General Family Medicine 06/11/23 documented as of this encounter
--- OUTSIDE RECORDS SUMMARY | 2024-11-30 06:55 | XMS_ITS | Encounter Summary ---
Author Organization [employer] Address [id number] [address] [place] [address] Care Team Providers Care Tail Trimmer Name Role Phone Mikey Subramanian MD Primary Care Provider [phone] Encounter Details Date Type Department Care Team (Late st Contact Info) Description 01/31/2022 Telephone [facility] [address] [place] [address] Pam Urrutia, LOUISE Social History Tobacco Use [...] on filedocumented in this encounter Care Teams Tail Trimmer Relationship Specialty Start Date End Date Mikey Subramanian MD PCP - General Family Medicine 10/12/21 documented as of this encounter
--- OUTSIDE RECORDS SUMMARY | 2024-11-30 06:55 | XMS_ITS | Encounter Summary ---
Author Organization [facility] Address [address] [place] [address] Care Team Providers Care Patch Washer Name Role Phone Mikey Subramanian MD Primary Care Provider [phone] Encounter Details Date Type Department Care Team (Late st Contact Info) Description 06/04/2024 External Result Encounter [facility] External Department Unsolicited Mikey Subramanian MD [address] [place] [address] Social History Tobacco Use Types Packs/Day Years [...] Stone Betancur M.D.06/04/2024 9:16 AM Dictation Location: [facility] Dictated By: Stone Betancur DO 06/04/24912 Signed By: <Electronically signed by Stone Betancur DO in OV> 06/04/24 0916 Narrative 06/04/2024 9:18 AM EDT [address] [address] Mammography Report Signed Patient: Augusta Lopez MR#: [id number] : 1970 Acct:[id number] Age/Sex: 54 / F Adm Date: 06/03/24 Loc: [place] Room: Type: [facility] Attending Dr: Mikey Subramanian MD Ordering Provider: Mikey Subramanian MD Date of Service: 06/03/24 Procedure(s): MM special view RT w/CAD Accession Number(s): ([id number]) MM/MM special view RT w/CAD: R92.9 Copies [...] w/CAD Procedure Note Radiology, Radiologist, - 06/04/[address] [address] Mammography Report Signed Patient: Augusta Lopez JMR#: [id number] : 1970Acct:[id number] Age/Sex: 54 / FAdm Date: 06/03/24 Loc: [place] Room:Type: [facility] Attending Dr: Mikey Subramanian MD Ordering Provider: Mikey Subramanian MD Date of Service: 06/03/24 Procedure(s): MM special view RT w/CAD Accession Number(s): ([id number]) MM/MM special view RT w/CAD: R92.9 Copies [...] Stone Betancur M.D.06/04/2024 9:16 AM Dictation Location: [facility] Dictated By: Stone Betancur DO 06/04/24 0913 Signed By: <Electronically signed by Stone Betancur DO in OV> 06/04/24 0916 us Mikey Subramanian MD IMG BI PROCEDURES Final Result documented in this encounter Visit Diagnoses Not on filedocumented in this encounter Care Teams Patch Washer Relationship Specialty Start Date End Date Mikey Subramanian MD PCP - General Family Medicine 06/11/23 documented as of this encounter
--- OUTSIDE RECORDS SUMMARY | 2024-11-30 06:55 | XMS_ITS | Clinical Summary ---
Author Organization [facility] Address [address] [place] [address] Care Team Providers Care Leather Piece Inspector Name Role Phone Mikey Subramanian MD Primary Care Provider [phone] Allergies No known active allergies Medications ibuprofen 800 MG tablet Take 800 mg by mouth every 8 (eight) hours 07/30/2023 Active Active Problems Problem Noted Date Diagnosed Date Abnormal mammogram of right breast 05/21/2024 Encounters Date Type Department Care Team Description 11/18/2024 Telephone [facility] [address] [place], [phone] Praveen Farley, 11/16/2024 Telephone [facility] [address] [place], [phone] Mary Huff LPN 10/13/2024 Telephone [facility] [address] [place] [address] Ivelisse Gil MA from Last 3 [...] Vaccine (#1) 2024 01/07/2024 Mammogram 06/04/2025 06/04/2024, 03/08/2024, 05/20/2023, Additional history exists Cervical Cancer Screening 06/08/2029 HPV/Cotest 06/08/2029 Pap Smear 06/08/2029 06/08/2024, 06/10/2022 Procedures Procedure Name Priority Date/Time Associated Diagnosis [...] Stone Betancur M.D.06/04/2024 9:16 AM Dictation Location: [facility] Dictated By: Stone Betancur DO 06/04/24 0913 Signed By: <Electronically signed by Stone Betancur DO in OV> 06/04/24 0916 Narrative 06/04/2024 9:18 AM EDT [address] [address] Mammography Report Signed Patient: Augusta Lopez MR#: [id number] : 1970 Acct:[id number] Age/Sex: 54 / F Adm Date: 06/03/24 Loc: [place] Room: Type: [facility] Attending Dr: Mikey Subramanian MD Ordering Provider: Mikey Subramanian MD Date of Service: 06/03/24 Procedure(s): MM special view RT w/CAD Accession Number(s): ([id number]) MM/MM special view RT w/CAD: R92.9 Copies [...] w/CAD Procedure Note Radiology, Radiologist, - 06/04/[address] [address] Mammography Report Signed Patient: Augusta Lopez JMR#: [id number] : 1970Acct:[id number] Age/Sex: 54 / FAdm Date: 06/03/24 Loc: [place] Room:Type: [facility] Attending Dr: Mikey Subramanian MD Ordering Provider: Mikey Subramanian MD Date of Service: 06/03/24 Procedure(s): MM special view RT w/CAD Accession Number(s): ([id number]) MM/MM special view RT w/CAD: R92.9 Copies [...] Stone Betancur M.D.06/04/2024 9:16 AM Dictation Location: [facility] Dictated By: Stone Betancur DO 06/04/24 0913 Signed By: <Electronically signed by Stone Betancur DO in OV> 06/04/24 0916 Mikey Subramanian MD IMG BI PROCEDURES Final Result from Last 3 Months or Most Recently Relevant to Health Maintenance Insurance BCBS Member Subscriber Plan / Payer (Ef fective 2022-Present) Name:Augusta Lopez Member ID:[id number] Relation to Subscriber:Self Name:Augusta Lopez Subscriber ID:[id number] Payer ID:Not on file Type:Not on file Address: [place] [id number] [place] [address] Care Teams Leather Piece Inspector Relationship Specialty Start Date End Date Mikey Subramanian MD PCP - General Family Medicine 06/11/23
--- OUTSIDE RECORDS SUMMARY | 2024-11-30 06:55 | XMS_ITS | Encounter Summary ---
Author Organization [facility] Address [address] [address] Care Team Providers Care Straightening Press Operator Helper Name Role Phone Mikey Subramanian MD Primary Care Provider [phone] Encounter Details Date Type Department Care Team (Late st Contact Info) Description 07/31/2023 Abstract [facility] [address] [place] [address] Christiane Garces LPN [address] [place] [phone] Social History Tobacco Use Types Packs/Day Years [...] on filedocumented in this encounter Care Teams Straightening Press Operator Helper Relationship Specialty Start Date End Date Mikey Subramanian MD PCP - General Family Medicine 06/11/23 documented as of this encounter
--- OUTSIDE RECORDS SUMMARY | 2024-11-30 06:55 | XMS_ITS | Encounter Summary ---
Author Organization [facility] Address [address] [place] [address] Care Team Providers Care Volunteer Services Coordinator Name Role Phone Mikey Subramanian MD Primary Care Provider [phone] Encounter Details Date Type Department Care Team (Late st Contact Info) Description 06/07/2024 Results Follow-Up [facility] [address] [place] [address] Christiane Mendez MA Right diagnostic mammogram Social [...] on filedocumented in this encounter Care Teams Volunteer Services Coordinator Relationship Specialty Start Date End Date Mikey Subramanian MD PCP - General Family Medicine 06/11/23 documented as of this encounter
--- OUTSIDE RECORDS SUMMARY | 2024-11-30 06:55 | XMS_ITS | Clinical Summary ---
Author Organization [employer] Address [id number] [address] [place] [address] Care Team Providers Care Qualifications Examiner Name Role Phone Mikey Subramanian MD Primary Care Provider [phone] Allergies No known active allergies Medications No [...] on file Insurance [employer] Care Teams Qualifications Examiner Relationship Specialty Start Date End Date Mikey Subramanian MD PCP - General Family Medicine 10/12/21
--- OUTSIDE RECORDS SUMMARY | 2024-11-30 06:55 | XMS_ITS | Encounter Summary ---
Author Organization [employer] Address [id number] [address] [place] [address] Care Team Providers Care Railroad Carman Name Role Phone Mikey Subramanian MD Primary Care Provider [phone] Encounter Details Date Type Department Care Team (Late st Contact Info) Description 08/14/2021 Orders Only [facility] [address] [place] [address] Ref Prov, [place] [address] Social History Tobacco Use Types Packs/Day Years [...] on filedocumented in this encounter Care Teams Railroad Carman Relationship Specialty Start Date End Date Mikey Subramanian MD PCP - General Family Medicine 10/12/21 documented as of this encounter
--- OUTSIDE RECORDS SUMMARY | 2024-11-30 06:55 | XMS_ITS | Encounter Summary ---
Author Organization [facility] Address [address] [facility] [place] [address] Care Team Providers Care Digital Asset Coordinator Name Role Phone Mikey Subramanian MD Primary Care Provider Encounter Details Date Type Department Care Team (Late st Contact Info) Description 06/20/2023 Abstract [facility] [address] [place] [address] Christiane Garces LPN [address] [place] [id number] Social History Tobacco Use Types Packs/Day Years [...] on filedocumented in this encounter Care Teams Digital Asset Coordinator Relationship Specialty Start Date End Date Mikey Subramanian MD PCP - General Family Medicine 06/11/23 documented as of this encounter
--- OUTSIDE RECORDS SUMMARY | 2024-11-30 06:55 | XMS_ITS | Encounter Summary ---
Author Organization [employer] Address [id number] [address] [place] [address] Care Team Providers Care Rubber Press Operator Name Role Phone Mikey Subramanian MD Primary Care Provider [phone] Encounter Details Date Type Department Care Team (Late st Contact Info) Description 08/14/2021 [facility] [address] [place] [address] Hansel Bowman CMA Social History Tobacco Use [...] on filedocumented in this encounter Care Teams Rubber Press Operator Relationship Specialty Start Date End Date Mikey Subramanian MD PCP - General Family Medicine 10/12/21 documented as of this encounter
--- OUTSIDE RECORDS SUMMARY | 2024-11-30 06:55 | XMS_ITS | Encounter Summary ---
Author Organization [facility] Address [address] [facility] [place] [address] Care Team Providers Care Assistant Dean Name Role Phone Mikey Subramanian MD Primary Care Provider [phone] Encounter Details Date Type Department Care Team (Late st Contact Info) Description 11/16/2024 Telephone [facility] [address] [place] [address] [place] [phone] Mary Huff LPN Social History Tobacco Use [...] breast documented in this encounter Care Teams Assistant Dean Relationship Specialty Start Date End Date Mikey Subramanian MD PCP - General Family Medicine 06/11/23 documented as of this encounter
--- OUTSIDE RECORDS SUMMARY | 2024-11-30 06:55 | XMS_ITS | Encounter Summary ---
Author Organization [facility] Address [address] [place] [address] Care Team Providers Care Mattress Inspector Name Role Phone Mikey Subramanian MD Primary Care Provider [phone] Encounter Details Date Type Department Care Team (Late st Contact Info) Description 06/16/2023 Orders Only [facility] [address] [place] [address] Mikey Subramanian MD [address] [place] [address] Social History Tobacco Use Types Packs/Day Years [...] on filedocumented in this encounter Care Teams Mattress Inspector Relationship Specialty Start Date End Date Mikey Subramanian MD PCP - General Family Medicine 06/11/23 documented as of this encounter
--- OUTSIDE RECORDS SUMMARY | 2024-11-30 06:55 | XMS_ITS | Encounter Summary ---
Author Organization [facility] Address [address] [facility] [place] [address] Care Team Providers Care Car Mechanic Name Role Phone Mikey Subramanian MD Primary Care Provider [phone] Encounter Details Date Type Department Care Team (Late st Contact Info) Description 06/17/2024 Orders Only [facility] [address] [place] [address] Chely GilMart, MA [address] [facility] [place] [address] Social History Tobacco Use Types Packs/Day Years [...] on filedocumented in this encounter Care Teams Car Mechanic Relationship Specialty Start Date End Date Mikey Subramanian MD PCP - General Family Medicine 06/11/23 documented as of this encounter
--- OUTSIDE RECORDS SUMMARY | 2024-11-30 06:56 | XMS_ITS | Encounter Summary ---
Author Organization [facility] Address [address] [place] [address] Care Team Providers Care Director Of Automation Name Role Phone Mikey Subramanian MD Primary Care Provider [phone] Encounter Details Date Type Department Care Team (Late st Contact Info) Description 05/20/2023 Clinisync Result Encounter [facility] External Department Unsolicited Mikey Subramanian MD [address] [place] [address] Social History Tobacco Use Types Packs/Day Years [...] EDT Narrative 05/20/2023 3:29 PM EDT The [address] [address] Mammography Report Signed Patient: FRANKY CYR MR#: [id number] : 1970 Acct:[id number] Age/Sex: 53 / F ADM Date: 05/20/23 Loc: MAMMO Attending Dr: Mikey Subramanian M.D. Ordering Physician: Mikey Subramanian M.D. Results: Date of Service: 05/20/23 Follow Up: Procedure(s): MM tomosynthesis screening BI Accession Number(s): [id number] cc: Mikey Subramanian M.D. Patient Name: FRANKY CYR MR#: [id number] : 1970 Exam Date: 05/20/2023 Ordering Doctor: [...] cancer at age 71. LOCATION: The [facility] BREAST COMPOSITION: Extremely dense, which lowers [...] Signed By: 05/20/23 1529 DD/ 1528 TD/TT: Retread Operator: Procedure Note Radiology, RadiologistMD - 05/20/2023 [place] [address] Mammography Report Signed Patient: FRANKY CYR JMR#: [id number] : 1970Acct:[id number] Age/Sex: 53 / FADM Date: 05/20/23 Loc: MAMMO Attending Dr: Mikey Subramanian M.D. Ordering Physician: Mikey Subramanian M.D.Results: Date of Service: 05/20/23Follow Up: Procedure(s): MM tomosynthesis screening BI Accession Number(s): [id number] cc: Mikey Subramanian M.D. Patient Name: FRANKY CYR MR#: [id number] : 1970 Exam Date: 05/20/2023 Ordering Doctor: [...] cancer at age 71. LOCATION: The [facility] BREAST COMPOSITION: Extremely dense, which lowers [...] M.D. Signed By:05/20/23 1529 DD/ 1528 TD/TT: Retread Operator: Mikey Subramanian MD [facility] Final Result documented in this encounter Visit Diagnoses Not on filedocumented in this encounter Care Teams Director Of Automation Relationship Specialty Start Date End Date Mikey Subramanian MD PCP - General Family Medicine 06/11/23 documented as of this encounter
--- NOTE | 2024-11-30 08:46 | PC.NURSE ---
Nursing Note Cardiac Stress Test Reviewed: Medication, allergies and patient history reviewed. Stress Test: [x ] Patient tolerated stress test well. [ ] Patient unable to tolerate walking on treadmill. Switched to Lexiscan stress test. [x ] No chest pain noted per patient [ ] Chest pain that resolved prior to leaving stress lab. [ ] No dyspnea noted. [x ] Dyspnea that resolved prior to leaving stress lab. [x ] Patient left stress lab asymptomatic and hemodynamically stable. [ ] Patient taken to the Emergency Room due to non-resolving symptoms following stress test. [x ] Patient achieved target heart rate. [ ] Patient unable to achieve target heart rate. [ ] Aminophylline administered as reversal agent to Lexiscan (Regadenoson). [ ] Nitro administered. Nursing Comments:Pt had Cardio Lite test done. Tolerated well. No chest pain noted. Pt had SOB but this resolved within 2 minutes of rest.
--- NOTE | 2024-11-30 12:46 | PM.STRESS ---
Stress Test Stress Test Allergies Allergy/AdvReac Type Severity Reaction Status Date / Time No Known Drug Allergies Allergy Verified 07/22/23 12:37 Requesting physician: Bradley Sullivan Procedure: Treadmill nuclear stress test General Information: Reason for Stress Test: Chest Pain Cardiac History and Risk Factors: HTN, family h/o of CAD Resting 12 - Lead Electrocardiogram: Sinus rhythm with normal intervals Stress Test: Protocol: Cade Exercise Capacity: 13 minutes and 51 seconds achieving stage 5 equivalent to 17.2 METS Blood Pressure Response: Baseline heart rate of 52 bpm and blood pressure of 134/84 mmHg due to peak heart rate of 150 bpm and blood pressure of 214/108 mmHg achieving 89% of expected rate Rhythm: Sinus with occasional PVCs TNM stage 4 indicative of posteromedial papillary muscle exit ST - Response: Normal Patient Response: Shortness of breath that resolved within 2 minutes of rest. No chest pain noted Heart rate recovery was normal with normal chronotropic response index with a high functional capacity with normal blood pressure response and a Price treadmill score greater than 5 indicating of low risk of Interpretation: 1. No evidence of ischemia noted on EKG. 2. Price treadmill score greater than 5 indicating very low risk of adverse cardiac events. 3. Normal chronotropic response index and high functional capacity. 4. Nuclear perfusion study to be dictated separately.
== END 2024-11-30 06:53 | disposition home or self-care (01) ==
LOC: NM 06:52
PROVIDERS: PCP Family Medicine; Visit Provider Family Medicine
DX: R06.83 Snoring (principal); I10 Essential (primary) hypertension; R92.8 Other abnormal and inconclusive findings on diagnostic imaging of breast
CPT/HCPCS: 77065; 78452; 93017; A9500; G0279

== ENCOUNTER 2024-11-30 12:49 | Outpatient (OUT) | payer BC, SELFPAY ==
--- OUTSIDE RECORDS SUMMARY | 2024-11-30 12:51 | XMS_ITS | Encounter Summary ---
Author Organization [facility] Address [address] [place] [address] Care Team Providers Care Moth Proofer Name Role Phone Mikey Subramanian MD Primary Care Provider [phone] Encounter Details Date Type Department Care Team (Late st Contact Info) Description 06/07/2024 Results Follow-Up [facility] [address] [place] [address] Christiane Mendez MA Right diagnostic mammogram Social [...] on filedocumented in this encounter Care Teams Moth Proofer Relationship Specialty Start Date End Date Mikey Subramanian MD PCP - General Family Medicine 06/11/23 documented as of this encounter
--- OUTSIDE RECORDS SUMMARY | 2024-11-30 12:51 | XMS_ITS | Encounter Summary ---
Author Organization [employer] Address [id number] [address] [place] [address] Care Team Providers Care Curing Room Worker Name Role Phone Mikey Subramanian MD Primary Care Provider [phone] Encounter Details Date Type Department Care Team (Late st Contact Info) Description 01/31/2022 Telephone [facility] [address] [place] [address] Pam Urrutia, LOUISE Social History Tobacco Use [...] on filedocumented in this encounter Care Teams Curing Room Worker Relationship Specialty Start Date End Date Mikey Subramanian MD PCP - General Family Medicine 10/12/21 documented as of this encounter
--- OUTSIDE RECORDS SUMMARY | 2024-11-30 12:51 | XMS_ITS | Encounter Summary ---
Author Organization [facility] Address [address] [place] [address] Care Team Providers Care Online Advertising Analyst Name Role Phone Mikey Subramanian MD Primary Care Provider [phone] Encounter Details Date Type Department Care Team (Late st Contact Info) Description 05/20/2023 Clinisync Result Encounter [facility] External Department Unsolicited Dipika Farley, DO [address] [place] [address] Social History Tobacco Use Types Packs/Day Years [...] EDT Narrative 05/20/2023 4:12 PM EDT The [address] [place] [address] [address] Ultrasound Report Signed Patient: FRANKY CYR MR#: [id number] : 1970 Acct:[id number] Age/Sex: 53 / F ADM Date: 05/20/23 Loc: US Attending Dr: Dipika Farley D.O. Ordering Physician: Dipika Farley D.O. Date of Service: 05/20/23 Procedure(s): US pelvis w/ transvaginal Accession Number(s): [id number] cc: Dipika Farley D.O.; Mikey Subramanian M.D. The [place] [id number] Patient Name: FRANKY CYR MRN: [facility]:[id number] date: 1970 Sex: F Assigned Patient Location: US Current Patient Location: MAMMO Accession/Order Number: [id number] Exam Date: 05/20/2023 14:00 Report Date: 05/20/2023 [...] By: Jayden Henderson M.D. Signed By: 05/20/23 1610 DD/ 1609 TD/TT: Police Dispatcher: Procedure Note Radiology, Radiologist, - 05/20/2023 [place] [address] Ultrasound Report Signed Patient: FRANKY CYR JMR#: [id number] : 1970Acct:[id number] Age/Sex: 53 / FADM Date: 05/20/23 Loc: US Attending Dr: Dipika Farley D.O. Ordering Physician: Dipika Farley D.O. Date of Service: 05/20/23 Procedure(s): US pelvis w/ transvaginal Accession Number(s): [id number] cc: Dipika Farley D.O.; Mikey Subramanian M.D. [place] [id number] Patient Name: FRANKY CYR MRN: [facility]:[id number] date: 1970 Sex: F Assigned Patient Location: US Current Patient Location: [facility] Accession/Order Number: [id number] Exam Date: 05/20/2023 14:00 Report Date: 05/20/2023 [...] Dictated By: Jayden Henderson M.D. Signed By:05/20/23 9697 DD/ 1609 TD/TT: Police Dispatcher: us Dipika Martine DO [facility] Final Result documented in this encounter Visit Diagnoses Not on filedocumented in this encounter Care Teams Online Advertising Analyst Relationship Specialty Start Date End Date Mikey Subramanian MD PCP - General Family Medicine 06/11/23 documented as of this encounter
--- OUTSIDE RECORDS SUMMARY | 2024-11-30 12:51 | XMS_ITS | Encounter Summary ---
Author Organization [facility] Address [address] [place] [address] Care Team Providers Care Pump Rebuilder Name Role Phone Mikey Subramanian MD Primary Care Provider [phone] Encounter Details Date Type Department Care Team (Late st Contact Info) Description 11/18/2024 Telephone [facility] [address] [email or web address] [address] Praveen Farley, [address] [place], [facility] Social History Tobacco Use Types Packs/Day Years [...] a repeat, but it was sent to [place] centralized scheduling. And I need it sent to [facility] because I cannot have it done here at [place],I guess due to what needs to be done or The pictures that need to be done. So if that could be sentto over to [facility] to be scheduled, I would appreciate it. You can call me back at [phone]. Patient order was sent to [facility] so this can be scheduled. Patient aware and voiced understanding. documented in this encounter Plan of Treatment Not on file documented as of this encounter Visit Diagnoses Not on filedocumented in this encounter Care Teams Pump Rebuilder Relationship Specialty Start Date End Date Mikey Subramanian MD PCP - General Family Medicine 06/11/23 documented as of this encounter
--- OUTSIDE RECORDS SUMMARY | 2024-11-30 12:51 | XMS_ITS | Encounter Summary ---
Author Organization [employer] Address [id number] [address] [place] [address] Care Team Providers Care Frozen Food Department Manager Name Role Phone Mikey Subramanian MD Primary Care Provider [phone] Encounter Details Date Type Department Care Team (Late st Contact Info) Description 08/14/2021 Orders Only [facility] [address] [place] [address] Ref Prov, [place] [address] Social History Tobacco Use Types Packs/Day Years [...] on filedocumented in this encounter Care Teams Frozen Food Department Manager Relationship Specialty Start Date End Date Mikey Subramanian MD PCP - General Family Medicine 10/12/21 documented as of this encounter
--- OUTSIDE RECORDS SUMMARY | 2024-11-30 12:51 | XMS_ITS | Encounter Summary ---
Author Organization [facility] Address [address] [place] [address] Care Team Providers Care Plater Hot Dip Name Role Phone Karo Davis MD Primary Care Provider [phone] Encounter Details Date Type Department Care Team (Late st Contact Info) Description 06/13/2023 Clinisync Result Encounter [facility] External Department Unsolicited Praveen Farley, DO [address] [place] [id number] Social History Tobacco Use Types Packs/Day Years [...] EDT Narrative 06/13/2023 5:53 PM EDT [facility] [address] [place] [address] Electrocardiograph Report Signed Patient: FRANKY CYR MR#: [id number] : 1970 Acct:[id number] Age/Sex: 53 / F ADM Date: 06/13/23 Loc: PST Attending Dr: Praveen Farley D.O. Ordering Physician: Praveen Farley D.O. 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 Signed By: 06/13/23 1753 DD/ 1506 TD/TT: Accounting Professional: Procedure Note Radiology, Radiologist, MD - 06/13/2023 [place] [address] Electrocardiograph Report Signed Patient: FRANKY CYR R#: [id number] : 1970Acct:[id number] Age/Sex: 53 / FADM Date: 06/13/23 Loc: [facility] Attending Dr: Praveen Farley D.O. Ordering Physician: Praveen Farley D.O. 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 Signed By:06/13/23 7085 DD/ 1506 TD/TT: Accounting Professional: us Praveen Martine DO [facility] Final Result documented in this encounter Visit Diagnoses Not on filedocumented in this encounter Care Teams Plater Hot Dip Relationship Specialty Start Date End Date Karo Davis MD PCP - General Family Medicine 06/11/23 documented as of this encounter
--- OUTSIDE RECORDS SUMMARY | 2024-11-30 12:51 | XMS_ITS | Encounter Summary ---
Author Organization [facility] Address [address] [place] [address] Care Team Providers Care Manager Of Program Name Role Phone Mikey Subramanian MD Primary Care Provider [phone] Encounter Details Date Type Department Care Team (Late st Contact Info) Description 06/04/2024 External Result Encounter [facility] External Department Unsolicited Mikey Subramanian MD [address] [place] [address] Social History Tobacco Use Types Packs/Day Years [...] Stone Betancur M.D.06/04/2024 9:16 AM Dictation Location: [facility] Dictated By: Stone Betancur DO 06/04/[address] Signed By: <Electronically signed by Stone Betancur DO in OV> 06/04/24 0916 Narrative 06/04/2024 9:18 AM EDT [address] [address] Mammography Report Signed Patient: Augusta Lopez MR#: [id number] : 1970 Acct:[id number] Age/Sex: 54 / F Adm Date: 06/03/24 Loc: [place] Room: Type: [facility] Attending Dr: Mikey Subramanian MD Ordering Provider: Mikey Subramanian MD Date of Service: 06/03/24 Procedure(s): MM special view RT w/CAD Accession Number(s): ([id number]) MM/MM special view RT w/CAD: R92.9 Copies [...] w/CAD Procedure Note Radiology, Radiologist, - 06/04/[address] [address] Mammography Report Signed Patient: Augusta Lopez JMR#: [id number] : 1970Acct:[id number] Age/Sex: 54 / FAdm Date: 06/03/24 Loc: [place] Room:Type: [facility] Attending Dr: Mikey Subramanian MD Ordering Provider: Mikey Subramanian MD Date of Service: 06/03/24 Procedure(s): MM special view RT w/CAD Accession Number(s): ([id number]) MM/MM special view RT w/CAD: R92.9 Copies [...] Stone Betancur M.D.06/04/2024 9:16 AM Dictation Location: [facility] Dictated By: Stone Betancur DO 06/04/24 0913 Signed By: <Electronically signed by Stone Betancur DO in OV> 06/04/24 0916 us Mikey Subramanian MD IMG BI PROCEDURES Final Result documented in this encounter Visit Diagnoses Not on filedocumented in this encounter Care Teams Manager Of Program Relationship Specialty Start Date End Date Mikey Subramanian MD PCP - General Family Medicine 06/11/23 documented as of this encounter
--- OUTSIDE RECORDS SUMMARY | 2024-11-30 12:51 | XMS_ITS | Encounter Summary ---
Author Organization [facility] Address [address] [facility] [place] [address] Care Team Providers Care Transformer Molder Name Role Phone Mikey Subramanian MD Primary Care Provider [phone] Encounter Details Date Type Department Care Team (Late st Contact Info) Description 09/02/2023 Orders Only [facility] [address] [place] [address] Christiane Garces LPN [address] [place] [id number] Social History Tobacco Use Types Packs/Day Years [...] on filedocumented in this encounter Care Teams Transformer Molder Relationship Specialty Start Date End Date Mikey Subramanian MD PCP - General Family Medicine 06/11/23 documented as of this encounter
--- OUTSIDE RECORDS SUMMARY | 2024-11-30 12:51 | XMS_ITS | Encounter Summary ---
Author Organization [facility] Address [address] [facility] [place] [address] Care Team Providers Care Feedmobile Driver Name Role Phone Mikey Subramanian MD Primary Care Provider [phone] Encounter Details Date Type Department Care Team (Late st Contact Info) Description 11/16/2024 Telephone [facility] [address] [place] [address] [place] [phone] Mary Huff LPN Social History Tobacco Use [...] breast documented in this encounter Care Teams Feedmobile Driver Relationship Specialty Start Date End Date Mikey Subramanian MD PCP - General Family Medicine 06/11/23 documented as of this encounter
--- OUTSIDE RECORDS SUMMARY | 2024-11-30 12:51 | XMS_ITS | Encounter Summary ---
Author Organization [facility] Address [address] [place] [address] Care Team Providers Care Ground Transportation Operator Name Role Phone Mikey Subramanian MD Primary Care Provider [phone] Encounter Details Date Type Department Care Team (Late st Contact Info) Description 06/16/2023 Orders Only [facility] [address] [place] [address] Mikey Subramanian MD [address] [place] [address] Social History Tobacco Use Types Packs/Day Years [...] on filedocumented in this encounter Care Teams Ground Transportation Operator Relationship Specialty Start Date End Date Mikey Subramanian MD PCP - General Family Medicine 06/11/23 documented as of this encounter
--- OUTSIDE RECORDS SUMMARY | 2024-11-30 12:51 | XMS_ITS | Encounter Summary ---
Author Organization [facility] Address [address] [facility] [place] [address] Care Team Providers Care Newspaper Copy Editor Name Role Phone Mikey Subramanian MD Primary Care Provider [phone] Encounter Details Date Type Department Care Team (Late st Contact Info) Description 06/20/2023 Abstract [facility] [address] [place] [address] Christiane Garces LPN [email or web address] [place] [id number] Social History Tobacco Use Types Packs/Day Years [...] on filedocumented in this encounter Care Teams Newspaper Copy Editor Relationship Specialty Start Date End Date Mikey Subramanian MD PCP - General Family Medicine 06/11/23 documented as of this encounter
--- OUTSIDE RECORDS SUMMARY | 2024-11-30 12:51 | XMS_ITS | Encounter Summary ---
Author Organization [facility] Address [address] [facility] [place] [address] Care Team Providers Care Internet Site Designer Name Role Phone Mikey Subramanian MD Primary Care Provider [phone] Encounter Details Date Type Department Care Team (Late st Contact Info) Description 07/31/2023 Abstract [facility] [address] [place] [address] Christiane Garces LPN [address] [place] [id number] Social History Tobacco Use Types Packs/Day Years [...] on filedocumented in this encounter Care Teams Internet Site Designer Relationship Specialty Start Date End Date Mikey Subramanian MD PCP - General Family Medicine 06/11/23 documented as of this encounter
--- OUTSIDE RECORDS SUMMARY | 2024-11-30 12:51 | XMS_ITS | Encounter Summary ---
Author Organization [facility] Address [address] [facility] [place] [address] Care Team Providers Care Roll Forger Name Role Phone Mikey Subramanian MD Primary Care Provider [phone] Encounter Details Date Type Department Care Team (Late st Contact Info) Description 06/17/2024 Orders Only [facility] [address] [place] [address] [place] [address] [place] [address] Social History Tobacco Use Types Packs/Day Years [...] on filedocumented in this encounter Care Teams Roll Forger Relationship Specialty Start Date End Date Mikey Subramanian MD PCP - General Family Medicine 06/11/23 documented as of this encounter
--- OUTSIDE RECORDS SUMMARY | 2024-11-30 12:51 | XMS_ITS | Encounter Summary ---
Author Organization [employer] Address [facility] [id number] [address] [place] [address] Care Team Providers Care Manager Freelance Name Role Phone Mikey Subramanian MD Primary Care Provider [phone] Encounter Details Date Type Department Care Team (Late st Contact Info) Description 08/14/[address] [facility] [address] [place] [address] Hansel Bowman CMA Social History Tobacco Use [...] filedocumented in this encounter Care Teams Manager Freelance Relationship Specialty Start Date End Date Mikey Subramanian MD PCP - General Family Medicine 10/12/21 documented as of this encounter
--- NOTE | 2024-11-30 12:52 | MM_ITS ---
Patient Name: FRANKY CYR MR#: [id number] : 1970 Exam Date: 11/30/2024 Ordering Doctor: DR DIPIKA JONES . RADIOLOGY REPORT PROCEDURE: MM TOMOSYNTHESIS DIAGNOSTIC RT COMPARISON: MG MAMM DX 3D RT CAD, 06/03/2024. MM TOMOSYNTHESIS SCREENING BI, 05/20/2024. MM TOMOSYNTHESIS SCREENING BI, 05/20/2023. MG MAMM SCREEN 3D KATHY CAD, 05/17/2022. INDICATIONS: Abnormal Mammogram Of Right Breast Calculator Name NCI Breast Cancer Risk Assessment Tool 5 Year Breast Cancer Risk 1.60% Lifetime Breast Cancer Risk 12.40% Personal Breast Cancer No Personal Ovarian Cancer No Treatments None Family Cancers Grandmother-paternal with breast cancer at age 70. LOCATION: [facility] BREAST COMPOSITION: The breasts are extremely dense, which lowers the sensitivity of mammography. FINDINGS: DIAGNOSTIC CATEGORY 2--BENIGN FINDING: RIGHT BREAST: The previously identified suspicious microcalcifications within the upper inner quadrant of the right breast appear loosely grouped and punctate in morphology suggesting a benign process. No associated mass is present. RECOMMENDATIONS: ROUTINE MAMMOGRAM AND CLINICAL EVALUATION IN 6 MONTHS. Dictated by: Merritt Grace DO on 11/30/2024 at 13:32 Approved by: Merritt Grace DO on 11/30/2024 at 13:39
--- OUTSIDE RECORDS SUMMARY | 2024-11-30 12:52 | XMS_ITS | Encounter Summary ---
Author Organization [facility] Address [address] [place] [address] Care Team Providers Care Senior Director Name Role Phone Mikey Subramanian MD Primary Care Provider [phone] Encounter Details Date Type Department Care Team (Late st Contact Info) Description 05/21/2023 Orders Only [facility] [address] [place] [address] Mikey Subramanian MD [address] [place] [address] Social History Tobacco Use Types Packs/Day Years [...] on filedocumented in this encounter Care Teams Senior Director Relationship Specialty Start Date End Date Mikey Subramanian MD PCP - General Family Medicine 06/11/23 documented as of this encounter
--- OUTSIDE RECORDS SUMMARY | 2024-11-30 12:52 | XMS_ITS | Clinical Summary ---
Author Organization [employer] [facility] Address [facility] [id number] [address] [place] [address] Care Team Providers Care Golf Cart Maker Name Role Phone Mikey Subramanian MD Primary Care Provider [phone] Allergies No known active allergies Medications No [...] on file Insurance [employer] Care Teams Golf Cart Maker Relationship Specialty Start Date End Date Mikey Subramanian MD PCP - General Family Medicine 10/12/21
--- OUTSIDE RECORDS SUMMARY | 2024-11-30 12:52 | XMS_ITS | Encounter Summary ---
Author Organization [facility] Address [address] [place] [address] Care Team Providers Care Workers Compensation Defense Attorney Name Role Phone Mikey Subramanian MD Primary Care Provider Encounter Details Date Type Department Care Team (Late st Contact Info) Description 05/20/2023 Clinisync Result Encounter [facility] External Department Unsolicited Mikey Subramanian MD [address] [place] [address] Social History Tobacco Use Types Packs/Day Years [...] EDT Narrative 05/20/2023 3:29 PM EDT The [address] [address] Mammography Report Signed Patient: FRANKY CYR MR#: [id number] : 1970 Acct:[id number] Age/Sex: 53 / F ADM Date: 05/20/23 Loc: MAMMO Attending Dr: Mikey Subramanian M.D. Ordering Physician: Mikey Subramanian M.D. Results: Date of Service: 05/20/23 Follow Up: Procedure(s): MM tomosynthesis screening BI Accession Number(s): [id number] cc: Mikey Subramanian M.D. Patient Name: FRANKY CYR MR#: [id number] : 1970 Exam Date: 05/20/2023 Ordering Doctor: [...] breast cancer at age 71. LOCATION: [facility] BREAST COMPOSITION: Extremely dense, which lowers [...] Signed By: 05/20/23 1529 DD/ 1528 TD/TT: Dinkey Engine Operator: Procedure Note Radiology, RadiologistMD - 05/20/2023 [place] [address] Mammography Report Signed Patient: FRANKY CYR JMR#: [id number] : 1970Acct:[id number] Age/Sex: 53 / FADM Date: 05/20/23 Loc: MAMMO Attending Dr: Mikey Subramanian M.D. Ordering Physician: Mikey Subramanian M.D.Results: Date of Service: 05/20/23Follow Up: Procedure(s): MM tomosynthesis screening BI Accession Number(s): [id number] cc: Mikey Subramanian M.D. Patient Name: FRANKY CYR MR#: [id number] : 1970 Exam Date: 05/20/2023 Ordering Doctor: [...] breast cancer at age 71. LOCATION: [facility] BREAST COMPOSITION: Extremely dense, which lowers [...] M.D. Signed By:05/20/23 1529 DD/ 1528 TD/TT: Dinkey Engine Operator: Mikey Subramanian MD [facility] Final Result documented in this encounter Visit Diagnoses Not on filedocumented in this encounter Care Teams Workers Compensation Defense Attorney Relationship Specialty Start Date End Date Mikey Subramanian MD PCP - General Family Medicine 06/11/23 documented as of this encounter
--- OUTSIDE RECORDS SUMMARY | 2024-11-30 12:52 | XMS_ITS | Clinical Summary ---
Author Organization [facility] Address [address] [place] [address] Care Team Providers Care Sales Representative Sales Manager Name Role Phone Mikey Subramanian MD Primary Care Provider [phone] Allergies No known active allergies Medications ibuprofen 800 MG tablet Take 800 mg by mouth every 8 (eight) hours 07/30/2023 Active Active Problems Problem Noted Date Diagnosed Date Abnormal mammogram of right breast 05/21/2024 Encounters Date Type Department Care Team Description 11/18/2024 Telephone [facility] [address] [place], [phone] Praveen Farley, 11/16/2024 Telephone [facility] [place] [facility] [address] [place], [phone] Mary Huff LPN 10/13/2024 Telephone [facility] [place] [facility] [address] [place] [address] Ivelisse Gil MA from Last 3 [...] 06/04/24 0916 Narrative 06/04/2024 9:18 AM EDT [address] [address] Mammography Report Signed Patient: Augusta Lopez MR#: [id number] : 1970 Acct:[id number] Age/Sex: 54 / F Adm Date: 06/03/24 Loc: [place] Room: Type: [facility] Attending Dr: Mikey Subramanian MD Ordering Provider: Mikey Subramanian MD Date of Service: 06/03/24 Procedure(s): MM special view RT w/CAD Accession Number(s): ([id number]) MM/MM special view RT w/CAD: R92.9 Copies [...] w/CAD Procedure Note Radiology, Radiologist, - 06/04/[address] [address] Mammography Report Signed Patient: Augusta Lopez JMR#: [id number] : 1970Acct:[id number] Age/Sex: 54 / FAdm Date: 06/03/24 Loc: [place] Room:Type: [facility] Attending Dr: Mikey Subramanian MD Ordering Provider: Mikey Subramanian MD Date of Service: 06/03/24 Procedure(s): MM special view RT w/CAD Accession Number(s): ([id number]) MM/MM special view RT w/CAD: R92.9 Copies [...] to Health Maintenance Insurance [employer] Care Teams Sales Representative Sales Manager Relationship Specialty Start Date End Date Mikey Subramanian MD PCP - General Family Medicine 06/11/23
--- OUTSIDE RECORDS SUMMARY | 2024-11-30 12:55 | XMS_ITS | CCD ---
Author Organization [facility] Care Team Providers Care Waste Transportation Technician Name Role Phone BEATRIZ, DR JAYDEN Bobby [...] Latif Primary Care Unavailable MARTINE ., DR BRA Attending Unavailable MARTINE ., DR BAR Consulting Unavailable MARTINE ., DR BAR Admitting Unavailable NADERER, DR MIKEY Latif Primary Care Unavailable MARTINE ., DR BAR Attending Unavailable MARTINE ., DR BAR Consulting Unavailable MARTINE ., DR BAR Admitting Unavailable NADERER, DR MIKEY Latif Primary Care Unavailable ZIEBER, DR RANDALL Chester Consulting Unavailable WEST, DR JAYDEN Bobby Admitting Unavailable WEST, DR AJYDEN Bobby Attending Unavailable WEST, DR JAYDEN Bobby [...] Consulting Unavailable MIKEY DAVIS Primary Care Physician [phone] Leon WHYTE Attending Unavailable MIKEY DAVIS Referring Unavailable Leon WHYTE Attending Unavailable Martine, Dipika Attending Provider Mikey Davis MD Primary Care Provider Mikey Davis MD Primary Care Provider Mikey Davis MD Attending Provider Martine, Dipika [...] Medication Allergies] Propensity to adverse reactions (disorder) [facility] Repository Medications Current Medications Medication [...] GDLNon AGE GDLN ACOG TESTING Note . [facility] Comment on above: TESTS RESULT FLAG UN ITS REF RANGE LAB Clinician Provided Cytology Information Source.............Vagina No. of containers..01 ThinPrep Vial Age Algo ACOG Vandana... 30-65 01 FLAG LEGEND: L-Low Normal,H-High Normal,LL-Alert Low,HH-Alert High <-Panic Low,>-Panic High,A-Abnormal,AA-Critical Abnormal Performed at: 01 =G [address] [place] [address] Elisa Farley MD, HPV APTIMA Negative Negative [facility] Comment on above: This nucleic acid am plification test detects fourteen high- risk HPV types (16,18,31,33,35,39,45,51,52,56,58,59,66,68) without differentiation. Performed at: = - [facility] [place] [id number] Senior Pensions Administrator: Elisa Farley MD, Phone: [phone] Performed at: [facility] - [facility] [address] [address] [place], [place] [id number] Senior Pensions Administrator: Ramesh Marquez MD, Phone: [phone] IGP, APTIMA HPV, RFX 16/18,45 Note . [facility] Comment on above: TESTS RESULT FLAG UN ITS REF RANGE LAB DIAGNOSIS: 02 NEGATIVE FOR INTRAEPITHELIAL LESION OR MALIGNANCY. Specimen adequacy: 02 Satisfactory for evaluation. Performed by: Luis A Goodmna, Rerecording Mixer (ASCP) . 02 Note: Note 03 The [...] High,A-Abnormal,AA-Critical Abnormal Performed at: 02 KWCYT [facility] [address] [address] [place] [address] Ramesh Marquez MD, 03 WB [facility] [address] [address] Elisa Farley MD, SPATULA-ALONE VAGINA [facility] Urinalysis macro (dipstick) panel (U)on 06-08-2024 Bilirubin, UA Negative Negative - 4(70) +++ mg/dL [facility] Blood, UA Negative Negative - 50 Ran/mcL [facility] Clarity, UA Clear [facility] Color, UA Yellow [facility] Glucose, UA Negative Negative - 2000(110) ++++ mg/dL [facility] Interpretation and review of laboratory results Normal [facility] Ketones, UA Negative Negative - 160(16) ++++ mg/dL [facility] Leukocytes, UA Negative Negative - 500+++ Vick/mcL [facility] Nitrite, UA Negative Negative - Positive [facility] pH, UA 5.5 5 - 9 [facility] Protein, UA Negative Negative - 2000(20) ++++ mg/dL [facility] Spec Grav, UA 1.005 1 - 1.03 [facility] Urobilinogen, UA 0.2 0.2 - 12 mg/dL [facility] MM special view RT w/CADon 0 06-04-2024 MM special view RT w/CAD [facility] [address] [place] [address] Mammography Report Signed Patient: Franky Cyr MR#: [id number] : 1970 Acct:[id number] Age/Sex: 54 / F Adm Date: 06/03/24 Loc: [place] Room: Type: [facility] Attending Dr: Mikey Davis MD Ordering Provider: Mikey Davis MD Date of Service: 06/03/24 Procedure(s): MM special view RT w/CAD Accession Number(s): ([id number]) MM/MM special view RT w/CAD: R92.9 Copies [...] Stone Betancur M.D.06/04/2024 9:16 AM Dictation Location: [facility] Dictated By: Stone Betancur DO 06/04/24 0913 Signed By: 06/04/24 0916 Normal [facility] ALL LIPID PROFILE (FASTING)o n 05-25-2024 CHOL HDL RATIO 3 [facility] Comment on above: 3.3 - 4.4 LOW RISK 4.4 - 7.1 AVERAGE RISK 7.1 - 11.0 MODERATE RISK >11.0 HIGH RISK Cholesterol [Mass/Vol] 180 mg/dL NINF - 200 mg/dL [facility] Cholesterol in HDL [Mass/Vol] 61 mg/dL High 40 - 60 mg/dL [facility] Comment on above: > or =60 mg/dl - LOW CARDIOVASCULAR RISK <40 mg/dl - HIGH CARDIOVASCULAR RISK Magnesium [Mass/Vol] 112 mg/dL [facility] Comment on above: <100 mg/dl OPTIMAL 100-129 mg/dl NEAR OR ABOVE OPTIMAL 130-159 mg/dl BORDERLINE HIGH 160-189 mg/dl HIGH >190 mg/dl VERY HIGH Magnesium [Mass/Vol] 7.2 mg/dL [facility] Triglyceride [Mass/Vol] 36 mg/dL NINF - 150 mg/dL [facility] ALL THYROID STIM HORMONEon 0 05-25-2024 TSH Qn 2.173 m[IU]/L [facility] CCF CMP (CMP) (FOR REMOTE FH C USE)on 05-25-2024 Albumin [Mass/Vol] 3.6 g/dL 3.4 - 5.0 g/dL [facility] ALBUMIN GLOBULIN RATIO 1.1 [facility] ALP [Catalytic activity/Vol] 61 U/L 46 - 116 U/L [facility] ALT [Catalytic activity/Vol] 12 U/L Low 14 - 59 U/L [facility] Anion gap [Moles/Vol] 12.2 mmol/L [facility] AST [Catalytic activity/Vol] 14 U/L Low 15 - 37 U/L [facility] Bilirubin [Mass/Vol] 0.5 mg/dL 0.2 - 1 .0 mg/dL [facility] Calcium [Mass/Vol] 9.1 mg/dL 8.5 - 10. 1 mg/dL [facility] Chloride [Moles/Vol] 106 mmol/L 98 - 10 7 mmol/L [facility] CO2 [Moles/Vol] 27.3 mmol/L 21.0 - 32.0 mmol/L [facility] Creatinine [Mass/Vol] 0.97 mg/dL 0.55 - 1.02 mg/dL [facility] GFR/1.73 sq M.predicted CKD-EPI (S/P/Bld) [Vol rate/Area] >60 >=60 mL/min/1.73m 2 [facility] Globulin (S) [Mass/Vol] 3.3 g/dL [facility] Glucose [Mass/Vol] 82 mg/dL 74 - 106 mg/dL [facility] Potassium [Moles/Vol] 4.5 mmol/L 3.5 - 5.1 mmol/L [facility] Protein [Mass/Vol] 6.9 g/dL 6.4 - 8.2 g/dL [facility] Sodium [Moles/Vol] 141 mmol/L 136 - 145 mmol/L [facility] TB EGFR-NON AF BELIZEAN >60 >=60 mL/min/1.73m 2 [facility] Urea nitrogen [Mass/Vol] 13 mg/dL 7.0 - 18.0 mg/dL [facility] Urea nitrogen/Creatinine [Mass ratio] 13.4 mg/mg [facility] MLR HEMOGLOBIN A1Con 025 Glucose [Mass/Vol] 100 mg/dL [facility] HbA1c (Bld) [Mass fraction] 5.1 % 4.5 - 6.2 % [facility] Comment on above: ADA RECOMMENDED LIMI T 4.0 - 6.0 ADA THERAPEUTIC TARGET < 7.0 ACTION SUGGESTED > 7.0 No Panel Informationon 05-25 Interpretation and review of laboratory results Abnormal [facility] MM TOMOSYNTHESIS SCREENING B Ion 05-20-2024 [place] [address] Mammography Report Signed Patient: FRANKY CYR MR#: [id number] : 1970 Acct:[id number] Age/Sex: 54 / F ADM Date: 05/20/24 Loc: MAMMO Attending Dr: Dipika Farley D.O. Ordering Physician: Dipika Farley D.O. Results: Date of Service: 05/20/24 Follow Up: Procedure(s): MM tomosynthesis screening BI Accession Number(s): [id number] cc: Dipika Farley D.O.; Mikey Davis M.D. Patient Name: FRANKY CYR MR#: [id number] : 1970 Exam Date: 05/20/2024 Ordering Doctor: [...] breast cancer at age 71. LOCATION: [facility] BREAST COMPOSITION: The breasts are [...] Signed By: 05/20/24 1439 DD/ 38 TD/TT: Distribution Sales Manager: [facility] Radiology, Radiologi MD meli - 05/20/2024 [place] [address] Mammography Report Signed Patient: FRANKY CYR MR#: [id number] : 1970 Acct:[id number] Age/Sex: 54 / F ADM Date: 05/20/24 Loc: MAMMO Attending Dr: Dipika Farley D.O. Ordering Physician: Dipika Farley D.O. Results: Date of Service: 05/20/24 Follow Up: Procedure(s): MM tomosynthesis screening BI Accession Number(s): [id number] cc: Dipika Farley D.O.; Mikey Davis M.D. Patient Name: FRANKY CYR MR#: [id number] : 1970 Exam Date: 05/20/2024 Ordering Doctor: [...] breast cancer at age 71. LOCATION: [facility] BREAST COMPOSITION: The breasts are [...] D.O. Signed By: 05/20/241438 DD/ 38 TD/TT: Distribution Sales Manager: [facility] Radiology Study observation (narrative) [facility] MM TOMOSYNTHESIS SCREENING B IOrdered By: Radiologist Radiology on 05-20-2024 [facility] Work Phone: Luciano 07-30-2023 L Specimen: [id number] Received: 07/30/23 Status: NYA Moseley Num: [id number] Spec Type: Surgical Subm Dr: Dipika Farley Tissues: A Uterus w/ or w/o tubes ovaries except neoplastic or prolap (CERVIX, KATHY FT Procedures: HE/12, Gross/Micro L5 Age/ Patient Sex Location Account Attending Physician Franky Cyr 53/F LABE[facility] [id number] Dipika Farley SPEC NUM: [id number] RECD: 07/30/23 STATUS: NYA MOSELEY NUM: [id number] AVNI: 07/30/[address]: Dipika Farley ENTERED: 07/30/[address] [facility] [address]: Isabel,Lab SPEC TYPE: Surgical DEPT: [...] cm in diameter). Each tube contains Specimen: [id number] Received: 07/30/23 Status: NYA Pradip Num: [id number] Spec Type: Surgical Subm Dr: Dipika Farley Tissues: A Uterus w/ or w/o tubes ovaries except neoplastic or prolap (CERVIX, KATHY FT Procedures: HE/12, Gross/Micro L5 Patient: naveenFranky [id number] (Continued) Specimen: [id number] Received: 07/30/23 (Continued) Gross Description (Continued) Signed (signature on file) Nishant Cueto MD 07/31/23 1454 Specimen: [id number] Received: 07/30/23 Status: NYA Moseley Num: [id number] Spec Type: Surgical Subm Dr: Dipika Farley Tissues: A Uterus w/ or w/o tubes ovaries except neoplastic or prolap (CERVIX, KATHY FT Procedures: Neo/Micro L5 Patient: Franky Cyr [id number] (Continued) Specimen: [id number] Received: 07/30/23 (Continued) Gross Description (Continued) a perez-purple smooth serosal surface containing multiple paratubal cysts ranging from 0.1 to 0.3 cm. Sectioning into each tube demonstrates an intact luminal center lined by unremarkable perez mucosa. Bone Drier Operator sections submitted as follows: A1: Anterior cervix A2: Posterior cervix A3?A4: Anterior endomyometrium A5?A6: Posterior endomyometrium A7?A8: Nodules A9: Fallopian tube #1 A10: Fallopian tube #2 CPT Codes 42970 Specimen: [id number] Received: 07/30/23 Status: NYA Moseley Num: [id number] Spec Type: Surgical Subm Dr: iDpika Farley Tissues: A Uterus w/ or w/o tubes ovaries except neoplastic or prolap (CERVIX, KATHY FT Procedures: , Gross/Micro L5 Patient: Franky Cyr [id number] (Continued) Signed (signature on file) Nishant Cueto MD 07/31/23 1454 Normal [facility] Luciano 06-17-2023 L Specimen: [id number] Received: 06/17/23 Status: NYA Moseley Num: [id number] Spec Type: Surgical Subm Dr: Dipika Farley Tissues: A Endometrium - Curettings (EMC) Procedures: HE/, Gross/Micro L4 Age/ Patient Sex Location Account Attending Physician Franky Cyr 53/F [facility] [id number] Dipika Farley SPEC NUM: [id number] RECD: 06/17/23 STATUS: NYA MOSELEY NUM: [id number] AVNI: 06/17/[address]: Dipika Farley ENTERED: [...] perez. D C hysteroscopy, MyoSure TW Specimen: [id number] Received: 06/17/23 Status: NYA Moseley Num: [id number] Spec Type: Surgical Subm Dr: Dipika Farley Tissues: A Endometrium - Curettings (EMC) Procedures: HE/Mickey, Gross/Micro L4 Patient: Franky Cyr [id number] (Continued) Specimen: [id number] Received: 06/17/23 (Continued) Signed (signature on file) Rich Flores MD 06/19/23 1529 Specimen: [id number] Received: 06/17/23 Status: NYA Moseley Num: [id number] Spec Type: Surgical Subm Dr: Dipika Farley Tissues: A Endometrium - Curettings (EMC) Procedures: CORTES/Neo Arevalo/Tammy L4 Patient: Franky Cyr [id number] (Continued) Specimen: [id number] Received: 06/17/23 (Continued) CPT Codes 50507 Specimen: [id number] Received: 06/17/23 Status: NYA Moseley Num: [id number] Spec Type: Surgical Subm Dr: Dipika Farley Tissues: A Endometrium - Curettings (EMC) Procedures: HE/2, Gross/Micro L4 Patient: Franky Cyr [id number] (Continued) Signed (signature on file) Rich Flores MD 06/19/23 1529 Normal [facility] Pathology Noteon 10-31-2022 Pathology Note [id number]#1.00CD :127 Normal [facility] Reminderson 10-30-2022 Reminders - From: Shavon Mcguire LPN To: N - Clinical; Sent: 10/30/2022 11:35:53 EDT Show up: 09/22/2032 07:00:00 EDT Subject: colonoscopy recall Due Date/Time: 10/23/2032 07:00:00 EDT Reminder/Recall Patient due for screening colonoscopy 10/23/2032. Normal [facility] Outside Colonoscopyon 2022 Outside Colonoscopy [id number]#1.00C D:127 Normal [facility] Lab Reportson 10-23-2022 Lab Reports [id number]#1.00C D:127 [facility] Consent for Procedure/Surger yon 10-09-2022 Consent for Procedure/Surgery [id number]#1.00C D:127 Normal [facility] Formson 10-09-2022 Forms [id number]#1.00C D:127 Normal [facility] Ambulatory Visit Summaryon 0 10-08-2022 [...] Vascular insufficiency Very low density lipoprotinemia Normal [facility] Physician Referralon 023 Physician Referral [id number]#1.00C D:127 Normal [facility] US PELVIS AND TRANSVAGon US [...] by: RANDALL LEMONS Date: 2022-06-21 07:02 Normal [facility] PAP ACOG PANEL 2: 30 to 65on 06-17-2022 . . Normal [facility] Comment on above: Result Comment: Perf ormed at: WB Performed By: #### 4 [id number] ####[facility] [address] [place] [address]DrBrianne Flores Age Gdln ACOG Testing 30-65 Normal [facility] Comment on above: Performed By: #### 4 [id number] ####[facility] [address] [place] [address]DrBrianne Flores DIAGNOSIS: Comment Normal [facility] Comment on above: Result Comment: NEGA TIVE FOR INTRAEPITHELIAL LESION OR MALIGNANCY. Performed at: WB Performed By: #### 4 [id number] ####[facility] [address] [place] [address]DrBrianne Flores HPV Aptima Negative Normal Negative [facility] Comment on above: Result Comment: This nucleic acid amplification test detects fourteen high-risk HPV types (16,18,31,33,35,39,45,51,52,56,58,59,66,68) without differentiation. Performed at: =G Performed By: #### 4 [id number] ####[facility] [address] [place], [place] [address]DrBrianne Flores HPV Genotype Reflex Comment Normal [facility] Comment on above: Result Comment: Crit walter not met, HPV Genotype not performed. Performed at: WB Performed By: #### 4 [id number] ####[facility] [address] [place], [place] [address]Dr. Fernando Flores Methodology: Comment Normal [facility] Comment on above: Result Comment: This liquid based ThinPrep(R) pap test was screened with the use of an image guided system. Performed at: WB Performed By: #### 4 [id number] ####[facility] [address] [place], [place] [address]Dr. Fernando Flores Note: Comment Normal [facility] Comment on above: Result Comment: The Pap smear is a screening test designed to aid in the detection of premalignant and malignant conditions of the uterine cervix. It is not a diagnostic procedure and should not be used as the sole means of detecting cervical cancer. Both false-positive and false-negative reports do occur. . Performed at: WB Performed By: #### 4 [id number] ####[facility] [address] [place], [place] [address]DrBrianne Flores Performed by: Comment Normal [facility] Comment on above: Result Comment: Concetta Riggins, Rerecording Mixer (ASCP) Performed at: WB Performed By: #### 4 [id number] ####[facility] [address] [place], [place] [address]Dr. Fernando Flores Specimen adequacy: Comment Normal [facility] Comment on above: Result Comment: Sati sfactory for evaluation. Endocervical and/or squamous metaplastic cells (endocervical component) are present. Performed at: WB Performed By: #### 4 [id number] ####[facility] [address] [place], [place] [address]Dr. Fernando Flores Covid-19 PCR (CVDTB)on 03-3 0-2023 SARS-CoV-2 (COVID-19) RNA ALISON+probe Ql (Unsp spec) Not detected Normal NOT DETECTED [facility] Comment on above: Result Comment: [...] for this test is supported by the [place] of Health and Human Service's declaration that [...] used). Performed By: #### T 4 #### [facility] [address] [place] [address] Dr. Fernando Flores INFLUENZA A AND B AGon 05-23 INFLUANE SEE BELOW Normal [facility] Comment on above: Result Comment: Nega tive for Flu A protein angiten. Infection due to Flu A cannot be ruled out. Flu A angiten in the sample may be below the detection limit of the test. Performed By: #### S EROTON #### [facility] [address] [place] [address] Dr. Fernando Flores INFLUBNEGH SEE BELOW Normal [facility] Comment on above: Result Comment: Nega tive for Flu B protein antigen. Infection due to Flu B cannot be ruled out. Flu B antigen in the sample may be below the detection limit of the test. Performed By: #### S EROTON #### [facility] [address] [place] [address] Dr. Fernando Flores INFLUENZA A AG Negative Normal NEGATIVE SEE COMMENT [facility] Comment on above: Performed By: #### S EROTON #### [facility] [address] [place] [address] Dr. Fernando Flores INFLUENZA B AG Negative Normal NEGATIVE SEE COMMENT [facility] Comment on above: Performed By: #### S EROTON #### [facility] [address] [address] [address] Fernando Flores MG MAMM SCREEN 3D KATHY CADon 05-17-2022 MG MAMM SCREEN 3D KATHY CAD Patient: FRANKY CYR Exam Date: 05/17/2022 : 1970 Gender:F Ordering : DR DIPIKA FARLEY . Admission #: [id number] Family : Order #: [id number] CLICK HERE TO VIEW EXAM RADIOLOGY REPORT [...] breast cancer at age 71. LOCATION: [facility] BREAST COMPOSITION: Extremely dense, which [...] PALPABLE LUMP SHOULD BE BIOPSIED. Dictated by: Rnadall Lemons M.D. on 05/17/2022 at 11:44 Approved by: Randall Lemons M.D. on 05/17/2022 at 11:51 Normal [facility] THYROGLOBULINon 01-26-2022 Thyroglobulin 21 ng/mL Normal [facility] Comment on above: Result Comment: This [...] ng/mL. Performed By: #### Cathie VIDALES #### [facility] [address] [place], [place] [address] Dr. Fernando Flores ESTRONEon 01-23-2022 Estrone, Serum 29 pg/mL Normal [facility] Comment on above: Result Comment: Rang e Adult (Premenopausal) 27 - 231 Menstrual Cycle (1-10 days) 19 - 149 Menstrual Cycle (11-20 days) 32 - 176 Menstrual Cycle (21-30 days) 37 - 200 Adult (Postmenopausal) 0 - 125 Performed By: #### Bernadette MARTINEZ #### [facility] [address] [address] [address] Fernando Flores REVERSE T3on 01-22-2022 Reverse T3, Serum 14.4 ng/dL Normal 9.2-24.1 [facility] Comment on above: Result Comment: This test was developed and its performance characteristics determined by [employer]. It has not been cleared or approved by the Food and Drug Administration. Performed By: #### Henrik EVRT3 #### [facility] [id number] Fernando Flores TESTOSTERONE, FREE,DIRECT, T OTALon 01-22-2022 Free Testosterone(Direct) 1.9 pg/mL Normal 0.0-4.2 [facility] Comment on above: Result Comment: Perf ormed at: BN Performed By: #### T ESTFRD ####[facility] [address] [place], [place] [address]MdDr. Fernando Flores Testosterone [Mass/Vol] 30 ng/dL Normal 4-50 [facility] Comment on above: Result Comment: Perf ormed at: CB Performed By: #### T ESTFRD ####[facility] [address] [place], [place] [address]SwDr. Fernando Flores Covid-19 PCR ([facility])on 12-26 SARS-CoV-2 (COVID-19) RNA ALISON+probe Ql (Unsp spec) Not detected Normal NOT DETECTED [facility] Comment on above: Result Comment: [...] for this test is supported by the [employer] Calender Operator of Health and Human Service's declaration [...] be used). Performed By: #### C VDTBH ####[facility] [address] [place] [address]Dr. Fernando Flores SEROTONINon 01-20-2022 Serotonin, Serum 162 ng/mL Normal 31-207 [facility] [place] [facility] Comment on above: Performed By: #### S EROTON #### [facility] [address] [place] [address] Dr. Fernando Flores THYROGLOBULIN ABon 2 Thyroglobulin Antibody <1.0 Normal 0.0-0.9 [facility] Comment on above: Result Comment: Thyr oglobulin Antibody measured by [employer] Methodology Performed By: #### T HYGAB ####[facility] [address] [place] [address]Dr. Fernando Flores VIT D 1 25 DIHYDROXYon 01-19 Calcitriol(1,25 di-OH Vit D) 62.0 pg/mL Normal 24.8-81.5 [facility] Comment on above: Performed By: #### S EROTON #### [facility] [address] [place] [address] Dr. Fernando Flores C-PEPTIDE, SERUMon 2 C-Peptide, Serum 1.8 ng/mL Normal 1.1-4.4 [facility] Comment on above: Result Comment: C-Pe ptide reference interval is for fasting patients. Performed By: #### C PEPT ####[facility] [address] [place], [place] [address]QkDr. Fernando Flores INSULINon 01-18-2022 Insulin 6.7 uIU/mL Normal 2.6-24.9 [facility] Comment on above: Performed By: #### T 4 #### [facility] [address] [place], [place] [address] Dr. Fernando Flores CORTISOLon 01-17-2022 Cortisol 14.2 ug/dL Normal [facility] Comment on above: Result Comment: Floyd isol AM 6.2 - 19.4 Cortisol PM 2.3 - 11.9 Performed By: #### C ORTISO #### [facility] [address] [address] [address] Fernando Flores DHEA-SULFATEon 01-17-2022 DHEA-Sulfate 93.7 ug/dL Normal 41.2-243.7 [facility] Comment on above: Performed By: #### S EROTON #### [facility] [address] [place], [place] [address] Dr. Fernando Flores ESTRADIOLon 01-17-2022 Estradiol 24.6 pg/mL Normal [facility] Comment on above: Result Comment: Adul t Female: Follicular phase 12.5 - 166.0 Ovulation phase 85.8 - 498.0 Luteal phase 43.8 - 211.0 Postmenopausal <6.0 - 54.7 1st trimester 215.0 - >4300.0 Sanjay ECLIA methodology Performed By: #### S EROTON #### [facility] [address] [place], [place] [address] Dr. Fernando Flores PROGESTERONEon 01-17-2022 Progesterone 0.7 ng/mL Normal [facility] Comment on above: Result Comment: Foll icular phase 0.1 - 0.9 Luteal phase 1.8 - 23.9 Ovulation phase 0.1 - 12.0 First trimester 11.0 - 44.3 Second trimester 25.4 - 83.3 Third trimester 58.7 - 214.0 Postmenopausal 0.0 - 0.1 Performed By: #### P JASWINDER #### [facility] [address] [address] [address] Fernando Flores SEX HORMONE-BINDING GLOBULIN on 01-17-2022 Sex Horm Binding Glob, Serum 115.0 nmol/L Normal 17.3-125.0 [facility] Comment on above: Performed By: #### S EROTON #### [facility] [address] [address] [address] Fernando Flores T3, TOTAL (TRIIODOTHYRONINE) on 01-17-2022 T3, TOTAL 120 ng/dL Normal 71-180 [facility] Comment on above: Performed By: #### T 3TOTAL ####[facility] [address] [place] [address]Dr. Fernando Flores THYROID PEROXIDASE ABon 12-26 Thyroid Peroxidase (TPO) Ab <9 Normal 0-34 [facility] Comment on above: Performed By: #### S EROTON #### [facility] [address] [address] [address] Fernando Flores FREE T3on 01-16-2022 FREE T3 2.86 pg/mlL Normal 2.18-3.98 [facility] Comment on above: Performed By: #### T 4 #### [facility] [address] [address] [address] Fernando Flores FREE T4on 01-16-2022 Free T4 [Mass/Vol] 1.04 ng/dL Normal 0.76-1.46 [facility] Comment on above: Performed By: #### F T4 ####[facility] [address] [address]Dr[address] Fernando Flores GLUCOSE BLOODon 01-16-2022 Glucose [Mass/Vol] 90 mg/dL Normal 74-106 [facility] Comment on above: Performed By: #### S EROTON #### [facility] [address] [address] [address] Fernando Flores GLYCOHEMOGLOBIN A1Con 2021 ADA RECOMMENDATION SEE BELOW Normal [facility] Comment on above: Result Comment: ADA RECOMMENDED LIMIT 4.0 - 6.0 ADA THERAPEUTIC TARGET < 7.0 ACTION SUGGESTED > 7.0 Performed By: #### S EROTON #### [facility] [address] [place] [address] Dr. Fernando Flores Glucose [Mass/Vol] 103 mg/dL Normal [facility] Comment on above: Performed By: #### S EROTON #### [facility] [address] [place] [address] Dr. Fernando Flores HbA1c (Bld) [Mass fraction] 5.2 % Normal 4.5-6.2 [facility] Comment on above: Performed By: #### S EROTON #### [facility] [address] [place] [address] Dr. Fernando Flores T4on 01-16-2022 T4 [Mass/Vol] 7.40 ug/dL Normal 4.80-13.90 [facility] Comment on above: Performed By: #### T 4 #### [facility] [address] [place] [address] Dr. Fernando Flores TSHon 01-16-2022 TSH 1.776 uIU/mL Normal 0.358-3.740 [facility] Comment on above: Performed By: #### S EROTON #### [facility] [address] [place] [address] Dr. Fernando Flores VC CONSULT FOLLOWUPon 2021 VC CONSULT FOLLOWUP Patient: FRANKY CYR Exam Date: 01/14/2022 : 1970 Gender:F Ordering : DR JAYDEN HENDERSON M.D. Admission #: [id number] Family : Order #: [id number] CLICK HERE TO VIEW EXAM RADIOLOGY REPORT [...] Henderson MD on 01/14/2022 at 16:01 Normal [facility] VC EXT VENOUS RT LIMITEDon 1 03-16-2021 VC EXT VENOUS RT LIMITED Patient: FRANKY CYR Exam Date: 01/14/2022 : 1970 Gender:F Ordering : DR JAYDEN HENDERSON M.D. Admission #: [id number] Family : Order #: [id number] CLICK HERE TO VIEW EXAM RADIOLOGY REPORT [...] Henderson MD on 01/14/2022 at 16:04 Normal [facility] VC CONSULT FOLLOWUPon 2021 VC CONSULT FOLLOWUP Patient: FRANKY CYR Exam Date: 12/27/2021 : 1970 Gender:F Ordering : DR JAYDEN HENDERSON M.D. Admission #: [id number] Family : Order #: [id number] CLICK HERE [...] Henderson MD on 12/27/2021 at 15:30 Normal [facility] VC EXT VENOUS RT LIMITEDon 1 02-26-2021 VC EXT VENOUS RT LIMITED Patient: FRANKY CYR Exam Date: 12/27/2021 : 1970 Gender:F Ordering : DR JAYDEN HENDERSON M.D. Admission #: [id number] Family : Order #: [id number] CLICK HERE TO VIEW EXAM RADIOLOGY REPORT [...] Henderson MD on 12/27/2021 at 15:17 Normal [facility] VC INJ FOAM SCLERO W US MLTI on 12-21-2021 VC INJ FOAM SCLERO W US MLTI Patient: FRANKY CYR Exam Date: 12/21/2021 : 1970 Gender:F Ordering : DR JAYDEN HENDERSON M.D. Admission #: [id number] Family : Order #: [id number] CLICK HERE TO VIEW EXAM RADIOLOGY REPORT [...] weeks, (more content not included)... Normal [facility] VC CONSULT FOLLOWUPon 2021 VC CONSULT FOLLOWUP Patient: FRANKY CYR Exam Date: 12/13/2021 : 1970 Gender:F Ordering : DR JAYDEN HENDERSON M.D. Admission #: [id number] Family : Order #: [id number] CLICK HERE TO VIEW EXAM RADIOLOGY REPORT [...] Jayden Henderson MD on 12/13/2021 at 08:24 [facility] VC EXT VENOUS LT LIMITEDon 1 VC EXT VENOUS LT LIMITED Patient: FRANKY CYR. Exam Date: 12/13/2021 : 1970 Gender:F Ordering : DR JAYDEN HENDERSON M.D. Admission #: [id number] Family : Order #: [id number] CLICK HERE TO VIEW EXAM RADIOLOGY REPORT [...] Henderson MD on 12/13/2021 at 08:16 Normal [facility] VC ENDOVENOUS ABL 1ST V LTon 12-07-2021 VC ENDOVENOUS ABL 1ST V LT Patient: ANDRZEJGoldVETO FRANKY AlvaradoBrianne Exam Date: 12/07/2021 : 1970 Gender:F Ordering : DR JAYDEN HENDERSON M.D. Admission #: [id number] Family : Order #: [id number] CLICK HERE TO VIEW EXAM CORRECTION: Changed [...] Henderson MD on 12/07/2021 at 10:27 Normal [facility] VC CONSULT FOLLOWUPon 2021 VC CONSULT FOLLOWUP Patient: FRANKY CYR Exam Date: 11/29/2021 : 1970 Gender:F Ordering : DR JAYDEN HENDERSON M.D. Admission #: [id number] Family : Order #: [id number] CLICK HERE TO VIEW EXAM RADIOLOGY REPORT [...] Henderson MD on 11/29/2021 at 09:01 Normal [facility] VC EXT VENOUS RT LIMITEDon 1 VC EXT VENOUS RT LIMITED Patient: FRANKY CYR Exam Date: 11/29/2021 : 1970 Gender:F Ordering : DR JAYDEN HENDERSON M.D. Admission #: [id number] Family : Order #: [id number] CLICK HERE TO VIEW EXAM RADIOLOGY REPORT [...] Henderson MD on 11/29/2021 at 08:44 Normal [facility] VC ENDOVENOUS ABL 1ST V RTon 11-22-2021 VC ENDOVENOUS ABL 1ST V RT Patient: FRANKY CYR Exam Date: 11/22/2021 : 1970 Gender:F Ordering : DR JAYDEN HENDERSON M.D. Admission #: [id number] Family : Order #: [id number] CLICK HERE TO VIEW EXAM RADIOLOGY REPORT [...] M.D. on 11/22/2021 at 14:45 Normal [facility] CRPon 09-20-2021 CRP [Mass/Vol] mg/L Normal <=1.0 [facility] Comment on above: Performed By: #### S EROTON #### [facility] [address] [place], [place] [address] Dr. Fernando Flores SED RATE [facility] 2021 SED RATE 5 mm/hr Normal <=30 [facility] Comment on above: Performed By: #### S EDR ####[facility] [address] [place], [place] [address]Ub[address]. Fernando Flores US PELVIS AND TRANSVAGon US [...] by: RANDALL LEMONS Date: 2021-09-11 14:02 Normal [facility] CTA ABD JAKE WWO CON LE [...] RANDALL LEMONS Date: 2021-08-10 11:03 Normal [facility] VC COMP CONSULTATIONon 07-31 VC COMP CONSULTATION Patient: FRANKY CYR Exam Date: 07/31/2021 : 1970 Gender:F Ordering : DR JAYDEN HENDERSON M.D. Admission #: [id number] Family : Order #: [id number] CLICK HERE TO VIEW EXAM RADIOLOGY REPORT [...] sa (more content not included)... Normal [facility] VC VENOUS REFLUX KATHY LMTon 0 07-31-2021 VC VENOUS REFLUX KATHY LMT Patient: FRANKY CYR Exam Date: 07/31/2021 : 1970 Gender:F Ordering : DR JAYDEN HENDERSON M.D. Admission #: [id number] Family : Order #: [id number] CLICK HERE TO VIEW EXAM RADIOLOGY REPORT [...] the GSV and connects to the incompetent career services representative. Incompetent patent varicose vein extends from the [...] or chronic thrombus Compressibility: Normal Flow: Normal Knitted Cloth Examiner: Mid medial thigh measures 3.2 mm with [...] MD on 07/31/2021 at 11:35 Approved by: aJyden Henderson MD on 07/31/2021 at 11:39 Normal [facility] XR LSPINE MIN 4 VIEWSon 06-24 [...] by: RANDALL LEMONS Date: 2021-07-03 13:34 Normal [facility] Vital Signs Date Time Vital Sign Value Performing Clinician Facility 06-08-2024 13:16-0400 Body mass index (BMI) [Ratio] 21.97 kg/m2 Dipika Martine DO Work Phone: [facility] 06-08-2024 13:16-0400 Body weight 58.06 kg Dipika Martine DO Work Phone: [facility] 06-08-2024 13:16-0400 Diastolic blood pressure 72 mm[Hg] Dipika Martine DO Work Phone: [facility] 06-08-2024 13:16-0400 Systolic blood pressure 118 mm[Hg] Dipika Martine DO Work Phone: [facility] 10-08-2022 15:23-0400 Blood Pressure Location Leon [facility]ARTONL [facility] 10-08-2022 15:23-0400 Diastolic blood pressure 78 mm[Hg] Leon BARTONL [facility] 10-08-2022 15:23-0400 Heart rate 70 /min Leon NILL [facility] 10-08-2022 15:23-0400 Respiratory rate 16 /min Leon BARTONL [facility] 10-08-2022 15:23-0400 Systolic blood pressure 116 mm[Hg] Leon BARTONL [facility] Encounters Encounter Date Encounter Type Care Provider Facility Start: 06-08-2024 End: 06-08-2024 Bamboo flowsheet Dipika Martine DO Work Phone: [facility] Start: 06-08-2024 End: 06-11-2024 Bamboo flowsheet Dipika Martine DO Work Phone: [facility] Start: 06-08-2024 End: 06-11-2024 Clinisync Result Encounter Dipika Martine DO Work Phone: [facility] External Department Unsolicited Start: 06-08-2024 End: [...] encounter procedure Mikey Davis MD Work Phone: [facility] Work Phone: Start: 06-03-2024 End: 06-03-2024 ambulatory Mikey Davis MD Work Phone: [facility] Work Phone: Start: 05-25-2024 End: [...] Start: 07-30-2023 End: 07-30-2023 ambulatory Dipika Lasto [facility] Work Phone: Start: 07-30-2023 End: 07-30-2023 Departed Referred Dipika Farley Work Phone: [facility] Start: 07-02-2023 End: 07-02-2023 ambulatory DIPIKAArthur LASTO Not Available Start: 06-17-2023 End: 06-17-2023 ambulatory Dipika Lasto [facility] Work Phone: Start: 06-17-2023 End: 06-17-2023 Departed Referred Dipika Farley Work Phone: [facility] Start: 06-11-2023 End: 06-11-2023 ambulatory DIPIKA LASTO Not Available Start: 10-23-2022 End: 10-24-2022 ambulatory Leon WHYTE Facility:CD:[id number] Start: 10-08-2022 End: 10-09-2022 ambulatory Leon [...] 05-25-2024 [facility] CMP (CMP) (FOR R [facility] USE) Mikey Davis MD Work Phone: Start: [...] Screening for malignant neoplasm of breast Mammogram [facility] Start: 05-20-2025 Screening for malignant neoplasm of breast Mammogram [facility] Start: 06-08-2024 End: 06-08-2025 DXA Skeletal system Views for bone density DEXA bone density Imaging Routine Osteoporosis, post-menopausal ([facility]) Expected: 06/08/2024 (Approximate), Expires: 06/08/2025 [facility] Work Phone: Comment on above: Expected: 06/08/2024 (Approximate), Expires: 06/08/2025 Start: 06-08-2024 End: 06-08-2024 Patient encounter procedure 06/08/2024 1:00 PM EDT Office Visit [facility] [address] [place] [address] Dipika Farley, DO [address] [place] [address] Arrived [facility] Comment on above: Arrived Start: 06-03-2024 Mammography of right breast MM special view RT w/CAD [facility] Start: 06-03-2024 MG Breast - right Single view [facility] Start: 06-01-2024 End: 06-01-2024 Patient encounter procedure 06/01/2024 1:10 PM EDT Office Visit [facility] [address] [id number] Dipika Farley, DO [address] [facility] [place] [address] [facility] Start: 05-21-2024 End: 07-21-2025 MG Breast - right Diagnostic Right diagnostic mammogram Imaging Routine Abnormal mammogram of right breast Expected: 05/21/2024, Expires: 07/21/2025 [facility] Work Phone: Comment on above: Expected: 05/21/2024 , Expires: 07/21/2025 Start: 05-21-2024 End: 07-21-2025 US Breast - right limited Right breast US limited Imaging Routine Abnormal mammogram of right breast Expected: 05/21/2024, Expires: 07/21/2025 [facility] Comment on above: Expected: 05/21/2024 , Expires: 07/21/2025 Start: 05-19-2024 Screening for malignant neoplasm of breast Mammogram [facility] Start: 1970 Screening for malignant neoplasm of colon [facility] THIN PREP TIS PAP AN D HR HPV DNA THIN PREP TIS PAP AND HR HPV DNA Pathology and Cytology Routine Well woman exam with routine gynecological exam Ordered: 06/08/2024 [facility] Comment on above: Ordered: 06/08/2024 Immunizations Immunization Date Immunization Notes Care Provider Fa cility 12-15-2020 SARS-CoV-2 (COVID-19 ) mRNA-1273 vaccine Leon WHYTE [facility] 03-22-2020 SARS-CoV-2 (COVID-19 ) mRNA-1273 vaccine Leon WHYTE [facility] 02-22-2020 SARS-CoV-2 (COVID-19 ) [id number] vaccine Leon WHYTE [facility] Payers Date Payer Category Payer Self-pay 2022 [employer] [facility] [employer] [id number] 2022 Unknown [id number] 2019 Unknown [id number] 1970 Unknown [id number] 2.16.840.1.808760.3.579.2. 593 1970 Unknown [id number] 2.16.840.1.509698.3.579.2. 593 1971 Unknown [id number] 2.16.840.1.605711.3.579.2. 593 1971 Unknown [id number] 2.16.840.1.213270.3.579.2. 593 1971 Unknown [id number] 2.16.840.1.917292.3.579.2. 593 1971 Unknown [id number] 2.16.840.1.506058.3.579.2. 593 1971 Unknown [id number] 2.16.840.1.945705.3.579.2. 593 1971 Unknown [id number] 2.16.840.1.671753.3.579.2. 593 1971 Unknown [id number] 2.16.840.1.316809.3.579.2. 593 1971 Unknown [id number] 2.16.840.1.550527.3.579.2. 593 1971 Unknown [id number] 2.16.840.1.880919.3.579.2. 593 1971 Unknown [id number] 2.16.840.1.544660.3.579.2. 593 1971 Unknown [id number] 2.16.840.1.327932.3.579.2. 593 1971 Unknown [id number] 2.16.840.1.196638.3.579.2. 593 1971 Unknown [id number] 2.16.840.1.525213.3.579.2. 593 1971 Unknown [id number] 2.16.840.1.148295.3.579.2. 593 1971 Unknown [id number] 2.16.840.1.900222.3.579.2. 593 1971 Unknown [id number] 2.16.840.1.965241.3.579.2. 593 1971 Unknown [id number] 2.16.840.1.860466.3.579.2. 593 1971 Unknown [id number] 2.16.840.1.005389.3.579.2. 593 1971 Unknown [id number] 2.16.840.1.395056.3.579.2. 593 1971 Unknown [id number] 2.16.840.1.704547.3.579.2. 593 1971 Unknown [id number] 2.16.840.1.852817.3.579.2. 593 1971 Unknown [id number] 2.16.840.1.916904.3.579.2. 593 1971 Unknown [id number] 2.16.840.1.819197.3.579.2. 727 1971 Unknown [id number] 2.16.840.1.132077.3.579.2. 727 1971 Unknown [id number] 2.16.840.1.860543.3.579.2. 9 1971 Unknown [id number] 2.16.840.1.470109.3.579.2. 1259 1971 Unknown [id number] 2.16.840.1.523062.3.579.2. 1259 1971 Unknown [id number] 2.16.840.1.109806.3.579.2. 1259 1971 Unknown [id number] 2.16.840.1.986810.3.579.2. 1259 1959 Self-pay [id number] Unknown [id number] 2.16.840.1.528423.3.579.2. 531 Social History Date Type Detail Facility Start: 10-08-2022 End: 09-10-2023 Tobacco smoking status Never smoked tobacco (finding) [facility] Tobacco smoking status Never [facility] Start: 09-10-2023 Sex Assigned At Female F [facility] Start: 1970 Sex Assigned At Female F [facility] Start: 09-10-2023 Tobacco use and exposure Smokeless tobacco non-user [facility] Start: 09-10-2023 End: 06-08-2024 Alcoholic beverage intake Lifetime non-drinker (finding) [facility] Start: 09-10-2023 History of Social function [facility] Start: 1970 Sex assigned at Not on file [facility] Tobacco smoking stat [facility] Unknown if ever smoked [facility] Work Phone: Start: 06-04-2024 Sex Female (finding) [facility] Functional Status Date Assessment Result Facility 10-08-2022 Functional Status N/A [facility] History of Present illness Narrative 06-08-2024 Mary Huff, CHIEF BUSINESS OFFICER - 06/08/2024 1:00 PM EDT Note Date [...] nursing note reviewed. Exam conducted with a log rider present. Vitals: Estimated body mass index is [...] Dipika Farley DO documented in this encounter [facility] Clinical Note 10-08-2022 Note Date & [...] Recorded SARS-CoV-2 (COVID-19) mRNA-1273 vaccine 02/22/2020 Recorded [facility] Comment on above: Result Comment: [...] by: JAYDEN HENDERSON Date: 2021-09-04 16:23 [facility] Evaluation + Plan note Note Date & Type Note Facility Evaluation + Plan note No data available for this section [facility] Evaluation note Note Date & Type Note Facility Evaluation note No assessment information availa [facility] Work Phone: Evaluation note Note Date & Type Note Facility Evaluation note Diagnosis Abnormal mammogram of right breast- Primary documented in this encounter [facility] Evaluation note Note Date & Type Note Facility Evaluation note Diagnosis Well woman exam with routine gynecological exam Routine gynecological examination Osteoporosis, post-menopausal (CMS/HCC) Senile osteoporosis H/O: hysterectomy Acquired absence of both cervix and uterus documented in this encounter [facility] Hospital Discharge instructions Note Date & Type Note Facility Hospital Discharge instructions No data available for this section [facility] Progress note Note Date & Type Note Facility Progress note No data available for this section [facility] Summary Purpose Family History No Family History [...] and content) DATE CREATED AUTHOR 06/24/2022 [facility] DATE CREATED AUTHOR AUTHOR'S ORGANIZ ATION 11/01/2022 [facility] DATE CREATED AUTHOR AUTHOR'S ORGANIZ ATION 06/08/2024 [facility] DATE CREATED AUTHOR AUTHOR'S ORGANIZ ATION 06/10/2024 [facility] EPIC Patient Care team informatio n (unrecognized section and content) Team Status: Inactive Member Role Status Dates Dipika Farley Attending Provider Active Start: Shine 2023 End: June 17, 2023 Team Status: Inactive Member Role Status Dates Dipika Farley Attending Provider Active Start: 2023 End: July 30, 2023 Waste Transportation Technician Relationship Specialty Start Date End Date Mikey Davis MD [address] [place] [phone] PCP - General Family Medicine 06/11/23 Waste Transportation Technician Relationship Specialty Start Date End Date Mikey Davis MD [address] [place] [phone] PCP - General Family Medicine 06/11/23 Team Status: Active Member Role Status Dates Mikey Davis MD Primary Care Provider Active Team Status: Inactive Member Role Status Dates Mikey Davis MD Primary Care Provide r, Attending Provider Active Start: June 03, 2024 End: June 03, 2024 Waste Transportation Technician Relationship Specialty Start Date End Date Mikey Davis MD [address] [place] [phone] PCP - General Family Medicine 06/11/23 Waste Transportation Technician Relationship Specialty Start Date End Date Mikey Davis MD [address] [place] [phone] PCP - General Family Medicine 06/11/23 Goals [...] BE BASED ON THE PRIMARY CLINICAL RECORDS. [employer] [facility]. provides no warranty or guarantee of the accuracy or completeness of information in this document.
== END 2024-11-30 12:50 | disposition home or self-care (01) ==
LOC: MAMMO 12:49
PROVIDERS: PCP Family Medicine; Visit Provider Obstetrics & Gynecology
DX: R92.8 Other abnormal and inconclusive findings on diagnostic imaging of breast (principal); R92.321 Mammographic fibroglandular density, right breast; Z80.3 Family history of malignant neoplasm of breast
CPT/HCPCS: 77065; G0279

== ENCOUNTER 2024-12-27 14:30 | Outpatient (OUT) | payer BC, SELFPAY ==
--- OUTSIDE RECORDS SUMMARY | 2024-11-17 11:00 | XMS_ITS ---
Author Organization The [facility] in [place] Address [address] [place] [address] Care Team Providers Care Equipment Cleaner Name Role Phone Hu Sullivan Primary Care Provider [phone] Nate FONTANA PATIENT Encounters Encounter Location Date Provider Diagnosis [facility] [address] [facility] [place] [place] [address] 11/17/2024 Hu Sullivan Plan Of Treatment No Information Progress Notes * Dustin CYRleDOB:1969 (54 yo F)Acc No.[id number]:11/17/2024 UNLOCKED PROGRESS NOTE Progress Note Patient: Augusta WILKINSON :?Bradley Sullivan (FELI), MDDOB:1970???Age: 54 Y???Sex:FemaleDate:11/17/2024Phone:[phone]:Юлия MOOSUP [place], [id number] Subjective: * Chief Complaints: * [address] Sullivan NEW PATIENT. * Medical History: Objective: * Vitals: Assessment: Plan: * Treatment: * * Electronic signature of Hu Sullivan MD, [id number] on 12/28/2024 at 07:12 AM EST Sign off status: PendingVisit Status:?CANCPHONE (Cancelled Phone) * Provider: Macy Sullivan MD (TTC) Date: 0 11/17/2024 Generated for Printing/Faxing/eTransmitting on:?12/28/2024 07:12 AM EST
--- OUTSIDE RECORDS SUMMARY | 2024-11-24 03:15 | XMS_ITS ---
Author Organization [facility] in [place] Address [address] [place] [address] Care Team Providers Care Medical Insurance Coder Name Role Phone Hu Sullivan Primary Care Provider REASON FOR VISIT htn Encounters Encounter Location Date Provider Diagnosis [facility] [address] [facility] [place] [address] 11/24/2024 Hu Sullivan Plan Of Treatment No Information Progress Notes * Charlene CYROB:1969 (54 yo F)Acc No.[id number]:11/24/2024 UNLOCKED PROGRESS NOTE Progress Note Patient: Augusta WILKINSON :?Bradley Sullivan (TTC), MDDOB:1970???Age: 54 Y???Sex:FemaleDate:11/24/2024Phone:[phone]:[address] [place] [address] [place], [id number] Subjective: * Chief Complaints: * 1 . Htn. * Medical History: Objective: * Vitals: Assessment: Plan: * Treatment: * * Electronic signature of Hu Sullivan MD, [id number] on 12/28/2024 at 07:12 AM EST Sign off status: PendingVisit Status:?CANCPHONE (Cancelled Phone) * Provider: Macy Sullivan MD (TTC) Date: 1 Generated for Printing/Faxing/eTransmitting on:?12/28/2024 07:12 AM EST
--- OUTSIDE RECORDS SUMMARY | 2024-11-24 08:30 | XMS_ITS ---
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 * Medical History: Objective: * Vitals: Assessment: Plan: * Treatment: * * Electronic signature of Hu Sullivan MD, [id number] on 12/28/2024 at 07:13 AM EST Sign off status: PendingVisit Status:?CANCPHONE (Cancelled Phone) * Provider: Macy RidleyTTCMD Corina Date: 1 Generated for Printing/Faxing/eTransmitting on:?12/28/2024 07:13 AM EST
--- OUTSIDE RECORDS SUMMARY | 2024-12-01 03:15 | XMS_ITS ---
Author Organization [facility] in [place] Address [address] [place] [address] Care Team Providers Care Welder Pipe Making Name Role Phone Hu Sullivan Primary Care Provider REASON FOR VISIT htn Encounters Encounter Location Date Provider Diagnosis [facility] [address] [facility] [place] [address] 12/01/2024 Hu Sullivan Plan Of Treatment No Information Progress Notes * Charlene CYROB:1969 (54 yo F)Acc No.[id number]:12/01/2024 UNLOCKED PROGRESS NOTE Progress Note Patient: Augusta WILKINSON :?Bradley Sullivan (TTC), MDDOB:1970???Age: 54 Y???Sex:FemaleDate:12/01/2024Phone:[phone]:[address] [place] [address] [place], [id number] Subjective: * Chief Complaints: * 1 . Htn. * Medical History: Objective: * Vitals: Assessment: Plan: * Treatment: * * Electronic signature of Hu Sullivan MD, [id number] on 12/28/2024 at 07:11 AM EST Sign off status: PendingVisit Status:?CANC (Cancelled) * Provider: Macy Sullivan MD (TTC) Date: 1 Generated for Printing/Faxing/eTransmitting on:?12/28/2024 07:11 AM EST
--- OUTSIDE RECORDS SUMMARY | 2024-12-08 03:15 | XMS_ITS ---
Author Organization The [facility] in [place] Address [address] [place] [address] Care Team Providers Care Multimedia Coordinator Name Role Phone Hu Sullivan Primary Care Provider [phone] REASON FOR VISIT htn Encounters Encounter Location Date Provider Diagnosis [facility] [address] [place] [address] 12/08/2024 Hu Sullivan Plan Of Treatment No Information Progress Notes * Charlene CYROB:1969 (54 yo F)Acc No.[id number]:12/08/2024 UNLOCKED PROGRESS NOTE Progress Note Patient: Augusta WILKINSON :?Bradley Sullivan (TTC), MDDOB:1970???Age: 54 Y???Sex:FemaleDate:12/08/2024Phone:[phone]:[address] [place] [address] [place], [id number] Subjective: * Chief Complaints: * 1 . Htn. * Medical History: Objective: * Vitals: Assessment: Plan: * Treatment: * * Electronic signature of Hu Sullivan MD, [id number] on 12/28/2024 at 07:12 AM EST Sign off status: PendingVisit Status:?CANCPHONE (Cancelled Phone) * Provider: Macy Sullivan MD (TTC) Date: 1 Generated for Printing/Faxing/eTransmitting on:?12/28/2024 07:12 AM EST
--- OUTSIDE RECORDS SUMMARY | 2024-12-15 03:15 | XMS_ITS ---
Author Organization The [facility] in [place] Address [address] [place] [address] Care Team Providers Care Strip Roller Name Role Phone Hu Sullivan Primary Care Provider REASON FOR VISIT htn Encounters Encounter Location Date Provider Diagnosis [facility] [address] [place] [address] 12/15/2024 Hu Sullivan Plan Of Treatment No Information Progress Notes * Charlene CYROB:1969 (54 yo F)Acc No.[id number]:12/15/2024 UNLOCKED PROGRESS NOTE Progress Note Patient: Augusta WILKINSON :?Bradley Sullivan (TTC), MDDOB:1970???Age: 54 Y???Sex:FemaleDate:12/15/2024Phone:[phone]:[address] [place] [address] [place], [id number] Subjective: * Chief Complaints: * 1 . Htn. * Medical History: Objective: * Vitals: Assessment: Plan: * Treatment: * * Electronic signature of Hu Sullivan MD, [id number] on 12/28/2024 at 07:12 AM EST Sign off status: PendingVisit Status:?CANCPHONE (Cancelled Phone) * Provider: Macy Sullivan MD (TTC) Date: 1 Generated for Printing/Faxing/eTransmitting on:?12/28/2024 07:12 AM EST
--- OUTSIDE RECORDS SUMMARY | 2024-12-22 03:15 | XMS_ITS ---
Author Organization The [facility] in [place] Address [address] [place] [address] Care Team Providers Care Software Quality Specialist Name Role Phone Hu Sullivan Primary Care Provider REASON FOR VISIT htn Encounters Encounter Location Date Provider Diagnosis [facility] [address] [facility] [facility] [place] [address] 12/22/2024 Hu Sullivan Plan Of Treatment No Information Progress Notes * Charlene CYROB:1969 (54 yo F)Acc No.[id number]:12/22/2024 UNLOCKED PROGRESS NOTE Progress Note Patient: Augusta WILKINSON :?Bradley Sullivan (TTC), MDDOB:1970???Age: 54 Y???Sex:FemaleDate:12/22/2024Phone:[phone]:[address] [place] [address] [place], [phone] Subjective: * Chief Complaints: * 1 . Htn. * Medical History: Objective: * Vitals: Assessment: Plan: * Treatment: * * Electronic signature of Hu Sullivan MD, [id number] on 12/28/2024 at 07:12 AM EST Sign off status: PendingVisit Status:?CANCPHONE (Cancelled Phone) * Provider: Macy Sullivan MD (TTC) Date: 1 Generated for Printing/Faxing/eTransmitting on:?12/28/2024 07:12 AM EST
--- OUTSIDE RECORDS SUMMARY | 2024-12-28 07:12 | XMS_ITS | Encounter Summary ---
Author Organization [facility] Address [address] [place] [address] Care Team Providers Care Communications Department Chair Name Role Phone Karo Davis MD Primary Care Provider [phone] Encounter Details DateTypeDepartmentCare Team (Latest Contact Info)Lintighjapc19/19/2024Clinisync Result Encounter [facility] Unsolicited Praveen Farley, DO [address] [place] [address] Social History Tobacco UseTypesPacks/DayYears UsedDateSmoking Tobacco: Never Assessed CommentsUnknownSex and Gender InformationValueDate RecordedSex Assigned at Not on fileLegal IgrXyxpms20/15/2023 7:30 PM EDTGender IdentityNot on fileSexual OrientationNot on filedocumented as of this encounter Plan of Treatment Not on file documented as of this encounter Procedures Procedure NamePriorityDate/TimeAssociated DiagnosisCommentsECG 12-LEAD06/13/2023 3:06 PM EDT documented in this encounter Results * ECG 12-LEAD (06/13/2023 3:06 PM EDT)Anatomical RegionLateralityModalityOther Specimen (Source)Anatomical Location / LateralityCollection Method / Volume Collection TimeReceived Time06/13/2023 3:06 PM EDT Narrative 06/13/2023 5:53 PM EDT [facility] ?[address] ? [place] [address] ? Electrocardiograph Report ? Signed ? Patient: FRANKY CYR ?MR#: [id number] ?? : 1970 ?Acct:[id number] ?? Age/Sex: 53 / F ?ADM Date: //24 ?? Loc: PST ? Attending Dr: Praveen Farley D.O. ? Ordering Physician: Praveen Farley D.O. ?? Date of Service: 06/13/23 ?? Procedure(s): ECG 12 lead ?? Accession Number(s): [id number] ? cc: ?[facility] ? Test Date: ?2023-06-13 ?? Pat Name: ? FRANKY CYR ?Department: ? Room: ? - ?? Gender: ? Female ? Child Care Coordinator: ? : ?1970 ? Requested By: KARO DAVIS ?? Order Number: [id number] ?Reading MD: ?? DONOVAN ??BALL ? Measurements ?? Intervals ?[place]ber[place] ? Rate: ? 49 ? P: ?59 ?? CA: ? 145 ?QRS: ?9 ?? QRSD: ? 88 ? T: ?52 ?? QT: ? 444 ? QTc: ?403 ? Interpretive Statements ?? SINUS BRADYCARDIA ?? POSSIBLE RIGHT VENTRICULAR CONDUCTION DELAY [RSR (QR) IN V1/V2] ?? No previous ECG available for comparison ?? Electronically Signed On 06-13-2023 17:53:03 EDT by DONOVAN ??BALL ? Dictated By: ?Donovan Rico D.O. ? Signed By: ?04/19/24 1753 ? DD/ 1506 ? TD/TT: ? Loft Patternmaker: Procedure Note Radiology, Radiologist, - 06/13/2023 [place] [address] Electrocardiograph Report Signed Patient: FRANKY CYR JMR#: [id number] : 1970Acct:[id number] Age/Sex: 53 / FADM Date: 06/13/23 Loc: [facility] Attending Dr: Praveen Farley D.O. Ordering Physician: Praveen Farley D.O. Date of Service: 06/13/23 Procedure(s): ECG 12 lead Accession Number(s): [id number] cc: [facility] Test Date: 2023-06-13 Pat Name: FRANKY CYR Department: Room: - Gender: Female Child Care Coordinator: : 1970 Requested By: KARO DAVIS Order Number: [id number] Reading MD: DONOVAN RICO Measurements Intervals Elberta Rate: 49 P: 59 CA: 145 QRS: 9 QRSD: 88 T: 52 QT: 444 QTc: 403 Interpretive Statements SINUS BRADYCARDIA POSSIBLE RIGHT VENTRICULAR CONDUCTION DELAY [RSR (QR) IN V1/V2] No previous ECG available for comparison Electronically Signed On 06-13-2023 17:53:03 EDT by DONOVAN RICO Dictated By: Donovan Rico D.O. Signed By:06/13/23 1753 DD/ 1506 TD/TT: Loft Patternmaker: Authorizing ProviderResult TypeResult StatusCorey Martine DOCLINISYNC IMAGINGFinal Result documented in this encounter Visit Diagnoses Not on filedocumented in this encounter Care Teams Team MemberRelationshipSpecialtyStart DateEnd Date Karo Davis MD PCP - GeneralFamily Medicine06/11/23documented as of this encounter
--- OUTSIDE RECORDS SUMMARY | 2024-12-28 07:12 | XMS_ITS | Patient Health Record ---
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 ng/mL Performed at: - [facility] Venetie Coat Checker: Yash Cornelius PhD, Phone: [phone] First trimester 11.0 - 44.3 Second trimester 25.4 - 83.3 Follicular phase 0.1 - 0.9 Ovulation phase 0.1 - 12.0 Third trimester 58.7 - 214.0 [address] [place], [place] [id number] Postmenopausal 0.0 - 0.1 Luteal phase 1.8 - 23.9 Performing Lab: see note LC - [facility] LBLuteinizing Hormone(LH) Reviewed date:11/20/2024 02:37:35 PM Interpretation: Performing Lab: Notes/Report: [facility] ,Luteinizing Hormone(LH)47.5. mIU/mL Ovulation phase 14.0 - 95.6 Luteal phase 1.0 - 11.4 Adult Female Range Follicular phase 2.4 - 12.6 Postmenopausal 7.7 - 58.5 Performing Lab:see noteLC - [facility] LBFSH Reviewed date:11/20/2024 02:37:35 PM Interpretation: Performing Lab: Notes/Report: [facility] ,MSJ306.0. mIU/mL Follicular phase 3.5 - 12.5 Postmenopausal 25.8 - 134.8 Ovulation phase 4.7 - 21.5 Luteal phase 1.7 - 7.7 Adult Female Range Performing Lab:see noteLC - [facility] LBEstradiol Reviewed date:11/20/2024 02:37:35 PM Interpretation: Performing Lab: Notes/Report: [facility] ,Estradiol<5.0. pg/mL Postmenopausal <6.0 - 54.7 Follicular phase 12.5 - 166.0 1st trimester 215.0 - >4300.0 Sanjay ECLIA methodology Ovulation phase 85.8 - 498.0 Adult Female Range Luteal phase 43.8 - 211.0 Performing Lab:see noteLC - [facility] LBMM tomosynthesis diagnostic BI Reviewed date:11/30/2024 04:43:24 PM Interpretation: Performing Lab: Notes/Report: Source Facility: [place] [address] Mammography Report Signed Patient: FRANKY CYR MR#: [id number] : 1970 Acct:[id number] Age/Sex: 54 / F ADM Date: 11/30/24 Loc: MAMMO Attending Dr: Dipika Farley D.O. Ordering Physician: Dipika Farley D.O. Results: Date of Service: 11/30/24 Follow Up: Procedure(s): MM tomosynthesis diagnostic RT Accession Number(s): [id number] cc: Dipika Farley D.O.; Humble Glass M.D. Patient Name: FRANKY CYR MR#: [id number] : 1970 Exam Date: 11/30/2024 Ordering Doctor: DR DIPIKA FARLEY . RADIOLOGY REPORT PROCEDURE: MM TOMOSYNTHESIS DIAGNOSTIC RT COMPARISON: MG MAMM DX 3D RT CAD, 06/03/2024. MM TOMOSYNTHESIS SCREENING BI, 05/20/2024. MM TOMOSYNTHESIS SCREENING BI, 05/20/2023. MG MAMM SCREEN 3D KATHY CAD, 05/17/2022. INDICATIONS: Abnormal Mammogram Of Right Breast Calculator Name NCI Breast Cancer Risk Assessment Tool 5 Year Breast Cancer Risk 1.60% Lifetime Breast Cancer Risk 12.40% Personal Breast Cancer No Personal Ovarian Cancer No Treatments None Family Cancers Grandmother-paternal with breast cancer at age 70. LOCATION: [facility] BREAST COMPOSITION: The breasts are extremely dense, which lowers the sensitivity of mammography. FINDINGS: DIAGNOSTIC CATEGORY 2--BENIGN FINDING: RIGHT BREAST: The previously identified suspicious microcalcifications within the upper inner quadrant of the right breast appear loosely grouped and punctate in morphology suggesting a benign process. No associated mass is present. RECOMMENDATIONS: ROUTINE MAMMOGRAM AND CLINICAL EVALUATION IN 6 MONTHS. Dictated by: Merritt Grace DO on 11/30/2024 at 13:32 Approved by: Merritt Grace DO on 11/30/2024 at 13:39 Dictated By: Merritt Grace M.D. Signed By: 11/30/24 1340 DD/ 1339 TD/TT: Rug Sample Beveler:MARY estella perf SPECT rest str Reviewed date:12/01/2024 12:28:06 PM Interpretation: Performing Lab: Notes/Report: Source Facility: [place] [address] Nuclear Medicine Report Signed Patient: FRANKY CYR MR#: [id number] : 1970 Acct:[id number] Age/Sex: 54 / F ADM Date: 11/30/24 Loc: NM Attending Dr: Humble Glass M.D. Ordering Physician: Humble Glass M.D. Date of Service: 11/30/24 Procedure(s): NM estella perf SPECT rest str Accession Number(s): [id number] cc: Humble Glass M.D. Patient Name: FRANKY CYR MR#: [id number] : 1970 Exam Date: 11/30/2024 Ordering Doctor: DR HUMBLE GLASS . RADIOLOGY REPORT PROCEDURE: NM ESTELLA PERF SPECT REST STR COMPARISON: None. INDICATIONS: HYPERTENSION, CHEST TIGHTNESS, NEAR SYNCOPE TECHNIQUE: Exam Description: Stress/Rest two day protocol gated SPECT Rest Imaging: mCi Tc-99m Cardiolite IV on Stress Imaging mCi Tc-99m Cardiolite IV on Exercise Protocol: 0.4 mg Lexiscan given IV Heart Rate (bpm): Rest: Max: PMHR: Blood Pressure: Rest: Max: Symptoms: Rest and peak stress ECG findings were This report was transmitted to the referring physician at the report approval time, and the office called to confirm receipt. FINDINGS: QUALITY OF STUDY: Good PERFUSION DEFECT: None LOCATION: SIZE: SEVERITY: TYPE: WALL MOTION: Normal LV SIZE: mL. TID / TCD: 0.9 LVEF: Calculated EF 62 %. SUMMARY: Myocardial perfusion imaging study CONCLUSION: -No ischemia is noted in myocardial perfusion stress study. -Normal myocardial perfusion study. -Normal global left ventricular function -No transient ischemic dilatation. -ECG Stress will be reported separately Dictated by: Victoria Man MD on 12/01/2024 at 10:59. Approved by: Victoria Man MD on 12/01/2024 at 11:04 Dictated By: VICTORIA MAN M.D. Signed By: 12/01/24 1105 DD/ 1104 TD/TT: Rug Sample Beveler:US renal doppler Reviewed date:12/01/2024 05:59:42 PM Interpretation: Performing Lab: Notes/Report: Source Facility: [place] [address] Ultrasound Report Signed Patient: FRANKY CYR MR#: [id number] : 1970 Acct:[id number] Age/Sex: 54 / F ADM Date: 11/24/24 Loc: US Attending Dr: Humble Glass M.D. Ordering Physician: Humble Glass M.D. Date of Service: 11/24/24 Procedure(s): US renal doppler Accession Number(s): [id number] cc: Humble Glass M.D. [place] [address] Patient Name: FRANKY CYR MRN: TBH:[id number] date: 1970 Sex: F Assigned Patient Location: US Current Patient Location: Accession/Order Number: [id number] Exam Date: 11/24/2024 06:52 Report Date: 12/01/2024 15:33 At the request of: HUMBLE GLASS MD Procedure: US renal doppler Renal ultrasound with Doppler examination. Reason for exam: Hypertension. COMPARISON: None. TECHNIQUE: Grayscale, color Doppler and spectral Doppler analysis of the kidneys were obtained. FINDINGS: The right kidney measures 10.9 cm. The left kidney measures 10.4 cm. No evidence of hydronephrosis or shadowing stone. A presumed small angiomyolipoma is seen involving the inferior pole of the right kidney measuring 4 mm. Imaging of the urinary bladder demonstrates a bladder volume of 124 mL. No focal mass or shadowing stone. Left kidney Doppler: Normal Doppler waveforms are identified without parvus tardus. Normal systolic velocities are present largest measuring 123 cm/s. Renal vein is patent. Left kidney RAR: 1.3. Right kidney Doppler: Normal Doppler flow waveforms are identified without parvus tardus. Normal systolic velocities largest measuring 118 cm/s. Renal vein is patent. Right kidney RAR: 1.3. 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 No acute findings are seen involving the kidneys. No ultrasound evidence of renal artery stenosis. Impression dictated by: Merritt Grace Jr., D.OBrianne 12/01/2024 3:33 PM Dictation Location: [place] [address] Electronically authenticated by: [id number] Y Date: 12/01/2024 15:33 Dictated By: Merritt Grace M.D. Signed By: 12/01/24 1535 DD/ 1533 TD/TT: Rug Sample Beveler:LIPID PROFILE Reviewed date:11/19/2024 11:53:41 AM Interpretation: Performing Lab: Notes/Report: [facility] ,Rvaonsrltpesc69<=150 mg/rTEzicjzznqax837<=200 mg/dLHDL Mfovbfhkxta9890-74 mg/dL <40 mg/dl - HIGH CARDIOVASCULAR RISK > or =60 mg/dl - LOW CARDIOVASCULAR RISK LDL Cholesterol Edhsjkwfux705.0 100-129 mg/dl NEAR OR ABOVE OPTIMAL >190 mg/dl VERY HIGH 130-159 mg/dl BORDERLINE HIGH 160-189 mg/dl HIGH <100 mg/dl OPTIMAL VLDL CHOLESTEROL7.0Chol HDL Ratio3.0 4.4 - 7.1 AVERAGE RISK 3.3 - 4.4 LOW RISK 7.1 - 11.0 MODERATE RISK >11.0 HIGH RISK Performing Lab:see note - [facility] LBGLYCOHEMOGLOBIN A1C Reviewed date:11/19/2024 11:53:41 AM Interpretation: Performing Lab: Notes/Report: [facility] ,Glycohemoglobin A1C5.24.5-6.2 % > 7.0 ADA RECOMMENDED LIMIT 4.0 - 6.0 ACTION SUGGESTED ADA THERAPEUTIC TARGET < 7.0 Estimated Average Mcxzkzq424Gyykyjnqcl Lab:see noteML - [facility] LB ECG 12 lead Reviewed date:11/16/2024 08:54:59 PM Interpretation: Performing Lab: Notes/Report: Source Facility: [place] [address] Electrocardiograph Report Signed Patient: FRANKY CYR MR#: [id number] : 1970 Acct:[id number] Age/Sex: 54 / F ADM Date: 11/16/24 Loc: LAB Attending Dr: Humble Glass M.D. Ordering Physician: Humble Glass M.D. 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 Measurements Intervals Devol Rate: 54 P: 46 CA: 150 QRS: 18 QRSD: 90 T: 56 QT: 488 QTc: 463 Interpretive Statements SINUS BRADYCARDIA POSSIBLE LEFT ATRIAL ENLARGEMENT [-0.1mV P WAVE IN V1/V2] PROLONGED QT INTERVAL Compared to ECG 06/13/2023 15:06:59 Prolonged QT interval now present Electronically Signed On 11-16-2024 18:06:05 EDT by LANETTE RO M.D. Dictated By: LANETTE RO Signed By: 11/16/24 1806 11/16/24 180 DD/ 1238 TD/TT: Rug Sample Beveler:Troponin I High Sensitivity Reviewed date:11/16/2024 03:16:12 PM Interpretation: Performing Lab: Notes/Report: [facility] ,Troponin I High Sensitivity9.24.0-51.3 pg/mL PERCENTILE OF cTnI DISTRIBUTION IN A REFERENCE POPULATION, NOTE: HIGH-SENSITIVITY TROPONIN ASSAY IS NOT INTENDED TO BE UNIVERSAL DEFINITION OF MYOCARDIAL INFARCTION. THE UPPER CUT-OFF POINTS HAVE BEEN ESTABLISHED BASED ON THE FOURTH HAS BEEN CONFIRMED THE DECISION THRESHOLD FOR [place] REFERENCE LIMIT (URL) OF TROPONIN, DEFINED THE 99TH DIAGNOSIS. WITH OTHER DIAGNOSTIC AND CLINICAL INFORMATION. USED IN ISOLATION BUT SHOULD BE INTERPRETED IN CONJUNCTION 99TH PERCENTILE = 51.4 PG/ML Performing Lab:see noteML - [facility] LBTSH Reviewed date:11/16/2024 03:16:12 PM Interpretation: Performing Lab: Notes/Report: [facility] ,Thyroid Stimulating Hormone2.4390.358-3.740 uIU/mLPerforming Lab:see noteML - [facility] LBT4 Reviewed date:11/16/2024 03:16:12 PM Interpretation: Performing Lab: Notes/Report: [facility] ,T4 Thyroxine6.704.80-13.90 ug/dLPerforming Lab:see noteML - [facility] LBFREE T3 Reviewed date:11/16/2024 03:16:12 PM Interpretation: Performing Lab: Notes/Report: [facility] ,Free T33.052.18-3.98 pg/mLPerforming Lab:see noteML - [facility] LB PROF 14(COMP METB) Reviewed date:11/16/2024 03:16:12 PM Interpretation: Performing Lab: Notes/Report: [facility] ,Fvsapw112762-511 mmol/LPotassium3.83.5-5.1 mmol/AVaresfhz92344-462 mmol/LCarbon Hsvahju72.921.0-32.0 mmol/LAnion Gap11.9Lbksdsk3563-483 mg/dLBlood Urea Nitrogen 11.07.0-18.0 mg/dLCreatinine0.780.55-1.02 mg/dLEstimated GFR ( Gwen>60 >=60 mL/min/1.73m 2Estimated GFR (Non- Estephanie>60>=60 mL/min/1.73m 2BUN Creatinine Ratio14.5Llbfske3.28.5-10.1 mg/dLBilirubin Total0.60.2-1.0 mg/dL Aspartate Amino Eecslpkgypi7120-68 U/LAlanine Dbyhlssethehsjjf7208-70 U/L Alkaline Ustitgfisnx6247-490 U/LTotal Protein7.66.4-8.2 g/dLAlbumin Level4.33.4- 5.0 g/dLGlobulin3.3Albumin Globulin Ratio1.3Performing Lab:see noteML - [facility] LBCBC AUTO DIFF Reviewed date:11/16/2024 03:16:12 PM Interpretation: Performing Lab: Notes/Report: [facility] ,White Blood Count6.14.0-11.0 10 3/uLRed Blood Count4.844.20-5.40 10 6/uL Wpcxzusggm58.012.0-16.0 g/gQIsxqblpajw94.636.0-48.0 %Mean Corpuscular Booqyy36.0 81.0-99.0 fLMean Corpuscular Tjdtnjvxmw18.926.7-34.0 pgMean Corpuscular HGB Conc 33.729.9-35.2 g/dLRed Cell Distribution Width13.211.0-15.0 %Platelet Kydfo209 150-450 10 3/uLMean Platelet Qeamsk24.69.5-13.5 fLNeutrophils Percent Auto59.7 43.0-75.0 %Lymphocytes Percent Auto27.620.5-60.0 %Monocytes Percent Auto9.01.7- 12.0 %Eosinophils Percent Auto3.00.9-7.0 %Basophils Percent Auto0.70.2-2.0 % Immature Granulocytes Pct Auto0.00.0-0.5 %Neutrophils Absolute Auto3.61.4-6.5 10 3/uLLymphocytes Absolute Auto1.71.2-3.8 10 3/uLMonocytes Absolute Auto0.60.3-0.8 10 3/uLEosinophils Absolute Auto0.20.0-0.7 10 3/uLBasophils Absolute Auto0.00.0- 0.1 10 3/uLImmature Granulocytes Abs Auto0.000.00-0.03 10 3/uLPerforming Lab:see note - [facility] LBBNP Reviewed date:11/16/2024 03:16:12 PM Interpretation: Performing Lab: Notes/Report: [facility] ,NT Pro B Type Natriuretic Gtni196.0<=900.0 pg/mLPerforming Lab:see noteML - [facility] LBPROLACTIN Reviewed date:11/20/2024 02:37:35 PM Interpretation: Performing Lab: Notes/Report: [facility] ,Jggrfcqgd89.83.6-25.2 ng/mLPerforming Lab:see noteLC - [facility] LB Reason For Referral No Information Medications Medication SIG (Take, Route, Frequency, Duration) Notes Start Date End Date Status Irbesartan 75 MG 1 tablet Orally Once a day; Dur ation: 30 days 5ActiveFish OilActiveMultivitaminActive Social History Tobacco Use: Social History Observation Description Date Details (start date - stop date) Never Smoker NA - NA Tobacco Control (Standard) Question Answer Notes Tobacco use: Nonsmoker AUDIT-C (Standard) Question Answer Notes Did you have a drink containing alcohol in the p ast year? Yes How often did you have a drink containing alcohol in the past year?2 to 4 times a month (2 points)How many drinks did you have on a typical day when you were drinking in the past year?1 or 2 drinks (0 point)How often did you have six or more drinks on one occasion in the past year?Less than monthly (1 point)Points3 InterpretationPositive Problems Problem Type SNOMED Code ICD Code Onset Dates Problem Status W/U Status Risk Notes Problem Chest pain (75979755) Chest pain (R07.9) ActiveconfirmedProblemHypertension (66991212)Hypertension (I10)Activeconfirmed ProblemArthritis (1343882)Arthritis (M19.90)Activeconfirmed Vital Signs Blood pressure diastolic 88 mm Hg 11/17/2024 Mhsyzr17 in11/17/2024lood pressure qsplzayg708 mm Hg09/24/2704Hobwmf776.8 lbs 11/17/2024BMI23.17 kg/m211/17/2024 Procedures Procedure Date Ordered Date Performed Result Body Sit e CARDIO EKG 11/16/2024 N/ACARDIO Stress Test - Qhxfjhezrp18/24/2025N/ASleep study - Diagnostic Lafnihdabrtf40/24/2025N/A Encounters Encounter Location Date Provider Diagnosis [facility] [address] [place] [address] 11/17/2024 Hu Hoy Hypertension I10 and Snoring R06.83 [facility] [address] [place] [address] 09/01/2024 Hu Hoy [facility] [place] [address] 11/16/2024Doug HoyHypertension I10 and Chest pain [facility] [place] [address]/Doug [facility] [place] [address]/ Hu [facility] [place] [address]/Doug HoyHypertension V54Gdqlnub[facility] [place] [address]/07/2024Doug [facility] [place] [address]/08/2024Doug [facility] [place] [address]/09/2024 Hu [facility] [place] [address]/Doug [facility] [facility] [place] [address]/Doug Hoy Assessments Encounter Date Diagnosis (ICD Code) Assessment Notes Treatment Notes Treatment Clinical Notes Section Notes 11/17/2024 Snoring (ICD-10 - R06.83) 11/17/2024Hypertension (ICD-10 - I10)11/16/2024hest pain (ICD-10 - R07.9) 11/16/2024Hypertension (ICD-10 - I10)11/18/2024Hypertension (ICD-10 - I10) Plan Of Treatment Pending Test Test Name Order Date HEMOGLOBIN A1C (GLYCO) 11/17/2024 LIPID PANEL (CHOL/TRIG/HDL/LDL) 11/18/19 CARDIO Stress Test - Cardiolite 11/18/19 Sleep study - Diagnostic Polysonogram CARDIO EKG 11/16/2024 FSH+LH+Prog+E2 11/17/2024 High Sensitivity Troponin 11/16/2024 US Renal Arterial Duplex 11/18/2024 US KIDNEYS 11/18/2024 THYROID PANEL (T4/TSH/FREE T3) Insurance Providers Payer Name Payer Address Payer Phone Subscriber Number Group Number Insured Name Patient Relationship to Insured Coverage Start Date Coverage End Date [employer] ACCESS PPO PLUS LOCAL PLAN [address] [place] [address] [id number] Marlin Cyrelf - patient is the insured Medical (General) History Medical History History ICD Code Arthritis M19.90 Surgical History Surgery Date(Month/Year) Hysterectomy
--- OUTSIDE RECORDS SUMMARY | 2024-12-28 07:12 | XMS_ITS | CCD ---
Author Organization [facility] Care Team Providers Care Air Quality Manager Name Role Phone BEATRIZ, DR JAYDEN Bobby [...] DR BAR Admitting Unavailable MARTINE ., DR BRA Attending Unavailable MARTINE ., DR BAR Consulting Unavailable NADERER, DR MIKEY Latif Primary Care Unavailable NADERER, DR MIKEY Laitf Primary Care Unavailable NADERER, DR MIKEY Latif [...] Unavailable Mikey Davis MD Primary Care Provider [phone] Allergies Allergy ClassificationReported Allergen(s)Allergy TypeDate of OnsetReaction(s) Facility (1 source)No Known Medication Allergies; Translations: [No Known Medication Allergies]Propensity to adverse reactions (disorder)[facility] Repository Medications Current Medications MedicationDrug Class(es)DatesSig (Normalized)Sig (Original)ibuprofen 800 mg oral tablet (4 sources)Nonsteroidal Anti-inflammatory DrugStart: 09-25-8123irfr 1 tablet by mouth every eight hoursibuprofen 800 MG tablet Take 800 mg by mouth every 8 (eight) hours 07/30/2023 Active Problems Active Problems Problem ClassificationProblemDateDocumented DateEpisodic/ChronicBenign neoplasm of uterus (5 sources)Leiomyoma of uterus, unspecified; Translations: [Uterine leiomyoma] Onset: 24-11-7103HquyaugpZsxznognq of lipid metabolism (1 source)Very low density -27-3033SiziwgiYbnabntfwknar and screening for infectious disease (1 source)Encounter for screening for other infectious and parasitic diseases; Translations: [ENC SCREENING OTH INF PARASITIC DZ]Onset: 21-45-7799Ezmeyddd Osteoporosis (2 sources)Postmenopausal osteoporosis; Translations: [Age-related osteoporosis without current pathological fracture]27-34-8737RuanykhXnfrh circulatory disease (4 sources)Arteritis, unspecified; Translations: [ARTERITIS UNSPECIFIED]Onset: 42-15-9743TqyfnwkYolexcakth and visceral atherosclerosis (9 sources)Peripheral vascular disease, unspecified; Translations: [Atherosclerosis of grindstone arteries of extremities with rest pain, bilateral legs]Onset: 89-20-6277IssrrbcDannxizf codes; unclassified (1 source)Family history of malignant neoplasm of breast; Translations: [FAMILY HX MALIG NEOPLASM OF BREAST]Onset: 15-65-2050NxgqpswiUvsifehsgaf; intervertebral disc disorders; other back problems (2 sources)Other intervertebral disc degeneration, lumbar region; Translations: [Degeneration of lumbar intervertebral disc]Onset: hronic Unclassified (3 sources)CONTACT W/AND (SUSP) EXPOS COVID-19; Translations: [CONTACT W/AND (SUSP) EXPOS COVID-19]Onset: 52-32-9318Osbqpgofphut (1 source)Body mass index 20-24 - xgjpea62-56-7401Yuunzufrnxah (1 source)Patient encounter nhakan35-96-0880 Past or Other Problems Problem ClassificationProblemDateDocumented DateEpisodic/ChronicOther aftercare (5 sources)Encounter for surgical aftercare following surgery on the circulatory system; Translations: [ENC SURG AFTRCARE FLW SURG CIRC SYS]Onset: 12-07-2021 EpisodicOther bone disease and musculoskeletal deformities (4 sources)Disorder of bone, unspecified; Translations: [DISORDER OF BONE UNSPECIFIED]Onset: 05-72-1407AwwvrckmRregk circulatory disease (1 source)Vascular insufficiencyOnset: 806692-30-3698HsanqwyhSmqik endocrine disorders (4 sources)Endocrine disorder, unspecified; Translations: [ENDOCRINE DISORDER UNSPECIFIED]Onset: 51-72-6612BbkgjnitZbcdp non-traumatic joint disorders (1 source)Pain in unspecified joint; Translations: [PAIN IN UNSPECIFIED JOINT] Onset: 81-07-2718PtwkvxjnLhbzp screening for suspected conditions (not mental disorders or infectious disease) (20 sources)Encounter for screening for malignant neoplasm of cervix; Translations: [Encounter for screening mammogram for malignant neoplasm of breast]Onset: 65-68-7989BfnaekeiWysppnwqo; thrombophlebitis and thromboembolism (5 sources)Phlebitis and thrombophlebitis of superficial vessels of right lower extremity; Translations: [PHLEBITIS AND TP SUP VES RT LOW EXT]Onset: 12-19-2021 EpisodicSpondylosis; intervertebral disc disorders; other back problems (4 sources)Dorsalgia, unspecified; Translations: [DORSALGIA UNSPECIFIED]Onset: 04-69-8512HowbqbqgSiizqncjsdpp (1 source)CONTACT W/AND (SUSP) EXPOS COVID-19; Translations: [CONTACT W/AND (SUSP) EXPOS COVID-19]Onset: 93-10-1397Dfioducs veins of lower extremity (6 sources)Varicose veins of bilateral lower extremities with pain; Translations: [Varicose veins of lower extremity]Onset: 93-13-7261Xtttrtxo Results Test NameValueInterpretationReference RangeFacilityMM TOMOSYNTHESIS DIAGNOSTIC RTon 42-16-7034[place]ugAd[place], [place] [address] Mammography Report Signed Patient: FRANKY CYR MR#: [id number] : 1970 Acct:[id number] Age/Sex: 54 / F ADM Date: 11/30/24 Loc: MAMMO Attending Dr: Dipika Farley D.O. Ordering Physician: Dipika Farley D.O. Results: Date of Service: 11/30/24 Follow Up: Procedure(s): MM tomosynthesis diagnostic RT Accession Number(s): [id number] cc: Dipika Farley D.O.; Bradley Sullivan M.D. Patient Name: FRANKY CYR MR#: [id number] : 1970 Exam Date: 11/30/2024 Ordering Doctor: [...] breast cancer at age 71. LOCATION: [facility] BREAST COMPOSITION: The breasts are extremely [...] Signed By: 11/30/24 1340 DD/ 1339 TD/TT: Clasp Machine Operator:TBHRadiology, Radiologist, MD - 11/30/2024 [place] [address] Mammography Report Signed Patient: FRANKY CYR MR#: [id number] : 1970 Acct:[id number] Age/Sex: 54 / F ADM Date: 11/30/24 Loc: MAMMO Attending Dr: Dipika Farley D.O. Ordering Physician: Dipika Farley D.O. Results: Date of Service: 11/30/24 Follow Up: Procedure(s): MM tomosynthesis diagnostic RT Accession Number(s): [id number] cc: Dipika Farley D.O.; Bradley Sullivan M.D. Patient Name: FRANKY CYR MR#: [id number] : 1970 Exam Date: 11/30/2024 Ordering Doctor: [...] breast cancer at age 71. LOCATION: [facility] BREAST COMPOSITION: The breasts are extremely [...] Signed By: 11/30/24 1340 DD/ 1339 TD/TT: Clasp Machine Operator: [facility] HealthcareRadiology Study observation (narrative)[facility] TOMOSYNTHESIS DIAGNOSTIC RTOrdered By: Radiologist Radiology on 83-07-6664AMOE [facility] Work Phone: IGP,APTIMA HPV,AGE GDLNon 56-33-2941DUF GDLN ACOG TESTINGNote.[facility] HealthcareComment on above:TESTS RESULT FLAG UNITS REF RANGE LAB Clinician Provided Cytology Information Source.............Vagina No. of containers..01 ThinPrep Vial Age Algo ACOG Vandana... 30 FLAG LEGEND: L-Low Normal,H-High Normal,LL-Alert Low,HH-Alert High <-Panic Low,>-Panic High,A-Abnormal,AA-Critical Abnormal Performed at: 01 = [facility] [address] Elisa Farley MD, HPV APTIMANegativeNegativeNOMS HealthcareComment on above:This nucleic acid amplification test detects fourteen high- risk HPV types (16,18,31,33,35,39,45,51,52,56,58,59,66,68) without differentiation. Performed at: = - [facility] [id number] Body Hanger: Elisa Farley MD, Phone: [phone] Performed at: [facility] LabCar[facility] Cyto Histo [address] [place] [id number] Body Hanger: Ramesh Marquez MD, Phone: [phone] IGP, APTIMA HPV, RFX 16/18,45Note.NOMS HealthcareComment on above:TESTS RESULT FLAG UNITS REF RANGE LAB DIAGNOSIS: 02 NEGATIVE FOR INTRAEPITHELIAL LESION OR MALIGNANCY. Specimen adequacy: 02 Satisfactory for evaluation. Performed by: Luis A Goodman Bus Steward ([facility]) . 02 Note: Note 03 The Pap [...] High,A-Abnormal,AA-Critical Abnormal Performed at: 02 [facility] [place] Cyto Histo [address] [place] [phone] Ramesh Marquez MD, 03 WB [facility] [address] [address] Elisa Farley MD, SPATULA-ALONE VAGINA CLINISYNCNOMS HealthcareUrinalysis macro (dipstick) panel (U)on 06-08-2024 Bilirubin, UANegativeNegative - 4(70) +++ mg/dLNOMS HealthcareBlood, UANegative Negative - 50 Rna/mcLNOMS HealthcareClarity, UAClearNOMS HealthcareColor, UA YellowNOMS HealthcareGlucose, UANegativeNegative - 1999(110) ++++ mg/dLNOMS HealthcareInterpretation and review of laboratory resultsNormalNOMS Healthcare Ketones, UANegativeNegative - 160(16) ++++ mg/dLNOMS HealthcareLeukocytes, UA NegativeNegative - 500+++ Vick/mcLNOMS HealthcareNitrite, UANegativeNegative - PositiveNOMS HealthcarepH, UA5.55 - 9NOMS HealthcareProtein, UANegativeNegative - 1999(20) ++++ mg/dLNOMS HealthcareSpec Grav, UA1.0051 - 1.03[facility] Urobilinogen, UA0.20.2 - 12 mg/dLECU Health Roanoke-Chowan HospitalMM special view RT w/CADon 64-72-1051DS special view RT w/CADTHE [facility] [address] [place] [address] Mammography Report Signed Patient: Franky Cyr MR#: [id number] : 1970 Acct:[id number] Age/Sex: 54 / F Adm Date: 06/03/24 Loc: [place] Room: Type: [facility] Attending Dr: Mikey Davis MD Ordering Provider: Mikey Davis MD Date of Service: 06/03/24 Procedure(s): MM special view RT w/CAD Accession Number(s): ([id number]) MM/MM special view RT w/CAD: R92.9 Copies [...] Stone Betancur M.D.06/04/2024 9:16 AM Dictation Location: [facility] Dictated By: Stone Betancur DO 06/04/24 0913 Signed By: 06/04/[address] [place] [address] LIPID PROFILE (FASTING)on 23-05-8592NWEO HDL QOBPC6VAZZ HealthcareComment on above:3.3 - 4.4 LOW RISK 4.4 - 7.1 AVERAGE RISK 7.1 - 11.0 MODERATE RISK >11.0 HIGH RISK Cholesterol [Mass/Vol]180 mg/dLNINF - 200 mg/dLNOUT HealthcareCholesterol in HDL [Mass/Vol]61 mg/gHRgyg86 - 60 mg/dLNOUT HealthcareComment on above:> or =60 mg/dl - LOW CARDIOVASCULAR RISK <40 mg/dl - HIGH CARDIOVASCULAR RISK Magnesium [Mass/Vol]112 mg/dLNOUT HealthcareComment on above:<100 mg/dl OPTIMAL 100-129 mg/dl NEAR OR ABOVE OPTIMAL 130-159 mg/dl BORDERLINE HIGH 160-189 mg/dl HIGH >190 mg/dl VERY HIGH Magnesium [Mass/Vol]7.2 mg/dLNOUT HealthcareTriglyceride [Mass/Vol]36 mg/dLNINF - 150 mg/dLNOUT HealthcareALL THYROID STIM HORMONEon 89-90-1091OYD Qn2.173 m[IU]/LNOMS HealthcareCCF CMP (CMP) (FOR REMOTE [facility] USE)on 37-00-4088Ugbbzam [Mass/Vol]3.6 g/dL3.4 - 5.0 g/dLNOUT HealthcareALBUMIN GLOBULIN RATIO1.1NOMS HealthcareALP [Catalytic activity/Vol]61 U/L46 - 116 U/LNOMS HealthcareALT [Catalytic activity/Vol]12 U/LLow14 - 59 U/LNOMS HealthcareAnion gap [Moles/Vol] 12.2 mmol/LNOMS HealthcareAST [Catalytic activity/Vol]14 U/LLow15 - 37 U/LNOMS HealthcareBilirubin [Mass/Vol]0.5 mg/dL0.2 - 1.0 mg/dLNOUT HealthcareCalcium [Mass/Vol]9.1 mg/dL8.5 - 10.1 mg/dLNOUT HealthcareChloride [Moles/Vol]106 mmol/L 98 - 107 mmol/LNOMS HealthcareCO2 [Moles/Vol]27.3 mmol/L21.0 - 32.0 mmol/LNOMS HealthcareCreatinine [Mass/Vol]0.97 mg/dL0.55 - 1.02 mg/dLNOMS Healthcare GFR/1.73 sq M.predicted CKD-EPI (S/P/Bld) [Vol rate/Area]>60>=60 mL/min/1.73m 2 NOMS HealthcareGlobulin (S) [Mass/Vol]3.3 g/dLNOMS HealthcareGlucose [Mass/Vol] 82 mg/dL74 - 106 mg/dLNOMS HealthcarePotassium [Moles/Vol]4.5 mmol/L3.5 - 5.1 mmol/LNOMS HealthcareProtein [Mass/Vol]6.9 g/dL6.4 - 8.2 g/dLNOMS Healthcare Sodium [Moles/Vol]141 mmol/L136 - 145 mmol/LNOMS HealthcareTBH EGFR-NON AF MARTINIQUAIS>60>=60 mL/min/1.73m 2NOMS HealthcareUrea nitrogen [Mass/Vol]13 mg/dL7.0 - 18.0 mg/dLNOMS HealthcareUrea nitrogen/Creatinine [Mass ratio]13.4 mg/mgNOMS HealthcareMLR HEMOGLOBIN A1Con 38-36-6632Yczokfu [Mass/Vol]100 mg/dLNOUT LtvofmgwmvOwQ5n (Bld) [Mass fraction]5.1 %4.5 - 6.2 %NOMS HealthcareComment on above:ADA RECOMMENDED LIMIT 4.0 - 6.0 ADA THERAPEUTIC TARGET < 7.0 ACTION SUGGESTED > 7.0 No Panel Informationon 79-11-6368Gjvtnhnfplbqwh and review of laboratory results AbnormalNOMS HealthcareCLINISYNCNOMS HealthcareMM TOMOSYNTHESIS SCREENING BIon 23-48-2566[place]va[place], [place] [address] Mammography Report Signed Patient: FRANKY CYR MR#: [id number] : 1970 Acct:[id number] Age/Sex: 54 / F ADM Date: 05/20/24 Loc: MAMMO Attending Dr: Dipika Farley D.O. Ordering Physician: Dipika Farley D.O. Results: Date of Service: 05/20/24 Follow Up: Procedure(s): MM tomosynthesis screening BI Accession Number(s): [id number] cc: Dipika Farley D.O.; Mikey Davis M.D. Patient Name: FRANKY CYR MR#: [id number] : 1970 Exam Date: 05/20/2024 Ordering Doctor: [...] breast cancer at age 71. LOCATION: [facility] BREAST COMPOSITION: The breasts are extremely [...] Signed By: 05/20/24 1439 DD/ 1439 TD/TT: Clasp Machine Operator:TBHRadiology, Radiologist, MD - 05/20/2024 [place] [address] Mammography Report Signed Patient: FRANKY CYR MR#: [id number] : 1970 Acct:[id number] Age/Sex: 54 / F ADM Date: 05/20/24 Loc: MAMMO Attending Dr: Dipika Farley D.O. Ordering Physician: Dipika Farley D.O. Results: Date of Service: 05/20/24 Follow Up: Procedure(s): MM tomosynthesis screening BI Accession Number(s): [id number] cc: Dipika Farley D.O.; Mikey Davis M.D. Patient Name: FRANKY CYR MR#: [id number] : 1970 Exam Date: 05/20/2024 Ordering Doctor: [...] breast cancer at age 71. LOCATION: [facility] BREAST COMPOSITION: The breasts are extremely [...] D.O. Signed By: 05/20/241438 DD/ 38 TD/TT: Clasp Machine Operator: [facility] M[facility]ACHUSETTSGold HealthcareRadiology Study observation (narrative)[facility] TOMOSYNTHESIS SCREENING BIOrdered By: Radiologist Radiology on 41-66-4071MFMT Healthcare Work Phone: Lon [phone]: [id number] Received: 07/30/23- 1243 Status: SOUT Re Num: [id number] Spec Type: Surgical Subm Dr: Dipika Farley Tissues: A Uterus w/ or w/o tubes ovaries except neoplastic or prolap (CERVIX, KATHY FT Procedures: HE/12, Gross/Micro L5 Age/ Patient Sex Location Account Attending Physician anibalFranky preciado 53/F [facility] [id number] Dipika Farley SPEC NUM: [id number] RECD: 07/30/23 STATUS: NYA MOSELEY NUM: [id number] AVNI: 07/30/[address]: Dipika Farley ENTERED: 07/30/[address] [facility] [address]: Isabel,Lab SPEC TYPE: Surgical DEPT: KATHLEEN OLIVA ORDERED: HE/12, Gross/Micro L5 ORDERED: HE/, Gross/Micro L5 Pathological Diagnosis Uterus, Cervix, Bilateral [...] cm in diameter). Each tube contains Specimen: [id number] Received: 07/30/23 Status: NYA Moseley Num: [id number] Spec Type: Surgical Subm Dr: Dipika Farley Tissues: A Uterus w/ or w/o tubes ovaries except neoplastic or prolap (CERVIX, KATHY FT Procedures: , Gross/Micro L5 Patient: Franky Cyr [id number] (Continued) Specimen: [id number] Received: 07/30/23 (Continued) Gross Description (Continued) Signed (signature on file) Nishant Cueto MD 07/31/23 1454 Specimen: [id number] Received: 07/30/23 Status: NYA Pradip Num: [id number] Spec Type: Surgical Subm Dr: Dipika Farley Tissues: A Uterus w/ or w/o tubes ovaries except neoplastic or prolap (CERVIX, KATHY FT Procedures: , Gross/Micro L5 Patient: Franky Cyr [id number] (Continued) Specimen: [id number] Received: 07/30/23 (Continued) Gross Description (Continued) a perez-purple smooth serosal surface containing multiple paratubal cysts ranging from 0.1 to 0.3 cm. Sectioning into each tube demonstrates an intact luminal center lined by unremarkable perez mucosa. Contour Stitcher sections submitted as follows: A1: Anterior cervix A2: Posterior cervix A3?A4: Anterior endomyometrium A5?A6: Posterior endomyometrium A7?A8: Nodules A9: Fallopian tube #1 A10: Fallopian tube #2 CPT Codes 28933 Specimen: [id number] Received: 07/30/23 Status: NYA Moseley Num: [id number] Spec Type: Surgical Subm Dr: Dipika Farley Tissues: A Uterus w/ or w/o tubes ovaries except neoplastic or prolap (CERVIX, KATHY FT Procedures: , Gross/Micro L5 Patient: Franky Cyr [id number] (Continued) Signed (signature on file) Nishant Cueto MD 07/31/[address] [place] [address] Physician GroupLon 49-33-5246MPfqvxpob: [id number] Received: 06/17/23 Status: NYA Moseley Num: [id number] Spec Type: Surgical Subm Dr: Dipika Farley Tissues: A Endometrium - Curettings (EMC) Procedures: HE/2, Gross/Micro L4 Age/ Patient Sex Location Account Attending Physician Franky Cyr 53/F [facility] [id number] Dipika Farley SPEC NUM: [id number] RECD: 06/17/23 STATUS: NYA MOSELEY NUM: [id number] AVNI: 06/17/[address]: Dipika Farley ENTERED: 06/17/[address] [facility] [address]: Isabel,Lab SPEC TYPE: Surgical DEPT: KATHLEEN [...] perez. D C hysteroscopy, MyoSure TW Specimen: [id number] Received: 06/17/23 Status: NYA Moseley Num: [id number] Spec Type: Surgical Subm Dr: Dipika Farley Tissues: A Endometrium - Curettings (EMC) Procedures: HE/2, Gross/Micro L4 Patient: naveenFranky [id number] (Continued) Specimen: [id number] Received: 06/17/23 (Continued) Signed (signature on file) Rich Flores MD 06/19/23 1529 Specimen: [id number] Received: 06/17/23 Status: NYA Moseley Num: [id number] Spec Type: Surgical Subm Dr: Dipika Farley Tissues: A Endometrium - Curettings (EMC) Procedures: Neo CORDOVA/Tammy L4 Patient: anibalFranky preciado [id number] (Continued) Specimen: [id number] Received: 06/17/23 (Continued) CPT Codes 82321 Specimen: [id number] Received: 06/17/23 Status: NAY Moseley Num: [id number] Spec Type: Surgical Subm Dr: Dipika Farley Tissues: A Endometrium - Curettings (EMC) Procedures: HE/2, Gross/Micro L4 Patient: Franky Cyr [id number] (Continued) Signed (signature on file) Rich Flores MD 06/19/[address] [place] [address] Physician GroupECG 12-LEADon 04-70-2294[address] [address] Electrocardiograph Report Signed Patient: FRANKY CYR MR#: [id number] : 1970 Acct:[id number] Age/Sex: 53 / F ADM Date: 06/13/23 Loc: [facility] Attending Dr: Dipika Farley D.O. Ordering Physician: Dipika Farley D.O. 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 Signed By: 06/13/23 8739 DD/ 1506 TD/TT: Clasp Machine Operator:TBHRadiology, Radiologist, - 06/13/2023 [place] [address] Electrocardiograph Report Signed Patient: FRANKY CYR MR#: [id number] : 1970 Acct:[id number] Age/Sex: 53 / F ADM Date: 06/13/23 Loc: PST Attending Dr: Dipika Farley D.O. Ordering Physician: Dipika Farley D.O. 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 Signed By: 06/13/23 1753 DD/ 1506 TD/TT: Clasp Machine Operator: FLAKITO HealthcareRadiology Study observation (narrative)[facility] 12-LEAD Ordered By: Radiologist Radiology on 94-42-8754ZYRR Healthcare Work Phone: mm TOMOSYNTHESIS SCREENING BIon 65-35-7096[place] [phone] Mammography Report Signed Patient: FRANKY CYR MR#: [id number] : 1970 Acct:[id number] Age/Sex: 53 / F ADM Date: 05/20/23 Loc: MAMMO Attending Dr: Mikey Davis M.D. Ordering Physician: Mikey Davis M.D. Results: Date of Service: 05/20/23 Follow Up: Procedure(s): MM tomosynthesis screening BI Accession Number(s): [id number] cc: Mikey Davis M.D. Patient Name: FRANKY CYR MR#: [id number] : 1970 Exam Date: 05/20/2023 Ordering Doctor: DR Mikey Davis . RADIOLOGY REPORT PROCEDURE: MM TOMOSYNTHESIS SCREENING [...] breast cancer at age 71. LOCATION: [facility] BREAST COMPOSITION: Extremely dense, which lowers [...] PALPABLE LUMP SHOULD BE BIOPSIED. Dictated by: Jayden Henderson MD on 05/20/2023 at 15:27 Approved by: Jayden Henderson MD on 05/20/2023 at 15:28 Dictated By: Jayden Henderson M.D. Signed By: 05/20/23 1529 DD/ 1528 TD/TT: Clasp Machine Operator:TBHRadiology, RadiologistMD - 05/20/2023 [place] [address] Mammography Report Signed Patient: FRANKY CYR MR#: [id number] : 1970 Acct:[id number] Age/Sex: 53 / F ADM Date: 05/20/23 Loc: MAMMO Attending Dr: Mikey Davis M.D. Ordering Physician: Mikey Davis M.D. Results: Date of Service: 05/20/23 Follow Up: Procedure(s): MM tomosynthesis screening BI Accession Number(s): [id number] cc: Mikey Davis M.D. Patient Name: FRANKY CYR MR#: [id number] : 1970 Exam Date: 05/20/2023 Ordering Doctor: DR Mikey Davis . RADIOLOGY REPORT PROCEDURE: MM TOMOSYNTHESIS SCREENING [...] breast cancer at age 71. LOCATION: [facility] BREAST COMPOSITION: Extremely dense, which lowers [...] PALPABLE LUMP SHOULD BE BIOPSIED. Dictated by: Jayden Henderson MD on 05/20/2023 at 15:27 Approved by: Jayden Henderson MD on 05/20/2023 at 15:28 Dictated By: Jayden Henderson M.D. Signed By: 05/20/23 1529 DD/ 1528 TD/TT: Clasp Machine Operator: [facility] Study observation (narrative)[facility] TOMOSYNTHESIS SCREENING BIOrdered By: Radiologist Radiology on 89-88-2269UROXCox South Work Phone: us PELVIS W/ TRANSVAGINALon 01-84-8920[place], [place] [address] Ultrasound Report Signed Patient: FRANKY CYR MR#: [id number] : 1970 Acct:[id number] Age/Sex: 53 / F ADM Date: 05/20/23 Loc: US Attending Dr: Dipika Farley D.O. Ordering Physician: Dipika Farley D.O. Date of Service: 05/20/23 Procedure(s): US pelvis w/ transvaginal Accession Number(s): [id number] cc: Dipika Farley D.O.; Mikey Davis M.D. [place] [address] Patient Name: FRANKY CYR MRN: [id number] date: 1970 Sex: F Assigned Patient Location: US Current Patient Location: MAMMO Accession/Order Number: [id number] Exam Date: 05/20/2023 14:00 Report Date: 05/20/2023 [...] Signed By: 05/20/23 1610 DD/ 1609 TD/TT: Clasp Machine Operator:TBHRadiology, Radiologist, - 05/20/2023 [place] [address] Ultrasound Report Signed Patient: FRANKY CYR MR#: [id number] : 1970 Acct:[id number] Age/Sex: 53 / F ADM Date: 05/20/23 Loc: US Attending Dr: Dipika Farley D.O. Ordering Physician: Dipika Farley D.O. Date of Service: 05/20/23 Procedure(s): US pelvis w/ transvaginal Accession Number(s): [id number] cc: Dipika Farley D.O.; Mikey Davis M.D. [place] [address] Patient Name: FRANKY CYR MRN: [id number] date: 1970 Sex: F Assigned Patient Location: US Current Patient Location: [facility] Accession/Order Number: [id number] Exam Date: 05/20/2023 14:00 Report Date: 05/20/2023 [...] By: Jayden Henderson M.D. Signed By: 05/20/23 1612 DD/ 1609 TD/TT: Clasp Machine Operator: FLAKITO RicoRadiology Study observation (narrative)FLAKITO HealthcareUS PELVIS W/ TRANSVAGINALOrdered By: Radiologist Radiology on 15-06-4746UQET [employer] Work Phone: Pathology Noteon 04-95-5433Kdftuvlfi Note [id number]#1.00CD:127[facility] Medical CenterReminderson 49-86-8832Xxyunfnts From: Shavon Mcguire LPN To: N - Clinical; Sent: 10/30/2022 11:35:53 EDT Show up: 09/22/2032 07:00:00 EDT Subject: colonoscopy recall Due Date/Time: 10/23/2032 07:00:00 EDT Reminder/Recall Patient due for screening colonoscopy 10/23/2032.[facility] CenterOutside Colonoscopyon 05-94-4686Mlbhdtr Colonoscopy [id number]#1.00CD:[address] [place], [place] [address]Lab Reportson 60-20-6540Xpu Reports [id number]#1.00CD:[address] [place], [place] [address]Consent for Procedure/Surgeryon 32-20-9571Cxkciqi for Procedure/Surgery [id number]#1.00CD:127[facility] Medical CenterFormson [id number]#1.00CD:127 [facility] Medical CenterAmbulatory Visit Summaryon 73-18-1580Lhuatjucum Visit Summary FRANKY CYR :1970 Visit Date:10/08/2022 Ambulatory Visit Instructions Your Care Team Attending Physician - PATO WASHINGTON, Leon Chester Primary Care Physician - MIKEY DAVIS MD Referring Physician - MIKEY DAVIS MD Procedures [...] extremity Vascular insufficiency Very low density lipoprotinemia [facility] CenterPhysician Referralon 09-02-2022 Physician [id number]#1.00CD:127Normal [facility]US [facility] TRANSVAGon 89-20-9126QM PELVIS AND TRANSVAGEXAMINATION: US PELVIS AND TRANSVAG HISTORY: Uterine leiomyoma [...] Electronically authenticated by: RANDALL LEMONS Date: 2022-06-21 07:02[facility] ACOG PANEL 2: 30 to 65on 06-17-2022..NormalThe [facility]ma HealthComment on above:Result Comment: Performed at: WBPerformed By: #### [id number] ####[facility] [address] [address]DrBrianne Lerner Gdln ACOG Abwudpe57-43VmhkavNopWood County HospitalComment on above:Performed By: #### [id number] ####[facility] [address] [place], [place] [address]Dr. Fernando FloresDIAGNOSIS:CommentNoWood County HospitalCominsight surgical hospital on above:Result Comment: NEGATIVE FOR INTRAEPITHELIAL LESION OR MALIGNANCY. Performed at: WBPerformed By: #### [id number] ####[place] [address]Dr. Fernando FloresHPV AptimaNegativeNormal NegativeThe [facility] HealthCominsight surgical hospital on above:Result Comment: This nucleic acid amplification test detects fourteen high-risk HPV types (16,18,31,33,35,39,45,51,52,56,58,59,66,68) without differentiation. Performed at: =GPerformed By: #### [id number] ####[place] [address]Dr. Fernando FloresHPV Genotype ReflexComment NormalThe [facility] on above:Result Comment: Criteria not met, HPV Genotype not performed. Performed at: WBPerformed By: #### [id number] ####[place] [address]Dr. Fernando FloresMethodology:CommentWilson Street Hospital on above:Result Comment: This liquid based ThinPrep(R) pap test was screened with the use of an image guided system. Performed at: WBPerformed By: #### [id number] ####[place] [address]Dr. Fernando FloresNote:CommentWilson Street Hospital on above:Result Comment: The Pap smear is a screening test designed to aid in the detection of premalignant and malignant conditions of the uterine cervix. It is not a diagnostic procedure and should not be used as the sole means of detecting cervical cancer. Both false-positive and false-negative reports do occur. . Performed at: WBPerformed By: #### [id number] ####[facility] [address] [place], [place] [address]DrBrianne FloresPerformed by:CommentWilson Street Hospital on above:Result Comment: Concetta Riggins, Bus Steward (ASCP) Performed at: WBPerformed By: #### [id number] ####[facility] [address] [place] [address] [address]DrBrianne FloresSpecimen adequacy:Comment NormalThe [facility] on above:Result Comment: Satisfactory for evaluation. Endocervical and/or squamous metaplastic cells (endocervical component) are present. Performed at: WBPerformed By: #### [id number] ####[facility] [address] [place] [address]DrBrianne FloresCovid-19 PCR ([facility])on 70-32-9786AWCF-CoV-2 (COVID-19) RNA ALISON+probe Ql (Unsp spec)Not detectedNormal NOT DETECTEDThe [facility] on above:Result Comment: When diagnostic testing is negative, the possibility of a false negative should be c onsidered in the context of a patient's recent [...] for this test is supported by the [employer] of Health and Human Service's declaration that circumstances exist to justify the emergency use of in vitro diagnostics for the detection and/or diagnosis of the virus that causes COVID-19. This EUA will remain in effect for the duration of the COVID-19 declaration justifying emergency of IVDs, unless it is terminated or revoked by the FDA (after which the test may no longer be used).Performed By: #### T4 #### [facility] [address] [address] [address] Fernando FloresINFLDEVONNZA A AND B AGon 12-39-5006YNRWDHFWXIXBOWayne HealthCare Main CampusCominsight surgical hospital on above:Result Comment: Negative for Flu A protein angiten. Infection due to Flu A cannot be ruled out. FluA angiten in the sample may be below the detection limit of the test.Performed By: #### SEROTON #### [facility] [address] [place] [address] Dr. Fernando Leavitt [facility] Par[facility] Medical CenterComment on above: Result Comment: Negative for Flu B protein antigen. Infection due to Flu B cannot be ruled out. FluB antigen in the sample may be below the detection limit of the test.Performed By: #### SEROTON #### [facility] [address] [place] [address] Dr. Fernando Latif AGNegativeNormalNEGATIVE SEE COMMENTThe [facility] HealthComment on above:Performed By: #### SEROTON #### [facility] [address] [place] [address] Dr. Fernando William AGNegativeNormalNEGATIVE SEE COMMENTThe [facility] HealthComment on above:Performed By: #### SEROTON #### [facility] [address] [place] [address] Dr. Fernando FloresMG MAMM SCREEN 3D KATHY CADon 24-00-6985QW MAMM SCREEN 3D KATHY CAD Patient: FRANKY CYR Exam Date: 05/17/2022 : 1970 Gender:F Ordering : DR DIPIKA FARLEY . Admission #: [id number] Family : Order #: [id number] CLICK HERE TO VIEW EXAM RADIOLOGY REPORT [...] breast cancer at age 71. LOCATION: [facility] BREAST COMPOSITION: Extremely dense, which lowers [...] by: Randall Lemons M.D. on 05/17/2022 at 11:51NormalThLake County Memorial Hospital - WestTHYROGLOBULINon 64-39-0068Afwiososehaxe66 ng/mLNormalSouthwest General Health CenterCominsight surgical hospital on above:Result Comment: This test was developed and its performance characteristics determined by [employer]. It has not been cleared or approved [...] recommended. The assay quantitation limit is 2.0 ng/mL.Performed By: #### TGRIA #### [facility] [address] [place] [address] Dr. Fernando WhitfieldTRONEon 37-89-6193Volyvjc, Serum29 pg/mLNormalAshtabula General Hospital on above:Result Comment: Range Adult (Premenopausal) 27 - 231 Menstrual Cycle (1-10 days) 19 - 149 Menstrual Cycle (11-20 days) 32 - 176 Menstrual Cycle (21-30 days) 37 - 200 Adult (Postmenopausal) 0 - 125Performed By: #### ESTRONE #### [facility] [address] [place] [address] Dr. Fernando Matias T3on 52-37-7667Fybegor T3, Serum14.4 ng/dLNormal9.2-24.1 The [facility] on above:Result Comment: This test was developed and its performance characteristics determined by [employer]. It has not been cleared or approved by the Food and Drug Administration.Performed By: #### REVRT3 #### [facility] [address] [place], [place] [address] Dr. Fernando FloresTESTOSTERONE, FREE,DIRECT, TOTALon 04-06-0058Yfxa Testosterone(Direct)1.9 pg/mLNormal0.0-4.2The [facility] on above: Result Comment: Performed at: BNPerformed By: #### TESTFRD ####[facility] [address] [address]Dr. Fernando FloresTestosterone [Mass/Vol]30 ng/dLNormal4-50The [facility] on above:Result Comment: Performed at: CBPerformed By: #### TESTFRD ####[facility] [address] [address]Dr. Fernando FloresCovid-19 PCR (CVDTBH)on 65-73-4623BLMJ-CoV-2 (COVID-19) RNA ALISON+probe Ql (Unsp spec)Not detectedNormalNOT DETECTEDThe [facility] HealthCominsight surgical hospital on above:Result Comment: When diagnostic testing is negative, the [...] for this test is supported by the [place] of Health and Human Service's declaration that circumstances exist to justify the emergency use of in vitro diagnostics for the detection and/or diagnosis of the virus that causes COVID-19. This EUA will remain in effect for the duration of the COVID-19 declaration justifying emergency of IVDs, unless it is terminated or revoked by the FDA (after which the test may no longer be used).Performed By: #### CVDTBH ####[facility] [address] [address]Dr. Fernando FloresSEROTONINon 47-33-3990Owoysdzbg, Shmvf561 ng/cFReqtfh86-325 The [facility] HealthComment on above:Performed By: #### SEROTON #### [facility] [address] [place] [address] Dr. Fernando FloresTHYROGLOBULIN ABon 66-41-8068Snaxxxcicidlp Antibody<1.0Normal 0.0-0.9[facility] on above:Result Comment: Thyroglobulin Antibody measured by [employer] MethodologyPerformed By: #### THYGAB ####[facility] [address] [place] [address]DrBrianne FloresVIT D 1 25 DIHYDROXYon 46-94-6801Yvkzqxjjni(1,25 di-OH Vit D)62.0 pg/rDPpqhfp62.8-81.5The [facility] Hospitalment on above:Performed By: #### SEROTON #### [facility] [address] [place] [address] Dr. Fernando FloresC-PEPTIDE, SERUMon 86-05-4440Z-Peptide, Serum1.8 ng/mLNormal 1.1-4.4The [facility] on above:Result Comment: C-Peptide reference interval is for fasting patients.Performed By: #### CPEPT ####[facility] [address] [place], [place] [address]Dr. Fernando FloresINSULINon 99-68-5041Xxyousw8.7 uIU/mLNormal2.6-24.9[facility] Hospitalment on above: Performed By: #### T4 #### [facility] [address] [place] [address] Dr. Fernando FloresCORTISOLon 20-13-4642Mrkjhtcc36.2 ug/dLNormalThe [facility] on above:Result Comment: Cortisol AM 6.2 - 19.4 Cortisol PM 2.3 - 11.9Performed By: #### CORTISO #### [facility] [address] [place] [address] Dr. Fernando FloresDHEA-SULFATEon 98-34-7086ZHMF-Unfqngd93.7 ug/zJWxguom95.2-243.7 The [facility] HealthComment on above:Performed By: #### SEROTON #### [facility] [address] [place] [address] Dr. Fernando WhitfieldTRADIOLon 13-50-4187Teayxhqpq40.6 pg/mLNormalThe [facility] HealthComment on above:Result Comment: Adult Female: Follicular phase 12.5 - 166.0 Ovulation phase 85.8 - 498.0 Luteal phase 43.8 - 211.0 Postmenopausal <6.0 - 54.7 1st trimester 215.0 - >4300.0 Sanjay ECLIA methodologyPerformed By: #### SEROTON #### [facility] [address] [place] [address] Dr. Fernando FloresPROGESTERONEon 77-23-4313Xzpkstxaarar2.7 ng/mLNormalThe [facility] HealthComment on above:Result Comment: Follicular phase 0.1 - 0.9 Luteal phase 1.8 - 23.9 Ovulation phase 0.1 - 12.0 First trimester 11.0 - 44.3 Second trimester 25.4 - 83.3 Third trimester 58.7 - 214.0 Postmenopausal 0.0 - 0.1Performed By: #### PROGES #### [facility] [address] [place] [address] Dr. Fernando Emmanuel HORMONE-BINDING GLOBULINon 76-15-4678Efe Horm Binding Glob, Jsxfd161.0 nmol/ZFffizz74.3-125.0The [facility] HealthComment on above:Performed By: #### SEROTON #### [facility] [address] [place] [address] Dr. Fernando FloresT3, TOTAL (TRIIODOTHYRONINE)on 21-87-0264X8, WVCSC693 ng/dLNormal 71-180The [facility] HealthComment on above:Performed By: #### K9XZPII ####[facility] [address] [address]Dr. Fernando FloresTHYROID PEROXIDASE ABon 10-94-9441Rzoixrr Peroxidase (TPO) Ab<9Normal 0-34The [facility] HealthComment on above:Performed By: #### SEROTON #### [facility] [address] [place] [address] Dr. Fernando Gonzales T3on 06-68-2122NLOG T32.86 pg/mlLNormal2.18-3.98The [facility] HealthComment on above:Performed By: #### T4 #### [facility] [address] [place] [address] Dr. Fernando Gonzales T4on 70-16-9957Qiuj T4 [Mass/Vol]1.04 ng/dLNormal0.76-1.46 The [facility] HealthComment on above:Performed By: #### FT4 ####[facility] [address] [address]Dr.Yilan Flores GLUCOSE BLOODon 57-88-0108Vztyggp [Mass/Vol]90 mg/uPGnxkob09-406Lvz [facility] on above:Performed By: #### SEROTON #### [facility] [address] [place] [address] Dr. Fernando FloresGLYCOHEMOGLOBIN A1Con 27-05-4321LPB RECOMMENDATIONSEE BELOWNormal The [facility] HealthCominsight surgical hospital on above:Result Comment: ADA RECOMMENDED LIMIT 4.0 - 6.0 ADA THERAPEUTIC TARGET < 7.0 ACTION SUGGESTED > 7.0Performed By: #### SEROTON #### [facility] [address] [place] [address] Dr. Fernando FloresGlucose [Mass/Vol]103 mg/dLNormalThe [facility] on above:Performed By: #### SEROTON #### [facility] [address] [place] [address] Dr. Fernando FloresHbA1c (Bld) [Mass fraction]5.2 %Normal4.5-6.2The [facility] HealthCominsight surgical hospital on above:Performed By: #### SEROTON #### [facility] [address] [place] [address] Dr. Fernando FloresT4on 37-46-0225Y4 [Mass/Vol]7.40 ug/dLNormal4.80-13.90The [facility] on above:Performed By: #### T4 #### [facility] [address] [place] [address] Dr. Fernando Ortiz 64-47-6023FVJ8.776 uIU/mLNormal0.358-3.740Southwest General Health CenterComment on above:Performed By: #### SEROTON #### [facility] [address] [place], [place] [address] Dr. Fernando FloresVC CONSULT FOLLOWUPon 20-97-4103MW CONSULT FOLLOWUPPatient: FRANKY CYR Exam Date: 01/14/2022 : 1970 Gender:F Ordering : DR JAYDEN HENDERSON M.D. Admission #: [id number] Family : Order #: [id number] CLICK HERE TO VIEW EXAM RADIOLOGY REPORT [...] by: Jayden Henderson MD on 01/14/2022 at 16:01[facility]ullVC EXT VENOUS RT LIMITEDon 17-70-5027GD EXT VENOUS RT LIMITEDPatient: FRANKY YCR Exam Date: 01/14/2022 : 1970 Gender:F Ordering : DR JAYDEN HENDERSON M.D. Admission #: [id number] Family : Order #: [id number] CLICK HERE TO VIEW EXAM RADIOLOGY REPORT [...] by: Jayden Henderson MD on 01/14/2022 at 16:04[facility] Tr[facility]ullVC CONSULT FOLLOWUPon 93-35-3671UV CONSULT FOLLOWUPPatient: FRANKY CYR Exam Date: 12/27/2021 : 1970 Gender:F Ordering : DR JAYDEN HENDERSON M.D. Admission #: [id number] Family : Order #: [id number] CLICK HERE [...] by: Jayden Henderson MD on 12/27/2021 at 15:30[facility] EXT VENOUS RT LIMITEDon 60-55-4273BW EXT VENOUS RT LIMITEDPatient: FRANKY CYR Exam Date: 12/27/2021 : 1970 Gender:F Ordering : DR JAYDEN HENDERSON M.D. Admission #: [id number] Family : Order #: [id number] CLICK HERE TO VIEW EXAM RADIOLOGY REPORT [...] by: Jayden Henderson MD on 12/27/2021 at 15:17[facility] INJ FOAM SCLERO W US MLTIon 63-47-8283TD INJ FOAM SCLERO W US MLTIPatient: FRANKY CYR Exam Date: 12/21/2021 : 1970 Gender:F Ordering : DR JAYDEN HENDERSON M.D. Admission #: [id number] Family : Order #: [id number] CLICK HERE TO VIEW EXAM RADIOLOGY REPORT [...] continuously for two weeks, (more content not included)...[facility]ullVC CONSULT FOLLOWUPon 24-97-0727DQ CONSULT FOLLOWUPPatient: RAFRANKY AGARWAL. Exam Date: 12/13/2021 : 1970 Gender:F Ordering : DR JAYDEN HENDERSON M.D. Admission #: [id number] Family : Order #: [id number] CLICK HERE TO VIEW EXAM RADIOLOGY REPORT [...] by: Jayden Henderson MD on 12/13/2021 at 08:24[facility] Tr[facility]ullVC EXT VENOUS LT LIMITEDon 49-91-1178GH EXT VENOUS LT LIMITEDPatient: FRANKY AGARWAL. Exam Date: 12/13/2021 : 1970 Gender:F Ordering : DR JAYDEN HENDERSON M.D. Admission #: [id number] Family : Order #: [id number] CLICK HERE TO VIEW EXAM RADIOLOGY REPORT [...] by: Jayden Henderson MD on 12/13/2021 at 08:16[facility]ullVC ENDOVENOUS ABL 1ST V LTon 63-85-2084HI ENDOVENOUS ABL 1ST V LTPatient: FRANKY CYR Exam Date: 12/07/2021 : 1970 Gender:F Ordering : DR JAYDEN HENDERSON M.D. Admission #: [id number] Family : Order #: [id number] CLICK HERE TO VIEW EXAM CORRECTION: Changed [...] by: Jayden Henderson MD on 12/07/2021 at 10:27[facility]ullVC CONSULT FOLLOWUPon 18-37-3213LG CONSULT FOLLOWUPPatient: GER FRANKY J. Exam Date: 11/29/2021 : 1970 Gender:F Ordering : DR JAYDEN HENDERSON M.D. Admission #: [id number] Family : Order #: [id number] CLICK HERE TO VIEW EXAM RADIOLOGY REPORT [...] by: Jayden Henderson MD on 11/29/2021 at 09:01[facility]ullVC EXT VENOUS RT LIMITEDon 11-73-4848UE EXT VENOUS RT LIMITEDPatient: VENICEFRANKY LAWS. Exam Date: 11/29/2021 : 1970 Gender:F Ordering : DR JAYDEN HENDERSON M.D. Admission #: [id number] Family : Order #: [id number] CLICK HERE TO VIEW EXAM RADIOLOGY REPORT [...] by: Jayden Henderson MD on 11/29/2021 at 08:44[facility]ullVC ENDOVENOUS ABL 1ST V RTon 82-00-3679VH ENDOVENOUS ABL 1ST V RTPatient: FRANKY CYRBrianne Exam Date: 11/22/2021 : 1970 Gender:F Ordering : DR JAYDEN HENDERSON M.D. Admission #: [id number] Family : Order #: [id number] CLICK HERE TO VIEW EXAM RADIOLOGY REPORT [...] by: Randall Lemons M.D. on 11/22/2021 at 14:45[facility] 95-86-7139ESE [Mass/Vol]mg/LNormal<=1.0[facility] Comment on above:Performed By: #### SEROTON #### [facility] [address] [place], [place] [address] Dr. Fernando Grider RATE WESTERGRENon 21-85-7879JMA RATE5 mm/hrNormal<=30The [facility] HealthComment on above:Performed By: #### SEDR ####[facility] [address] [place], [place] [address]ZeDr. Fernando FloresUS PELVIS AND TRANSVAGon 59-45-4949NY PELVIS AND TRANSVAGEXAMINATION: US PELVIS AND TRANSVAG HISTORY: Uterine leiomyoma [...] Electronically authenticated by: RANDALL LEMONS Date: 2021-09-11 14:02[facility] TrumbullCTA ABD JAKE WWO CON LE RUNOFFon 58-18-5628VSP ABD JAKE WWO CON LE RUNOFFEXAMINATION: CTA ABD JAKE WWO CON LE RUNOFF [...] Electronically authenticated by: RANDALL LEMONS Date: 2021-08-10 11:03[facility] Tr[facility]ullVC COMP CONSULTATIONon 61-76-1595ZI COMP CONSULTATIONPatient: FRANKY CYR Exam Date: 07/31/2021 : 1970 Gender:F Ordering : DR JAYDEN HENDERSON M.D. Admission #: [id number] Family : Order #: [id number] CLICK HERE TO VIEW EXAM RADIOLOGY REPORT [...] Mild bilateral branch sa (more content not included)...NormalThe [facility] HealthVC VENOUS REFLUX KATHY [facility] 89-85-6360FL VENOUS REFLUX KATHY LMTPatient: FRANKY CYR Exam Date: 07/31/2021 : 1970 Gender:F Ordering : DR JAYDEN HENDERSON M.D. Admission #: [id number] Family : Order #: [id number] CLICK HERE TO VIEW EXAM RADIOLOGY REPORT [...] the GSV and connects to the incompetent cheese sprayer. Incompetent patent varicose vein extends from the [...] or chronic thrombus Compressibility: Normal Flow: Normal Procurement Specialist: Mid medial thigh measures 3.2 mm with [...] by: Jayden Henderson MD on 07/31/2021 at 11:39[facility] TrumbullXR LSPINE MIN 4 VIEWSon 79-27-8724YY LSPINE MIN 4 VIEWSEXAMINATION: XR LSPINE MIN 4 VIEWS HISTORY: Low [...] Electronically authenticated by: RANDALL LEMONS Date: 2021-07-03 13:34[facility] Vital Signs Date TimeVital SignValuePerforming GcdjhlbxvIwmgbggi73-85-5835 13:16-0400Body mass index (BMI) [Ratio]21.97 kg/g3Cxwum RazorGator DO Work Phone: [facility]Cdqunzhzli50-11-2978 13:16-0400Body rtohud75.06 kgCorey Martine DO Work Phone: [facility] SouthQalxhejkye88-88-3311 13:16-0400Diastolic blood okqaigte37 mm[Hg]Dipika Martine DO Work Phone: [facility] SouthEjxkkpnqjd20-23-8059 13:16-0400Systolic blood hybtuevi111 mm[Hg]Dipika Martine DO Work Phone: [facility] SouthIuduujunwy85-65-0098 15:23-0400Blood Pressure LocationMichael NILL General Surgery Yncoxoij80-16-5517 15:23-0400Diastolic blood ijxajkjl18 mm[Hg]Leon NILL General Surgery Hiwhckyb48-15-4855 15:23-0400Heart rate 70 /minMichael NILL General Surgery Sihcwfon19-54-8578 15:23-0400 Respiratory rate16 /minMichael NILL General Surgery Arxvgzdz93-96-0808 15:23-0400Systolic blood hyfpwcyn318 mm[Hg]Leon NILL General Surgery Isabel Encounters Encounter DateEncounter TypeCare ProviderFacilityStart: 11-30-2024 End: 18-62-2193Inhqbxazn Result EncounterCorey Martine DO Work Phone: noms External Department UnsolicitedStart: 11-30-2024 End: 49-44-1824Qrhdcwnxp Result EncounterCorey Martine DO Work Phone: NOM[facility] External Department UnsolicitedStart: 06-08-2024 End: 23-55-7957Atirhg flowsheetCorey Martine DO Work Phone: NOZB BCP OBStart: 06-08-2024 End: 20-75-7422Qthgiy flowsheetCorey Martine DO Work Phone: NOMO BCP OBStart: 06-08-2024 End: 69-54-7804Ipnzbbwjj Result EncounterCorey Martine DO Work Phone: [facility] External Department UnsolicitedStart: 06-08-2024 End: 38-35-3791Gqtoibo encounter procedureCorey Martine DO Work Phone: NOLD HealthcareStart: 06-08-2024 End: 18-47-3536Lgevpgsk preventive med est patient 40-64yrsCorey Martine DO Work Phone: NOEE BCP OBComment on above:Well woman exam with routine gynecological exam; Osteoporosis, post-menopausal (CMS/HCC); H/O: hysterectomyStart: 06-08-2024 End: 32-38-5969lyewiajuduAWRDN FAZIONot AvailableStart: 06-03-2024 End: 25-76-3650Famfsdg encounter procedureMikey Davis MD Work Phone: [facility] Work Phone: Start: 06-03-2024 End: 95-00-8777tllouegppcQjhk Naderer MD Work Phone: [facility] Work Phone: Start: 05-25-2024 End: 42-63-2046Dvrgpdpmr Result EncounterMikey Davis MD Work Phone: noms External Department UnsolicitedStart: 05-25-2024 End: 66-64-6324Pumitgiag Result EncounterMikey Davis MD Work Phone: noms External Department UnsolicitedStart: 05-21-2024 End: 91-88-4424Zbbwqi OnlyMikey Davis MD Work Phone: noms CWM FMComment on above:Abnormal mammogram of right breast (Primary Dx)Start: 05-20-2024 End: 24-44-3180Qexoqxtce Result EncounterGeneric External Data ProviderNOMS External Department UnsolicitedStart: 05-20-2024 End: 75-84-5439Hzyxetufg Result EncounterGeneric External Data ProviderNOMS External Department UnsolicitedStart: 09-10-2023 End: 92-89-0958iqfikqqyisAGMWL FAZIONot AvailableStart: 08-06-2023 End: 70-37-3174xthpemtoweLXASS FAZIONot AvailableStart: 07-30-2023 End: 71-80-2977oalntceljtWicny FazioFiCenterville Ctr Work Phone: Start: 07-30-2023 End: 13-18-7120Wgndonco ReferredCorey Martine Work Phone: [facility] Path Spec Roosevelt HospStart: 07-02-2023 End: 14-00-4105eyqcgvpoqzTQHCM FAZIONot AvailableStart: 06-17-2023 End: 24-92-9161erevaoylzaBcaqu FazioFiCenterville Ctr Work Phone: Start: 06-17-2023 End: 13-48-0826Vzzozeum ReferredCorey Martine Work Phone: [facility] Path Spec Isabel HospStart: 06-13-2023 End: 22-43-9180Wxpfqcqvj Result EncounterCorey Martine DO Work Phone: noms External Department UnsolicitedStart: 06-13-2023 End: 53-05-0180Hjofnfsam Result EncounterCorey Martine DO Work Phone: noms External Department UnsolicitedStart: 06-11-2023 End: 37-05-4221jinqpbhoevXZWIH FAZIONot AvailableStart: 05-20-2023 End: 90-81-1745Xtfevjmpf Result EncounterCorey Martine DO Work Phone: noms External Department UnsolicitedStart: 05-20-2023 End: 59-48-7057Ndzajrxzg Result EncounterCorey Martine DO Work Phone: noms External Department UnsolicitedStart: 10-23-2022 End: 45-55-5309rkugyazmnqKgpzttk R NILLFacility:CD:[id number]: 10-08-2022 End: 49-29-6836hgifasssprWjvdefm R NILLFacility:GS BellevueStart: 10-08-2022 End: 61-34-3771Xxuhlkb encounter procedureMichael R NILL General Surgery Nill/Said Isabel Start: 06-20-2022 End: 08-93-3170fibhkeqhykYR DIPIKA MARTINE .Facility:A8Mloec: 06-10-2022 End: 66-20-0560ensswslkkaQW DIPIKA MARTINE .Facility:Y5Ddbzi: 05-23-2022 End: 47-89-5250wwfbnscjhwMOABRMRL EBERLYFacility:O7Nfwid: 05-17-2022 End: 81-67-7206avxxfsolvcKN DIPIKA MARTINE .Facility:Y5Zcqvk: 81-11-5332ezgrihlumx DR JAYDEN Alcocercility:Z3Grnlo: 01-21-2022 End: 53-21-7925yrbhpcfuudVHMIFTYS EBERLYFacility:J4Wcmik: 01-16-2022 End: 51-14-2017njewrndmyyGQ DIPIKA MARTINE .Facility:A5Nzxdw: 01-14-2022 End: 05-18-2591ygftwjjvxbWF JAYDEN HENDERSONFacility:M9Bhwdo: 01-11-2022 End: 04-26-7825zjfeusymmoSZ JAYDEN Bobby WESTFacility:H8Lipvg: 12-27-2021 End: 58-46-2812sclvkmnotoQZ JAYDEN Bobby WESTFacility:W1Pzqzc: 12-21-2021 End: 53-24-3511hlvgduaddzUZ JAYDEN Bobby WESTFacility:V2Xiefx: 12-13-2021 End: 31-30-3287aetgswqiksEN JAYDEN HENDERSONFacility:V8Tqyei: 12-07-2021 End: 07-54-4264fsqrdyqgezUB JAYDEN Bobby WESTFacility:Y1Fedwe: 11-29-2021 End: 11-38-8978fksuusrktjOH MIKEY A NADERERFacility:O2Jnyim: 11-22-2021 End: 28-75-0810chqzqhvdilWD MIKEY A NADERERFacility:J5Ikqqc: 09-27-2021 End: 85-70-3932jlklbzrowvEX MIKEY A NADERERFacility:R9Yrmdc: 09-20-2021 End: 05-90-3705dqjrumlskpRL MIKEY A NADERERFacility:R1Qsgiz: 09-11-2021 End: 99-27-4420lxhfcxflogUD MIKEY A NADERERFacility:X1Xhahg: 09-04-2021 End: 54-10-8520beahxueizdJQ MIKEY A NADERERFacility:A2Plasl: 74-18-8910zoajgjiuhs DR MIKEY Latif NADERERFacility:S3Eozns: 08-10-2021 End: 14-65-2855gqzjdiwolqEE MARC A NADERERFacility:G7Qkpah: 07-31-2021 End: 30-71-7370ewzlcfjdvoDI MIKEY Latif NADERERFacility:W6Iknzm: 07-03-2021 End: 96-89-0889pecxocckacED MIKEY Latif NADERERFacility:H1 Procedures DateProcedureProcedure DetailPerforming ClinicianStart: 99-80-3759EZ TOMOSYNTHESIS DIAGNOSTIC RTCorey Martine DO Work Phone: Start: 11-94-6363Kyiyj dip stick/tablet rgnt non-auto w/o micrscpCorey Martine DO Work Phone: Start: 58-19-6506EFD,APTIMA HPV,AGE GDLNGeneric External Data ProviderStart: 84-83-2674Bzoqaicpuqn observation [Identifier] in Cervix by Cyto stainCorey Martine DO Work Phone: Start: 17-27-6578PfgaztgzgzxWejbp Martine DO Work Phone: Start: 11-04-2559BXM LIPID PROFILE (FASTING)Mikey Davis MD Work Phone: Start: 24-74-1188ZFL THYROID STIM HORMONEMarc Marilynn WASHINGTON Work Phone: Start: 27-29-7970III CMP (CMP) (FOR REMOTE [facility] USE) Mikey Davis MD Work Phone: Start: 42-84-8475FMD HEMOGLOBIN Q6QPjmg Marilynn WASHINGTON Work Phone: Start: 07-05-7976WS TOMOSYNTHESIS SCREENING BIGeneric External Data ProviderStart: 43-85-7676UbettisejodPfjjtkv ProviderStart: 13-24-7917ASG 12-LEADCorey Martine DO Work Phone: Start: 15-76-4855VP PELVIS W/ TRANSVAGINALCorey Martine DO Work Phone: Start: 41-42-6553MA TOMOSYNTHESIS SCREENING Dilia Davis MD Work Phone: Dilation and curettageMichael NILL Endometrial ablationMichael NILL H/O: hysterectomyH/O: hysterectomyCorey Martine DO Work Phone: HysteroscopyMichael NILL Percutaneous transluminal laser ablation of veinMichael NILL Plan of Treatment DateCare ActivityDetailAuthorStart: 41-92-5332Geszblljn for malignant neoplasm of cervixNOMS HealthcareStart: 42-21-6287Pcicremje for malignant neoplasm of breastMammogramNOMS HealthcareStart: 72-40-9629Ljeypvzzy for malignant neoplasm of breastMammogramNOMS HealthcareStart: 97-56-2902Eqxizzkhx vaccinationInfluenza Vaccine (#1)[facility] HealthcareStart: 06-08-2024 End: 14-72-4259NXO Skeletal system Views for bone densityDEXA bone density Imaging Routine Osteoporosis, post-menopausal (CMS/HCC) Expected: 06/08/2024 (Approximate), Expires: 06/08/2025[facility] Work Phone: comment on above:Expected: 06/08/2024 (Approximate), Expires: 06/08/2025Start: 06-08-2024 End: 38-94-3909Gmyyblf encounter edgtnxnja05/15/2025 1:00 PM EDT Office Visit [facility] [address] [place] [address] Dipika Farley, DO [address] [place] [address] ArrivedNOMS BCP OBComment on above:ArrivedStart: 30-60-9858Nlhqpsosagi of right breastMM special view RT w/CADOhio Valley Hospitaltart: 42-52-4411YR Breast - right Single viewOhio Valley Hospitaltart: 06-01-2024 End: 35-02-4632Noeiitf encounter priofgnts31/08/2025 1:10 PM EDT Office Visit [facility] [address] [place] [address] Dipika Farley, DO [address] [place] [address] [facility] OBStart: 05-21-2024 End: 81-24-2187NR Breast - right DiagnosticRight diagnostic mammogram Imaging Routine Abnormal mammogram of right breast Expected: 05/21/2024,Expires: 07/21/2025[facility] Work Phone: Comment on above:Expected: 05/21/2024, Expires: 07/21/2025Start: 05-21-2024 End: 58-00-2052NL Breast - right limitedRight breast US limited Imaging Routine Abnormal mammogram of right breast Expected: 05/21/2024, Expires: 07/21/2025[facility] HealthcareComment on above:Expected: 05/21/2024, Expires: 07/21/2025Start: 63-48-9285Beuusajix for malignant neoplasm of breastMammogramCox South Start: 05-62-5784Wdbyislod for malignant neoplasm of colonNOUT HealthcareTHIN PREP TIS PAP AND HR HPV DNATHIN PREP TIS PAP AND HR HPV DNA Pathology and Cytology Routine Well woman exam with routine gynecological exam Ordered: 06/08/2024[facility] HealthcareComment on above:Ordered: 06/08/2024 Immunizations Immunization DateImmunizationNotesCare TcqhzkyjNaqtgxtf15-06-2042wjnhipvyx virus vaccine, unspecified formulationCorenathalia Farley DO Work Phone: [facility]OUT Kfjlqhczrj33-93-5815QYUC-AtZ-6 (COVID-19) mRNA- 1273 vaccineMichael NILL General Surgery Fhgfpkxp53-26-3992OGHG-NtK-0 (COVID-19) mRNA-1273 vaccineMichael NILL General Surgery Oyrqyubr72-76-1762PEQQ-PuN-2 (COVID-19) mRNA-1273 vaccineMichael NILL General Surgery [place] Payers DatePayer CategoryPayerPolicy [id number] [facility] Member Subscriber Plan / Payer (Effective 2022-Present) Name: warnersuni Franky Member ID: [id number] Relation to Subscriber: Self Name: Franky Cyr Subscriber ID: [id number] Payer ID: Not on file Type: Not on file Address: [address] [id number] [id number] 2..1.664895.3.579.[id number] 2..1.634780.3.579.2.67674-68-7518Tcacwcd5591807 2..1.332070.3.579.2.63412-53-4296Fgtslvd6282919 2..1.785765.3.579.2.62476-45-8928Axrayna2900672 2..1.588469.3.579.2.74759-53-0055Npmtmsn6812694 2..1.673642.3.579.2.96855-06-6564Tkpyqil8381491 2.16.840.1.870389.3.579.2.52368-12-1977Ohuewtz1231085 2.16.840.1.477671.3.579.2.19564-52-1867Arbouqx5155037 2.16.840.1.118889.3.579.2.55271-96-6751Ojfhcip2842153 2.16.840.1.082854.3.579.2.09485-03-5848Dbuktkb1280592 2.16.840.1.187111.3.579.2.16457-25-9862Zhusonr2020184 2.16840.1.973558.3.579.2.96501-08-0418Bctkpqw1504462 2.840.1.277418.3.579.2.27046-06-1120Rzvcuhs5663887 2.16840.1.018030.3.579.2.56462-42-7335Jwzkpce1988658 2.840.1.194126.3.579.2.72398-42-3150Homocrx3871454 2.840.1.799831.3.579.2.09062-36-1726Nrviibx9443007 2.840.1.775623.3.579.2.66769-39-1100Ezbftip1792721 2.16840.1.937625.3.579.2.59983-99-8669Votgajz8178567 2.16840.1.367551.3.579.2.81873-11-8273Pknikis3620342 2.840.1.634936.3.579.2.59377-77-1477Xxaenih1308179 2.16.840.1.244651.3.579.2.56176-09-9706Twzhimy1373211 2..840.1.817328.3.579.2.23761-60-8089Skpxioq6634696 2.16.840.1.604339.3.579.2.93577-93-7617Nuguhgx2953200 2..840.1.903462.3.579.2.19736-57-6114Raxpdyh01292450 2.16.840.1.281659.3.579.2.15861-66-7935Wzuvtbc35374490 2..840.1.399693.3.579.2.60911-39-4977Owzwdos7344031 2..840.1.754434.3.579.2.104854-25-5447Zksjoxb1071904 2..840.1.427675.3.579.2.105648-66-5954Njahpzg0416246 2..840.1.711734.3.579.2.643585-99-2125Nbelljg0978447 2..840.1.769971.3.579.2.797627-05-0896Pkijhjd3382599 2.840.1.212145.3.579.2.282349-76-9010Jpkj-kwz781029915Bogvwtu97545533 2.840.1.490046.3.579.2.531 Social History DateTypeDetailFacilityStart: 10-08-2022 End: 87-21-9870Mivnksw smoking statusNever smoked tobacco (finding)General Surgery BellevueStart: 00-47-8600Rkxwcys smoking statusNeverGeneral Surgery BellevueStart: 09-10-2023 End: 14-70-6800Und Assigned At BirthMercy Health St. Rita's Medical Centertart: 70-54-6955Kdr Assigned At BirthFeHolmes County Joel Pomerene Memorial Hospitaltart: 82-12-0931Wrvmdet use and exposureSmokeless tobacco non-userN[facility] Start: 09-10-2023 End: 20-13-4312Helnezghw beverage intakeLifetime non-drinker (finding)[facility] HealthcareStart: 09-10-2023 End: 90-72-6024Zcabxfa of Social functionMOUNTAIN POINT MEDICAL [facility]ENTER HealthcareStart: 66-33-5470Eve assigned at birthNot on fileMOUNTAIN POINT MEDICAL [facility]ENTER HealthcareTobacco smoking status NHISUnknown if ever smokedNOUT HealthcareStart: 30-22-8215TzfXakhhx (finding)[facility] Functional Status EdknXuozzejzarYcvgyeVchykfev96-40-2550Swprlrxpts StatusN/AGeneral Surgery Isabel History of Present illness Narrative 06-08-2024 Note Date & EaxiBjglRogilyyz71-99-8010 History of Present illness Narrative* Mary Huff, CANDELARIO - 06/08/2024 1:00 PM EDT Reason for Appointment: Patient ID: Franky Cyr [...] Age of Onset Rheum arthritis Mother Gabby Clunk Cancer Father Scott Diabetes Father Scott Hypertension [...] nursing note reviewed. Exam conducted with a alumni relations officer present. Vitals: Estimated body mass index is [...] urinalysis dipstick manually resulted 2. Osteoporosis, post-menopausal ([facility]) M81.0 DEXA bone density 3. H/O: hysterectomy [...] of: Dipika Farley DO documented in this encounterCox South Clinical Note 10-08-2022 Note Date & RbgbRltnNhizjujy35-78-2234 NoteChief Complaint consultation for screening colonoscopy [facility] Staff 52 year old female presents [...] SBE prophylaxis; no abdominal operations, no previous colonoscopy;no fmhx of GI malignancy or IBD; no tobacco use. Review of Systems PHQ Score Initial Depression Screen Score: 0 ROS - Provider Constitutional: no fever, no sweats, no weight loss. Eyes: no glasses, no blurred vision, no visual loss. ENMT: no dentures, no hoarseness, no swallowing difficulties, no hearing loss, no ear infection(s),no nose bleeds. Cardiovascular: normal blood pressure, no [...] 03/22/2020 Recorded SARS-CoV-2 (COVID-19) mRNA-1273 vaccine 02/22/2020 RecordedMedina HospitalComment on above:Result Comment: Electronically Signed By: PATO WASHINGTON, Leon Robb\Date and Time Signed: 10/08/22 21:36 EDT Clinical Note 09-04-2021 Note Date & JxgtZhhhJjtffyzc48-21-0190 NotePROCEDURE: MRI PELVIS WO CON COMPARISON: None. HISTORY: Disorder of [...] Electronically authenticated by: JAYDEN HENDERSON Date: 2021-09-04 16:23[facility] Evaluation + Plan note Note Date & TypeNoteFacilityEvaluation + Plan note No data available for this section [facility] Evaluation note Note Date & TypeNoteFacilityEvaluation noteNo assessment information available [facility] Work Phone: Evaluation note Note Date & TypeNoteFacilityEvaluation note* Diagnosis Abnormal mammogram of right breast- Primary documented in this encounter [facility] Evaluation note Note Date & TypeNoteFacilityEvaluation note* Diagnosis Well woman exam with routine gynecological exam Routine gynecological examination Osteoporosis, post-menopausal ([facility]) Senile osteoporosis H/O: hysterectomy Acquired absence of both cervix and uterus documented in this encounter [facility] Discharge instructions Note Date & TypeNoteFacilityHospital Discharge instructions No data available for this section [facility] Progress note Note Date & TypeNoteFacilityProgress note No data available for this section [facility] Summary Purpose Family History No Family History [...] section and content) DATE CREATED AUTHOR 06/24/2022 [facility] DATE CREATED AUTHOR AUTHOR'S ORGANIZ ATION 11/01/2022 [facility] DATE CREATED AUTHOR AUTHOR'S ORGANIZ ATION 06/08/2024 [facility] DATE CREATED AUTHOR AUTHOR'S ORGANIZ ATION 06/10/2024 [facility] EPIC Patient Care team informatio n (unrecognized section and content) Team Status: Inactive Member Role Status Dates Dipika Farley Attending Provider Active Start: Ap 2023 End: June 17, 2023 Team Status: Inactive Member Role Status Dates Dipika Farley Attending Provider Active Start: 2023 End: July 30, 2023Team MemberRelationshipSpecialtyStart DateEnd Date Mikey Davis MD [address] [place] [address] PCP - [facility] Medicine06/11/23Team MemberRelationshipSpecialtyStart DateEnd Date Mikey Davis MD [address] [place] [address] PCP - [facility] Medicine06/11/23 Team Status: Active Member Role Status Dates Mikey Davis MD Primary Care Provider Active Team Status: Inactive Member Role Status Dates Mikey Davis MD Primary Care Provide , Attending Provider Active Start: June 03, 2024 End: June 03, 2024Team MemberRelationshipSpecialtyStart DateEnd Date Mikey Davis MD [address] [place] [phone] [facility]/11/23Team MemberRelationshipSpecialtyStart DateEnd Date Mikey Davis MD [address] [place] [address] PCP - [facility]06/11/23Te MemberRelationshipSpecialtyStart DateEnd Date Mikey Davis MD PCP - [facility]06/11/23Te MemberRelationshipSpecialtyStart DateEnd Date Mikey Davis MD PCP - [facility]06/11/23 Goals (unrecognized section and content) Goals may be documented in a n alternate section Reason for Visit (unrecogniz ed section and content) ReasonCommentsGynecologic Exam FOR RECORDS PERTAINING TO PATIENTS WHO [...] ON THE PRIMARY CLINICAL RECORDS. [facility]. provides no warranty or guarantee of the accuracy or completeness of information in this document.
--- OUTSIDE RECORDS SUMMARY | 2024-12-28 07:13 | XMS_ITS | Encounter Summary ---
Author Organization [facility] Address [address] [place] [address] Care Team Providers Care Plastic Mixer Name Role Phone Mikey Subramanian MD Primary Care Provider [phone] Encounter Details DateTypeDepartmentCare Team (Latest Contact Info)Tmcfthmdqan76/26/2024Clinisync Result Encounter [facility] External Department Unsolicited Mikey Subramanian MD [address] [place] [address] Social History Tobacco UseTypesPacks/DayYears UsedDateSmoking Tobacco: Never Assessed CommentsUnknownSex and Gender InformationValueDate RecordedSex Assigned at Not on fileLegal UegCjnaks29/15/2023 7:30 PM EDTGender IdentityNot on fileSexual OrientationNot on filedocumented as of this encounter Plan of Treatment Not on file documented as of this encounter Procedures Procedure NamePriorityDate/TimeAssociated DiagnosisCommentsMM TOMOSYNTHESIS SCREENING BI05/20/2023 3:28 PM EDT documented in this encounter Results * MM TOMOSYNTHESIS SCREENING BI (05/20/2023 3:28 PM EDT)Anatomical Region LateralityModalityOtherSpecimen (Source)Anatomical Location / Laterality Collection Method / VolumeCollection TimeReceived Time05/20/2023 3:28 PM EDT Narrative 05/20/2023 3:29 PM EDT [facility] ?[address] ? [place] [address] ? Mammography Report ? Signed ? Patient: GER,FRANKY Childers ?MR#: [id number] ?? : 1970 ?Acct:[id number] ?? Age/Sex: 53 / F ?ADM Date: 03/26/24 ?? Loc: MAMMO ? Attending Dr: Mikey Subramanian M.D. ? Ordering Physician: Mikey Subramanian M.D. ?Results: ? Date of Service: 05/20/23 ?Follow Up: ? Procedure(s): MM tomosynthesis screening BI ?? Accession Number(s): [id number] ? cc: Mikey Subramanian M.D. ? Patient Name: ? FRANKY GER ? MR#: [id number] ? : 1970 ? Exam Date: 05/20/2023 ?? Ordering Doctor: DR Mikey Subramanian . ? RADIOLOGY REPORT ? PROCEDURE: ? MM TOMOSYNTHESIS SCREENING BI ? COMPARISON: ? MG MAMM SCREEN 3D KATHY CAD, 05/17/2022. ??MG MAMM SCREEN 3D KATHY ?? CAD, 05/10/2021. ? INDICATIONS: ? screening ? Calculator Name ? NCI Breast Cancer Risk Assessment Tool ?? 5 Year Breast Cancer Risk ? 1.60% ?? Lifetime Breast Cancer Risk ? 12.60% ?? Personal Breast Cancer ?No ?? Personal Ovarian Cancer ? No ?? Treatments ? None ?? Family Cancers ? Grandmother-paternal with breast cancer at age 70. ? LOCATION: ? [facility] ? BREAST COMPOSITION: ? Extremely dense, which lowers the sensitivity of ?? mammography. ? FINDINGS: ? DIAGNOSTIC CATEGORY 2--BENIGN FINDING. NO CHANGE FROM COMPARISON. ? Scattered benign-appearing nodules are present. ??Scattered benign-appearing ?? calcifications are present. ??Scattered benign-appearing lymph nodes are ?? present. ? RIGHT BREAST: ??No significant suspicious finding. ? LEFT BREAST: ??No significant suspicious finding. ? RECOMMENDATIONS: ? ROUTINE MAMMOGRAM AND CLINICAL EVALUATION IN 12 MONTHS. ? PLEASE NOTE: ??A NORMAL MAMMOGRAM DOES NOT EXCLUDE THE POSSIBILITY OF BREAST ?? CANCER. ??A CLINICALLY SUSPICIOUS PALPABLE LUMP SHOULD BE BIOPSIED. ? Dictated by: Joni Kinsey MD on 05/20/2023 at 15:27 ? Approved by: Joni Kinsey MD on 05/20/2023 at 15:28 ? Dictated By: ?Joni Kinsey M.D. ? Signed By: ?05/20/23 1529 ? DD/ 1528 ? TD/TT: ? Inventory Coordinator: Procedure Note Radiology, Radiologist, MD - 05/20/2023 [place] [address] Mammography Report Signed Patient: FRANKY CYR R#: [id number] : 1970Acct:[id number] Age/Sex: 53 / FADM Date: 05/20/23 Loc: MAMMO Attending Dr: Mikey Subramanian M.D. Ordering Physician: Mikey Subramanian M.D.Results: Date of Service: 05/20/23Follow Up: Procedure(s): MM tomosynthesis screening BI Accession Number(s): [id number] cc: Mikey Subramanian M.D. Patient Name: FRANKY CYR MR#: [id number] : 1970 Exam Date: 05/20/2023 Ordering Doctor: [...] at age 71. LOCATION: [facility] BREAST COMPOSITION: Extremely dense, which lowers [...] M.D. Signed By:05/20/23 1529 DD/ 1528 TD/TT: Inventory Coordinator: Authorizing ProviderResult TypeResult StatusMarc Marilynn [facility] IMAG[facility] Final Result documented in this encounter Visit Diagnoses Not on filedocumented in this encounter Care Teams Team MemberRelationshipSpecialtyStart DateEnd Date Mikey Subramanian MD PCP - GeneralFamily Medicine06/11/23documented as of this encounter
--- OUTSIDE RECORDS SUMMARY | 2024-12-28 07:13 | XMS_ITS | Clinical Summary ---
Author Organization [facility] Address [address] [facility] [place] [address] Care Team Providers Care Air Sampler Name Role Phone Mikey Subramanian MD Primary Care Provider [phone] Allergies No known active allergies Medications MedicationSigDispense QuantityRefillsLast FilledStart DateEnd DateStatus ibuprofen 800 MG tablet Take 800 mg by mouth every 8 (eight) hours4Active Active Problems ProblemNoted DateDiagnosed DateAbnormal mammogram of right vgwtzy6505/21/2024 Encounters DateTypeDepartmentCare LvciBwmrslvsvhf90/07/2025Clinisync Result Encounter [facility] External Department Unsolicited Dipika Farley, DO 11/18/2024Telephone [facility] [address] [place] [address] Dipika Farley, DO 11/16/2024Telephone [facility] [address] [address] Mayr Huff LPN 10/13/2024Telephone [facility] [address] [place] [address] Ivelisse Gil MA from Last 3 Months Family History Medical HistoryRelationNameCommentsCancerFatherSteveDiabetesFatherSteve HypertensionFatherSteveStrokeFatherSteveRheum arthritisMotherDorothy Clunk RelationNameStatusCommentsFatherSteveMotherDorothy Clunk Social History Tobacco UseTypesPacks/DayYears UsedDateSmoking Tobacco: NeverSmokeless Tobacco: Never Tobacco Cessation:Counseling Given: Not Answered Alcohol UseStandard Drinks/WeekCommentsNever0 (1 standard drink = 0.6 oz pure alcohol)CommentsNoSex and Gender InformationValueDate RecordedSex Assigned at BirthNot on fileLegal KqoYuytfg57/15/2023 7:30 PM EDTGender Identity Not on fileSexual OrientationNot on file Last Filed Vital Signs Vital SignReadingTime TakenCommentsBlood Tjlvmspn572/7204 1:16 PM EDT Pulse--Temperature--Respiratory Rate--Oxygen Saturation--Inhaled Oxygen Concentration--Bacgkd88.1 kg (128 lb)06/08/2024 1:16 PM ZXWUrqbfp983.6 cm (5' 4 )09/10/2023 1:12 PM EDTBody Mass Index21.9709/10/2023 1:12 PM EDT Plan of Treatment Not on file Procedures Procedure NamePriorityDate/TimeAssociated DiagnosisCommentsMM TOMOSYNTHESIS DIAGNOSTIC RT11/30/2024 1:39 PM EDT from Last 3 Months Results * MM TOMOSYNTHESIS DIAGNOSTIC RT (11/30/2024 1:39 PM EDT)Anatomical Region LateralityModalityOtherSpecimen (Source)Anatomical Location / Laterality Collection Method / VolumeCollection TimeReceived Time11/30/2024 1:39 PM EDT Narrative 11/30/2024 1:40 PM EDT [facility] ?[address] ? [place] [address] ? Mammography Report ? Signed ? Patient: FRANKY CYR ?MR#: [id number] ?? : 1970 ?Acct:[id number] ?? Age/Sex: 54 / F ?ADM Date: 11/30/24 ?? Loc: MAMMO ? Attending Dr: Dipika Cavazos.O. ? Ordering Physician: Dipika Farley D.O. ?Results: ? Date of Service: 11/30/ ?Follow Up: ? Procedure(s): MM tomosynthesis diagnostic RT ?? Accession Number(s): [id number] ? cc: Dipika Farley D.O.; Bradley Sullivan M.D. ? Patient Name: ? FRANKY CYR ? MR#: [id number] ? : 1970 ? Exam Date: 11/30/2024 ?? Ordering Doctor: DR DIPIKA FARLEY . ? RADIOLOGY REPORT ? PROCEDURE: ? MM TOMOSYNTHESIS DIAGNOSTIC RT ? COMPARISON: ? MG MAMM DX 3D RT CAD, 06/03/2024. ??MM TOMOSYNTHESIS SCREENING ?? BI, 05/20/2024. ??MM TOMOSYNTHESIS SCREENING BI, 05/20/2023. ??MG MAMM SCREEN 3D ?? KATHY CAD, 05/17/2022. ? INDICATIONS: ? Abnormal Mammogram Of Right Breast ? Calculator Name ? NCI Breast Cancer Risk Assessment Tool ?? 5 Year Breast Cancer Risk ? 1.60% ?? Lifetime Breast Cancer Risk ? 12.40% ?? Personal Breast Cancer ?No ?? Personal Ovarian Cancer ? No ?? Treatments ? None ?? Family Cancers ? Grandmother-paternal with breast cancer at age 70. ? LOCATION: ? [facility] ? BREAST COMPOSITION: ? The breasts are extremely dense, which lowers the ?? sensitivity of mammography. ? FINDINGS: ? DIAGNOSTIC CATEGORY 2--BENIGN FINDING: ? RIGHT BREAST: ??The previously identified suspicious microcalcifications within ?? the upper inner quadrant of the right breast appear loosely grouped and ?? punctate in morphology suggesting a benign process. ??No associated mass is ?? present. ? RECOMMENDATIONS: ? ROUTINE MAMMOGRAM AND CLINICAL EVALUATION IN 6 MONTHS. ? Dictated by: Merritt Grace DO on 11/30/2024 at 13:32 ? Approved by: Merritt Grace DO on 11/30/2024 at 13:39 ? Dictated By: ?Merritt Grace M.D. ? Signed By: ?11/30/24 1340 ? DD/ ? TD/TT: ? Digital Engineer: Procedure Note Radiology, Radiologist, MD - 11/30/2024 [place] [address] Mammography Report Signed Patient: FRANKY CYR JMR#: [id number] : 1970Acct:[id number] Age/Sex: 54 / FADM Date: 11/30/24 Loc: MAMMO Attending Dr: Dipika Farley D.O. Ordering Physician: Dipika Farley D.O.Results: Date of Service: 11/30/24Follow Up: Procedure(s): MM tomosynthesis diagnostic RT Accession Number(s): [id number] cc: Dipika Farley D.O.; Bradley Sullivan M.D. Patient Name: FRANKY CYR MR#: [id number] : 1970 Exam Date: 11/30/2024 Ordering Doctor: DR DIPIKA FARLEY . RADIOLOGY REPORT PROCEDURE: MM TOMOSYNTHESIS DIAGNOSTIC RT COMPARISON: MG MAMM DX 3D RT CAD, 06/03/2024. MM TOMOSYNTHESISSCREENING BI, 05/20/2024. MM TOMOSYNTHESIS SCREENING BI, 05/20/2023. MG MAMM QXMRUF0U KATHY CAD, 05/17/2022. INDICATIONS: Abnormal Mammogram Of Right Breast Calculator Name NCI Breast Cancer Risk Assessment Tool 5 Year Breast Cancer Risk 1.60% Lifetime Breast Cancer Risk 12.40% Personal Breast Cancer No Personal Ovarian Cancer No Treatments None Family Cancers Grandmother-paternal with breast cancer at age 70. LOCATION: [facility] BREAST COMPOSITION: The breasts are extremely dense, which lowers the sensitivity of mammography. FINDINGS: DIAGNOSTIC CATEGORY 2--BENIGN FINDING: RIGHT BREAST: The previously identified suspicious microcalcificationswithin the upper inner quadrant of the right breast appear loosely grouped and punctate in morphology suggesting a benign process. No associated mass is present. RECOMMENDATIONS: ROUTINE MAMMOGRAM AND CLINICAL EVALUATION IN 6 MONTHS. Dictated by: Merritt Grace DO on 11/30/2024 at 13:32 Approved by: Merritt Grace DO on 11/30/2024 at 13:39 Dictated By: Merritt Grace M.D. Signed By:11/30/24 1340 DD/ 1339 TD/TT: Digital Engineer: Authorizing ProviderResult TypeResult StatusCorey Martine DOCLINISYNC IMAGINGFinal Result from Last 3 Months Insurance Care Teams Team MemberRelationshipSpecialtyStart DateEnd Date Mikey Subramanian MD PCP - GeneralFamily Medicine06/11/23
--- OUTSIDE RECORDS SUMMARY | 2024-12-28 07:13 | XMS_ITS | Clinical Summary ---
Author Organization [facility] tem Address [facility] [id number] [address] [place] [address] Care Team Providers Care Curb Worker Name Role Phone Mikey Subramanian MD Primary Care Provider [phone] Allergies No known active allergies Medications No known medications Active Problems ProblemNoted DateDiagnosed DateVenous wocwapkgzlyjd35/21/2022DDD (degenerative disc disease), ktfyzt3308/14/2021Varicose veins of both lower extremities with pain07/31/2021Intermittent hcvrymzgwncf43/07/2022ersonal history of DVT (deep vein thrombosis)07/31/2021 Family History Medical HistoryRelationNameCommentsCoronary artery diseaseFatherDiabetesFather Diabetes type IIFatherHypertensionFatherUlcerative colitisFatherDiverticulitis MotherRelationNameStatusCommentsFatherMother Social History Tobacco UseTypesPacks/DayYears UsedDateSmoking Tobacco: NeverSmokeless Tobacco: NeverAlcohol UseStandard Drinks/WeekCommentsYes0 (1 standard drink = 0.6 oz pure alcohol)OccasionallyChildcareAnswerDate AuzbonvwTvnjfnvdkTwsczxu83/10/2019 EmploymentAnswerDate CdknnrkhGmfvboyuaxHokdeyk98/10/2019CommentsUnknown Sex and Gender InformationValueDate RecordedSex Assigned at BirthNot on file Legal JdrHunnsx64/04/2015 4:07 PM EDTGender IdentityNot on fileSexual OrientationNot on file Last Filed Vital Signs Vital SignReadingTime TakenCommentsBlood Djiuisbt036/8208 9:54 AM EDT Yfcon2799/07/2022 11:16 AM EDTTemperature--Respiratory Kbjt171607/31/2021 11:16 AM EDTOxygen Jmizwhgqmj91%07/31/2021 11:16 AM EDTInhaled Oxygen Concentration-- Lynjhg90.7 kg (129 lb 6.4 oz)10/18/2021 9:54 AM KJIIkcbci843.6 cm (5' 4 ) 10/18/2021 9:54 AM EDTBody Mass Index22.21010/18/2021 9:54 AM EDT Plan of Treatment Health MaintenanceDue DateLast DoneCommentsDepression Bhtszsjxq75/26/1983Tobacco Ctseqcpit43/26/1983Adult BMI Tpwsexlnk03/26/1989DTaP,Tdap and Td Vaccines (1 - Tdap)1990Pap Smear01/20/1992Zoster (Shingles) Vaccine (1 of 2)2021 COVID-19 Vaccine (4 - season)51, 03/22/2020, 02/22/2020Influenza Ahiiqfl1110/25/2024 Medical Devices Not on file Insurance MemberSubscriberPlan / Payer (Effective 2021-Present)Name:Augusta Cyr Relation to Subscriber:SelfName:Augusta Cyr Payer ID:Not on file Type:Not on file Address: [place] [id number] Care Teams Team MemberRelationshipSpecialtyStart DateEnd Date Mikey Subramanian MD PCP - GeneralFamily Medicine10/12/21
--- OUTSIDE RECORDS SUMMARY | 2024-12-28 07:13 | XMS_ITS | Encounter Summary ---
Author Organization [facility] Address [address] [place] [address] Care Team Providers Care Job Interviewer Name Role Phone Mikey Subramanian MD Primary Care Provider [phone] Encounter Details DateTypeDepartmentCare Team (Latest Contact Info)Pzhntxeosqh91/26/2024Clinisync Result Encounter [facility] Unsolicited Dipika Farley, DO [address] [facility] [place] [address] Social History Tobacco UseTypesPacks/DayYears UsedDateSmoking Tobacco: Never Assessed CommentsUnknownSex and Gender InformationValueDate RecordedSex Assigned at Not on fileLegal IacQnnrny00/15/2023 7:30 PM EDTGender IdentityNot on fileSexual OrientationNot on filedocumented as of this encounter Plan of Treatment Not on file documented as of this encounter Procedures Procedure NamePriorityDate/TimeAssociated DiagnosisCommentsUS PELVIS W/ IVECKXYGESEO13/26/2024 4:09 PM EDT documented in this encounter Results * US PELVIS W/ TRANSVAGINAL (05/20/2023 4:09 PM EDT)Anatomical RegionLaterality ModalityOtherSpecimen (Source)Anatomical Location / LateralityCollection Method / VolumeCollection TimeReceived Time05/20/2023 4:09 PM EDT Narrative 05/20/2023 4:12 PM EDT [facility] ?[address] ? [place] [address] ? Ultrasound Report ? Signed ? Patient: GER,FRANKY J ?MR#: [id number] ?? : 1970 ?Acct:[id number] ?? Age/Sex: 53 / F ?ADM Date: 03/26/24 ?? Loc: US ? Attending Dr: Dipika Farley D.O. ? Ordering Physician: Dipika Farley D.O. ?? Date of Service: 05/20/23 ?? Procedure(s): US pelvis w/ transvaginal ?? Accession Number(s): [id number] ? cc: Dipika Farley D.O.; Mikey Subramanian M.D. ? [facility] ? [address] ? [place] [address] ? Patient Name: ?? FRANKY CYR ? MRN: [facility]:[id number] ? date: 1970 ?Sex: F ?? Assigned Patient Location: US ?? Current Patient Location: [facility] ?? Accession/Order Number: [id number] ?? Exam Date: 05/20/2023 ??14:00 ?Report Date: 05/20/2023 ??16:09 ? At the request of: ?? DIPIKA ??MARTINE ? Procedure: ??US pelvis w/ transvaginal ? EXAMINATION: US pelvis w/ transvaginal ? HISTORY: pelvic pain in female R10.2 ? COMPARISON: No relevant comparison available. ? FINDINGS: ? The uterus is prominent in size heterogeneous in echotexture and lobular in ?? contour measuring 8.1 x 5.7 x 6.4 cm. 2 focal myometrial masses measuring 3.0 ?? x ?? 3.1 x 2.3 cm posterior and at the myometrial endometrial junction measuring ?? 2.7 ?? x 2.6 x 2.1 cm. ? The endometrium measures 2.1 cm, heterogeneous and thickened. ? The right ovary is not visualized ? The left ovary measures 4.7 x 2.6 x 3.5 cm. Identified in the left ovary is a ?? 2.3 x 2.2 cm anechoic area with layering low-level echoes but no color-flow ? US/US pelvis w/ transvaginal ?? IMPRESSION: ? Thickened heterogeneous endometrium, correlate with the menstrual cycle ? Two focal masses possibly fibroids ? 2.3 cm left ovarian complex or hemorrhagic cyst ? Electronically authenticated by: JAYDEN ??BEATRIZ ?? Date: 05/20/2023 ??16:09 ? Dictated By: ?Jayden Henderson M.D. ? Signed By: ?05/20/23 1612 ? DD/ 1609 ? TD/TT: ? Slip Mixer: Procedure Note Radiology, Radiologist, - 05/20/2023 The [place] [id number] Ultrasound Report Signed Patient: FRANKY CYR JMR#: [id number] : 1970Acct:[id number] Age/Sex: 53 / FADM Date: 05/20/23 Loc: US Attending Dr: Dipika Farley D.O. Ordering Physician: Dipika Farley D.O. Date of Service: 05/20/23 Procedure(s): US pelvis w/ transvaginal Accession Number(s): [id number] cc: Dipika Farley D.O.; Mikey Subramanian M.D. The [address] [address] Patient Name: FRANKY CYR MRN: [id number] date: 1970 Sex: F Assigned Patient Location: [place] Current Patient Location: [facility] Accession/Order Number: [id number] Exam Date: 05/20/2023 14:00 Report Date: 05/20/2023 [...] Dictated By: Jayden Henderson M.D. Signed By:05/20/23 1612 DD/ 1609 TD/TT: Slip Mixer: Authorizing ProviderResult TypeResult StatusCorey Martine DOCLINISYNC IMAGINGFinal Result documented in this encounter Visit Diagnoses Not on filedocumented in this encounter Care Teams Team MemberRelationshipSpecialtyStart DateEnd Date Mikey Subramanian MD PCP - GeneralFamily Medicine06/11/23documented as of this encounter
== END 2024-12-27 14:31 | disposition home or self-care (01) ==
LOC: SLEEP 12-28 07:09
PROVIDERS: PCP Family Medicine; Visit Provider Family Medicine
DX: G47.33 Obstructive sleep apnea (adult) (pediatric) (principal)
CPT/HCPCS: 95806